=== PATIENT | female | born 1955 | race Two or more races ===

== ENCOUNTER 2017-02-08 07:33 | Emergency (ER) | payer MEDICAID, OTHER ==
[~2017-02-08] VITALS: Ht 149.9 cm; Wt 63.5 kg
[~2017-02-08 07:33] MED LIST: ACETAMINOPHEN-1 EAC1 ORAL; ALBUTEROL SULF8.5 GM INH; AZITHROMYCIN250 MG ORAL; BENTYL10 MG ORAL; IBUPROFEN600 MG ORAL; MEDROL DOSEPAK4 MG ORAL; NORCO 5-325 TA1 EAC1 ORAL; PROMETHAZINE-C118 M1 ORAL; RANITIDINE HCL150 MG ORAL; TYLENOL EXTRA500 MG ORAL; ZANTAC150 MG ORAL; ZOFRAN ODT4 MG ORAL; ZOFRAN4 MG ORAL
--- NOTE | 2017-02-08 07:46 | Emergency Room Report ---
History of Present Illness General Chief Complaint: Abdominal Pain Source: Patient Present Illness HPI 62 YO F with generalized abd pain, nausea and vomiting with diarrhea for 24 hours. Pain acutely worse for last 4 hours, is epigastric/midline, non- radiating. Patient unsure if different from her typical gastritis type pain; but hasnt taken meds for Gastritis in "long time." Denies urinary complaints, previous abd/pelvic surgery. Allergies: Coded Allergies: PENICILLIN (Verified Allergy, Unknown, 12/01/15) SHELLFISH (Verified Allergy, Unknown, 12/01/15) Patient History Past Medical History: other - Gastritis Past Surgical History: none Pertinent Family History: none Social History: Denies: alcohol use, drug use, smoking Last Menstrual Period: na Now: No Immunizations: UTD Reviewed Nursing Documentation: PMH: Agreed, PSxH: Agreed Nursing Documentation-PMH Hx Gastrointestinal Problems: Yes - gastric ulcer Review of Systems All Other Systems: negative except mentioned in HPI Physical Exam Vital Signs Date Time Temp Pulse Resp B/P Pulse Ox O2 Delivery O2 Flow Rate FiO2 02/08/17 07:41 97.2 63 22 125/61 99 Room Air Sp02 EP Interpretation: reviewed, normal General Appearance: normal inspection, well appearing, alert, GCS 15, non-toxic , mild distress, other - crying, writhing on stretcher Head: normocephalic, atraumatic Eyes: bilateral eye EOMI, bilateral eye PERRL ENT: normal ENT inspection, hearing grossly normal, normal voice, moist mucus membranes Neck: normal inspection, full range of motion, supple, no bony tend Respiratory: normal inspection, lungs clear, normal breath sounds, no respiratory distress, no retraction, no wheezing Cardiovascular #1: regular rate, rhythm, no edema Gastrointestinal: normal inspection, normal bowel sounds, soft, no mass, non- distended, no guarding, no hernia, no pulsatile mass, no rebound, other - ++ epigastric/midline ttp. No posterior ecchymoses Genitourinary: no CVA tenderness Musculoskeletal: normal inspection, back normal, normal range of motion, Raffaele' s Sign negative Neurologic: normal inspection, alert, oriented x3, responsive, balance bridge assembler III-XII nml as tested, motor strength/tone normal, speech normal Psychiatric: normal inspection, judgement/insight normal, mood/affect normal Skin: normal inspection, normal color Lymphatic: normal inspection Medical Decision Making Diagnostic Impression: Primary Impression: Abdominal pain Qualified Codes: R10.13 - Epigastric pain Additional Impressions: Nausea vomiting and diarrhea Colitis Enteritis ER Course 62 YO F with progressive worsening of epigastric/midline pain with nausea/ vomiting/diarrhea. VSS. Afebrile Focal midline ttp DDx gastritis, ulcers, colitis, AMI, appy, denzel PLAN Labs, UA, analgesia, anti-emetic, CTAP EKG Diagnostic Results Rate: normal Rhythm: NSR ST Segments: no acute changes Rhythm Strip Diag. Results EP Interpretation: yes Rate: 78 Rhythm: NSR, no PVC's, no ectopy Chest X-Ray Diagnostic Results EP Interpretation: Yes Findings: no consolidation, no effusion, no pneumothorax, no acute cardiopulmonary disease, other - no perforation Number of Views: 1 Reevaluation Time: 10:21 Last Vital Signs Date Time Temp Pulse Resp B/P Pulse Ox O2 Delivery O2 Flow Rate FiO2 02/08/17 07:41 97.2 63 22 125/61 99 Room Air Status: improved Reevaluation Impression Labs: Leuks 18k. Normal H&H. Lipase, LFTs normal CTAP c/w colitis, enteritis. GB wall thickening but no stones or CBD dilatation Empiric Levo/flagyl given IVF hydration given Endorsed to Dr Gaston at [facility] for med/surg admission/ transfer at 1039am patient stable for transfer Disposition: ADMITTED INPATIENT Condition: Serious NAHED VIRK M.D. Feb 08, 2017 07:46
[2017-02-08] MEDS ORDERED: Morphine Sulfate 4mg/ml Inj IVP ONE (08:00)
[2017-02-08] MEDS ORDERED: Famotidine 20 MG/ 2ML VIAL IVP ONE (08:00)
[2017-02-08 08:31] LABS: MEAN CORPUSCULAR HGB CONC 31.7 G/DL (32.0-36.0); MEAN CORPUSCULAR VOLUME 85 FL (80-99); MEAN PLATELET VOLUME 7.9 FL (6.5-10.1); PLATELET COUNT 149 K/UL (150-450); RED BLOOD COUNT 4.97 M/UL (4.20-5.40); RED CELL DISTRIBUTION WIDTH 14.1 % (11.6-14.8); WHITE BLOOD COUNT 18.1 K/UL (4.8-10.8)
[2017-02-08 08:34] VITALS: BP 125/56
[2017-02-08] MEDS ORDERED: metroNIDAZOLE 500mg 100 ML IV STA (08:40)
[2017-02-08] MEDS ORDERED: LR 1000ml 1,000 ML IV STA (08:43)
[2017-02-08] MEDS ORDERED: LR 1000ml 1,000 ML IV SCH (08:45)
[2017-02-08 08:47] LABS: ALANINE AMINOTRANSFERASE 30 U/L (3-33); ALBUMIN/GLOBULIN RATIO 1.3 (1.0-2.7); ANION GAP 14 (5-15); ASPARTATE AMINO TRANSFERASE 27 U/L (5-40); CARBON DIOXIDE 28 mEQ/L (20-30); CHLORIDE 99 mEQ/L (98-107); CREATININE 0.7 mg/dL (0.5-0.9); GLOMERULAR FILTRATION RATE > 60 mL/min (>60); HEMOLYSIS 12; LIPASE 25 U/L (< 60); POTASSIUM 3.7 mEQ/L (3.4-4.9); SODIUM 141 mEQ/L (135-145); TOTAL PROTEIN 7.5 g/dL (6.6-8.7); TROPONIN I < 0.30 ng/mL (<=0.30)
[2017-02-08 08:53] LABS: REFLEX LACTIC ACID YES OR NO YES
[2017-02-08] MEDS ORDERED: Pantoprazole Inj IVP ONE (09:00)
--- NOTE | 2017-02-08 09:44 | Diagnostic Imaging Report ---
Indication: Chest pain Technique: One view of the chest Comparison: none Findings: Lungs and pleural spaces are clear. Heart size is normal Impression: No acute process
[2017-02-08 09:48] LABS: BAND NEUTROPHILS % (MANUAL) 0 % (0-8); BASOPHILS % (MANUAL) 0 % (0-2); EOSINOPHILS % (MANUAL) 0 % (0-3); LYMPHOCYTES % (MANUAL) 10 % (20-45); NEUTROPHILS % (MANUAL) 84 % (45-75); PLATELET ESTIMATE ADEQUATE; PLATELET MORPHOLOGY NORMAL; TOTAL CELLS COUNTED 100
[2017-02-08 09:51] LABS: HYPOCHROMASIA 1+
--- NOTE | 2017-02-08 10:19 | Diagnostic Imaging Report ---
Clinical Indication: Generalized abdominal pain, nausea, vomiting and diarrhea x24 hours, worse over last 4 hours, epigastric midline nonradiating Technique: No oral contrast utilized, per emergency room physician request IV administration nonionic contrast. Venous phase spiral acquisition obtained through the abdomen and pelvis. Multiplanar reconstructions were generated. Total dose length product 761 mGycm. CTDIvol(s) 15 mGy Comparison: 12/21/2015 Findings: The appendix is normal. There is marked wall thickening of the cecum and ascending colon, to a lesser extent of the proximal to mid transverse colon. There is no evidence of diverticulosis or diverticulitis. The superior mesenteric artery and proximal branches appear to be patent. Some prominent lymph nodes are seen in the right lower quadrant mesentery. Small bowel loops are fluid-filled distally, somewhat prominent but not frankly dilated. No free or loculated intraperitoneal air or fluid. The distal esophagus joint and stomach are unremarkable. There is equivocally mild wall thickening of the duodenum. The gallbladder demonstrates mild edema of the wall. No definite gallstones. No biliary ductal dilatation. The liver is slightly hypoattenuating, more so than on the prior exam. The pancreas, spleen, left adrenal are unremarkable. Within the right adrenal, there is a tiny 5 mm fat attenuation nodule which is not clearly demonstrated previously. The kidneys are unremarkable. The uterus and adnexal structures are unremarkable. No pelvic mass or adenopathy. No retroperitoneal or mesenteric mass or adenopathy. The included lung bases are clear. The bones demonstrate degenerative spondylosis changes. Impression: Marked wall thickening of the cecum and ascending colon and proximal to mid transverse colon, consistent with colitis, nonspecific as regards etiology. Noted. Patency of the proximal mesenteric vessels. Fluid-filled slightly prominent distal small bowel loops, may indicate a component of enteritis Prominent right lower quadrant lymph nodes, probably reactive. Clinical mild duodenal wall thickening, possibly an artifact of under distention but duodenitis possibility Mild hepatic hypoattenuation, consistent with mild fatty change 5 mm right adrenal nodule, demonstrates fat attenuation, consistent with a small myelolipoma Degenerative spondylosis changes The CT scanner at [facility] [place] [facility] is accredited by the [employer] and the scans are performed using protocols designed to limit radiation exposure to as low as reasonably achievable to attain images of sufficient resolution adequate for diagnostic evaluation.
[2017-02-08 10:44] LABS: APPEARANCE,URINE CLEAR; KETONES,URINE 2+ (NEGATIVE); LEUKOCYTE ESTERASE ,URINE NEGATIVE (NEGATIVE); NITRITE,URINE NEGATIVE (NEGATIVE); PH,URINE 8 (4.5-8.0); PROTEIN,URINE 2+ (NEGATIVE); UROBILINOGEN,URINE NORMAL MG/DL (0.0-1.0)
[2017-02-08 10:58] LABS: BACTERIA,URINE OCCASIONAL /HPF; SQUAMOUS EPITHELIAL CELL,UR OCCASIONAL /LPF (NONE/OCC); WBC,URINE 0-2 /HPF (0 - 2)
[2017-02-08 11:12] VITALS: BP 126/60
[2017-02-08] MEDS ORDERED: Metoclopramide 10mg/2ml Inj ONE (11:28)
[2017-02-08] MEDS ORDERED: Metoclopramide 10mg/2ml Inj IVP ONE (11:45)
[2017-02-08] MEDS ORDERED: Solu-MEDROL 125mg Inj IVP ONE (11:45)
[2017-02-08] MEDS ORDERED: DiphenhydrAMINE 50mg/ml Inj IVP ONE (11:45)
[2017-02-08 12:05] VITALS: BP 144/80
--- NOTE | 2017-02-13 18:28 | Cardiology Report ---
APPROVED REPORT EKG Measurement Heart [id number] PA 144P23 [id number] Normal sinus rhythm Normal ECG
== END 2017-02-08 12:10 | disposition short-term general hospital (02) ==
LOC: EMR 07:54
DX: K52.9 Noninfective gastroenteritis and colitis, unspecified (principal); Z87.11 Personal history of peptic ulcer disease; Z88.0 Allergy status to penicillin; Z91.013 Allergy to seafood; R11.2 Nausea with vomiting, unspecified
CPT/HCPCS: 36415; 71010; 74177; 80053; 80300; 81003; 83605; 83690; 84484; 85007; 85025; 87040; 93005; 99285; C9113; J1200; J1956; J2270; J2405; J2765; J2930; J7120; Q9967; S0028

== ENCOUNTER 2017-04-14 17:14 | Emergency (ER) | payer OTHER ==
[~2017-04-14] VITALS: Ht 149.9 cm; Wt 60.3 kg
[2017-04-14] MEDS ORDERED: CARAFATE1 G1 ORAL (17:22)
[2017-04-14] MEDS ORDERED: OMEPRAZOLE40 M1 ORAL (17:22)
[2017-04-14] MEDS ORDERED: Morphine Sulfate 2mg/ml Inj IVP ONE (17:30)
[2017-04-14] MEDS ORDERED: Famotidine 20 MG/ 2ML VIAL IVP ONE (17:30)
[2017-04-14] MEDS ORDERED: LORazepam Inj 2mg/ml 1ml IV ONE (17:30)
--- NOTE | 2017-04-14 17:38 | Emergency Room Report ---
History of Present Illness General Chief Complaint: Abdominal Pain Source: Patient, Family Member Present Illness HPI The patient presents with abdominal pain. Epigastric. She has a history of gastritis and gastric ulcer. She's been vomiting all day. She is trouble keeping fluids at this time. In addition she is complaining of tingling around her mouth and also in her hands. This has happened before. There is also pain in her jaw. There is no pain in her chest. Her pain in her epigastric area is 10/10 and burning and constant. No vomiting blood, coffee grounds or melena. She denies any fevers or chills. Concerned about what could be causing the numbness in her mouth and hands. No unilateral weakness and she has no difficulty with speaking. In past treated with omeprazole and sucrafate (also zantac). Not able to take analgesics today. Initially she denied having pain in her jaw today but then later on she was saying with she does have jaw pain that started about 4 PM tonight. She also is complaining of headache. The headache is less than the epigastric and jaw pain. She has been admitted for gastritis/colitis and a CT was done 02/04. She had some reaction to either flagyl or levaquin at that time. No rashes, extremity pain or swelling. No diabetes, smoking, hypertension. Allergies: Coded Allergies: PENICILLIN (Verified Allergy, Unknown, 12/01/15) SHELLFISH (Verified Allergy, Unknown, 12/01/15) Patient History Past Medical History: see triage record Social History: Denies: smoking Social History Narrative with sister Reviewed Nursing Documentation: PMH: Agreed, PSxH: Agreed Nursing Documentation-PMH Hx Gastrointestinal Problems: Yes - gastric ulcer Review of Systems All Other Systems: negative except mentioned in HPI Physical Exam Vital Signs Date Time Temp Pulse Resp B/P Pulse Ox O2 Delivery O2 Flow Rate FiO2 04/14/17 17:19 97.7 78 20 129/73 100 Room Air Sp02 EP Interpretation: reviewed, normal General Appearance: well appearing, GCS 15, mild distress Head: normocephalic Eyes: bilateral eye PERRL, bilateral eye normal inspection ENT: moist mucus membranes Neck: supple Respiratory: lungs clear, normal breath sounds Cardiovascular #1: regular rate, rhythm Cardiovascular #2: 2+ radial (R) Gastrointestinal: normal inspection, normal bowel sounds, no mass, non- distended, no rebound, guarding - epigastric Musculoskeletal: back normal, gait/station normal, normal range of motion Neurologic: alert, oriented x3, motor strength/tone normal, DTRs symmetric, sensory intact, cerebellar normal, normal gait, speech normal Psychiatric: anxious Skin: normal inspection, warm/dry Medical Decision Making Diagnostic Impression: Primary Impression: Jaw pain rule out acute coronary syndrome Additional Impressions: Gastritis Qualified Codes: K29.00 - Acute gastritis without bleeding Headache Qualified Codes: R51 - Headache ER Course The patient presents with vomiting and epigastric pain along with numbness around her mouth. She's been seen in the past for gastritis and gastric ulcer. Differential includes acute myocardial infarction, acute coronary syndrome, gastritis, referred pain from gastritis, dental problems amongst others. She requires urgent evaluation for acute coronary syndrome. In addition to that she 'll be treated with medications for pain and also Pepcid. EKG is abnormal - suggestive of inferior ischemia. This is not a STEMI. This is be repeated when the patient feels better. The patient is better but still has headache and jaw pain. Repeat EKG was done which has some normalization of the prior ischemic changes. Troponin is negative. Chest x-ray is unremarkable. EKG from 02/04 with similar changes but not as pronounced. Based on the fact that the EKG changes with her symptomatology the patient will be transferred. The patient was discussed with Dr. Blood who accepts the patient. Patient vomiting here again. Reglan and benadryl given. Improved prior to transfer. Laboratory Tests Test 04/14/17 18:00 04/14/17 18:10 Urine Color Pale yellow Urine Appearance Clear Urine pH 7 (4.5-8.0) Urine Specific [place] 1.010 (1.005-1.035) Urine Protein Negative (NEGATIVE) Urine Glucose (UA) Negative (NEGATIVE) Urine Ketones 1+ (NEGATIVE) H Urine Occult Blood Negative (NEGATIVE) Urine Nitrite Negative (NEGATIVE) Urine Bilirubin Negative (NEGATIVE) Urine Urobilinogen Normal MG/DL (0.0-1.0) Urine Leukocyte Esterase Negative (NEGATIVE) White Blood Count 9.3 K/UL (4.8-10.8) Red Blood Count 4.60 M/UL (4.20-5.40) Hemoglobin 13.0 G/DL (12.0-16.0) Hematocrit 38.3 % (37.0-47.0) Mean Corpuscular Volume 83 FL (80-99) Mean Corpuscular Hemoglobin 28.3 PG (27.0-31.0) Mean Corpuscular Hemoglobin Concent 34.0 G/DL (32.0-36.0) Red Cell Distribution Width 14.5 % (11.6-14.8) Platelet Count 209 K/UL (150-450) Mean Platelet Volume 6.8 FL (6.5-10.1) Neutrophils (%) (Auto) 69.1 % (45.0-75.0) Lymphocytes (%) (Auto) 22.5 % (20.0-45.0) Monocytes (%) (Auto) 5.9 % (1.0-10.0) Eosinophils (%) (Auto) 1.7 % (0.0-3.0) Basophils (%) (Auto) 0.8 % (0.0-2.0) Sodium Level 139 mEQ/L (135-145) Potassium Level 4.5 mEQ/L (3.4-4.9) Chloride Level 101 mEQ/L (98-107) Carbon Dioxide Level 27 mEQ/L (20-30) Anion Gap 11 (5-15) Blood Urea Nitrogen 11 mg/dL (7-23) Creatinine 0.6 mg/dL (0.5-0.9) Estimate Glomerular Filtration Rate > 60 mL/min (>60) Glucose Level 109 mg/dL (74-106) H Calcium Level 10.2 mg/dL (8.6-10.2) Total Bilirubin 0.3 mg/dL (0.0-1.2) Aspartate Amino Transferase (AST) 14 U/L (5-40) Alanine Aminotransferase (ALT) 16 U/L (3-33) Alkaline Phosphatase 94 U/L (35-104) Troponin I < 0.30 ng/mL (<=0.30) Total Protein 7.4 g/dL (6.6-8.7) Albumin 3.8 g/dL (3.5-5.2) Globulin 3.6 g/dL Albumin/Globulin Ratio 1.0 (1.0-2.7) Lipase 29 U/L (< 60) EKG Diagnostic Results Rate: normal Rhythm: NSR ST Segments: other - ST changes inferiorly - suggests ischemia, strain or hyperventilation ASA given to the pt in ED: Yes Rhythm Strip Diag. Results EP Interpretation: yes Chest X-Ray Diagnostic Results EP Interpretation: Yes Findings: no consolidation, no effusion, no pneumothorax, no acute cardiopulmonary disease Number of Views: 1 Last Vital Signs Date Time Temp Pulse Resp B/P Pulse Ox O2 Delivery O2 Flow Rate FiO2 04/14/17 23:31 97.7 79 21 101/39 99 Room Air Status: improved Disposition: [facility] Condition: Serious - but stable for transfer Hema Lima M.D. April 14, 2017 17:38
[2017-04-14 19:00] VITALS: BP 121/64
[2017-04-14 19:03] LABS: BASOPHILS % (AUTO) 0.8 % (0.0-2.0); EOSINOPHILS % (AUTO) 1.7 % (0.0-3.0); LYMPHOCYTES % (AUTO) 22.5 % (20.0-45.0); MEAN CORPUSCULAR HEMOGLOBIN 28.3 PG (27.0-31.0); MEAN CORPUSCULAR VOLUME 83 FL (80-99); MEAN PLATELET VOLUME 6.8 FL (6.5-10.1); MONOCYTES % (AUTO) 5.9 % (1.0-10.0); NEUTROPHILS % (AUTO) 69.1 % (45.0-75.0); PLATELET COUNT 209 K/UL (150-450); RED CELL DISTRIBUTION WIDTH 14.5 % (11.6-14.8); WHITE BLOOD COUNT 9.3 K/UL (4.8-10.8)
[2017-04-14 19:06] LABS: APPEARANCE,URINE CLEAR; KETONES,URINE 1+ (NEGATIVE); LEUKOCYTE ESTERASE ,URINE NEGATIVE (NEGATIVE); NITRITE,URINE NEGATIVE (NEGATIVE); PH,URINE 7 (4.5-8.0); PROTEIN,URINE NEGATIVE (NEGATIVE); UROBILINOGEN,URINE NORMAL MG/DL (0.0-1.0)
[2017-04-14 19:19] LABS: ALANINE AMINOTRANSFERASE 16 U/L (3-33); ANION GAP 11 (5-15); ASPARTATE AMINO TRANSFERASE 14 U/L (5-40); CALCIUM 10.2 mg/dL (8.6-10.2); CARBON DIOXIDE 27 mEQ/L (20-30); CHLORIDE 101 mEQ/L (98-107); CREATININE 0.6 mg/dL (0.5-0.9); GLOMERULAR FILTRATION RATE > 60 mL/min (>60); HEMOLYSIS 2; LIPASE 29 U/L (< 60); POTASSIUM 4.5 mEQ/L (3.4-4.9); SODIUM 139 mEQ/L (135-145); TOTAL PROTEIN 7.4 g/dL (6.6-8.7)
[2017-04-14] MEDS ORDERED: Morphine Sulfate 4mg/ml Inj IVP ONE (19:45)
[2017-04-14] MEDS ORDERED: Nitroglycerin 2% oint pkt TOPIC ONE (20:00)
[2017-04-14 20:50] LABS: TROPONIN I < 0.30 ng/mL (<=0.30)
[2017-04-14] MEDS ORDERED: Metoclopramide 10mg/2ml Inj IVP ONE (21:15)
[2017-04-14] MEDS ORDERED: DiphenhydrAMINE 50mg/ml Inj IVP ONE (21:15)
[2017-04-14 21:32] VITALS: BP_SYST 103; BP_DIAS 46; BP_DIAS 96
[2017-04-14 23:31] VITALS: BP 101/39
--- NOTE | 2017-04-15 12:45 | Diagnostic Imaging Report ---
Indication: Chest pain Technique: One view of the chest Comparison: 02/08/2017 Findings: Lungs and pleural spaces are clear. Heart size is upper limits normal . No significant change Impression: No acute process
--- NOTE | 2017-04-15 18:57 | Cardiology Report ---
APPROVED REPORT EKG Measurement Heart [id number] CT 188P52 [id number] Normal sinus rhythm Abnormal ECG
--- NOTE | 2017-04-15 18:59 | Cardiology Report ---
APPROVED REPORT EKG Measurement Heart [id number] [place] 176P53 [id number] Normal sinus rhythm Normal ECG
== END 2017-04-14 23:15 | disposition short-term general hospital (02) ==
LOC: ENRESERVTM → ENRESERVDT → EMR 17:45 → EDBEDREQ 19:55 → EMR 23:15
DX: R68.84 Jaw pain (principal); K29.70 Gastritis, unspecified, without bleeding; R51 Headache; F41.9 Anxiety disorder, unspecified; Z88.0 Allergy status to penicillin; Z91.013 Allergy to seafood; Z87.19 Personal history of other diseases of the digestive system
CPT/HCPCS: 36415; 71010; 80053; 81003; 83690; 84484; 85025; 93005; 96360; 96374; 96375; 99285; J1200; J2270; J2405; J2765; S0028

== ENCOUNTER 2017-06-08 12:08 | Inpatient (IN) | payer OTHER ==
[~2017-06-08] VITALS: Ht 160 cm; Wt 54.1 kg
[~2017-06-08 12:08] MED LIST changes: +CARAFATE1 G1 ORAL; +OMEPRAZOLE40 M1 ORAL
[2017-06-08] MEDS ORDERED: VITAMIN C500 M1 ORAL (12:12)
[2017-06-08] MEDS ORDERED: FEROSUL325 M1 PO (12:13)
[2017-06-08] MEDS ORDERED: METOCLOPRA10 MG/10 M ORAL (12:13)
[2017-06-08] MEDS ORDERED: Morphine Sulfate 2mg/ml Inj IVP ONE (13:00)
[2017-06-08] MEDS ORDERED: Pantoprazole Inj IVP ONE (13:00)
[2017-06-08] MEDS ORDERED: Famotidine 20 MG/ 2ML VIAL IVP ONE (13:00)
[2017-06-08 13:56] LABS: MEAN CORPUSCULAR HEMOGLOBIN 27.3 PG (27.0-31.0); MEAN CORPUSCULAR HGB CONC 32.4 G/DL (32.0-36.0); MEAN CORPUSCULAR VOLUME 85 FL (80-99); MEAN PLATELET VOLUME 6.2 FL (6.5-10.1); PLATELET COUNT 244 K/UL (150-450); RED BLOOD COUNT 5.05 M/UL (4.20-5.40); RED CELL DISTRIBUTION WIDTH 15.4 % (11.6-14.8)
[2017-06-08 13:57] LABS: WHITE BLOOD COUNT 23.5 K/UL (4.8-10.8)
[2017-06-08 14:08] LABS: APPEARANCE,URINE CLEAR; KETONES,URINE 2+ (NEGATIVE); LEUKOCYTE ESTERASE ,URINE NEGATIVE (NEGATIVE); NITRITE,URINE NEGATIVE (NEGATIVE); PH,URINE 5 (4.5-8.0); PROTEIN,URINE 1+ (NEGATIVE); UROBILINOGEN,URINE NORMAL MG/DL (0.0-1.0)
[2017-06-08 14:12] LABS: BAND NEUTROPHILS % (MANUAL) 0 % (0-8); BASOPHILS % (MANUAL) 0 % (0-2); EOSINOPHILS % (MANUAL) 0 % (0-3); LYMPHOCYTES % (MANUAL) 4 % (20-45); NEUTROPHILS % (MANUAL) 89 % (45-75); PLATELET ESTIMATE ADEQUATE; PLATELET MORPHOLOGY NORMAL; TOTAL CELLS COUNTED 100
[2017-06-08 14:13] LABS: ANISOCYTOSIS 1+
[2017-06-08 14:16] LABS: BACTERIA,URINE FEW /HPF; SQUAMOUS EPITHELIAL CELL,UR FEW /LPF (NONE/OCC); WBC,URINE 0-2 /HPF (0 - 2)
--- NOTE | 2017-06-08 14:16 | Emergency Room Report ---
History of Present Illness General Chief Complaint: Abdominal Pain Source: Patient, Family Member, EMS Present Illness HPI 62YOF here with severe abd pain, states "my ulcer is acting up." Had endoscopy 2 months ago that showed "large gastric ulcer." Pain worse at night On medication but doesnt know the name Denies nausea/vomiting, fever/chills, diarrhea Denies previous abd surgery Allergies: Coded Allergies: PENICILLIN (Verified Allergy, Unknown, 12/01/15) PENICILLINS (Unverified Allergy, Unknown, 06/08/17) SHELLFISH (Verified Allergy, Unknown, 12/01/15) Patient History Past Medical History: other - Gastric ulcer? Past Surgical History: none Pertinent Family History: none Social History: Denies: alcohol use, drug use, smoking Now: No Immunizations: UTD Reviewed Nursing Documentation: PMH: Agreed, PSxH: Agreed Nursing Documentation-PMH Past Medical History: No History, Except For Hx Gastrointestinal Problems: Yes - GERD Review of Systems All Other Systems: negative except mentioned in HPI Physical Exam Vital Signs Date Time Temp Pulse Resp B/P Pulse Ox O2 Delivery O2 Flow Rate FiO2 06/08/17 12:01 97.3 84 20 124/78 99 Room Air Sp02 EP Interpretation: reviewed, normal General Appearance: normal inspection, well appearing, alert, GCS 15, non-toxic , mild distress Head: normocephalic, atraumatic Eyes: bilateral eye EOMI, bilateral eye PERRL ENT: normal ENT inspection, hearing grossly normal, normal voice Neck: normal inspection, full range of motion, supple, no bony tend Respiratory: normal inspection, lungs clear, normal breath sounds, no respiratory distress, no retraction, no wheezing Cardiovascular #1: regular rate, rhythm, no edema Gastrointestinal: normal inspection, normal bowel sounds, soft, no guarding, no hernia, other - generalized abd ttp. No rebound or guarding Genitourinary: no CVA tenderness Musculoskeletal: normal inspection, back normal, normal range of motion, Raffaele' s Sign negative Neurologic: normal inspection, alert, oriented x3, responsive, director data analytics III-XII nml as tested, motor strength/tone normal, speech normal Psychiatric: normal inspection, judgement/insight normal, mood/affect normal Skin: normal inspection, normal color, no rash Medical Decision Making Diagnostic Impression: Primary Impression: Abdominal pain Qualified Codes: R10.13 - Epigastric pain Additional Impressions: Sepsis Qualified Codes: A41.9 - Sepsis, unspecified organism Colitis, acute ER Course Abd pain - VSS. Afebrilel - Leuks very elevated - CXR: no free air - CTAP: ascending colitis. Abx given Endorsed to Dr Montalvo for transfer to [facility] at 307pm Rhythm Strip Diag. Results EP Interpretation: yes Rate: 75 Rhythm: NSR, no PVC's, no ectopy Chest X-Ray Diagnostic Results Chest X-Ray Diagnostic Results : Chest X-Ray Ordered: Yes # of Views/Limited/Complete: 1 View Indication: Other - Abd pain EP Interpretation: Yes Interpretation: no consolidation, no effusion, no pneumothorax, no acute cardiopulmonary disease, other - no free aur Impression: No acute disease Interpreting ER Provider: Electronically signed by DR Virk Last Vital Signs Date Time Temp Pulse Resp B/P Pulse Ox O2 Delivery O2 Flow Rate FiO2 06/08/17 12:01 97.3 84 20 124/78 99 Room Air Status: improved Disposition: ADMITTED INPATIENT Condition: Critical Referrals: [facility],REFERRING (PCP) NAHED VIRK M.D. Jun 08, 2017 14:16
[2017-06-08 14:24] LABS: ALANINE AMINOTRANSFERASE 15 U/L (3-33); ALBUMIN/GLOBULIN RATIO 1.1 (1.0-2.7); ANION GAP 14 (5-15); ASPARTATE AMINO TRANSFERASE 15 U/L (5-40); CALCIUM 9.9 mg/dL (8.6-10.2); CARBON DIOXIDE 23 mEQ/L (20-30); CHLORIDE 101 mEQ/L (98-107); CREATININE 0.8 mg/dL (0.5-0.9); GLOMERULAR FILTRATION RATE > 60 mL/min (>60); HEMOLYSIS 9; LIPASE 17 U/L (< 60); POTASSIUM 3.4 mEQ/L (3.4-4.9); SODIUM 138 mEQ/L (135-145); TOTAL PROTEIN 7.7 g/dL (6.6-8.7)
[2017-06-08] MEDS ORDERED: HYDROmorphone 1mg/ml Carpuject IVP ONE (14:30)
[2017-06-08] MEDS ORDERED: Clindamycin 900mg 50 ML IVPB ONE (14:30)
[2017-06-08 15:03] VITALS: BP_SYST 124; BP_SYST 141; BP_DIAS 37; BP_DIAS 78
[2017-06-08] MEDS ORDERED: metroNIDAZOLE 500mg tab ORAL ONE (15:15)
--- NOTE | 2017-06-08 15:40 | Diagnostic Imaging Report ---
Clinical Indication: Abdominal pain Technique: No oral contrast utilized, per emergency room physician request IV administration nonionic contrast. Venous phase spiral acquisition obtained through the abdomen and pelvis. Multiplanar reconstructions were generated. Total dose length product 704 mGycm. CTDIvol(s) 15 mGy. Dose reduction achieved using automated exposure control Comparison: 02/08/2017 Findings: Lack of enteric contrast limits assessment of the GI tract. There is diffuse wall thickening of the ascending colon. This appears similar to the previous study. Distal to this, the remainder the colon appears more normal in thickness. There is a moderate amount of retained stool in the distal colon. Mid jejunal loops are dilated, containing small bowel feces. There is a transition to more normal caliber distal small bowel in in the left midabdomen. This is best appreciated on axial images 43 through 47, coronal 17 through 20. Distal to this, the jejunum remains mildly thickwalled for a short length. These findings are new. The ileum is collapsed. A small amount of fluid is seen posterior to the pancreas and splenic vein, anterior to the left adrenal an upper pole of the left kidney. The appendix is normal. Again demonstrated are subtle scattered colonic diverticula. No evidence of diverticulitis. No free or loculated intraperitoneal air is evident. Again demonstrated is diffuse hepatic low attenuation. No focal abnormality. Previously demonstrated possible gallbladder wall edema is not evident previously. The common bile duct is mildly ectatic, measuring 8 mm diameter. No downstream obstructing lesion demonstrated. The pancreatic duct is likewise mildly ectatic, similar to previous. No focal pancreatic abnormality. Interim development of an area of low attenuation in the anterior superior spleen, which measures 3.4 x 2.4 cm. The right adrenal demonstrates a 5 mm fat attenuation nodule, also evident previously the left adrenal is unremarkable. The left kidney demonstrates tiny subcentimeter low-attenuation lesions, too small to characterize. The right kidney is unremarkable. No mesenteric or retroperitoneal mass or adenopathy. No pelvic mass or adenopathy. The included lung bases are clear. The bones demonstrate degenerative spondylosis changes. Impression: Dilated mid jejunal bowel loops, contains small bowel feces is some stasis of contents. Transition to normal caliber distal jejunum is noted, tapered rather than abrupt. Mild wall thickening distal to this. Findings may represent enteritis changes. However, degree of dilatation and evidence of stasis raises concern for small bowel obstruction. Fluid tracking posterior to the splenic vein anterior the left adrenal. Suspect related to the above Findings consistent with ascending colitis. This was also evident on the previous exam in January and appears similar. Diffuse underlying neoplasm should also be considered, although this is less likely Splenic low-attenuation lesion, new since 2017 exam. Suspect that this represents a focal splenic infarct. Hepatic steatosis, again demonstrated Left renal subcentimeter low-attenuation lesions, too small to characterize, most likely benign simple cyst. No further followup necessary, probable tiny right adrenal myelolipoma The CT scanner at [facility] is accredited by the [employer] and the scans are performed using protocols designed to limit radiation exposure to as low as reasonably achievable to attain images of sufficient resolution adequate for diagnostic evaluation.
[2017-06-08 16:33] LABS: PROTHROMBIN TIME 10.7 SEC (9.30-11.50)
[2017-06-08] MEDS ORDERED: Mylanta II UD 30ml ORAL PRN (16:45)
[2017-06-08] MEDS ORDERED: Amikacin Rx to dose MISC PRN (16:45)
[2017-06-08] MEDS ORDERED: Miralax 17gm pkt ORAL PRN (16:45)
[2017-06-08] MEDS ORDERED: Nitroglycerin Subl 0.4mg tab (Bottle Of 25) SL PRN (16:45)
--- NOTE | 2017-06-08 16:49 | Diagnostic Imaging Report ---
Indication: Chest pain Technique: One view of the chest Comparison: 04/14/2017 Findings: Lungs and pleural spaces are clear. Heart size is normal. No significant interim change Impression: No acute process
--- NOTE | 2017-06-08 16:54 | General Progress Note ---
Progress Note Progress Note Consult dictated [id number] . Pt has an enteritis along with ascending colitis. She allegedly has a gastric ulcer. Ther is no need for surgical intervention at this time. She needs to be seen by the photographic technician. Abraham Donohue MD Jun 08, 2017 16:54
[2017-06-08 17:00] VITALS: BP 131/59
[2017-06-08] MEDS: D5 1/2NS 1,000 ML IV SCH (17:24)
--- NOTE | 2017-06-08 18:37 | History and Physical ---
History of Present Illness General Date patient seen: Jun 08, 2017 Reason for Hospitalization: Abdominal Pain Present Illness HPI 62 year old female with hx of gastric ulcer presented to ER with CC of severe abd pain, states "my ulcer is acting up." Had endoscopy 2 months ago that showed "large gastric ulcer." Pain worse at night. She had a CT scan in ER showing colitis and enteritis. Since she was tachycardic she is admitted to telemetry. Allergies: Coded Allergies: PENICILLIN (Verified Allergy, Unknown, 12/01/15) PENICILLINS (Unverified Allergy, Unknown, 06/08/17) SHELLFISH (Verified Allergy, Unknown, 12/01/15) Uncoded Allergies: Mints (Allergy, Unknown, 06/09/17) Medication History Scheduled Albuterol Sulfate* (Albuterol Sulfate Mdi*), 2 PUFF INH Q6H Ascorbic Acid* (Vitamin C*), 500 MG ORAL DAILY, (Reported) Azithromycin* (Zithromax*), 250 MG ORAL DAILY Dicyclomine Hcl* (Bentyl*), 10 MG ORAL TID Ibuprofen* (Motrin*), 600 MG ORAL THREE TIMES A DAY Methylprednisolone (Methylprednisolone*), 4 MG ORAL .as directed Metoclopramide Hcl* (Metoclopramide Hcl*), 10 MG ORAL EVERY 6 HOURS, (Reported) Omeprazole (Omeprazole), 20 MG ORAL DAILY, (Reported) Ranitidine Hcl* (Zantac*), 150 MG ORAL TWICE A DAY Ranitidine Hcl* (Zantac*), 150 MG ORAL DAILY Sucralfate* (Carafate*), 1 GM ORAL FOUR TIMES A DAY, (Reported) Scheduled PRN Acetaminophen With Codeine (T#3) (Tylenol #3 Tab*), 1 TAB ORAL Q8H PRN for For Pain Acetaminophen* (Tylenol Extra Strength*), 500 MG ORAL Q6H PRN for Mild Pain/ Temp > 100.5 Codeine/Promethazine Hcl* (Promethazine-Codeine Syrup*), 5 ML ORAL Q6H PRN for For Cough Hydrocodone Bit/Acetaminophen 5-325* (Hardy 5-325 Tablet*), 1 TAB ORAL Q8HR PRN for For Pain Ibuprofen* (Motrin*), 600 MG ORAL Q8H PRN for For Pain Ondansetron (Zofran), 4 MG ORAL Q4HR PRN for Nausea & Vomiting Ondansetron Odt* (Zofran Odt*), 4 MG ORAL Q6H PRN for Nausea & Vomiting Ondansetron Odt* (Zofran Odt*), 4 MG ORAL Q6H PRN for Nausea & Vomiting Miscellaneous Medications Ferrous Sulfate (Ferosul), 325 MG PO, (Reported) Patient History Healthcare decision maker Resuscitation status Advanced Directive on File Past Medical/Surgical History Past Medical/Surgical History: (1) Gastroenteritis Review of Systems Gastrointestinal: Reports: abdominal pain All Other Systems: negative except mentioned in HPI Physical Exam General Appearance: WD/WN, no apparent distress Lines, tubes and drains: peripheral HEENT: normocephalic, atraumatic Neck: non-tender, normal alignment Respiratory/Chest: chest wall non-tender, lungs clear Breasts: no masses Cardiovascular/Chest: normal peripheral pulses Abdomen: normal bowel sounds, non tender Extremities: normal range of motion, non-tender Skin Exam: normal pigmentation Last 24 Hour Vital Signs Date Time Temp Pulse Resp B/P Pulse Ox O2 Delivery O2 Flow Rate FiO2 06/08/17 18:35 98.0 108 21 126/71 100 Room Air 06/08/17 17:00 98.0 107 19 131/59 100 Room Air 06/08/17 15:03 97.1 108 32 141/37 100 Room Air 06/08/17 12:01 97.3 84 20 124/78 99 Room Air Laboratory Tests Test 06/08/17 13:30 06/08/17 15:45 White Blood Count 23.5 K/UL (4.8-10.8) *H Red Blood Count 5.05 M/UL (4.20-5.40) Hemoglobin 13.8 G/DL (12.0-16.0) Hematocrit 42.7 % (37.0-47.0) Mean Corpuscular Volume 85 FL (80-99) Mean Corpuscular Hemoglobin 27.3 PG (27.0-31.0) Mean Corpuscular Hemoglobin Concent 32.4 G/DL (32.0-36.0) Red Cell Distribution Width 15.4 % (11.6-14.8) H Platelet Count 244 K/UL (150-450) Mean Platelet Volume 6.2 FL (6.5-10.1) L Neutrophils (%) (Auto) % (45.0-75.0) Lymphocytes (%) (Auto) % (20.0-45.0) Monocytes (%) (Auto) % (1.0-10.0) Eosinophils (%) (Auto) % (0.0-3.0) Basophils (%) (Auto) % (0.0-2.0) Differential Total Cells Counted 100 Neutrophils % (Manual) 89 % (45-75) H Lymphocytes % (Manual) 4 % (20-45) L Monocytes % (Manual) 7 % (1-10) Eosinophils % (Manual) 0 % (0-3) Basophils % (Manual) 0 % (0-2) Band Neutrophils 0 % (0-8) Platelet Estimate Adequate Platelet Morphology Normal Anisocytosis 1+ Urine Color Pale yellow Urine Appearance Clear Urine pH 5 (4.5-8.0) Urine Specific [place] 1.015 (1.005-1.035) Urine Protein 1+ (NEGATIVE) H Urine Glucose (UA) 4+ (NEGATIVE) H Urine Ketones 2+ (NEGATIVE) H Urine Occult Blood 2+ (NEGATIVE) H Urine Nitrite Negative (NEGATIVE) Urine Bilirubin Negative (NEGATIVE) Urine Urobilinogen Normal MG/DL (0.0-1.0) Urine Leukocyte Esterase Negative (NEGATIVE) Urine RBC 2-4 /HPF (0 - 2) H Urine WBC 0-2 /HPF (0 - 2) Urine Squamous Epithelial Cells Few /LPF (NONE/OCC) Urine Bacteria Few /HPF (NONE) Sodium Level 138 mEQ/L (135-145) Potassium Level 3.4 mEQ/L (3.4-4.9) Chloride Level 101 mEQ/L (98-107) Carbon Dioxide Level 23 mEQ/L (20-30) Anion Gap 14 (5-15) Blood Urea Nitrogen 14 mg/dL (7-23) Creatinine 0.8 mg/dL (0.5-0.9) Estimat Glomerular Filtration Rate > 60 mL/min (>60) Glucose Level 300 mg/dL (74-106) H Calcium Level 9.9 mg/dL (8.6-10.2) Total Bilirubin 0.5 mg/dL (0.0-1.2) Aspartate Amino Transf (AST/SGOT) 15 U/L (5-40) Alanine Aminotransferase (ALT/SGPT) 15 U/L (3-33) Alkaline Phosphatase 118 U/L (35-104) H Total Protein 7.7 g/dL (6.6-8.7) Albumin 4.1 g/dL (3.5-5.2) Globulin 3.6 g/dL Albumin/Globulin Ratio 1.1 (1.0-2.7) Lipase 17 U/L (< 60) Prothrombin Time 10.7 SEC (9.30-11.50) Prothromb Time International Ratio 1.0 (0.9-1.1) Activated Partial Thromboplast Time 27 SEC (23-33) Height (Feet): 5 Height (Inches): 3.00 Weight (Pounds): 130 Medications Current Medications Medications (Trade) Dose Ordered Sig/Michael Route PRN Reason Start Time Stop Time Status Last Admin Dose Admin Acetaminophen (Tylenol) 650 mg Q4H PRN ORAL fever 06/08/17 16:45 07/08/17 16:44 Al Hydroxide/Mg Hydroxide (Mylanta II) 30 ml Q6H PRN ORAL dyspepsia 06/08/17 16:45 07/08/17 16:44 Amikacin Protocol (Amikacin pharmacy to dose) 1 ea DAILY PRN MISC Per rx protocol 06/08/17 16:45 07/08/17 16:44 Amikacin Sulfate/ Sodium Chloride (Amikin/Sodium Chloride) 113 ml @ 226 mls/hr Q36H IV 06/08/17 22:00 06/15/17 21:59 Aztreonam 1 gm/ Sodium Chloride 55 ml @ 110 mls/hr EVERY 8 HOURS IVPB 06/08/17 22:00 06/15/17 21:59 Dextrose (Dextrose 50%) STAT PRN IV Hypoglycemia 06/08/17 16:45 07/08/17 16:44 Dextrose/Sodium Chloride (D5 0.45% NS) 1,000 ml @ 75 mls/hr [id number] IV 06/08/17 17:00 07/08/17 16:59 06/08/17 17:24 Diphenhydramine HCl (Benadryl) 25 mg Q6H PRN ORAL Itching/Pruritis 06/08/17 16:45 07/08/17 16:44 Heparin Sodium (Porcine) (Heparin 5000 units/ml) 5,000 units EVERY 12 HOURS SUBQ 06/08/17 21:00 07/08/17 20:59 Levofloxacin (Levaquin) 100 ml @ 100 mls/hr Q24H IVPB 06/09/17 15:00 06/16/17 14:59 Morphine Sulfate (Morphine Sulfate) 2 mg Q4H PRN IVP severe Pain (Pain Scale 7-10) 06/08/17 16:45 06/15/17 16:44 Nitroglycerin (Ntg) 0.4 mg Q5M X 3 DOSES PRN SL Prn Chest Pain 06/08/17 16:45 07/08/17 16:44 Ondansetron HCl (Zofran) 4 mg Q6H PRN IVP Nausea & Vomiting 06/08/17 16:45 07/08/17 16:44 Pantoprazole 40 mg 40 mg DAILY IVP 06/09/17 09:00 07/09/17 08:59 Polyethylene Glycol (Miralax) 17 gm HSPRN PRN ORAL Constipation 06/08/17 16:45 07/08/17 16:44 Temazepam (Restoril) 15 mg HSPRN PRN ORAL Insomnia 06/08/17 16:45 06/15/17 16:44 Vancomycin HCl 1 ea 1 ea DAILY PRN MISC PER RX PROTOCOL 06/08/17 17:45 07/08/17 17:44 Vancomycin HCl 1 gm/Dextrose 275 ml @ 183.3 mls/ hr Q24H IVPB 06/08/17 20:00 06/13/17 19:59 Assessment/Plan Problem List: (1) Abdominal pain ICD Codes: R10.9 - Unspecified abdominal pain SNOMED: 03609804 Qualifiers: Qualified Codes: R10.13 - Epigastric pain (2) Sepsis ICD Codes: A41.9 - Sepsis, unspecified organism SNOMED: 31856101 Qualifiers: Qualified Codes: A41.9 - Sepsis, unspecified organism (3) Gastroenteritis ICD Codes: K52.9 - Noninfective gastroenteritis and colitis, unspecified SNOMED: 26062074 Assessment/Plan npo IV antibiotics KUB GI and surgery evaluation IV fluids check stool cultures [place] MCRAE Jun 08, 2017 18:37
--- NOTE | 2017-06-08 19:52 | Consultation ---
Consult Note Consult Note ID Dic # [id number] JOSE ALFREDO FORMAN M.D. Jun 08, 2017 19:52
[2017-06-08] MEDS ORDERED: Vancomycin 1 GM in D5W 275 ML IVPB SCH (20:00)
[2017-06-08] MEDS: Morphine Sulfate 2mg/ml Inj IVP PRN (20:16)
[2017-06-08 20:30] VITALS: BP 118/64
[2017-06-08] MEDS: metroNIDAZOLE 500mg 100 ML IVPB SCH (21:23)
[2017-06-08] MEDS: Heparin 5000 units/ml inj SUBQ SCH (21:23)
--- NOTE | 2017-06-08 21:45 | Consultation ---
DATE OF CONSULTATION: 06/08/2017 SURGICAL CONSULTATION REASON FOR CONSULTATION: Abdominal pain and history of gastric ulcer. HISTORY OF PRESENT ILLNESS: This is a 62-year-old, female, who presents with a four-month history of recurring generalized abdominal pain. The pain became worse early this morning. She was accompanied by nausea and vomiting. She denied any symptoms of fever or chills. She denies any history of diarrhea. She has had some recent weight loss. PAST MEDICAL HISTORY: None. PREVIOUS SURGERIES: None. ALLERGIES: To penicillin and shell fish. MEDICATIONS: Include vitamin C 500 mg daily, Bentyl 10 mg t.i.d, ferrous sulfate 225 mg daily, ibuprofen 600 mg t.i.d., metoclopramide 10 mg, omeprazole 40 mg daily, Zofran 4 mg orally q.6 hours p.r.n., Zantac 150 mg daily and Sucralfate 1 g q.i.d. SOCIAL HISTORY: Tobacco, none. Alcohol, none. FAMILY HISTORY: Positive for diabetes. REVIEW OF SYSTEMS: Includes occasional headaches. There is no history of angina. She is a 0, para 0 female. Last menstrual period was at age 50. PHYSICAL EXAMINATION: GENERAL: Reveals a slender female, complaining of abdominal pain. VITAL SIGNS: Temperature 97.3 degrees, blood pressure 124/78, pulse 84, and respirations 20. HEENT: Normocephalic. Pupils are equal and reactive to light. There was no scleral icterus. NECK: Supple without adenopathy. LUNGS: Clear. HEART: Showed a regular rhythm without murmurs or gallops. ABDOMEN: Abdomen was flat. Bowel sounds are absent. There is tenderness throughout the abdomen more towards the left lower quadrant. There was no true guarding or rebound. EXTREMITIES: Showed no clubbing, cyanosis, or edema. Peripheral pulses were intact. LABORATORY AND DIAGNOSTIC DATA: CBC showed a white blood count of 23,500, hemoglobin 13.8 grams percent, hematocrit 42.7%, and platelet count 244,000. Clinical chemistry showed a sodium of 138, potassium 3.4, chloride 101, bicarbonate 23, BUN 14, creatinine 0.8, and glucose 300. Calcium 9.9. Total bilirubin 0.5. SGOT 16 and SGPT 50. Alkaline phosphatase is slightly elevated to 118. Albumin 4.1. Lipase is normal at 17. A CT scan of the abdomen and pelvis was done. There was diffuse wall thickening of the ascending colon, which was similar to a study 4 months ago. The mid jejunal loops were dilated containing small bowel feces. There was a transition to a more normal caliber distal small bowel in the left mid abdomen. The appendix was normal. There was an area of low attenuation in the anterior superior spleen suggestive of an infarct. There was no hydronephrosis. There was some fluid tracking posterior to the splenic vein and anterior to the left adrenal. IMPRESSION: Abdominal pain. The findings are more suggestive of an enteritis. No inflammatory bowel disease though lack of involvement of the terminal ileum. Seems to rule out Crohn disease. Other possibilities would be celiac sprue. PLAN: The patient needs to be seen by the fitness club manager. There is no need for surgical intervention at this time. Abraham Donohue M.D. DR: EDY JOB#: [id number] CC:
[2017-06-08] MEDS ORDERED: Aztreonam Inj 1 GM in NS 55 ML IVPB SCH (22:00)
[2017-06-08] MEDS ORDERED: Amikacin 750 MG in NS 110 ML IV SCH (22:00)
[2017-06-09] VITALS (17 sets, daily range): BP systolic 95–161; BP diastolic 44–78
[2017-06-09] MEDS: Morphine Sulfate 2mg/ml Inj IVP PRN ×3 (00:08→08:30)
--- NOTE | 2017-06-09 01:00 | Consultation ---
DATE OF CONSULTATION: INFECTIOUS DISEASE CONSULTATION CONSULTING PHYSICIAN: Whit Mclean M.D. REASON FOR CONSULTATION: Evaluation of the patient for enteritis, colitis, and antibiotic management. HISTORY OF PRESENT ILLNESS: The patient is a 62-year-old female with multiple medical problems as listed below, who was admitted to this medical center with slight anterior abdominal pain since today, associated with nausea and vomiting. One time, the patient's vomitus contained blood. The patient was admitted to this medical center for further care. CT scan of the abdomen shows dilated mid jejunum wall, mild wall thickening suggestive of enteritis, and ascending colitis. Chest x-ray was . Infectious Diseases consultation has been requested for further evaluation of the patient's antibiotic management. PAST MEDICAL HISTORY: Significant for: 1. GERD. 2. Gastric ulcer. MEDICATIONS: 1. Levaquin. 2. Aztreonam. 3. Amikacin. 4. Vancomycin. ALLERGIES: Penicillin and shellfish. FAMILY HISTORY: Noncontributing. REVIEW OF SYSTEMS: HEENT: No recent change in vision or hearing. Pulmonary: No cough or shortness of breath. Cardiovascular: No chest pain or palpitation. Gastrointestinal/Abdomen: The patient has nausea and vomiting as mentioned above. She has abdominal pain. No diarrhea at the time of exam. : No dysuria. Extremities: No cyanosis. Neurologic: Awake and alert. PHYSICAL EXAMINATION: VITAL SIGNS: Temperature 98 degrees, blood pressure 126/75, pulse 86, and respiratory rate 18. HEENT: No pale conjunctivae. No icterus. NECK: No lymphadenopathy. CHEST: Coarse breathing sounds. HEART: S1 and S2. ABDOMEN: The patient has all four quadrant tenderness with mild rebound. EXTREMITIES: No cyanosis at this time. NEUROLOGIC: Awake and alert. LABORATORY AND DIAGNOSTIC DATA: White blood cells 23, hemoglobin 13, and platelets 244,000. UA unremarkable. BUN 14 and creatinine 0.8. Lactic acid is pending. Blood culture is pending. ASSESSMENT: The patient is a 62-year-old female with: 1. Enteritis. 2. Colitis. 3. Rule out Clostridium difficile, Salmonella, and Shigella. 4. Rule out bacteremia. 5. Leukocytosis. 6. Probable sepsis. PLAN: 1. We will continue the patient on Levaquin and Flagyl. 2. Monitor CBC. 3. Monitor BMP. 4. Stool for culture and C. difficile. 5. Monitor lactic acid. 6. Blood culture. 7. We will follow surgical recommendations. 8. may benefit from GI and colonoscopy evaluation. Thank you, Dr. Mclean, for allowing me to participate in the care of this patient. I will follow the patient with you during this hospitalization. Juan Carlos Borja M.D. DR: Marychuy JOB#: [id number] CC:
[2017-06-09] MEDS: metroNIDAZOLE 500mg 100 ML IVPB SCH ×3 (05:38→21:49)
[2017-06-09] MEDS: D5 1/2NS 1,000 ML IV SCH (06:20)
[2017-06-09 07:29] LABS: REFLEX LACTIC ACID YES OR NO YES
[2017-06-09 07:33] LABS: MEAN CORPUSCULAR HEMOGLOBIN 26.5 PG (27.0-31.0); MEAN CORPUSCULAR HGB CONC 31.4 G/DL (32.0-36.0); MEAN CORPUSCULAR VOLUME 84 FL (80-99); MEAN PLATELET VOLUME 6.3 FL (6.5-10.1); PLATELET COUNT 136 K/UL (150-450); RED BLOOD COUNT 5.62 M/UL (4.20-5.40)
[2017-06-09 07:42] LABS: ALBUMIN/GLOBULIN RATIO 0.8 (1.0-2.7); CALCIUM 9.2 mg/dL (8.6-10.2); CREATININE 1.1 mg/dL (0.5-0.9); GLOMERULAR FILTRATION RATE 50.3 mL/min (>60); POTASSIUM 4.2 mEQ/L (3.4-4.9); TOTAL PROTEIN 6.9 g/dL (6.6-8.7)
[2017-06-09 07:46] LABS: WHITE BLOOD COUNT 32.2 K/UL (4.8-10.8)
[2017-06-09] MEDS: Heparin 5000 units/ml inj SUBQ SCH (08:41)
[2017-06-09] MEDS ORDERED: Pantoprazole Inj IVP SCH (09:00)
--- NOTE | 2017-06-09 09:24 | Infectious Diseases Prog Note ---
Assessment/Plan Assessment/Plan ASSESSMENT: The patient is a 62-year-old female with: Enteritis / Colitis CT scan : dilated mid jejunum wall, mild wall thickening suggestive of enteritis, and ascending colitis. Rule out Clostridium difficile, Salmonella, and Shigella. Rule out bacteremia. Leukocytosis, worsen Probable sepsis LACosis GERD Gastric ulcer PLAN: cont pt on Flagyl and add Azactam d# 1 DC Levaquin d# 1 Monitor CBC Monitor BMP. Stool for culture and C. difficile. Monitor lactic acid Blood culture surgical following Rec GI cons Subjective Allergies: Coded Allergies: PENICILLIN (Verified Allergy, Unknown, 12/01/15) PENICILLINS (Unverified Allergy, Unknown, 06/08/17) SHELLFISH (Verified Allergy, Unknown, 12/01/15) Uncoded Allergies: Mints (Allergy, Unknown, 06/09/17) Subjective abd pain Objective Vital Signs Last 24 Hour Vital Signs Date Time Temp Pulse Resp B/P Pulse Ox O2 Delivery O2 Flow Rate FiO2 06/09/17 07:53 97.5 133 20 109/76 98 Room Air 06/09/17 05:00 97.6 96 20 111/67 96 Room Air 06/09/17 00:38 98.1 112 16 114/74 98 Room Air 06/08/17 20:30 97.9 92 20 118/64 97 Room Air 06/08/17 18:35 98.0 108 21 126/71 100 Room Air 06/08/17 17:00 98.0 107 19 131/59 100 Room Air 06/08/17 15:03 97.1 108 32 141/37 100 Room Air 06/08/17 12:01 97.3 84 20 124/78 99 Room Air Height (Feet): 5 Height (Inches): 3.00 Weight (Pounds): 131 Respiratory/Chest: lungs clear Cardiovascular: regular rhythm Abdomen: tender Laboratory Tests Test 06/08/17 13:30 06/08/17 15:45 06/09/17 06:00 White Blood Count 23.5 K/UL (4.8-10.8) *H 32.2 K/UL (4.8-10.8) *H Red Blood Count 5.05 M/UL (4.20-5.40) 5.62 M/UL (4.20-5.40) H Hemoglobin 13.8 G/DL (12.0-16.0) 14.9 G/DL (12.0-16.0) Hematocrit 42.7 % (37.0-47.0) 47.4 % (37.0-47.0) H Mean Corpuscular Volume 85 FL (80-99) 84 FL (80-99) Mean Corpuscular Hemoglobin 27.3 PG (27.0-31.0) 26.5 PG (27.0-31.0) L Mean Corpuscular Hemoglobin Concent 32.4 G/DL (32.0-36.0) 31.4 G/DL (32.0-36.0) L Red Cell Distribution Width 15.4 % (11.6-14.8) H 16.0 % (11.6-14.8) H Platelet Count 244 K/UL (150-450) 136 K/UL (150-450) L Mean Platelet Volume 6.2 FL (6.5-10.1) L 6.3 FL (6.5-10.1) L Neutrophils (%) (Auto) % (45.0-75.0) % (45.0-75.0) Lymphocytes (%) (Auto) % (20.0-45.0) % (20.0-45.0) Monocytes (%) (Auto) % (1.0-10.0) % (1.0-10.0) Eosinophils (%) (Auto) % (0.0-3.0) % (0.0-3.0) Basophils (%) (Auto) % (0.0-2.0) % (0.0-2.0) Differential Total Cells Counted 100 Neutrophils % (Manual) 89 % (45-75) H Pending Lymphocytes % (Manual) 4 % (20-45) L Pending Monocytes % (Manual) 7 % (1-10) Eosinophils % (Manual) 0 % (0-3) Basophils % (Manual) 0 % (0-2) Band Neutrophils 0 % (0-8) Platelet Estimate Adequate Pending Platelet Morphology Normal Pending Anisocytosis 1+ Urine Color Pale yellow Urine Appearance Clear Urine pH 5 (4.5-8.0) Urine Specific [place] 1.015 (1.005-1.035) Urine Protein 1+ (NEGATIVE) H Urine Glucose (UA) 4+ (NEGATIVE) H Urine Ketones 2+ (NEGATIVE) H Urine Occult Blood 2+ (NEGATIVE) H Urine Nitrite Negative (NEGATIVE) Urine Bilirubin Negative (NEGATIVE) Urine Urobilinogen Normal MG/DL (0.0-1.0) Urine Leukocyte Esterase Negative (NEGATIVE) Urine RBC 2-4 /HPF (0 - 2) H Urine WBC 0-2 /HPF (0 - 2) Urine Squamous Epithelial Cells Few /LPF (NONE/OCC) Urine Bacteria Few /HPF (NONE) Sodium Level 138 mEQ/L (135-145) 141 mEQ/L (135-145) Potassium Level 3.4 mEQ/L (3.4-4.9) 4.2 mEQ/L (3.4-4.9) Chloride Level 101 mEQ/L (98-107) 105 mEQ/L (98-107) Carbon Dioxide Level 23 mEQ/L (20-30) 20 mEQ/L (20-30) Anion Gap 14 (5-15) 16 (5-15) H Blood Urea Nitrogen 14 mg/dL (7-23) 29 mg/dL (7-23) H Creatinine 0.8 mg/dL (0.5-0.9) 1.1 mg/dL (0.5-0.9) H Estimat Glomerular Filtration Rate > 60 mL/min (>60) 50.3 mL/min (>60) Glucose Level 300 mg/dL (74-106) H 171 mg/dL (74-106) #H Calcium Level 9.9 mg/dL (8.6-10.2) 9.2 mg/dL (8.6-10.2) Total Bilirubin 0.5 mg/dL (0.0-1.2) 0.6 mg/dL (0.0-1.2) Aspartate Amino Transf (AST/SGOT) 15 U/L (5-40) 15 U/L (5-40) Alanine Aminotransferase (ALT/SGPT) 15 U/L (3-33) 10 U/L (3-33) Alkaline Phosphatase 118 U/L (35-104) H 128 U/L (35-104) H Total Protein 7.7 g/dL (6.6-8.7) 6.9 g/dL (6.6-8.7) Albumin 4.1 g/dL (3.5-5.2) 3.1 g/dL (3.5-5.2) L Globulin 3.6 g/dL 3.8 g/dL Albumin/Globulin Ratio 1.1 (1.0-2.7) 0.8 (1.0-2.7) L Lipase 17 U/L (< 60) 13 U/L (< 60) Prothrombin Time 10.7 SEC (9.30-11.50) Prothromb Time International Ratio 1.0 (0.9-1.1) Activated Partial Thromboplast Time 27 SEC (23-33) 33 SEC (23-33) Lactic Acid Level 3.20 mmol/L (0.66-2.22) H Amylase Level 84 U/L (10-110) Current Medications Medications (Trade) Dose Ordered Sig/Michael Route PRN Reason Start Time Stop Time Status Last Admin Dose Admin Acetaminophen (Tylenol) 650 mg Q4H PRN ORAL fever 06/08/17 16:45 07/08/17 16:44 Al Hydroxide/Mg Hydroxide (Mylanta II) 30 ml Q6H PRN ORAL dyspepsia 06/08/17 16:45 07/08/17 16:44 Dextrose (Dextrose 50%) STAT PRN IV Hypoglycemia 06/08/17 16:45 07/08/17 16:44 Dextrose/Sodium Chloride (D5 0.45% NS) 1,000 ml @ 75 mls/hr [id number] IV 06/08/17 17:00 07/08/17 16:59 06/08/17 17:24 Diphenhydramine HCl (Benadryl) 25 mg Q6H PRN ORAL Itching/Pruritis 06/08/17 16:45 07/08/17 16:44 Heparin Sodium (Porcine) (Heparin 5000 units/ml) 5,000 units EVERY 12 HOURS SUBQ 06/08/17 21:00 07/08/17 20:59 06/08/17 21:23 Levofloxacin 100 ml @ 100 mls/hr Q24H IVPB 06/09/17 15:00 06/16/17 14:59 Metronidazole (Flagyl) 100 ml @ 100 mls/hr Q8HR IVPB 06/08/17 22:00 06/15/17 21:59 06/09/17 05:38 Morphine Sulfate (Morphine Sulfate) 2 mg Q4H PRN IVP severe Pain (Pain Scale 7-10) 06/08/17 16:45 06/15/17 16:44 06/09/17 08:30 Nitroglycerin (Ntg) 0.4 mg Q5M X 3 DOSES PRN SL Prn Chest Pain 06/08/17 16:45 07/08/17 16:44 Ondansetron HCl (Zofran) 4 mg Q6H PRN IVP Nausea & Vomiting 06/08/17 16:45 07/08/17 16:44 06/08/17 22:30 Pantoprazole 40 mg 40 mg DAILY IVP 06/09/17 09:00 07/09/17 08:59 06/09/17 08:38 Polyethylene Glycol (Miralax) 17 gm HSPRN PRN ORAL Constipation 06/08/17 16:45 07/08/17 16:44 Temazepam (Restoril) 15 mg HSPRN PRN ORAL Insomnia 06/08/17 16:45 06/15/17 16:44 JOSE ALFREDO FORMAN M.D. Jun 09, 2017 09:24
[2017-06-09] MEDS ORDERED: Aztreonam Inj 2 GM in D5W 110 ML IVPB SCH (09:30)
--- NOTE | 2017-06-09 10:22 | Diagnostic Imaging Report ---
Indication: Status post nasogastric tube reinsertion Technique: Supine view of the abdomen Comparison: Half hour earlier Findings: Nasogastric tube is again demonstrated, farther in than previously, tip well into the gastric body. The included lungs are clear. Impression: Improved and satisfactory position of nasogastric tube This agrees with the preliminary interpretation provided overnight by Dr. Correia
--- NOTE | 2017-06-09 10:24 | Diagnostic Imaging Report ---
Indication: Post nasogastric tube repositioning Technique: Supine view of the abdomen Comparison: one hour earlier Findings: Interim advancement of nasogastric tube, tip now projecting at the level of the gastric body, proximal port just beyond the gastroesophageal junction. Contrast from recent CT scan is seen within the bladder and renal collecting systems. Bowel gas pattern is unremarkable Impression: Improved, now satisfactory, position of nasogastric tube
[2017-06-09 10:28] LABS: BAND NEUTROPHILS % (MANUAL) 12 % (0-8); EOSINOPHILS % (MANUAL) 1 % (0-3); LYMPHOCYTES % (MANUAL) 6 % (20-45); NEUTROPHILS % (MANUAL) 74 % (45-75); TOTAL CELLS COUNTED 100
[2017-06-09 10:29] LABS: ANISOCYTOSIS 1+; BASOPHILS % (MANUAL) 0 % (0-2); PLATELET ESTIMATE DECREASED; PLATELET MORPHOLOGY NORMAL
[2017-06-09] MEDS ORDERED: Tubing IV Secondary IV ONE (10:49)
[2017-06-09] MEDS ORDERED: Mylanta II UD 30ml ORAL PRN (11:00)
[2017-06-09] MEDS ORDERED: Morphine Sulfate 2mg/ml Inj IVP PRN (11:00)
[2017-06-09] MEDS ORDERED: D5 1/2NS 1,000 ML IV SCH ×2 (11:00→17:00)
[2017-06-09] MEDS ORDERED: Heparin 5000 units/ml inj SUBQ SCH (11:00)
[2017-06-09] MEDS ORDERED: Nitroglycerin Subl 0.4mg tab (Bottle Of 25) SL PRN (11:00)
--- NOTE | 2017-06-09 11:31 | General Progress Note ---
Progress Note Progress Note Surgery: patient seen and examined at bedside. complaining of abdominal pain. states has had this pain for over 4 months now but today is worse. complaining of nausea and emesis prior to admission. has ng tube in place with minimal brown output. despite pain complaints wants to be up and walking instead of in bed. asking for stronger pain medication. states had large normal bowel movement this AM. Afebrile, HD stable, leukocytosis worse today, lactate 3 this morning. Abdominal exam with tenderness but exam somewhat inconsistent. Reviewed CT findings. Given white count and lactate there are concerns for possible SBO History and exam are not consistent with acute onset. also normal large BM this morning not consistent. Will repeat lactic acid and obtain KUB. If worsening will likely have to discuss surgical exploration. Wei Monroy Jun 09, 2017 11:31
[2017-06-09] MEDS ORDERED: Morphine Sulfate 4mg/ml Inj IVP PRN (11:45)
[2017-06-09] MEDS ORDERED: Pantoprazole Inj ONE (11:54)
[2017-06-09 12:06] LABS: MEAN CORPUSCULAR HEMOGLOBIN 25.6 PG (27.0-31.0); MEAN CORPUSCULAR HGB CONC 30.7 G/DL (32.0-36.0); MEAN CORPUSCULAR VOLUME 83 FL (80-99); MEAN PLATELET VOLUME 6.3 FL (6.5-10.1); PLATELET COUNT 102 K/UL (150-450); RED BLOOD COUNT 5.76 M/UL (4.20-5.40); RED CELL DISTRIBUTION WIDTH 15.9 % (11.6-14.8)
[2017-06-09 12:16] LABS: WHITE BLOOD COUNT 30.8 K/UL (4.8-10.8)
--- NOTE | 2017-06-09 13:20 | Diagnostic Imaging Report ---
Indication: ABD PAIN Technique: Supine view of the abdomen Comparison: 06/08/2017 Findings: Nasogastric tube has withdrawn somewhat, but the tip in the proximal port remain intragastric. Single prominent left upper quadrant small bowel loop is noted. Gas pattern is otherwise unremarkable. Impression: Single nonspecific prominent left upper quadrant small bowel loop. Other findings as noted
[2017-06-09 13:21] LABS: BAND NEUTROPHILS % (MANUAL) 9 % (0-8); LYMPHOCYTES % (MANUAL) 10 % (20-45); NEUTROPHILS % (MANUAL) 72 % (45-75); TOTAL CELLS COUNTED 100
[2017-06-09 13:22] LABS: ANISOCYTOSIS 1+; BASOPHILS % (MANUAL) 0 % (0-2); EOSINOPHILS % (MANUAL) 0 % (0-3); PLATELET ESTIMATE DECREASED; PLATELET MORPHOLOGY NORMAL
[2017-06-09] MEDS: Pantoprazole 80 MG in NS 250 ML IV SCH ×2 (13:37→23:09)
[2017-06-09] MEDS: Aztreonam Inj 2 GM in D5W 110 ML IVPB SCH ×2 (14:53→21:31)
[2017-06-09 15:12] LABS: MEAN CORPUSCULAR HGB CONC 31.2 G/DL (32.0-36.0); MEAN CORPUSCULAR VOLUME 83 FL (80-99); MEAN PLATELET VOLUME 7.3 FL (6.5-10.1); PLATELET COUNT 84 K/UL (150-450); RED BLOOD COUNT 5.53 M/UL (4.20-5.40); RED CELL DISTRIBUTION WIDTH 15.9 % (11.6-14.8)
--- NOTE | 2017-06-09 15:14 | Pulmonology Progress Note ---
Assessment/Plan Problems: (1) Abdominal pain (2) Sepsis (3) Gastroenteritis Assessment/Plan continue NG suction continue IV fluid repeat KUB f/u surgical and GI recommendation keep in teli b/o tachycardia Subjective ROS Limited/Unobtainable: No Interval Events: on NG suction, still in pain Allergies: Coded Allergies: PENICILLIN (Verified Allergy, Unknown, 12/01/15) PENICILLINS (Unverified Allergy, Unknown, 06/08/17) SHELLFISH (Verified Allergy, Unknown, 12/01/15) Uncoded Allergies: Mints (Allergy, Unknown, 06/09/17) Objective Last 24 Hour Vital Signs Date Time Temp Pulse Resp B/P Pulse Ox O2 Delivery O2 Flow Rate FiO2 06/09/17 12:00 96.6 135 20 129/73 97 Room Air 06/09/17 09:00 97.2 131 24 95/44 100 Room Air 06/09/17 07:53 97.5 133 20 109/76 98 Room Air 06/09/17 05:00 97.6 96 20 111/67 96 Room Air 06/09/17 00:38 98.1 112 16 114/74 98 Room Air 06/08/17 20:30 97.9 92 20 118/64 97 Room Air 06/08/17 18:35 98.0 108 21 126/71 100 Room Air 06/08/17 17:00 98.0 107 19 131/59 100 Room Air Intake and Output 06/08/17 06/09/17 19:00 07:00 Intake Total 200 ml 725 ml Output Total 30 ml Balance 200 ml 695 ml Intake IV Total 200 ml 725 ml Output Other 30 ml # Voids 1 2 # Bowel Movements 1 General Appearance: cachetic HEENT: normocephalic, atraumatic Respiratory/Chest: chest wall non-tender, lungs clear Breasts: no masses Cardiovascular: normal peripheral pulses, normal rate Abdomen: normal bowel sounds, soft, non tender Genitourinary: normal external genitalia Extremities: no cyanosis Skin: no rash Neurologic/Psychiatric: produce weigher II-XII grossly normal Lymphatic: no neck adenopathy Laboratory Tests 06/08/17 15:45: Prothrombin Time 10.7, Prothromb Time International Ratio 1.0, Activated Partial Thromboplast Time 27 06/09/17 06:00: Activated Partial Thromboplast Time 33, White Blood Count 32.2*H, Red Blood Count 5.62H, Hemoglobin 14.9, Hematocrit 47.4H, Mean Corpuscular Volume 84, Mean Corpuscular Hemoglobin 26.5L, Mean Corpuscular Hemoglobin Concent 31.4L, Red Cell Distribution Width 16.0H, Platelet Count 136L, Mean Platelet Volume 6.3L, Neutrophils (%) (Auto) , Lymphocytes (%) (Auto) , Monocytes (%) (Auto) , Eosinophils (%) (Auto) , Basophils (%) (Auto) , Differential Total Cells Counted 100, Neutrophils % (Manual) 74, Lymphocytes % (Manual) 6L, Monocytes % ( Manual) 7, Eosinophils % (Manual) 1, Basophils % (Manual) 0, Band Neutrophils 12H, Platelet Estimate DecreasedL, Platelet Morphology Normal, Hypochromasia , Anisocytosis 1+, Sodium Level 141, Potassium Level 4.2, Chloride Level 105, Carbon Dioxide Level 20, Anion Gap 16H, Blood Urea Nitrogen 29H, Creatinine 1.1H , Estimat Glomerular Filtration Rate 50.3, Glucose Level 171#H, Lactic Acid Level 3.20H, Calcium Level 9.2, Total Bilirubin 0.6, Aspartate Amino Transf (AST /SGOT) 15, Alanine Aminotransferase (ALT/SGPT) 10, Alkaline Phosphatase 128H, Total Protein 6.9, Albumin 3.1L, Globulin 3.8, Albumin/Globulin Ratio 0.8L, Amylase Level 84, Lipase 13 06/09/17 11:40: White Blood Count 30.8*H, Red Blood Count 5.76H, Hemoglobin 14.7, Hematocrit 48.0H, Mean Corpuscular Volume 83, Mean Corpuscular Hemoglobin 25.6L, Mean Corpuscular Hemoglobin Concent 30.7L, Red Cell Distribution Width 15.9H, Platelet Count 102L, Mean Platelet Volume 6.3L, Neutrophils (%) (Auto) , Lymphocytes (%) (Auto) , Monocytes (%) (Auto) , Eosinophils (%) (Auto) , Basophils (%) (Auto) , Differential Total Cells Counted 100, Neutrophils % ( Manual) 72, Lymphocytes % (Manual) 10L, Monocytes % (Manual) 9, Eosinophils % ( Manual) 0, Basophils % (Manual) 0, Band Neutrophils 9H, Platelet Estimate DecreasedL, Platelet Morphology Normal, Anisocytosis 1+, Lactic Acid Level 4.20H , Red Blood Cell Morphology Normal 06/09/17 15:03: White Blood Count [Pending], Red Blood Count [Pending], Hemoglobin [Pending], Hematocrit [Pending], Mean Corpuscular Volume [Pending], Mean Corpuscular Hemoglobin [Pending], Mean Corpuscular Hemoglobin Concent [Pending], Red Cell Distribution Width [Pending], Platelet Count [Pending], Mean Platelet Volume [ Pending], Neutrophils (%) (Auto) [Pending], Lymphocytes (%) (Auto) [Pending], Monocytes (%) (Auto) [Pending], Eosinophils (%) (Auto) [Pending], Basophils (%) (Auto) [Pending] Current Medications Medications (Trade) Dose Ordered Sig/Michael Route PRN Reason Start Time Stop Time Status Last Admin Dose Admin Acetaminophen (Tylenol) 650 mg Q4H PRN ORAL fever>100.5 06/09/17 11:00 07/09/17 10:59 Al Hydroxide/Mg Hydroxide (Mylanta II) 30 ml Q6H PRN ORAL dyspepsia 06/09/17 11:00 07/09/17 10:59 Aztreonam 2 gm/ Dextrose 110 ml @ 220 mls/hr Q8HR IVPB 06/09/17 14:00 06/16/17 09:29 06/09/17 14:53 Dextrose (Dextrose 50%) STAT PRN IV Hypoglycemia 06/09/17 11:00 07/09/17 10:59 Dextrose/Sodium Chloride 1,000 ml @ 150 mls/hr Q6H40M IV 06/09/17 11:00 07/09/17 10:59 06/09/17 12:04 Diphenhydramine HCl (Benadryl) 25 mg Q6H PRN ORAL Itching/Pruritis 06/09/17 11:00 07/09/17 10:59 Metronidazole (Flagyl) 100 ml @ 100 mls/hr Q8HR IVPB 06/09/17 14:00 06/15/17 21:59 Morphine Sulfate (Morphine Sulfate) 4 mg Q4H PRN IVP For Pain 4-10 06/09/17 11:45 06/16/17 11:44 06/09/17 12:03 Nitroglycerin (Ntg) 0.4 mg Q5M X 3 DOSES PRN SL Prn Chest Pain 06/09/17 11:00 07/09/17 10:59 Ondansetron HCl (Zofran) 4 mg Q6H PRN IVP Nausea & Vomiting 06/09/17 11:00 07/09/17 10:59 Pantoprazole/ Sodium Chloride (Protonix/Sodium Chloride) 250 ml @ 25 mls/hr Q10H IV 06/09/17 12:30 07/09/17 12:29 06/09/17 13:37 Polyethylene Glycol (Miralax) 17 gm HSPRN PRN ORAL Constipation 06/09/17 21:00 07/09/17 20:59 Temazepam 15 mg 15 mg HSPRN PRN ORAL Insomnia 06/09/17 21:00 06/16/17 20:59 CLEVELAND MCRAE Jun 09, 2017 15:14
[2017-06-09 15:18] LABS: WHITE BLOOD COUNT 24.5 K/UL (4.8-10.8)
--- NOTE | 2017-06-09 16:00 | GI Initial Consult Note ---
History of Present Illness General Date patient seen: Jun 09, 2017 Time patient seen: 11:00 Reason for Hospitalization: Abdominal Pain Referring physician: CLEVELAND DELA CRUZ Reason for Consultation: ABDOMINAL PAIN Present Illness HPI [id number] here with severe abd pain, states "my ulcer is acting up." Had endoscopy 2 months ago that showed "large gastric ulcer." Pain worse at night On medication but doesn't know the name Denies nausea/vomiting, fever/chills, diarrhea Denies previous abd surgery GI Consult. HPI as noted above. GI consulted for abdominal pain. Pt seen on floor, awake A&Ox4 08/30 abdominal pain with NGT noted with bloody output. Pt has history of gastric ulcer. White count 32. Lactic acid 3.2 and rising. Patient seen together with surgery. Home Meds Active Scripts Ranitidine Hcl* (ZANTAC*) 150 Mg Tablet, 150 MG ORAL DAILY, #30 TAB 0 Refills Prov:PetersonCorinne P.A. 10/01/16 Ondansetron Odt* (ZOFRAN ODT*) 4 Mg Tab.rapdis, 4 MG ORAL Q6H Y for Nausea & Vomiting, #30 TAB Prov:PetersonCorinne P.A. 10/01/16 Acetaminophen* (TYLENOL EXTRA STRENGTH*) 500 Mg Tablet, 500 MG ORAL Q6H Y for Mild Pain/Temp > 100.5, #30 TAB 0 Refills Prov:PetersonCorinne P.A. 10/01/16 Ibuprofen* (MOTRIN*) 600 Mg Tablet, 600 MG ORAL Q8H Y for For Pain, #30 TAB 0 Refills Prov:TERZIAN,CORETTA P.A. 06/30/16 Hydrocodone Bit/Acetaminophen 5-325* (NORCO 5-325 TABLET*) 1 Each Tablet, 1 TAB ORAL Q8HR Y for For Pain, #10 TAB Prov:TERZIAN,CORETTA P.A. 06/30/16 Ranitidine Hcl* (ZANTAC*) 150 Mg Tablet, 150 MG ORAL TWICE A DAY, #30 TAB Prov:CHAROENCHARINDA P.A. 01/07/16 Acetaminophen With Codeine (T#3) (TYLENOL #3 TAB*) 1 Each Tablet, 1 TAB ORAL Q8H Y for For Pain, #10 TAB Prov:CHAROENCHARINDA P.A. 01/07/16 Ondansetron Odt* (ZOFRAN ODT*) 4 Mg Tab.rapdis, 4 MG ORAL Q6H Y for Nausea & Vomiting, #12 TAB Prov:JAYDEN ROE P.A. 01/07/16 Dicyclomine Hcl* (BENTYL*) 10 Mg Capsule, 10 MG ORAL TID, #20 CAP Prov:ROBERT ALFONSO M.D. 12/21/15 Ondansetron (Zofran) 4 Mg Tab, 4 MG ORAL Q4HR Y for Nausea & Vomiting, #20 TAB Prov:ROBERT ALFONSO M.D. 12/21/15 Ibuprofen* (MOTRIN*) 600 Mg Tablet, 600 MG ORAL THREE TIMES A DAY, #30 TAB Prov:JAYDEN ROE P.A. 12/01/15 Codeine/Promethazine Hcl* (PROMETHAZINE-CODEINE SYRUP*) 118 Ml Syrup, 5 ML ORAL Q6H Y for For Cough, #60 ML 0 Refills Prov:JAYDEN ROE P.A. 12/01/15 Methylprednisolone (Methylprednisolone*) 4 Mg Tab, 4 MG ORAL .as directed, #1 EA Prov:JAYDEN ROE P.A. 12/01/15 Albuterol Sulfate* (ALBUTEROL SULFATE MDI*) 8.5 Gm Hfa.aer.ad, 2 PUFF INH Q6H, # 1 EA Prov:JAYDEN ROE P.A. 12/01/15 Azithromycin* (ZITHROMAX*) 250 Mg Tablet, 250 MG ORAL DAILY, #6 TAB Take two tablets by mouth today, then take one tablet by mouth daily for four days Prov:JAYDEN ROE P.A. 12/01/15 Reported Medications Metoclopramide Hcl* (METOCLOPRAMIDE HCL*) 10 Mg/10 Ml Solution, 10 MG ORAL EVERY 6 HOURS, ML 06/08/17 Ferrous Sulfate (FEROSUL) 325 Mg Tablet, 325 MG PO, TAB 06/08/17 Ascorbic Acid* (VITAMIN C*) 500 Mg Tablet, 500 MG ORAL DAILY, #30 TAB 0 Refills 06/08/17 Sucralfate* (CARAFATE*) 1 Gm Tablet, 1 GM ORAL FOUR TIMES A DAY, TAB 04/14/17 Omeprazole (OMEPRAZOLE) 40 Mg Capsule.dr, 20 MG ORAL DAILY, CAP 04/14/17 Med list reviewed/reconciled: Yes Allergies: Coded Allergies: PENICILLIN (Verified Allergy, Unknown, 12/01/15) PENICILLINS (Unverified Allergy, Unknown, 06/08/17) SHELLFISH (Verified Allergy, Unknown, 12/01/15) Uncoded Allergies: Mints (Allergy, Unknown, 06/09/17) Patient History History Provided By: Patient, Medical Record PMH Narrative Past Medical History: other - Gastric ulcer? Past Surgical History: none Pertinent Family History: none Social History: Denies: alcohol use, drug use, smoking Now: No Immunizations: UTD Reviewed Nursing Documentation: PMH: Agreed, PSxH: Agreed Nursing Documentation-PMH Past Medical History: No History, Except For Hx Gastrointestinal Problems: Yes - GERD Review of Systems All Other Systems: negative except mentioned in HPI Physical Exam Vital Signs Date Time Temp Pulse Resp B/P Pulse Ox O2 Delivery O2 Flow Rate FiO2 06/08/17 12:01 97.3 84 20 124/78 99 Room Air Sp02 EP Interpretation: reviewed Labs Laboratory Tests Test 06/09/17 06:00 06/09/17 11:40 06/09/17 15:03 White Blood Count 32.2 K/UL (4.8-10.8) *H 30.8 K/UL (4.8-10.8) *H 24.5 K/UL (4.8-10.8) *H Red Blood Count 5.62 M/UL (4.20-5.40) H 5.76 M/UL (4.20-5.40) H 5.53 M/UL (4.20-5.40) H Hemoglobin 14.9 G/DL (12.0-16.0) 14.7 G/DL (12.0-16.0) 14.4 G/DL (12.0-16.0) Hematocrit 47.4 % (37.0-47.0) H 48.0 % (37.0-47.0) H 46.1 % (37.0-47.0) Mean Corpuscular Volume 84 FL (80-99) 83 FL (80-99) 83 FL (80-99) Mean Corpuscular Hemoglobin 26.5 PG (27.0-31.0) L 25.6 PG (27.0-31.0) L 26.0 PG (27.0-31.0) L Mean Corpuscular Hemoglobin Concent 31.4 G/DL (32.0-36.0) L 30.7 G/DL (32.0-36.0) L 31.2 G/DL (32.0-36.0) L Red Cell Distribution Width 16.0 % (11.6-14.8) H 15.9 % (11.6-14.8) H 15.9 % (11.6-14.8) H Platelet Count 136 K/UL (150-450) L 102 K/UL (150-450) L 84 K/UL (150-450) L Mean Platelet Volume 6.3 FL (6.5-10.1) L 6.3 FL (6.5-10.1) L 7.3 FL (6.5-10.1) Neutrophils (%) (Auto) % (45.0-75.0) % (45.0-75.0) % (45.0-75.0) Lymphocytes (%) (Auto) % (20.0-45.0) % (20.0-45.0) % (20.0-45.0) Monocytes (%) (Auto) % (1.0-10.0) % (1.0-10.0) % (1.0-10.0) Eosinophils (%) (Auto) % (0.0-3.0) % (0.0-3.0) % (0.0-3.0) Basophils (%) (Auto) % (0.0-2.0) % (0.0-2.0) % (0.0-2.0) Differential Total Cells Counted 100 100 Neutrophils % (Manual) 74 % (45-75) 72 % (45-75) Pending Lymphocytes % (Manual) 6 % (20-45) L 10 % (20-45) L Pending Monocytes % (Manual) 7 % (1-10) 9 % (1-10) Eosinophils % (Manual) 1 % (0-3) 0 % (0-3) Basophils % (Manual) 0 % (0-2) 0 % (0-2) Band Neutrophils 12 % (0-8) H 9 % (0-8) H Platelet Estimate Decreased L Decreased L Pending Platelet Morphology Normal Normal Pending Hypochromasia Anisocytosis 1+ 1+ Activated Partial Thromboplast Time 33 SEC (23-33) Sodium Level 141 mEQ/L (135-145) Potassium Level 4.2 mEQ/L (3.4-4.9) Chloride Level 105 mEQ/L (98-107) Carbon Dioxide Level 20 mEQ/L (20-30) Anion Gap 16 (5-15) H Blood Urea Nitrogen 29 mg/dL (7-23) H Creatinine 1.1 mg/dL (0.5-0.9) H Estimat Glomerular Filtration Rate 50.3 mL/min (>60) Glucose Level 171 mg/dL (74-106) #H Lactic Acid Level 3.20 mmol/L (0.66-2.22) H 4.20 mmol/L (0.66-2.22) H Calcium Level 9.2 mg/dL (8.6-10.2) Total Bilirubin 0.6 mg/dL (0.0-1.2) Aspartate Amino Transf (AST/SGOT) 15 U/L (5-40) Alanine Aminotransferase (ALT/SGPT) 10 U/L (3-33) Alkaline Phosphatase 128 U/L (35-104) H Total Protein 6.9 g/dL (6.6-8.7) Albumin 3.1 g/dL (3.5-5.2) L Globulin 3.8 g/dL Albumin/Globulin Ratio 0.8 (1.0-2.7) L Amylase Level 84 U/L (10-110) Lipase 13 U/L (< 60) Red Blood Cell Morphology Normal General Appearance: mild distress Head: normocephalic EENT: normal ENT inspection Neck: supple Respiratory: normal breath sounds Cardiovascular: normal rate Gastrointestinal: tenderness, ngt Rectal: deferred Neurologic: normal inspection, alert, oriented x3, responsive Psychiatric: normal inspection, judgement/insight normal, memory normal Skin: normal inspection, normal color, no rash, warm/dry Lymphatic: normal inspection, no adenopathy Current Medications Current Medications Medications (Trade) Dose Ordered Sig/Michael Route PRN Reason Start Time Stop Time Status Last Admin Dose Admin Acetaminophen (Tylenol) 650 mg Q4H PRN ORAL fever>100.5 06/09/17 11:00 07/09/17 10:59 Al Hydroxide/Mg Hydroxide (Mylanta II) 30 ml Q6H PRN ORAL dyspepsia 06/09/17 11:00 07/09/17 10:59 Aztreonam 2 gm/ Dextrose 110 ml @ 220 mls/hr Q8HR IVPB 06/09/17 14:00 06/16/17 09:29 06/09/17 14:53 Dextrose (Dextrose 50%) STAT PRN IV Hypoglycemia 06/09/17 11:00 07/09/17 10:59 Dextrose/Sodium Chloride 1,000 ml @ 150 mls/hr Q6H40M IV 06/09/17 11:00 07/09/17 10:59 06/09/17 12:04 Diphenhydramine HCl (Benadryl) 25 mg Q6H PRN ORAL Itching/Pruritis 06/09/17 11:00 07/09/17 10:59 Metronidazole (Flagyl) 100 ml @ 100 mls/hr Q8HR IVPB 06/09/17 14:00 06/15/17 21:59 06/09/17 15:35 Morphine Sulfate (Morphine Sulfate) 4 mg Q4H PRN IVP For Pain 4-10 06/09/17 11:45 06/16/17 11:44 06/09/17 12:03 Nitroglycerin (Ntg) 0.4 mg Q5M X 3 DOSES PRN SL Prn Chest Pain 06/09/17 11:00 07/09/17 10:59 Ondansetron HCl (Zofran) 4 mg Q6H PRN IVP Nausea & Vomiting 06/09/17 11:00 07/09/17 10:59 Pantoprazole/ Sodium Chloride (Protonix/Sodium Chloride) 250 ml @ 25 mls/hr Q10H IV 06/09/17 12:30 07/09/17 12:29 06/09/17 13:37 Polyethylene Glycol (Miralax) 17 gm HSPRN PRN ORAL Constipation 06/09/17 21:00 07/09/17 20:59 Temazepam 15 mg 15 mg HSPRN PRN ORAL Insomnia 06/09/17 21:00 7/27/17 20:59 GI: Plan Problems: (1) Gastric ulcer with hemorrhage (2) Sepsis (3) Gastroenteritis (4) Abdominal pain (5) Colitis, acute Plan emergent surgery scheduled today fu surgical recs EGD tomorrow cancelled. we will follow Discussed with Dr. Gonzalez. Thank you for referring this patient, we will follow. Sabrina Evangelista N.P. Jun 09, 2017 16:00
--- NOTE | 2017-06-09 16:25 | Pre-Procedure Note/Attestation ---
Pre-Procedure Note/Attestation Complete Prior to Procedure Planned Procedure: not applicable Procedure Narrative: diagnostic laparoscopy, possible exploratory laparotomy, possible bowel resection Indications for Procedure Pre-Operative Diagnosis: Abdominal pain Attestation I attest that I discussed the nature of the procedure; its benefits; risks and complications; and alternatives (and the risks and benefits of such alternatives ), prior to the procedure, with the patient (or the patient's legal digital sales representative). I attest that, if there was a reasonable possibility of needing a blood transfusion, the patient (or the patient's legal digital sales representative) was given the [facility] standardized written summary, pursuant to the Nickolas Lupe Blood Safety Act ([place] Health and Safety Code # 1645, as amended). I attest that I re-evaluated the patient just prior to the surgery and that there has been no change in the patient's H&P, except as documented below: Wei Monroy Jun 09, 2017 16:25
--- NOTE | 2017-06-09 16:29 | General Progress Note ---
Progress Note Progress Note Surgery: Patient re-evaluated this afternoon. Currently states pain worsening and more generalized. Labs reviewed, wbc down but lactic acid elevated to >4 now. Abdominal exam with generalized peritonitis. NG tube output now bilious. CT scan reviewed with radiologist and no distinct pathology could be identified to explain exam. Ddx could be ischemic bowel, possible necrosis, possible sbo, possible enteritis? Discussed findings with patient and concerns about exam and labs. Patient states that she is in 10/10 pain and cannot continue like this. I offered diagnostic laparoscopy with possibility of exploration if pathology identified. I explained the risks, benefits, and alternatives to surgery including not operating. I explained the possibility of negative exploration if no pathology identified. Patient expressed understanding and consented to surgery. and sister present at this time. Wei Monroy Jun 09, 2017 16:29
[2017-06-09] MEDS ORDERED: Zemuron 50mg/5ml Inj IV ONE (16:30)
[2017-06-09] MEDS ORDERED: Succinylcholine 20mg/ml 10ml vial ONE (16:30)
[2017-06-09] MEDS ORDERED: Propofol 10mg/ml 20ml IV ONE (16:30)
[2017-06-09] MEDS ORDERED: Lidocaine 1% MPF 10mg/ml 5ml ONE (16:30)
[2017-06-09] MEDS ORDERED: fentaNYL 100 mcg/2 mL IV ONE (16:30)
[2017-06-09] MEDS ORDERED: Midazolam 2mg/2ml Inj ONE (16:30)
[2017-06-09] MEDS ORDERED: Phenylephrine 10mg/ml Vial ONE (16:30)
[2017-06-09] MEDS ORDERED: LR 1000ml ONE (16:30)
[2017-06-09] MEDS ORDERED: Bupivacaine w/Epi 0.5% 30ml Vial INJ ONE (16:45)
[2017-06-09 16:46] LABS: BAND NEUTROPHILS % (MANUAL) 12 % (0-8); LYMPHOCYTES % (MANUAL) 15 % (20-45); NEUTROPHILS % (MANUAL) 71 % (45-75); TOTAL CELLS COUNTED 100
[2017-06-09 16:47] LABS: ANISOCYTOSIS 1+; BASOPHILS % (MANUAL) 0 % (0-2); EOSINOPHILS % (MANUAL) 0 % (0-3); PLATELET ESTIMATE DECREASED
[2017-06-09 16:48] LABS: POLYCHROMASIA 1+
[2017-06-09 16:49] LABS: PLATELET MORPHOLOGY NORMAL
[2017-06-09] MEDS ORDERED: NS Irrig 1000ml IRRIG ONE (17:00)
--- NOTE | 2017-06-09 17:51 | Anethesia Preoperative Eval ---
Anesthesia Pre-op PMH/ROS General Date of Evaluation: Jun 09, 2017 Anesthesiologist: El ASA Score: ASA 4 - E Mallampati Score Class I : Soft palate, uvula, fauces, pillars visible Class II: Soft palate, uvula, fauces visible Class III: Soft palate, base of uvula visible Class IV: Only hard plate visible Mallampati Classification: Class II Surgeon: Eliana Diagnosis: ?SBO Surgical Procedure: Ex-lap Anesthesia History: none Family History: no anesthesia problems Allergies: Coded Allergies: PENICILLIN (Verified Allergy, Unknown, 12/01/15) PENICILLINS (Unverified Allergy, Unknown, 06/08/17) SHELLFISH (Verified Allergy, Unknown, 12/01/15) Uncoded Allergies: Mints (Allergy, Unknown, 06/09/17) Medications: see eMAR Past Medical History Cardiovascular: Denies: CAD, HTN, [place], arrhythmia, other, valve dz Pulmonary: Denies: COPD, KYLER, asthma, other Gastrointestinal/Genitourinary: Reports: other - possible SBO, Denies: CRI, ESRD, GERD Neurologic/Psychiatric: Denies: CVA, TIA, dementia, depression/anxiety, other Endocrine: Denies: DM, hypothyroidism, other, steroids HEENT: Denies: [place] (L), [place] (R), cataract (L), cataract (R), glaucoma, other Hematology/Immune: Denies: DVT, anemia, bleeding disorder, other Musculoskeletal/Integumentary: Denies: DDD, DJD, OA, RA, edema, other PSxH Narrative: Denies Anesthesia Pre-op Phys. Exam Physician Exam Last Vital Signs Date Time Temp Pulse Resp B/P Pulse Ox O2 Delivery O2 Flow Rate FiO2 06/09/17 12:00 96.6 135 20 129/73 97 Room Air Constitutional: NAD Cardiovascular: RRR Respiratory: CTA Gastrointestinal: other - severe abdominal pain, +guarding, +tenderness, + distention Airway Exam Mallampati Score: Class II MO: limited ROM: full Teeth: intact Anesthesia Pre-op A/P Labs Hematology Test 06/09/17 06:00 06/09/17 11:40 06/09/17 15:03 White Blood Count 32.2 K/UL (4.8-10.8) *H 30.8 K/UL (4.8-10.8) *H 24.5 K/UL (4.8-10.8) *H Red Blood Count 5.62 M/UL (4.20-5.40) H 5.76 M/UL (4.20-5.40) H 5.53 M/UL (4.20-5.40) H Hemoglobin 14.9 G/DL (12.0-16.0) 14.7 G/DL (12.0-16.0) 14.4 G/DL (12.0-16.0) Hematocrit 47.4 % (37.0-47.0) H 48.0 % (37.0-47.0) H 46.1 % (37.0-47.0) Mean Corpuscular Volume 84 FL (80-99) 83 FL (80-99) 83 FL (80-99) Mean Corpuscular Hemoglobin 26.5 PG (27.0-31.0) L 25.6 PG (27.0-31.0) L 26.0 PG (27.0-31.0) L Mean Corpuscular Hemoglobin Concent 31.4 G/DL (32.0-36.0) L 30.7 G/DL (32.0-36.0) L 31.2 G/DL (32.0-36.0) L Red Cell Distribution Width 16.0 % (11.6-14.8) H 15.9 % (11.6-14.8) H 15.9 % (11.6-14.8) H Platelet Count 136 K/UL (150-450) L 102 K/UL (150-450) L 84 K/UL (150-450) L Mean Platelet Volume 6.3 FL (6.5-10.1) L 6.3 FL (6.5-10.1) L 7.3 FL (6.5-10.1) Neutrophils (%) (Auto) % (45.0-75.0) % (45.0-75.0) % (45.0-75.0) Lymphocytes (%) (Auto) % (20.0-45.0) % (20.0-45.0) % (20.0-45.0) Monocytes (%) (Auto) % (1.0-10.0) % (1.0-10.0) % (1.0-10.0) Eosinophils (%) (Auto) % (0.0-3.0) % (0.0-3.0) % (0.0-3.0) Basophils (%) (Auto) % (0.0-2.0) % (0.0-2.0) % (0.0-2.0) Differential Total Cells Counted 100 100 100 Neutrophils % (Manual) 74 % (45-75) 72 % (45-75) 71 % (45-75) Lymphocytes % (Manual) 6 % (20-45) L 10 % (20-45) L 15 % (20-45) L Monocytes % (Manual) 7 % (1-10) 9 % (1-10) 2 % (1-10) Eosinophils % (Manual) 1 % (0-3) 0 % (0-3) 0 % (0-3) Basophils % (Manual) 0 % (0-2) 0 % (0-2) 0 % (0-2) Band Neutrophils 12 % (0-8) H 9 % (0-8) H 12 % (0-8) H Platelet Estimate Decreased L Decreased L Decreased L Platelet Morphology Normal Normal Normal Hypochromasia Anisocytosis 1+ 1+ 1+ Red Blood Cell Morphology Normal Normal Polychromasia 1+ Coagulation Test 06/09/17 06:00 Activated Partial Thromboplast Time 33 SEC (23-33) Chemistry Test 06/09/17 06:00 06/09/17 11:40 Sodium Level 141 mEQ/L (135-145) Potassium Level 4.2 mEQ/L (3.4-4.9) Chloride Level 105 mEQ/L (98-107) Carbon Dioxide Level 20 mEQ/L (20-30) Anion Gap 16 (5-15) H Blood Urea Nitrogen 29 mg/dL (7-23) H Creatinine 1.1 mg/dL (0.5-0.9) H Estimat Glomerular Filtration Rate 50.3 mL/min (>60) Glucose Level 171 mg/dL (74-106) #H Lactic Acid Level 3.20 mmol/L (0.66-2.22) H 4.20 mmol/L (0.66-2.22) H Calcium Level 9.2 mg/dL (8.6-10.2) Total Bilirubin 0.6 mg/dL (0.0-1.2) Aspartate Amino Transf (AST/SGOT) 15 U/L (5-40) Alanine Aminotransferase (ALT/SGPT) 10 U/L (3-33) Alkaline Phosphatase 128 U/L (35-104) H Total Protein 6.9 g/dL (6.6-8.7) Albumin 3.1 g/dL (3.5-5.2) L Globulin 3.8 g/dL Albumin/Globulin Ratio 0.8 (1.0-2.7) L Amylase Level 84 U/L (10-110) Lipase 13 U/L (< 60) Studies Pre-op Studies: EKG Risk Assessment & Plan Assessment: ASA JOHANN Plan: GA Status Change Before Surgery: No Pre-Antibiotics Drug: TBD CHAD PADILLA M.D. Jun 09, 2017 17:51
--- NOTE | 2017-06-09 19:00 | Brief Operative Note ---
Immediate Post Operative Note Operative Note Pre-op Diagnosis: Abdominal pain Procedure: Diagnostic laparoscopy, exploratory laparotomy, bowel resection Post-op Diagnosis: necrotic gangrenous large and small bowel Surgeon: paulina Additional Surgeons: david Anesthesiologist: arnoldo Anesthesia: general Specimen: yes - subtotal colectomy, cultures Complications: none Condition: stable Fluids: 4L crystolloid, 500cc colloid, 1 prbc Estimated Blood Loss: volume Drains: none Implant(s) used?: No - 50cc Wei Monroy Jun 09, 2017 19:00
[2017-06-09] MEDS ORDERED: LR 1000ml 1,000 ML IVLG SCH (19:24)
[2017-06-09] MEDS ORDERED: DiphenhydrAMINE 50mg/ml Inj IVP PRN (19:30)
[2017-06-09] MEDS ORDERED: Hydromorphone 0.5mg/0.5ml inj IVP PRN (19:30)
[2017-06-09] MEDS ORDERED: fentaNYL 100 mcg/2 mL IV PRN (19:30)
[2017-06-09] MEDS ORDERED: Midazolam 2mg/2ml Inj IVP PRN (19:30)
[2017-06-09] MEDS ORDERED: Metoclopramide 10mg/2ml Inj IVP PRN (19:30)
[2017-06-09] MEDS ORDERED: LORazepam Inj 2mg/ml 1ml IV PRN (19:30)
[2017-06-09] MEDS ORDERED: Midazolam for drip 50 MG in NS 90 ML IV SCH (20:00)
[2017-06-09] MEDS ORDERED: fentaNYL Citrate 2,500 MCG in NS 200 ML IV SCH (20:00)
[2017-06-09] MEDS: NovoLOG Insulin Flexpen SUBQ SCH (20:00)
[2017-06-09] MEDS: LR 1000ml 1,000 ML IV SCH (20:24)
[2017-06-09 20:29] LABS: MEAN CORPUSCULAR HEMOGLOBIN 27.4 PG (27.0-31.0); MEAN CORPUSCULAR HGB CONC 32.2 G/DL (32.0-36.0); MEAN CORPUSCULAR VOLUME 85 FL (80-99); MEAN PLATELET VOLUME 8.6 FL (6.5-10.1); PLATELET COUNT 55 K/UL (150-450); RED BLOOD COUNT 5.09 M/UL (4.20-5.40); RED CELL DISTRIBUTION WIDTH 15.7 % (11.6-14.8); WHITE BLOOD COUNT 15.2 K/UL (4.8-10.8)
[2017-06-09 20:30] LABS: LYMPHOCYTES % (AUTO) 9.2 % (20.0-45.0); MONOCYTES % (AUTO) 8.6 % (1.0-10.0); NEUTROPHILS % (AUTO) 81.3 % (45.0-75.0)
[2017-06-09 20:48] LABS: INR 1.3 (0.9-1.1); PROTHROMBIN TIME 13.7 SEC (9.30-11.50)
[2017-06-09 20:52] LABS: ALBUMIN/GLOBULIN RATIO 1.2 (1.0-2.7); CALCIUM 7.8 mg/dL (8.6-10.2); CREATININE 1.1 mg/dL (0.5-0.9); GLOMERULAR FILTRATION RATE 50.3 mL/min (>60); MAGNESIUM 1.6 mg/dL (1.7-2.5); PHOSPHORUS 3.1 mg/dL (2.5-4.8); POTASSIUM 3.8 mEQ/L (3.4-4.9); TOTAL PROTEIN 5.2 g/dL (6.6-8.7)
[2017-06-09] MEDS ORDERED: Miralax 17gm pkt ORAL PRN (21:00)
[2017-06-09 21:33] LABS: ABG ALLEN TEST POSITIVE; ABG BASE EXCESS -5.7; ABG PCO2 42.3 mmHg (35.0-45.0)
[2017-06-10] VITALS (41 sets, daily range): BP systolic 94–166; BP diastolic 61–82
[2017-06-10] MEDS: LR 1000ml 1,000 ML IV SCH ×5 (02:45→23:07)
[2017-06-10] MEDS ORDERED: Nitroglycerin Subl 0.4mg tab (Bottle Of 25) SL PRN (03:00)
[2017-06-10] MEDS: Pantoprazole 80 MG in NS 250 ML IV SCH ×4 (03:00→20:00)
[2017-06-10] MEDS: Midazolam for drip 50 MG in NS 90 ML IV SCH ×2 (03:19→14:49)
[2017-06-10 05:08] LABS: MEAN CORPUSCULAR HEMOGLOBIN 26.8 PG (27.0-31.0); MEAN CORPUSCULAR HGB CONC 31.9 G/DL (32.0-36.0); MEAN CORPUSCULAR VOLUME 84 FL (80-99); MEAN PLATELET VOLUME 9.6 FL (6.5-10.1); PLATELET COUNT 58 K/UL (150-450); RED BLOOD COUNT 4.93 M/UL (4.20-5.40); RED CELL DISTRIBUTION WIDTH 15.5 % (11.6-14.8); WHITE BLOOD COUNT 14.1 K/UL (4.8-10.8)
[2017-06-10] MEDS: Aztreonam Inj 2 GM in D5W 110 ML IVPB SCH ×3 (05:31→22:03)
[2017-06-10] MEDS: metroNIDAZOLE 500mg 100 ML IVPB SCH ×3 (05:32→22:01)
[2017-06-10] MEDS: NovoLOG Insulin Flexpen SUBQ SCH ×4 (05:40→18:00)
[2017-06-10 06:04] LABS: MAGNESIUM 1.6 mg/dL (1.7-2.5)
[2017-06-10 06:07] LABS: REFLEX LACTIC ACID YES OR NO YES
[2017-06-10 06:08] LABS: ALANINE AMINOTRANSFERASE 17 U/L (3-33); ALBUMIN/GLOBULIN RATIO 1.5 (1.0-2.7); ANION GAP 11 (5-15); ASPARTATE AMINO TRANSFERASE 27 U/L (5-40); CALCIUM 7.6 mg/dL (8.6-10.2); CARBON DIOXIDE 20 mEQ/L (20-30); CHLORIDE 112 mEQ/L (98-107); CREATININE 0.9 mg/dL (0.5-0.9); GLOMERULAR FILTRATION RATE > 60 mL/min (>60); HEMOLYSIS 75; POTASSIUM 4.4 mEQ/L (3.4-4.9); SODIUM 143 mEQ/L (135-145); TOTAL PROTEIN 4.6 g/dL (6.6-8.7)
--- NOTE | 2017-06-10 06:45 | Operative Note - Dictated ---
DATE OF OPERATION: 06/09/2017 PREOPERATIVE DIAGNOSIS: Abdominal pain. POSTOPERATIVE DIAGNOSES: 1. Colonic ischemia with necrosis and gangrene. 2. Small bowel ischemia. OPERATION PERFORMED: 1. Diagnostic laparoscopy. 2. Exploratory laparotomy. 3. Subtotal colectomy. ATTENDING SURGEON: Wei Monroy M.D. ADDITIONAL SURGEON: Aftab Terrazas M.D. ANESTHESIOLOGIST: Dr. Gallegos. ANESTHESIA: General NON FERROUS MATERIAL HANDLER. ESTIMATED BLOOD LOSS: 150 mL. IV FLUIDS: 4 liters. CRYSTALLOID: 500 mL. COLLOID: One PRBC. WOUND CLASSIFICATION: Class IV ANTIBIOTICS: The patient was on scheduled intravenous antibiotics for active infection prior to entering operating room. DRAINS: None. COMPLICATIONS: None. SPECIMENS: Subtotal colectomy, sent to pathology for review. PERTINENT OPERATIVE FINDINGS: 1. Significant ischemia of the small intestine and large colon within a patchy distribution. 2. Necrotic gangrenous colon beginning at the distal ascending down to the rectum in a patchy fashion. 3. Significant improvement in the viability of the small intestine in small patches during the duration of the procedure. 4. Bowel left in discontinuity with plans to return to the operating room within 24 to 48 hours for second look. INDICATIONS FOR PROCEDURE: This is a 62-year-old female, who presented to the emergency department yesterday evening with complaints of abdominal pain, nausea, and emesis. The patient was admitted for further workup and evaluation. The patient was initially afebrile and hemodynamically stable, complaining of abdominal pain without peritonitis on exam, but did have a leukocytosis. The patient's abdominal pain improved after a large bowel movement the morning after admission. Following that, the patient proceeded to have worsening abdominal pain again with worsening leukocytosis and a lactic acid of 3.2. Repeat laboratories in the afternoon demonstrated an improvement in the leukocytosis, but a worsening lactate. The patient's abdominal exam was inconsistent, but did worsen later in the evening. A CT scan done on admission was evaluated and indicated potential enteritis, but no acute findings seen. Given the worsening lactic acid and worsening abdominal pain and changing exam, decision was made to take the patient to the operating room for diagnostic laparoscopy and possible exploration. In discussing the rationale for surgery with the patient, we discussed all the potential differentials including enteritis, colitis, mesenteric ischemia, bowel infarction, bowel obstruction. The risks, benefits, and alternatives to surgical intervention including no operation and negative laparoscopy or laparotomy were discussed with the patient and the patient's family at the bedside in detail. After doing so, the patient consented to surgical procedure. OPERATIVE NOTE: The patient was taken to the operating room, placed on the operating table in supine position with bilateral arms up. All bony problems were well padded with gel pads. Preoperative time-out was taken identifying the patient, procedure, operative site, and surgical staff. SCDs were placed. The patient was already on scheduled intravenous antibiotics for therapeutic. General anesthesia was induced and the patient was intubated. A Simpson catheter was inserted. The abdomen was then prepped and draped in the standard surgical fashion. An infraumbilical incision was made using a fresh #11 scalpel and carried down to the fascia with electrocautery and blunt dissection. The fascia was elevated and incised and entry into the abdomen was confirmed visually. A blunt tipped Tana trocar was inserted via the open Tana technique into the abdomen. The abdomen was insufflated 12 to 15 mmHg. The patient tolerated insufflation well. The laparoscope was inserted and the abdomen inspected. There was murky fluid in all four quadrants and the pelvis. The liver looked otherwise normal. The omentum was draped over the small intestines. At this time, decision was made to place a secondary trocar in the left mid quadrant to help with mobilization of the omentum for further evaluation of the intestines. A 5 mm trocar was placed under direct visualization in the left lower quadrant without complication. Laparoscopic graspers were used and the omentum was mobilized off the small bowel. In doing so in the left upper quadrant, there was ischemic gangrenous splenic flexure identified and therefore decision was made to abort diagnostic laparoscopy and proceed with exploratory laparotomy. This had been discussed with the patient prior to surgery. The laparoscope was removed as well as a trocar and the abdomen allowed to collapse. Using a fresh 10 blade, a midline incision was made and carried down to the fascia with electrocautery. The fascia was incised and entry into the abdomen was made without complication. The retractors were placed and the abdomen was inspected. At this time, once the omentum was elevated and small bowel inspected, the entirety of the small bowel and colon were noted to be fairly ischemic. The small bowel was brought out and the colon was inspected and there were areas of necrosis and gangrene in the colon in a patchy distribution with significant portion in the transverse, hepatic, and descending colon. At this time, the entirety of the abdomen was inspected beginning with the right upper quadrant where the liver looked fairly normal as did the gallbladder. The liver was beefy colored with fairly sharp edges. The gallbladder was without any palpable stones. The right lower quadrant was evaluated and the appendix was identified as well as ascending colon and the terminal ileum, which all appeared fairly normal without any ischemia. In the pelvis on initial evaluation, the ovaries looked mildly ischemic and the uterus was otherwise normal. There was some ischemia and the sigmoid colon was seen at this time in the left lower quadrant with patchy areas of ischemia and necrosis as well was the descending colon and transverse. The left upper quadrant was evaluated and the spleen was noted to have some ischemia in its superior pole, but otherwise normal at the inferior pole. The small bowel was run from ligament of Treitz to the terminal ileum and initially mainly very dusky with ischemia, but without any areas of kp necrosis or gangrene. At this time, the stomach was evaluated and noted to be viable without any ischemia. The omentum was evaluated and noted to have some stasis and some of the venous vessels of the omentum. At this time, decision was made to inspect the lesser sac. The omentum was elevated and the gastrocolic ligament was divided allowing mobilization of the stomach cephalad and evaluation in the posterior aspect of the stomach, which was unremarkable. The pancreas was evaluated and noted to be unremarkable as well. The SMA was palpated at this time and noted to have good flow without any occlusion at the level of the pancreas. The transverse colon was elevated and the middle colic artery was palpated and at this time noted to have flow proximally, but no flow distally to the area that had ischemia and gangrene. At this time, decision was made to leave the small bowel and allowed to clear itself, but in the meantime, resect the necrotic gangrenous portions of the colon. The appendix and ascending colon were viable without any ischemia. The hepatic flexure was ischemic towards the transverse colon, which noted significant areas of necrosis and gangrene as well as the splenic flexure, descending colon, and sigmoid colon. The splenic flexure was released and the splenic flexure mobilized. The white line of Toldt was incised and taken down and the sigmoid colon and descending colon were mobilized as well. Once this was complete, the area of proximal transection was identified where healthy viable colon remained. A small defect was made in the mesentery at this level and the colon divided using a linear 100 mm stapler. Once this was complete, the mesentery of the remaining ischemic necrotic colon was scored and the mesentery divided and ligated using #0 silk ties beginning proximally heading from the hepatic flexure towards the splenic flexure down towards the sigmoid colon to the sigmoid rectum junction. At this time, the rectum looked viable and decision was made to do the remaining of the transection at the proximal rectum using a linear 100 mm stapler. The remaining specimen was then sent off to pathology for review. The mesentery was evaluated and noted to be hemostatic. The rectum was evaluated and noted to be mildly ischemic, but unlikely viable. The proximal transection was identified, was reevaluated and noted to be viable. During the time it took to perform the subtotal colectomy of the hepatic flexure down to the rectum, a significant portion of the small bowel had become less ischemic and more pink and viable. Evaluating the small bowel, the beginning of ligament of Treitz approximately 1 foot distal from the ligament of Treitz to one foot distal was viable. Small bowel without significant ischemia. From one foot distal of the ligament of Treitz, the remaining four feet, there was areas of ischemia, but no kp necrosis or gangrene. Doppler was used and approximately some blood flow could be identified with potential for faint flow distally. After this segment, there was a one foot segment that was viable followed by a one foot segment that was ischemic followed by a one and half segment that was viable towards the terminal ilium, which was viable as well as the ascending colon as stated prior. At this time, given the significant improvement in the small bowel with improvement in small bowel, areas of transection could not be easily identified and given the severity of the small bowel was compromised, decision was made to allow the small bowel declare itself further and return for a second-look operation and resection of small bowel at a later date. The patient at this time left in discontinuity. After removal of the necrotic portion of the colon and improving the viability of the small bowel, there was also improvement of correlation in the ovaries and the spleen. At this time, the abdomen was irrigated with warm normal saline. The ischemic portions of the omentum were resected. The pelvic contents were then returned to their anatomical positions and decision was made to do a closure with intent for second-look laparotomy within 24 to 48 hours, at which time the small bowel viability can be reassessed and areas that need to be excised would be. The fascia was reapproximated using #0 Prolene suture and the skin was loosely approximated using two or three skin janes. The abdomen was then cleansed and dressings were applied. At this time, the case was concluded and the patient was left intubated and sedated and taken to the intensive care unit in stable condition. Family was informed of the operative findings and future plans. Wei Monroy M.D. DR: MODESTO JOB#: [id number] CC: DARIEN
[2017-06-10 08:01] LABS: ANISOCYTOSIS 1+; BAND NEUTROPHILS % (MANUAL) 4 % (0-8); BASOPHILS % (MANUAL) 0 % (0-2); EOSINOPHILS % (MANUAL) 3 % (0-3); LYMPHOCYTES % (MANUAL) 11 % (20-45); NEUTROPHILS % (MANUAL) 73 % (45-75); PLATELET ESTIMATE DECREASED; PLATELET MORPHOLOGY NORMAL; POLYCHROMASIA OCCASIONAL; TOTAL CELLS COUNTED 100
[2017-06-10 08:43] LABS: ABG ALLEN TEST POSITIVE; ABG PCO2 30.1 mmHg (35.0-45.0)
[2017-06-10] MEDS ORDERED: Pantoprazole Inj IVP SCH (09:00)
--- NOTE | 2017-06-10 09:13 | Immediate Post-Op Evaluation ---
Immediate Post-Op Evalulation Immediate Post-Op Evalulation Procedure: ex-lap Date of Evaluation: Jun 09, 2017 Time of Evaluation: 19:06 IV Fluids: 4L crystalloids, 500ml colloids Blood Products: 1 unit PRBC Estimated Blood Loss: 150 Urinary Output: 150 Blood Pressure Systolic: 151 Blood Pressure Diastolic: 64 Pulse Rate: 107 Respiratory Rate: 12 O2 Sat by Pulse Oximetry: 100 Temperature (Fahrenheit): 97.1 Pain Score (1-10): 0 Nausea: No Vomiting: No Complications 0 Patient Status: no response - sedated, ventilated, none Hydration Status: adequate Drug: Flagyl and Amikacin Given Within 1 Hr of Incision: Yes CHAD PADILLA M.D. Jun 10, 2017 09:13
--- NOTE | 2017-06-10 10:04 | Pre-Procedure Note/Attestation ---
Pre-Procedure Note/Attestation Complete Prior to Procedure Planned Procedure: not applicable Procedure Narrative: exploratory laparotomy, bowel resection, possible ostomy Indications for Procedure Pre-Operative Diagnosis: mesenteric ischemia with bowel necrosis Attestation I attest that I discussed the nature of the procedure; its benefits; risks and complications; and alternatives (and the risks and benefits of such alternatives ), prior to the procedure, with the patient (or the patient's legal kiosk sales representative). I attest that, if there was a reasonable possibility of needing a blood transfusion, the patient (or the patient's legal kiosk sales representative) was given the [facility] standardized written summary, pursuant to the Nickolas Lupe Blood Safety Act ([place] Health and Safety Code # 1645, as amended). I attest that I re-evaluated the patient just prior to the surgery and that there has been no change in the patient's H&P, except as documented below: Wei Monroy Jun 10, 2017 10:04
--- NOTE | 2017-06-10 10:07 | General Progress Note ---
Progress Note Progress Note Surgery: Patient seen and examined at bedside. doing well since surgery. stable in ICU. afebrile, HD stable, good UOP, labs improved. Lactic acid 2 now, leukocytosis resolving, plt tending up, H/H stable. Discussed with family findings from initial surgery and need for second look. Discussed possible bowel resection, possible ostomy, possible repeat operation. Plan for OR today for second look laparotomy. Wei Monroy Jun 10, 2017 10:07
[2017-06-10] MEDS ORDERED: NS Irrig 2000ml IRRIG ONE (10:30)
[2017-06-10] MEDS ORDERED: LR 1000ml ONE ×2 (10:30→22:52)
[2017-06-10] MEDS ORDERED: Sterile Water Irrig 1000ml IRRIG ONE (10:30)
[2017-06-10] MEDS ORDERED: Zemuron 50mg/5ml Inj IV ONE (10:30)
[2017-06-10] MEDS ORDERED: NS Irrig 1000ml ONE (10:30)
--- NOTE | 2017-06-10 11:16 | Pulmonolgy Critical Care Note ---
Critical Care - Asmt/Plan Problems: (1) Ischemic colon (2) S/P laparotomy (3) Colitis, acute Respiratory: monitor respiratory rate, adjust FIO2 Cardiac: continue to monitor HR/BP Renal: F/U I&O, keep IV fluid, check electrolytes Infectious Disease: check cultures Gastrointestinal: continue feedings/current rate, hold feedings Endocrine: monitor blood sugar, continue sliding scale insulin Hematologic: monitor H/H, transfuse if hgb<8.5 Neurologic: PRN Ativan, keep patient comfortable Affect: PRN ativan Prophylaxis: Protonix Notes Reviewed: potato peeler, cardio, renal Discussed with: nurses, consultants, rn case managerregional marketing manager - Objective Last 24 Hour Vital Signs Date Time Temp Pulse Resp B/P Pulse Ox O2 Delivery O2 Flow Rate FiO2 06/10/17 10:00 15 06/10/17 10:00 15 06/10/17 10:00 128 15 122/72 100 Mechanical Ventilator 06/10/17 09:30 130 14 124/72 100 Mechanical Ventilator 30 06/10/17 09:13 107 12 100 06/10/17 09:00 130 20 122/72 100 Mechanical Ventilator 30 06/10/17 09:00 20 06/10/17 09:00 20 06/10/17 08:47 113 20 30 06/10/17 08:30 128 14 124/74 100 Mechanical Ventilator 06/10/17 08:00 129 06/10/17 08:00 99.5 129 14 122/74 100 Mechanical Ventilator 30 06/10/17 08:00 18 06/10/17 08:00 20 06/10/17 08:00 30 06/10/17 07:30 129 14 123/74 100 Mechanical Ventilator 06/10/17 07:00 130 14 126/67 100 Mechanical Ventilator 30 06/10/17 07:00 24 06/10/17 07:00 22 06/10/17 06:46 107 24 30 06/10/17 06:30 132 14 142/67 100 Mechanical Ventilator 06/10/17 06:00 131 14 123/69 100 Mechanical Ventilator 30 06/10/17 06:00 24 06/10/17 06:00 24 06/10/17 05:30 127 14 147/69 100 Mechanical Ventilator 30 06/10/17 05:20 125 24 30 06/10/17 05:00 129 14 125/66 100 Mechanical Ventilator 30 06/10/17 05:00 24 06/10/17 05:00 24 06/10/17 04:30 143 14 166/82 100 Mechanical Ventilator 30 06/10/17 04:00 98.7 133 14 134/80 100 Mechanical Ventilator 30 06/10/17 04:00 130 06/10/17 04:00 30 06/10/17 04:00 24 06/10/17 04:00 24 06/10/17 03:49 98.5 06/10/17 03:30 131 14 129/79 100 Mechanical Ventilator 30 06/10/17 03:20 131 24 30 06/10/17 03:19 24 06/10/17 03:19 24 06/10/17 03:00 23 06/10/17 03:00 23 06/10/17 03:00 132 14 130/74 100 Mechanical Ventilator 30 06/10/17 02:30 128 14 138/72 100 Mechanical Ventilator 30 06/10/17 02:00 131 14 136/77 100 Mechanical Ventilator 30 06/10/17 02:00 22 06/10/17 02:00 22 06/10/17 01:30 129 14 146/75 100 Mechanical Ventilator 30 06/10/17 01:00 128 14 139/71 100 Mechanical Ventilator 30 06/10/17 01:00 24 06/10/17 01:00 24 06/10/17 00:40 126 23 30 06/10/17 00:30 126 14 143/76 100 Mechanical Ventilator 30 06/10/17 00:00 30 06/10/17 00:00 22 06/10/17 00:00 22 06/10/17 00:00 98.5 124 14 138/75 100 Mechanical Ventilator 30 06/10/17 00:00 124 06/09/17 23:30 124 14 136/75 100 Mechanical Ventilator 30 06/09/17 23:00 123 14 140/73 100 Mechanical Ventilator 30 06/09/17 23:00 14 06/09/17 23:00 14 06/09/17 22:43 122 17 30 06/09/17 22:30 123 14 139/76 100 Mechanical Ventilator 40 06/09/17 22:00 40 06/09/17 22:00 122 14 136/68 100 Mechanical Ventilator 40 06/09/17 22:00 14 06/09/17 22:00 14 06/09/17 21:30 123 14 140/66 100 Mechanical Ventilator 40 06/09/17 21:29 122 18 40 06/09/17 21:00 124 14 137/66 100 Mechanical Ventilator 40 06/09/17 21:00 14 06/09/17 21:00 14 06/09/17 20:30 127 14 147/72 100 Mechanical Ventilator 50 06/09/17 20:26 14 06/09/17 20:13 97.8 06/09/17 20:13 97.8 06/09/17 20:09 14 06/09/17 20:00 130 06/09/17 20:00 50 06/09/17 20:00 97.7 129 14 155/78 100 Mechanical Ventilator 50 06/09/17 19:42 109 15 Mechanical Ventilator 50 06/09/17 19:21 50 06/09/17 19:20 109 15 161/69 100 Mechanical Ventilator 50 06/09/17 19:08 109 15 145/64 100 Mechanical Ventilator 50 06/09/17 19:03 108 15 145/64 100 Mechanical Ventilator 50 06/09/17 19:00 110 06/09/17 19:00 119 15 50 06/09/17 18:57 97.0 106 15 131/57 100 Mechanical Ventilator 50 06/09/17 12:00 96.6 135 20 129/73 97 Room Air Status: awake Condition: critical HEENT: atraumatic Neck: full ROM Lungs: clear, chest wall tender Heart: HR/BP stable Abdomen: soft Extremities: no C/C/E Decubiti: location Micro: Microbiology Date/Time Source Procedure Growth Status 06/08/17 15:50 Blood Blood Culture - Preliminary NO GROWTH AFTER 24 HOURS Resulted 06/08/17 15:30 Blood Blood Culture - Preliminary NO GROWTH AFTER 24 HOURS Resulted Accucheck: 106 Critical Care - Subjective ROS Limited/Unobtainable: Yes ICU Day: 2 Interval Events: had laparotomy yesterday,showing necrotic colon, underwent resection and transferred to ICU for further care. Condition: critical EKG Rhythm: Sinus Rhythm FI02: 30 Vent Support Breath Rate: 12 Vent Support Mode: AC Vent Tidal Volume: 500 Sputum Amount: None PEEP: 2.0 PIP: 21 I&O: Intake and Output 06/09/17 06/10/17 19:00 07:00 Intake Total 872.5 ml 7004.5 ml Output Total 1570 ml Balance 872.5 ml 5434.5 ml Intake IV Total 872.5 ml 6254.5 ml Blood Product 250 ml Other 500 ml Output Urine Total 920 ml Gastric Drainage Total 500 ml Estimated Blood Loss 150 ml ET-Tube: 7.0 ET Position: 21 Labs: Laboratory Tests Test 06/09/17 11:40 06/09/17 15:03 06/09/17 19:50 06/09/17 20:30 White Blood Count 30.8 K/UL (4.8-10.8) *H 24.5 K/UL (4.8-10.8) *H 15.2 K/UL (4.8-10.8) H Red Blood Count 5.76 M/UL (4.20-5.40) H 5.53 M/UL (4.20-5.40) H 5.09 M/UL (4.20-5.40) Hemoglobin 14.7 G/DL (12.0-16.0) 14.4 G/DL (12.0-16.0) 13.9 G/DL (12.0-16.0) Hematocrit 48.0 % (37.0-47.0) H 46.1 % (37.0-47.0) 43.3 % (37.0-47.0) Mean Corpuscular Volume 83 FL (80-99) 83 FL (80-99) 85 FL (80-99) Mean Corpuscular Hemoglobin 25.6 PG (27.0-31.0) L 26.0 PG (27.0-31.0) L 27.4 PG (27.0-31.0) Mean Corpuscular Hemoglobin Concent 30.7 G/DL (32.0-36.0) L 31.2 G/DL (32.0-36.0) L 32.2 G/DL (32.0-36.0) Red Cell Distribution Width 15.9 % (11.6-14.8) H 15.9 % (11.6-14.8) H 15.7 % (11.6-14.8) H Platelet Count 102 K/UL (150-450) L 84 K/UL (150-450) L 55 K/UL (150-450) L Mean Platelet Volume 6.3 FL (6.5-10.1) L 7.3 FL (6.5-10.1) 8.6 FL (6.5-10.1) Neutrophils (%) (Auto) % (45.0-75.0) % (45.0-75.0) 81.3 % (45.0-75.0) H Lymphocytes (%) (Auto) % (20.0-45.0) % (20.0-45.0) 9.2 % (20.0-45.0) L Monocytes (%) (Auto) % (1.0-10.0) % (1.0-10.0) 8.6 % (1.0-10.0) Eosinophils (%) (Auto) % (0.0-3.0) % (0.0-3.0) 0.0 % (0.0-3.0) Basophils (%) (Auto) % (0.0-2.0) % (0.0-2.0) 1.0 % (0.0-2.0) Differential Total Cells Counted 100 100 Neutrophils % (Manual) 72 % (45-75) 71 % (45-75) Lymphocytes % (Manual) 10 % (20-45) L 15 % (20-45) L Monocytes % (Manual) 9 % (1-10) 2 % (1-10) Eosinophils % (Manual) 0 % (0-3) 0 % (0-3) Basophils % (Manual) 0 % (0-2) 0 % (0-2) Band Neutrophils 9 % (0-8) H 12 % (0-8) H Platelet Estimate Decreased L Decreased L Platelet Morphology Normal Normal Red Blood Cell Morphology Normal Normal Anisocytosis 1+ 1+ Lactic Acid Level 4.20 mmol/L (0.66-2.22) H Polychromasia 1+ Prothrombin Time 13.7 SEC (9.30-11.50) H Prothromb Time International Ratio 1.3 (0.9-1.1) H Activated Partial Thromboplast Time 45 SEC (23-33) H Sodium Level 146 mEQ/L (135-145) H Potassium Level 3.8 mEQ/L (3.4-4.9) Chloride Level 113 mEQ/L (98-107) H Carbon Dioxide Level 22 mEQ/L (20-30) Anion Gap 11 (5-15) Blood Urea Nitrogen 34 mg/dL (7-23) H Creatinine 1.1 mg/dL (0.5-0.9) H Estimat Glomerular Filtration Rate 50.3 mL/min (>60) Glucose Level 112 mg/dL (74-106) H Hemoglobin A1c 5.2 % (< 6.0) Calcium Level 7.8 mg/dL (8.6-10.2) L Phosphorus Level 3.1 mg/dL (2.5-4.8) Magnesium Level 1.6 mg/dL (1.7-2.5) L Total Bilirubin 0.6 mg/dL (0.0-1.2) Aspartate Amino Transf (AST/SGOT) 29 U/L (5-40) Alanine Aminotransferase (ALT/SGPT) 18 U/L (3-33) Alkaline Phosphatase 59 U/L (35-104) Total Protein 5.2 g/dL (6.6-8.7) L Albumin 2.9 g/dL (3.5-5.2) L Globulin 2.3 g/dL Albumin/Globulin Ratio 1.2 (1.0-2.7) Arterial Blood pH 7.301 (7.350-7.450) Arterial Blood Partial Pressure CO2 42.3 mmHg (35.0-45.0) Arterial Blood Partial Pressure O2 226.7 mmHg (75.0-100.0) H Arterial Blood HCO3 20.4 mmol/L (22.0-26.0) L Arterial Blood Oxygen Saturation 99.0 % (92.0-98.0) H Arterial Blood Base Excess -5.7 Obie Test Positive Test 06/10/17 04:00 06/10/17 04:40 06/10/17 09:30 Arterial Blood pH 7.475 (7.350-7.450) Arterial Blood Partial Pressure CO2 30.1 mmHg (35.0-45.0) L Arterial Blood Partial Pressure O2 127.1 mmHg (75.0-100.0) H Arterial Blood HCO3 21.7 mmol/L (22.0-26.0) L Arterial Blood Oxygen Saturation 98.5 % (92.0-98.0) H Arterial Blood Base Excess -1.0 Obie Test Positive White Blood Count 14.1 K/UL (4.8-10.8) H Red Blood Count 4.93 M/UL (4.20-5.40) Hemoglobin 13.2 G/DL (12.0-16.0) Hematocrit 41.4 % (37.0-47.0) Mean Corpuscular Volume 84 FL (80-99) Mean Corpuscular Hemoglobin 26.8 PG (27.0-31.0) L Mean Corpuscular Hemoglobin Concent 31.9 G/DL (32.0-36.0) L Red Cell Distribution Width 15.5 % (11.6-14.8) H Platelet Count 58 K/UL (150-450) L Mean Platelet Volume 9.6 FL (6.5-10.1) Neutrophils (%) (Auto) % (45.0-75.0) Lymphocytes (%) (Auto) % (20.0-45.0) Monocytes (%) (Auto) % (1.0-10.0) Eosinophils (%) (Auto) % (0.0-3.0) Basophils (%) (Auto) % (0.0-2.0) Differential Total Cells Counted 100 Neutrophils % (Manual) 73 % (45-75) Lymphocytes % (Manual) 11 % (20-45) L Monocytes % (Manual) 9 % (1-10) Eosinophils % (Manual) 3 % (0-3) Basophils % (Manual) 0 % (0-2) Band Neutrophils 4 % (0-8) Platelet Estimate Decreased L Platelet Morphology Normal Polychromasia Occasional Anisocytosis 1+ Sodium Level 143 mEQ/L (135-145) Potassium Level 4.4 mEQ/L (3.4-4.9) Chloride Level 112 mEQ/L (98-107) H Carbon Dioxide Level 20 mEQ/L (20-30) Anion Gap 11 (5-15) Blood Urea Nitrogen 30 mg/dL (7-23) H Creatinine 0.9 mg/dL (0.5-0.9) Estimat Glomerular Filtration Rate > 60 mL/min (>60) Glucose Level 127 mg/dL (74-106) H Lactic Acid Level 2.10 mmol/L (0.66-2.22) 2.00 mmol/L (0.66-2.22) Calcium Level 7.6 mg/dL (8.6-10.2) L Phosphorus Level 2.0 mg/dL (2.5-4.8) L Magnesium Level 1.6 mg/dL (1.7-2.5) L Total Bilirubin 0.6 mg/dL (0.0-1.2) Aspartate Amino Transf (AST/SGOT) 27 U/L (5-40) Alanine Aminotransferase (ALT/SGPT) 17 U/L (3-33) Alkaline Phosphatase 48 U/L (35-104) Pro-B-Type Natriuretic Peptide 777 pg/mL (0-125) H Total Protein 4.6 g/dL (6.6-8.7) L Albumin 2.8 g/dL (3.5-5.2) L Globulin 1.8 g/dL Albumin/Globulin Ratio 1.5 (1.0-2.7) Ionized Calcium (Measured) 1.07 mmol/L (1.10-1.35) L [place] MCRAE Jun 10, 2017 11:16
--- NOTE | 2017-06-10 11:21 | Diagnostic Imaging Report ---
Indication: Repositioning of the endotracheal tube Comparison: 06/09/17 at an earlier time A single view chest radiograph was obtained. Findings: Endotracheal tube was repositioned and is now satisfactory about 3 cm above the marco a. No change otherwise. Impression: Endotracheal tube in good position
--- NOTE | 2017-06-10 11:57 | GI Progress Note ---
Assessment/Plan Problems: (1) Abdominal pain ICD Codes: R10.9 - Unspecified abdominal pain SNOMED: 60672516 Qualifiers: Qualified Codes: R10.13 - Epigastric pain (2) Gastroenteritis ICD Codes: K52.9 - Noninfective gastroenteritis and colitis, unspecified SNOMED: 96204137 (3) Gastric ulcer with hemorrhage ICD Codes: K25.4 - Chronic or unspecified gastric ulcer with hemorrhage SNOMED: 31425505 (4) Ischemic colon ICD Codes: K55.9 - Vascular disorder of intestine, unspecified SNOMED: 58135196 (5) Sepsis ICD Codes: A41.9 - Sepsis, unspecified organism SNOMED: 25156255 Qualifiers: Qualified Codes: A41.9 - Sepsis, unspecified organism Status: unchanged Status Narrative Discussed with Dr. Gonzalez. Assessment/Plan pt scheduled for surgery today >>possible bowel resection, possible ostomy, possible repeat operation. fu surgical recs prn transfusions fu labs Subjective Subjective limited Objective Last 24 Hour Vital Signs Date Time Temp Pulse Resp B/P Pulse Ox O2 Delivery O2 Flow Rate FiO2 06/10/17 10:00 15 06/10/17 10:00 15 06/10/17 10:00 128 15 122/72 100 Mechanical Ventilator 30 06/10/17 09:30 130 14 124/72 100 Mechanical Ventilator 30 06/10/17 09:13 107 12 100 06/10/17 09:00 130 20 122/72 100 Mechanical Ventilator 30 06/10/17 09:00 20 06/10/17 09:00 20 06/10/17 08:47 113 20 30 06/10/17 08:30 128 14 124/74 100 Mechanical Ventilator 30 06/10/17 08:00 129 06/10/17 08:00 99.5 129 14 122/74 100 Mechanical Ventilator 30 06/10/17 08:00 18 06/10/17 08:00 20 06/10/17 08:00 30 06/10/17 07:30 129 14 123/74 100 Mechanical Ventilator 30 06/10/17 07:00 130 14 126/67 100 Mechanical Ventilator 30 06/10/17 07:00 24 06/10/17 07:00 22 06/10/17 06:46 107 24 30 06/10/17 06:30 132 14 142/67 100 Mechanical Ventilator 30 06/10/17 06:00 131 14 123/69 100 Mechanical Ventilator 30 06/10/17 06:00 24 06/10/17 06:00 24 06/10/17 05:30 127 14 147/69 100 Mechanical Ventilator 30 06/10/17 05:20 125 24 30 06/10/17 05:00 129 14 125/66 100 Mechanical Ventilator 30 06/10/17 05:00 24 06/10/17 05:00 24 06/10/17 04:30 143 14 166/82 100 Mechanical Ventilator 30 06/10/17 04:00 98.7 133 14 134/80 100 Mechanical Ventilator 30 06/10/17 04:00 130 06/10/17 04:00 30 06/10/17 04:00 24 06/10/17 04:00 24 06/10/17 03:49 98.5 06/10/17 03:30 131 14 129/79 100 Mechanical Ventilator 30 06/10/17 03:20 131 24 30 06/10/17 03:19 24 06/10/17 03:19 24 06/10/17 03:00 23 06/10/17 03:00 23 06/10/17 03:00 132 14 130/74 100 Mechanical Ventilator 30 06/10/17 02:30 128 14 138/72 100 Mechanical Ventilator 30 06/10/17 02:00 131 14 136/77 100 Mechanical Ventilator 30 06/10/17 02:00 22 06/10/17 02:00 06/10/17 01:30 129 14 146/75 100 Mechanical Ventilator 30 06/10/17 01:00 128 14 139/71 100 Mechanical Ventilator 30 06/10/17 01:00 24 06/10/17 01:00 24 06/10/17 00:40 126 23 30 06/10/17 00:30 126 14 143/76 100 Mechanical Ventilator 30 06/10/17 00:00 30 06/10/17 00:00 22 06/10/17 00:00 22 06/10/17 00:00 98.5 124 14 138/75 100 Mechanical Ventilator 30 06/10/17 00:00 124 06/09/17 23:30 124 14 136/75 100 Mechanical Ventilator 30 06/09/17 23:00 123 14 140/73 100 Mechanical Ventilator 30 06/09/17 23:00 14 06/09/17 23:00 14 06/09/17 22:43 122 17 30 06/09/17 22:30 123 14 139/76 100 Mechanical Ventilator 40 06/09/17 22:00 40 06/09/17 22:00 122 14 136/68 100 Mechanical Ventilator 40 06/09/17 22:00 14 06/09/17 22:00 14 06/09/17 21:30 123 14 140/66 100 Mechanical Ventilator 40 06/09/17 21:29 122 18 40 06/09/17 21:00 124 14 137/66 100 Mechanical Ventilator 40 06/09/17 21:00 14 06/09/17 21:00 14 06/09/17 20:30 127 14 147/72 100 Mechanical Ventilator 50 06/09/17 20:26 14 06/09/17 20:13 97.8 06/09/17 20:13 97.8 06/09/17 20:09 14 06/09/17 20:00 130 06/09/17 20:00 50 06/09/17 20:00 97.7 129 14 155/78 100 Mechanical Ventilator 50 06/09/17 19:42 109 15 Mechanical Ventilator 50 06/09/17 19:21 50 06/09/17 19:20 109 15 161/69 100 Mechanical Ventilator 50 06/09/17 19:08 109 15 145/64 100 Mechanical Ventilator 50 06/09/17 19:03 108 15 145/64 100 Mechanical Ventilator 50 06/09/17 19:00 110 06/09/17 19:00 119 15 50 06/09/17 18:57 97.0 106 15 131/57 100 Mechanical Ventilator 50 06/09/17 12:00 96.6 135 20 129/73 97 Room Air Intake and Output 06/09/17 06/10/17 19:00 07:00 Intake Total 872.5 ml 7004.5 ml Output Total 1570 ml Balance 872.5 ml 5434.5 ml Intake IV Total 872.5 ml 6254.5 ml Blood Product 250 ml Other 500 ml Output Urine Total 920 ml Gastric Drainage Total 500 ml Estimated Blood Loss 150 ml Laboratory Tests Test 06/09/17 15:03 06/09/17 19:50 06/09/17 20:30 06/10/17 04:00 White Blood Count 24.5 K/UL (4.8-10.8) *H 15.2 K/UL (4.8-10.8) H Red Blood Count 5.53 M/UL (4.20-5.40) H 5.09 M/UL (4.20-5.40) Hemoglobin 14.4 G/DL (12.0-16.0) 13.9 G/DL (12.0-16.0) Hematocrit 46.1 % (37.0-47.0) 43.3 % (37.0-47.0) Mean Corpuscular Volume 83 FL (80-99) 85 FL (80-99) Mean Corpuscular Hemoglobin 26.0 PG (27.0-31.0) L 27.4 PG (27.0-31.0) Mean Corpuscular Hemoglobin Concent 31.2 G/DL (32.0-36.0) L 32.2 G/DL (32.0-36.0) Red Cell Distribution Width 15.9 % (11.6-14.8) H 15.7 % (11.6-14.8) H Platelet Count 84 K/UL (150-450) L 55 K/UL (150-450) L Mean Platelet Volume 7.3 FL (6.5-10.1) 8.6 FL (6.5-10.1) Neutrophils (%) (Auto) % (45.0-75.0) 81.3 % (45.0-75.0) H Lymphocytes (%) (Auto) % (20.0-45.0) 9.2 % (20.0-45.0) L Monocytes (%) (Auto) % (1.0-10.0) 8.6 % (1.0-10.0) Eosinophils (%) (Auto) % (0.0-3.0) 0.0 % (0.0-3.0) Basophils (%) (Auto) % (0.0-2.0) 1.0 % (0.0-2.0) Differential Total Cells Counted 100 Neutrophils % (Manual) 71 % (45-75) Lymphocytes % (Manual) 15 % (20-45) L Monocytes % (Manual) 2 % (1-10) Eosinophils % (Manual) 0 % (0-3) Basophils % (Manual) 0 % (0-2) Band Neutrophils 12 % (0-8) H Platelet Estimate Decreased L Platelet Morphology Normal Red Blood Cell Morphology Normal Polychromasia 1+ Anisocytosis 1+ Prothrombin Time 13.7 SEC (9.30-11.50) H Prothromb Time International Ratio 1.3 (0.9-1.1) H Activated Partial Thromboplast Time 45 SEC (23-33) H Sodium Level 146 mEQ/L (135-145) H Potassium Level 3.8 mEQ/L (3.4-4.9) Chloride Level 113 mEQ/L (98-107) H Carbon Dioxide Level 22 mEQ/L (20-30) Anion Gap 11 (5-15) Blood Urea Nitrogen 34 mg/dL (7-23) H Creatinine 1.1 mg/dL (0.5-0.9) H Estimat Glomerular Filtration Rate 50.3 mL/min (>60) Glucose Level 112 mg/dL (74-106) H Hemoglobin A1c 5.2 % (< 6.0) Calcium Level 7.8 mg/dL (8.6-10.2) L Phosphorus Level 3.1 mg/dL (2.5-4.8) Magnesium Level 1.6 mg/dL (1.7-2.5) L Total Bilirubin 0.6 mg/dL (0.0-1.2) Aspartate Amino Transf (AST/SGOT) 29 U/L (5-40) Alanine Aminotransferase (ALT/SGPT) 18 U/L (3-33) Alkaline Phosphatase 59 U/L (35-104) Total Protein 5.2 g/dL (6.6-8.7) L Albumin 2.9 g/dL (3.5-5.2) L Globulin 2.3 g/dL Albumin/Globulin Ratio 1.2 (1.0-2.7) Arterial Blood pH 7.301 (7.350-7.450) 7.475 (7.350-7.450) Arterial Blood Partial Pressure CO2 42.3 mmHg (35.0-45.0) 30.1 mmHg (35.0-45.0) L Arterial Blood Partial Pressure O2 226.7 mmHg (75.0-100.0) H 127.1 mmHg (75.0-100.0) H Arterial Blood HCO3 20.4 mmol/L (22.0-26.0) L 21.7 mmol/L (22.0-26.0) L Arterial Blood Oxygen Saturation 99.0 % (92.0-98.0) H 98.5 % (92.0-98.0) H Arterial Blood Base Excess -5.7 -1.0 Obie Test Positive Positive Test 06/10/17 04:40 06/10/17 09:30 White Blood Count 14.1 K/UL (4.8-10.8) H Red Blood Count 4.93 M/UL (4.20-5.40) Hemoglobin 13.2 G/DL (12.0-16.0) Hematocrit 41.4 % (37.0-47.0) Mean Corpuscular Volume 84 FL (80-99) Mean Corpuscular Hemoglobin 26.8 PG (27.0-31.0) L Mean Corpuscular Hemoglobin Concent 31.9 G/DL (32.0-36.0) L Red Cell Distribution Width 15.5 % (11.6-14.8) H Platelet Count 58 K/UL (150-450) L Mean Platelet Volume 9.6 FL (6.5-10.1) Neutrophils (%) (Auto) % (45.0-75.0) Lymphocytes (%) (Auto) % (20.0-45.0) Monocytes (%) (Auto) % (1.0-10.0) Eosinophils (%) (Auto) % (0.0-3.0) Basophils (%) (Auto) % (0.0-2.0) Differential Total Cells Counted 100 Neutrophils % (Manual) 73 % (45-75) Lymphocytes % (Manual) 11 % (20-45) L Monocytes % (Manual) 9 % (1-10) Eosinophils % (Manual) 3 % (0-3) Basophils % (Manual) 0 % (0-2) Band Neutrophils 4 % (0-8) Platelet Estimate Decreased L Platelet Morphology Normal Polychromasia Occasional Anisocytosis 1+ Sodium Level 143 mEQ/L (135-145) Potassium Level 4.4 mEQ/L (3.4-4.9) Chloride Level 112 mEQ/L (98-107) H Carbon Dioxide Level 20 mEQ/L (20-30) Anion Gap 11 (5-15) Blood Urea Nitrogen 30 mg/dL (7-23) H Creatinine 0.9 mg/dL (0.5-0.9) Estimat Glomerular Filtration Rate > 60 mL/min (>60) Glucose Level 127 mg/dL (74-106) H Lactic Acid Level 2.10 mmol/L (0.66-2.22) 2.00 mmol/L (0.66-2.22) Calcium Level 7.6 mg/dL (8.6-10.2) L Phosphorus Level 2.0 mg/dL (2.5-4.8) L Magnesium Level 1.6 mg/dL (1.7-2.5) L Total Bilirubin 0.6 mg/dL (0.0-1.2) Aspartate Amino Transf (AST/SGOT) 27 U/L (5-40) Alanine Aminotransferase (ALT/SGPT) 17 U/L (3-33) Alkaline Phosphatase 48 U/L (35-104) Pro-B-Type Natriuretic Peptide 777 pg/mL (0-125) H Total Protein 4.6 g/dL (6.6-8.7) L Albumin 2.8 g/dL (3.5-5.2) L Globulin 1.8 g/dL Albumin/Globulin Ratio 1.5 (1.0-2.7) Ionized Calcium (Measured) 1.07 mmol/L (1.10-1.35) L Height (Feet): 5 Height (Inches): 3.00 Weight (Pounds): 147 General Appearance: no apparent distress Cardiovascular: normal rate Respiratory/Chest: no respiratory distress Abdominal Exam: incision site Sabrina Evangelista N.P. Jun 10, 2017 11:57
[2017-06-10] MEDS ORDERED: Sodium Phosphate 20 MM in NS 275 ML IVPB ONE (12:00)
--- NOTE | 2017-06-10 12:12 | Anethesia Preoperative Eval ---
Anesthesia Pre-op PMH/ROS General Date of Evaluation: Jun 10, 2017 Time of Evaluation: 10:00 Anesthesiologist: nba ASA Score: ASA 4 Mallampati Score Class I : Soft palate, uvula, fauces, pillars visible Class II: Soft palate, uvula, fauces visible Class III: Soft palate, base of uvula visible Class IV: Only hard plate visible Mallampati Classification: Class II Anesthesia History: none Allergies: Coded Allergies: PENICILLIN (Verified Allergy, Unknown, 12/01/15) PENICILLINS (Unverified Allergy, Unknown, 06/08/17) SHELLFISH (Verified Allergy, Unknown, 12/01/15) Uncoded Allergies: Mints (Allergy, Unknown, 06/09/17) Past Medical History Cardiovascular: Reports: HTN Anesthesia Pre-op Phys. Exam Physician Exam Last Vital Signs Date Time Temp Pulse Resp B/P Pulse Ox O2 Delivery O2 Flow Rate FiO2 06/10/17 10:00 15 06/10/17 10:00 128 122/72 100 Mechanical Ventilator 30 06/10/17 08:00 99.5 Airway Exam Mallampati Score: Class II Anesthesia Pre-op A/P Labs Hematology Test 06/09/17 15:03 06/09/17 19:50 06/10/17 04:40 White Blood Count 24.5 K/UL (4.8-10.8) *H 15.2 K/UL (4.8-10.8) H 14.1 K/UL (4.8-10.8) H Red Blood Count 5.53 M/UL (4.20-5.40) H 5.09 M/UL (4.20-5.40) 4.93 M/UL (4.20-5.40) Hemoglobin 14.4 G/DL (12.0-16.0) 13.9 G/DL (12.0-16.0) 13.2 G/DL (12.0-16.0) Hematocrit 46.1 % (37.0-47.0) 43.3 % (37.0-47.0) 41.4 % (37.0-47.0) Mean Corpuscular Volume 83 FL (80-99) 85 FL (80-99) 84 FL (80-99) Mean Corpuscular Hemoglobin 26.0 PG (27.0-31.0) L 27.4 PG (27.0-31.0) 26.8 PG (27.0-31.0) L Mean Corpuscular Hemoglobin Concent 31.2 G/DL (32.0-36.0) L 32.2 G/DL (32.0-36.0) 31.9 G/DL (32.0-36.0) L Red Cell Distribution Width 15.9 % (11.6-14.8) H 15.7 % (11.6-14.8) H 15.5 % (11.6-14.8) H Platelet Count 84 K/UL (150-450) L 55 K/UL (150-450) L 58 K/UL (150-450) L Mean Platelet Volume 7.3 FL (6.5-10.1) 8.6 FL (6.5-10.1) 9.6 FL (6.5-10.1) Neutrophils (%) (Auto) % (45.0-75.0) 81.3 % (45.0-75.0) H % (45.0-75.0) Lymphocytes (%) (Auto) % (20.0-45.0) 9.2 % (20.0-45.0) L % (20.0-45.0) Monocytes (%) (Auto) % (1.0-10.0) 8.6 % (1.0-10.0) % (1.0-10.0) Eosinophils (%) (Auto) % (0.0-3.0) 0.0 % (0.0-3.0) % (0.0-3.0) Basophils (%) (Auto) % (0.0-2.0) 1.0 % (0.0-2.0) % (0.0-2.0) Differential Total Cells Counted 100 100 Neutrophils % (Manual) 71 % (45-75) 73 % (45-75) Lymphocytes % (Manual) 15 % (20-45) L 11 % (20-45) L Monocytes % (Manual) 2 % (1-10) 9 % (1-10) Eosinophils % (Manual) 0 % (0-3) 3 % (0-3) Basophils % (Manual) 0 % (0-2) 0 % (0-2) Band Neutrophils 12 % (0-8) H 4 % (0-8) Platelet Estimate Decreased L Decreased L Platelet Morphology Normal Normal Red Blood Cell Morphology Normal Polychromasia 1+ Occasional Anisocytosis 1+ 1+ Coagulation Test 06/09/17 19:50 Prothrombin Time 13.7 SEC (9.30-11.50) H Prothromb Time International Ratio 1.3 (0.9-1.1) H Activated Partial Thromboplast Time 45 SEC (23-33) H Chemistry Test 06/09/17 19:50 06/10/17 04:40 06/10/17 09:30 Sodium Level 146 mEQ/L (135-145) H 143 mEQ/L (135-145) Potassium Level 3.8 mEQ/L (3.4-4.9) 4.4 mEQ/L (3.4-4.9) Chloride Level 113 mEQ/L (98-107) H 112 mEQ/L (98-107) H Carbon Dioxide Level 22 mEQ/L (20-30) 20 mEQ/L (20-30) Anion Gap 11 (5-15) 11 (5-15) Blood Urea Nitrogen 34 mg/dL (7-23) H 30 mg/dL (7-23) H Creatinine 1.1 mg/dL (0.5-0.9) H 0.9 mg/dL (0.5-0.9) Estimat Glomerular Filtration Rate 50.3 mL/min (>60) > 60 mL/min (>60) Glucose Level 112 mg/dL (74-106) H 127 mg/dL (74-106) H Hemoglobin A1c 5.2 % (< 6.0) Calcium Level 7.8 mg/dL (8.6-10.2) L 7.6 mg/dL (8.6-10.2) L Phosphorus Level 3.1 mg/dL (2.5-4.8) 2.0 mg/dL (2.5-4.8) L Magnesium Level 1.6 mg/dL (1.7-2.5) L 1.6 mg/dL (1.7-2.5) L Total Bilirubin 0.6 mg/dL (0.0-1.2) 0.6 mg/dL (0.0-1.2) Aspartate Amino Transf (AST/SGOT) 29 U/L (5-40) 27 U/L (5-40) Alanine Aminotransferase (ALT/SGPT) 18 U/L (3-33) 17 U/L (3-33) Alkaline Phosphatase 59 U/L (35-104) 48 U/L (35-104) Total Protein 5.2 g/dL (6.6-8.7) L 4.6 g/dL (6.6-8.7) L Albumin 2.9 g/dL (3.5-5.2) L 2.8 g/dL (3.5-5.2) L Globulin 2.3 g/dL 1.8 g/dL Albumin/Globulin Ratio 1.2 (1.0-2.7) 1.5 (1.0-2.7) Lactic Acid Level 2.10 mmol/L (0.66-2.22) 2.00 mmol/L (0.66-2.22) Pro-B-Type Natriuretic Peptide 777 pg/mL (0-125) H Ionized Calcium (Measured) 1.07 mmol/L (1.10-1.35) L Ruben Hubbard MD Jun 10, 2017 12:12
--- NOTE | 2017-06-10 12:28 | Diagnostic Imaging Report ---
Indication: Dyspnea Comparison: 06/09/17 A single view chest radiograph was obtained. Findings: Endotracheal tube and nasogastric tubes are satisfactory in position. Lungs are clear with normal vascularity and heart size. Impression: No acute findings. Tubes unchanged in position
[2017-06-10] MEDS ORDERED: Calcium Chloride 10% 10ml carpuject IVP ONE (12:30)
--- NOTE | 2017-06-10 12:36 | Diagnostic Imaging Report ---
Indication: Intubation. Dyspnea Comparison: 06/09/2017 A single view chest radiograph was obtained. Findings: Endotracheal tube is in the right mainstem bronchus. This was subsequently repositioned in a satisfactory position. Heart size is stable. NG tube is in good position. Impression: Right mainstem intubation
--- NOTE | 2017-06-10 13:26 | Brief Operative Note ---
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
--- NOTE | 2017-06-10 13:28 | Immediate Post-Op Evaluation ---
Immediate Post-Op Evalulation Immediate Post-Op Evalulation Procedure: ex-lap Date of Evaluation: Jun 10, 2017 Time of Evaluation: 13:28 Nausea: No Vomiting: No Patient Status: ventilated Hydration Status: adequate Given Within 1 Hr of Incision: Yes Ruben Hubbard MD Jun 10, 2017 13:28
--- NOTE | 2017-06-10 14:07 | 48 Hour Post Anesthesia Eval ---
Post Anesthesia Evaluation Procedure: ex-lap Date of Evaluation: Jun 10, 2017 Time of Evaluation: 15:36 Blood Pressure Systolic: 124 0: 72 Pulse Rate: 109 Respiratory Rate: 20 - Mech Vent Temperature (Fahrenheit): 99.5 O2 Sat by Pulse Oximetry: 100 Airway: patent Nausea: No Vomiting: No Pain Intensity: 3 Hydration Status: adequate Cardiopulmonary Status: Stable Mental Status/LOC: other - ICU Follow-up Care/Observations: 0 Post-Anesthesia Complications: 0 Follow-up care needed: N/A Raulito Daniels MD Jun 10, 2017 14:07
[2017-06-10] MEDS ORDERED: Heparin 2000 units/Ns 1000ml IV PRN (14:15)
[2017-06-10] MEDS ORDERED: Lidocaine 1% Plain 30 ml INJ PRN (14:15)
[2017-06-10 16:35] LABS: MEAN CORPUSCULAR HEMOGLOBIN 28.8 PG (27.0-31.0); MEAN CORPUSCULAR HGB CONC 34.7 G/DL (32.0-36.0); MEAN CORPUSCULAR VOLUME 83 FL (80-99); MEAN PLATELET VOLUME 10.5 FL (6.5-10.1); PLATELET COUNT 45 K/UL (150-450); RED CELL DISTRIBUTION WIDTH 15.8 % (11.6-14.8); WHITE BLOOD COUNT 9.4 K/UL (4.8-10.8)
[2017-06-10 16:38] LABS: BASOPHILS % (AUTO) 0.7 % (0.0-2.0); EOSINOPHILS % (AUTO) 0.1 % (0.0-3.0); LYMPHOCYTES % (AUTO) 13.2 % (20.0-45.0); MONOCYTES % (AUTO) 7.8 % (1.0-10.0); NEUTROPHILS % (AUTO) 78.2 % (45.0-75.0)
--- NOTE | 2017-06-10 16:57 | Diagnostic Imaging Report ---
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 The right upper extremity was prepped with alcohol. All elements of maximal sterile barrier technique were followed including usage of a cap, mask, sterile gown, sterile gloves, hand hygiene and a large sterile sheet. Sonographic evaluation of the upper extremity was performed demonstrating a patent and compressible basilic vein. Access was obtained under real-time ultrasound guidance and digital image was saved and archived. An .018 wire was introduced. Needle exchanged for a 5 [place]hi peel-away sheath. Measurements were obtained. A 5 [place] dual-lumen Power PICC line catheter was cut to 35 cm and introduced over the wire. Peel-away sheath and wire were removed.Catheter was secured to the skin using 2-0 Prolene suture. Both ports aspirate and flush easily. Post procedure chest x-ray demonstrates good position of the PICC line catheter within the SVC. Impression: Successful placement of an upper extremity PICC line catheter
[2017-06-10 17:04] LABS: ANION GAP 7 (5-15); CALCIUM 8.5 mg/dL (8.6-10.2); CARBON DIOXIDE 24 mEQ/L (20-30); CHLORIDE 113 mEQ/L (98-107); CREATININE 0.7 mg/dL (0.5-0.9); GLOMERULAR FILTRATION RATE > 60 mL/min (>60); HEMOLYSIS 3; POTASSIUM 3.4 mEQ/L (3.4-4.9); SODIUM 144 mEQ/L (135-145)
[2017-06-10] MEDS ORDERED: fentaNYL Citrate 2,500 MCG in NS 200 ML IV SCH (20:00)
--- NOTE | 2017-06-10 20:30 | Operative Note - Dictated ---
DATE OF OPERATION: 06/10/2017 PREOPERATIVE DIAGNOSIS: Mesenteric ischemia with bowel necrosis. POSTOPERATIVE DIAGNOSIS: Mesenteric ischemia with bowel necrosis. OPERATION PERFORMED: 1. Planned reexploration exploratory laparotomy. 2. Small bowel resection. 3. Distal sigmoid resection. 4. Colostomy creation. 5. Abdominal wash out. 6. Abdominal closure. ATTENDING SURGEON: Wei Monroy M.D. ASSISTING SURGEON: Abraham Donohue M.D. ANESTHESIOLOGIST: Dr. Hubbard. ANESTHESIA: General TELEPHONE OPERATOR CHIEF. WOUND CLASSIFICATION: Class III. SPECIMENS: 1. Proximal jejunum. 2. Distal sigmoid colon. ESTIMATED BLOOD LOSS: 100 mL. IV FLUIDS: 800 mL crystalloid. COMPLICATIONS: None. DRAINS: A 19-[place] Unruly drain left in the pelvis. ANTIBIOTICS: The patient was on scheduled intravenous antibiotics for active infection prior to entering the operating room. COUNTS: Sponge and needle count correct x2. SUMMARY OF PERTINENT FINDINGS: 1. Proximal jejunum with a portion that was necrotic required excision with primary small bowel [id number] anastomosis. 2. Remainder of small bowel looked viable. 3. Cecum and ascending colon that was left was viable. 4. Ostomy creation in the right mid quadrant. 5. Excision of distal sigmoid colon. 6. Abdominal wash out. INDICATIONS FOR PROCEDURE: This is a 62-year-old female, who is taken to the operating room last night for worsening abdominal pain and found to have mesenteric ischemia with a very unusual patchy distribution of necrotic intestines requiring a subtotal colectomy for necrotic gangrenous hepatic flexure transverse colon, splenic flexure, descending colon and sigmoid colon. The remaining intestines were dusky with areas of possible necrosis, but unsure and therefore planned reoperation was scheduled for a second look within 24 hours. The findings on first operation were discussed with the patient's family in detail. In doing so, rationale and necessity for reoperation was explained including the patient was left in discontinuity and potential for salvage of portions of the small bowel. The patient's family expressed understanding. Consented to surgery. The patient was hydrated and stabilized preoperatively prior to first surgery and as well overnight in the intensive care unit prior to the second surgery. OPERATIVE NOTE: The patient was taken to the operating room directly from the intensive care unit for planned second look and re-exploration. The patient was placed on the operating room table in supine position with bilateral arms out. All bony prominences well padded. Prior to entering operating room, the patient was already intubated and already had a Simpson catheter in place. Preoperative time-out was taken identifying the patient, procedure, operative site, and surgical staff. General anesthesia was induced. The abdomen was prepped and draped in standard surgical fashion. We began by removing the prior placed skin janes and Prolene fascial sutures. The abdomen was opened and inspected. A fair amount of serosanguineous fluid was evacuated. We began evaluation of the abdomen beginning in the right upper quadrant with the liver and gallbladder still identified and looked to be viable and otherwise normal. In the right lower quadrant, a cecum, appendix, terminal ileum and ascending colon were evaluated and all noted to be viable. In the left upper quadrant, the stomach was noted to be viable as well as the pancreas without any abnormality. The spleen was re-evaluated and noted to be viable, but did have an area of infarct in the inferior pole. The left lower quadrant was evaluated. No abnormalities were noted. The pelvis was evaluated and the uterus and ovaries looked otherwise viable and normal, but the distal stump of the colon remaining from prior days excision was mildly ischemic. The small bowel was then run from the ligament Treitz down to the terminal ilium. The first distal to the ligament Treitz was viable, but then there was a segment of approximately 2-3 feet that was ischemic and was necrotic. The remainder of the small bowel down to the terminal ileum was otherwise viable. Some areas of mild ischemia were noted, but no necrosis and peristalsis was still seen. Doppler was used to evaluate the mesentery of these areas and they did have blood flow. At this time, decision was made to excise the necrotic skin portion of small bowel, which was the proximal jejunum down to terminal ileum. A small hole was made in mesentery after area proximal distal transection was located. A linear 55 millimeter JESSICA stapler was used to divide the proximal and distal points of transection. The mesentery was then evaluated and scored. The mesentery was ligated and divided using 0 silk ties. Following this, the two portions of small bowel were brought together and a [id number]-ka-[id number] staple anastomosis was performed. 3-0 silk stay sutures were placed proximally and distally and a small enterotomy was made on both ends of the bowel when they were placed [id number]. The endoscopic linear 55 millimeter stapler was entered and fired. The remaining defect from the enterotomy was closed in a two-layer fashion beginning with a running 3-0 Vicryl suture followed by 3-0 silk Lembert sutures. The anastomosis was evaluated and noted to be hemostatic, viable, and patent. Following this, we turned our attention to the colon stump that was remaining in the pelvis. It seemed that there was a portion of sigmoid and we did not completely dissect it down to the rectosigmoid junction. At this time, using electrocautery the remaining pedicle of the mesentery was divided and the distal sigmoid stump was divided using a contour curved bowel stapler. Once this was complete, the remaining rectal stump was evaluated and noted to be viable. The abdomen was then washed out with multiple liters of warm normal saline. At this time, a fresh scalpel incision was made on the right mid abdomen at the skin level. The core of the subcutaneous fat was excised. A cruciate incision was made in the fascia and the fascia was divided and opened. Two finger breadths fascia opening was identified for the colostomy creation. The distal portion of the ascending colon was brought through this incision for a colostomy creation after closure of the abdomen. Decision made to also place a 19-[place] Unruly Jose Ramon-Sher drain, which was entered through yesterday's 5 millimeter left mid quadrant port site. A 19-[place]an drain was sutured to the skin using a 2-0 nylon suture and drain was left in the pelvis. At this time, no other abnormalities were noted. We began our closure of the abdomen. The fascia was reapproximated using 0 looped PDS suture. Following this, the wound was irrigated and closed with surgical skin janes. The wound was then covered and we turned our attention to our colostomy. The ascending colon portion for the colostomy was tacked to the fascia using 3-0 Vicryl sutures in four points. Following this, the prior staple line was excised and the colostomy matured using 3-0 Vicryl sutures from the submucosa to the dermis. A satisfactory colostomy creation was noted without any ischemia and good viable bowel distally. The ostomy was palpated and noted to be patent. A colostomy bag was then placed and the skin incision and drain were dressed. The patient tolerated the procedure well and was taken to the intensive care unit in stable condition. Wei Monroy M.D. DR: ROBERT JOB#: [id number] CC: DARIEN
[2017-06-10] MEDS ORDERED: NS 275ml ONE (22:52)
[2017-06-10] MEDS ORDERED: Tubing IV Secondary IV ONE (22:52)
[2017-06-11] VITALS (48 sets, daily range): BP systolic 119–146; BP diastolic 49–92
[2017-06-11] MEDS: Pantoprazole 80 MG in NS 250 ML IV SCH (00:23)
[2017-06-11] MEDS: Midazolam for drip 50 MG in NS 90 ML IV SCH ×2 (02:58→20:29)
[2017-06-11] MEDS: Aztreonam Inj 2 GM in D5W 110 ML IVPB SCH ×3 (05:41→21:41)
[2017-06-11] MEDS: LR 1000ml 1,000 ML IV SCH ×2 (05:41→12:27)
[2017-06-11] MEDS: metroNIDAZOLE 500mg 100 ML IVPB SCH ×3 (05:41→21:42)
[2017-06-11] MEDS: NovoLOG Insulin Flexpen SUBQ SCH ×4 (06:00→18:22)
[2017-06-11 06:47] LABS: MEAN CORPUSCULAR HEMOGLOBIN 27.8 PG (27.0-31.0); MEAN CORPUSCULAR VOLUME 84 FL (80-99); MEAN PLATELET VOLUME 7.8 FL (6.5-10.1); PLATELET COUNT 94 K/UL (150-450); RED BLOOD COUNT 3.28 M/UL (4.20-5.40); RED CELL DISTRIBUTION WIDTH 15.6 % (11.6-14.8); WHITE BLOOD COUNT 10.6 K/UL (4.8-10.8)
[2017-06-11 08:03] LABS: ALANINE AMINOTRANSFERASE 17 U/L (3-33); ANION GAP 11 (5-15); ASPARTATE AMINO TRANSFERASE 23 U/L (5-40); CALCIUM 8.4 mg/dL (8.6-10.2); CARBON DIOXIDE 23 mEQ/L (20-30); CHLORIDE 112 mEQ/L (98-107); CREATININE 0.5 mg/dL (0.5-0.9); GLOMERULAR FILTRATION RATE > 60 mL/min (>60); HEMOLYSIS 4; PHOSPHORUS 1.1 mg/dL (2.5-4.8); POTASSIUM 3.2 mEQ/L (3.4-4.9); SODIUM 146 mEQ/L (135-145); TOTAL PROTEIN 4.8 g/dL (6.6-8.7)
[2017-06-11 08:23] LABS: BILIRUBIN,DIRECT 0.5 mg/dL (0.1-0.3)
[2017-06-11 08:56] LABS: BAND NEUTROPHILS % (MANUAL) 11 % (0-8); LYMPHOCYTES % (MANUAL) 22 % (20-45); NEUTROPHILS % (MANUAL) 65 % (45-75); TOTAL CELLS COUNTED 100
[2017-06-11 08:58] LABS: BASOPHILS % (MANUAL) 0 % (0-2); EOSINOPHILS % (MANUAL) 0 % (0-3); PLATELET ESTIMATE DECREASED; PLATELET MORPHOLOGY NORMAL
[2017-06-11 09:00] LABS: ANISOCYTOSIS 1+; HYPOCHROMASIA 1+
--- NOTE | 2017-06-11 09:10 | General Progress Note ---
Assessment/Plan Problem List: (1) Ischemic bowel disease ICD Codes: K55.9 - Vascular disorder of intestine, unspecified SNOMED: [id number] Assessment/Plan post op npo IVF abx dc protonix drip may need TPN fu surgical recs Subjective ROS Limited/Unobtainable: No Allergies: Coded Allergies: PENICILLIN (Verified Allergy, Unknown, 12/01/15) PENICILLINS (Unverified Allergy, Unknown, 06/08/17) SHELLFISH (Verified Allergy, Unknown, 12/01/15) Uncoded Allergies: Mints (Allergy, Unknown, 06/09/17) Objective Last 24 Hour Vital Signs Date Time Temp Pulse Resp B/P Pulse Ox O2 Delivery O2 Flow Rate FiO2 06/11/17 08:00 98 20 132/69 100 Mechanical Ventilator 06/11/17 07:30 100 22 140/77 100 Mechanical Ventilator 30 06/11/17 07:27 97 20 30 06/11/17 07:00 94 20 137/68 100 Mechanical Ventilator 30 06/11/17 07:00 21 06/11/17 07:00 06/11/17 06:30 99 21 131/66 99 Mechanical Ventilator 30 06/11/17 06:00 99.5 98 16 135/68 98 Mechanical Ventilator 06/11/17 06:00 20 06/11/17 06:00 20 06/11/17 05:30 100 21 142/68 99 Mechanical Ventilator 30 06/11/17 05:00 101 16 142/69 99 Mechanical Ventilator 30 06/11/17 05:00 20 06/11/17 05:00 20 06/11/17 04:53 104 21 30 06/11/17 04:30 107 16 140/69 99 Mechanical Ventilator 30 06/11/17 04:00 99.5 109 16 141/71 98 Mechanical Ventilator 30 06/11/17 04:00 107 06/11/17 04:00 06/11/17 04:00 06/11/17 04:00 06/11/17 03:30 109 16 141/71 99 Mechanical Ventilator 30 06/11/17 03:07 105 20 30 06/11/17 03:00 108 16 138/68 99 Mechanical Ventilator 30 06/11/17 03:00 06/11/17 03:00 06/11/17 02:58 06/11/17 02:30 103 16 140/68 99 Mechanical Ventilator 30 06/11/17 02:00 106 16 140/67 99 Mechanical Ventilator 30 06/11/17 02:00 21 06/11/17 02:00 21 06/11/17 01:30 101 16 143/69 99 Mechanical Ventilator 30 06/11/17 01:05 104 20 30 06/11/17 01:00 21 06/11/17 01:00 21 06/11/17 01:00 105 16 140/70 99 Mechanical Ventilator 30 06/11/17 00:30 104 16 137/66 99 Mechanical Ventilator 30 06/11/17 00:00 104 16 136/67 99 Mechanical Ventilator 30 06/11/17 00:00 30 06/11/17 00:00 103 06/11/17 00:00 21 06/11/17 00:00 21 06/10/17 23:30 105 16 137/67 99 Mechanical Ventilator 30 06/10/17 23:02 110 24 30 06/10/17 23:00 98.7 103 16 131/67 98 Mechanical Ventilator 30 06/10/17 23:00 23 06/10/17 23:00 23 06/10/17 22:30 109 16 131/67 99 Mechanical Ventilator 30 06/10/17 22:00 103 16 134/65 99 Mechanical Ventilator 30 06/10/17 22:00 24 06/10/17 22:00 24 06/10/17 21:47 99.3 06/10/17 21:30 109 16 131/67 99 Mechanical Ventilator 30 06/10/17 21:17 23 06/10/17 21:00 108 16 135/66 99 Mechanical Ventilator 30 06/10/17 21:00 23 06/10/17 21:00 24 06/10/17 20:48 110 23 30 06/10/17 20:30 109 16 140/67 99 Mechanical Ventilator 30 06/10/17 20:00 98.7 106 16 136/66 98 Mechanical Ventilator 30 06/10/17 20:00 111 06/10/17 20:00 30 06/10/17 20:00 24 06/10/17 20:00 24 06/10/17 19:30 110 16 133/63 99 Mechanical Ventilator 30 06/10/17 19:00 108 16 128/64 99 Mechanical Ventilator 30 06/10/17 19:00 20 06/10/17 19:00 16 06/10/17 18:55 115 22 30 06/10/17 18:30 112 16 127/81 99 Mechanical Ventilator 30 06/10/17 18:00 99.3 113 16 124/75 99 Mechanical Ventilator 30 06/10/17 18:00 16 06/10/17 18:00 16 06/10/17 17:30 113 16 94/72 99 Mechanical Ventilator 30 06/10/17 17:00 18 06/10/17 17:00 15 06/10/17 17:00 119 16 135/67 99 Mechanical Ventilator 30 06/10/17 16:45 119 23 30 06/10/17 16:30 121 16 130/61 99 Mechanical Ventilator 30 06/10/17 16:00 125 06/10/17 16:00 98.6 124 16 132/62 98 Mechanical Ventilator 30 06/10/17 16:00 16 06/10/17 16:00 20 06/10/17 16:00 30 06/10/17 15:30 126 16 141/65 100 Mechanical Ventilator 30 06/10/17 15:00 124 16 137/67 100 Mechanical Ventilator 30 06/10/17 15:00 16 06/10/17 14:54 122 25 30 06/10/17 14:49 18 06/10/17 14:30 124 15 152/71 100 Mechanical Ventilator 30 06/10/17 14:07 109 20 100 06/10/17 14:00 16 06/10/17 14:00 128 15 154/67 100 Mechanical Ventilator 30 06/10/17 13:26 109 24 30 06/10/17 10:00 15 06/10/17 10:00 15 06/10/17 10:00 128 15 122/72 100 Mechanical Ventilator 30 06/10/17 09:30 130 14 124/72 100 Mechanical Ventilator 30 06/10/17 09:13 107 12 100 Intake and Output 06/10/17 06/11/17 19:00 07:00 Intake Total 1926 ml 2898 ml Output Total 1120 ml 950 ml Balance 806 ml 1948 ml Intake IV Total 1926 ml 2608 ml Blood Product 290 ml Output Urine Total 830 ml 910 ml Gastric Drainage Total 250 ml 10 ml Drainage Total 40 ml 30 ml # Bowel Movements 4 Laboratory Tests 06/10/17 09:30: Lactic Acid Level 2.00, Ionized Calcium (Measured) 1.07L 06/10/17 16:15: White Blood Count 9.4, Red Blood Count 3.50L, Hemoglobin 10.1L, Hematocrit 29.1L , Mean Corpuscular Volume 83, Mean Corpuscular Hemoglobin 28.8, Mean Corpuscular Hemoglobin Concent 34.7, Red Cell Distribution Width 15.8H, Platelet Count 45L, Mean Platelet Volume 10.5H, Neutrophils (%) (Auto) 78.2H, Lymphocytes (%) (Auto) 13.2L, Monocytes (%) (Auto) 7.8, Eosinophils (%) (Auto) 0.1, Basophils (%) (Auto) 0.7, Sodium Level 144, Potassium Level 3.4, Chloride Level 113H, Carbon Dioxide Level 24, Anion Gap 7, Blood Urea Nitrogen 24H, Creatinine 0.7, Estimat Glomerular Filtration Rate > 60, Glucose Level 125H, Calcium Level 8.5L 06/11/17 04:00: Sodium Level 146H, Potassium Level 3.2L, Chloride Level 112H, Carbon Dioxide Level 23, Anion Gap 11, Blood Urea Nitrogen 16, Creatinine 0.5, Estimat Glomerular Filtration Rate > 60, Glucose Level 82, Calcium Level 8.4L, Phosphorus Level 1.1L, Magnesium Level 2.0, Total Bilirubin 1.1, Direct Bilirubin 0.5H, Aspartate Amino Transf (AST/SGOT) 23, Alanine Aminotransferase ( ALT/SGPT) 17, Alkaline Phosphatase 52, Total Protein 4.8L, Albumin 2.4L, Globulin 2.4, Albumin/Globulin Ratio 1.0 06/11/17 04:35: White Blood Count 10.6, Red Blood Count 3.28L, Hemoglobin 9.1L, Hematocrit 27.6L , Mean Corpuscular Volume 84, Mean Corpuscular Hemoglobin 27.8, Mean Corpuscular Hemoglobin Concent 33.0, Red Cell Distribution Width 15.6H, Platelet Count 94#L, Mean Platelet Volume 7.8, Neutrophils (%) (Auto) , Lymphocytes (%) (Auto) , Monocytes (%) (Auto) , Eosinophils (%) (Auto) , Basophils (%) (Auto) , Differential Total Cells Counted 100, Neutrophils % ( Manual) 65, Lymphocytes % (Manual) 22, Monocytes % (Manual) 2, Eosinophils % ( Manual) 0, Basophils % (Manual) 0, Band Neutrophils 11H, Platelet Estimate DecreasedL, Platelet Morphology Normal, Hypochromasia 1+, Anisocytosis 1+ Height (Feet): 5 Height (Inches): 3.00 Weight (Pounds): 143 General Appearance: lethargic EENT: normal ENT inspection Neck: supple Cardiovascular: tachycardia Respiratory/Chest: decreased breath sounds Abdomen: hyperactive bowel sounds - bag, other - post surgical Extremities: non-tender CLAYTON LI Jun 11, 2017 09:10
[2017-06-11 09:33] LABS: ABG ALLEN TEST POSITIVE; ABG BASE EXCESS 0.1; ABG PCO2 31.4 mmHg (35.0-45.0)
[2017-06-11] MEDS ORDERED: Potassium Phosphate 30 MM in Sodium Chloride 550 ML IV ONE (13:00)
--- NOTE | 2017-06-11 13:05 | General Progress Note ---
Progress Note Progress Note Surgery: No acute events since second surgery. Doing well. T max 99.5. HD stable. comfortable. CHELITA drain with serous output. NG tube with bilious output. Good urine output. Labs reviewed. H/H likely dilutional, plt improved after transfusion, leukocytosis resolved, electrolytes being replaced. Intubated and sedated Vent with good volumes and ABG okay RRR with sinus tachy at times Abdomen soft, mild distention, tender, ostomy viable, wound c/d/i. Ext wnl 62F mesenteric ischemia with necrotic colon and small bowel s/p exploratory laparotomy, bowel resection (small bowel and colon), colostomy creation. Recovering NPO with IV fluids (change to D5LR) Keep UOP > 50cc/hr NG tube to low wall suction (please ensure functional though out the day) Drain care and management Wean off sedation as tolerated. She has low threshold for pain so may be difficult Simpson in for accurate urine output monitoring in critically ill patient Repeat labs now Start lovenox tonight if repeat labs stable. Wei Monroy Jun 11, 2017 13:05
[2017-06-11 13:42] LABS: MEAN CORPUSCULAR HEMOGLOBIN 26.8 PG (27.0-31.0); MEAN CORPUSCULAR VOLUME 84 FL (80-99); MEAN PLATELET VOLUME 8.9 FL (6.5-10.1); PLATELET COUNT 95 K/UL (150-450); RED BLOOD COUNT 3.34 M/UL (4.20-5.40); RED CELL DISTRIBUTION WIDTH 15.7 % (11.6-14.8); WHITE BLOOD COUNT 14.9 K/UL (4.8-10.8)
[2017-06-11 13:47] LABS: PROTHROMBIN TIME 10.7 SEC (9.30-11.50)
[2017-06-11 13:51] LABS: ANION GAP 8 (5-15); CALCIUM 8.1 mg/dL (8.6-10.2); CARBON DIOXIDE 26 mEQ/L (20-30); CHLORIDE 109 mEQ/L (98-107); CREATININE 0.4 mg/dL (0.5-0.9); GLOMERULAR FILTRATION RATE > 60 mL/min (>60); HEMOLYSIS 3; MAGNESIUM 1.9 mg/dL (1.7-2.5); POTASSIUM 3.1 mEQ/L (3.4-4.9); SODIUM 143 mEQ/L (135-145)
[2017-06-11 14:00] LABS: ANISOCYTOSIS 1+; BAND NEUTROPHILS % (MANUAL) 10 % (0-8); BASOPHILS % (MANUAL) 0 % (0-2); EOSINOPHILS % (MANUAL) 0 % (0-3); HYPOCHROMASIA 1+; LYMPHOCYTES % (MANUAL) 16 % (20-45); NEUTROPHILS % (MANUAL) 71 % (45-75); PLATELET ESTIMATE DECREASED; PLATELET MORPHOLOGY NORMAL; TOTAL CELLS COUNTED 100
[2017-06-11] MEDS: Dextrose 5%/Lactated Ringer's 1,000 ML IV SCH ×2 (14:47→20:58)
[2017-06-11] MEDS: Enoxaparin 30mg Inj SUBQ SCH ×2 (15:49→20:56)
--- NOTE | 2017-06-11 16:06 | Pulmonolgy Critical Care Note ---
Critical Care - Asmt/Plan Problems: (1) Ischemic colon (2) S/P laparotomy (3) Colitis, acute Respiratory: monitor respiratory rate, adjust FIO2, CXR Cardiac: continue to monitor HR/BP Renal: F/U I&O, keep IV fluid Infectious Disease: check cultures Gastrointestinal: continue feedings/current rate Endocrine: monitor blood sugar Hematologic: monitor H/H Neurologic: PRN Ativan, PRN Morphine Affect: PRN ativan Prophylaxis: Protonix Disposition: keep in ICU Notes Reviewed: cardio Critical Care - Objective Last 24 Hour Vital Signs Date Time Temp Pulse Resp B/P Pulse Ox O2 Delivery O2 Flow Rate FiO2 06/11/17 15:30 99 20 145/65 100 Mechanical Ventilator 06/11/17 15:00 98 20 140/70 100 Mechanical Ventilator 30 06/11/17 14:59 93 16 30 06/11/17 14:30 96 20 146/65 100 Mechanical Ventilator 30 06/11/17 14:00 90 20 146/72 100 Mechanical Ventilator 30 06/11/17 13:30 80 20 133/85 100 Mechanical Ventilator 30 06/11/17 13:01 90 19 30 06/11/17 13:00 90 22 138/80 100 Mechanical Ventilator 30 06/11/17 13:00 18 06/11/17 13:00 20 06/11/17 12:30 98.0 90 20 140/80 100 Mechanical Ventilator 30 06/11/17 12:30 98.0 88 20 140/88 100 Mechanical Ventilator 30 06/11/17 12:00 90 06/11/17 12:00 87 20 138/86 100 Mechanical Ventilator 06/11/17 12:00 20 06/11/17 12:00 20 06/11/17 12:00 30 06/11/17 11:30 90 20 140/68 100 Mechanical Ventilator 30 06/11/17 11:00 91 22 142/67 100 Mechanical Ventilator 30 06/11/17 11:00 19 06/11/17 11:00 18 06/11/17 10:44 100 22 30 06/11/17 10:30 96 20 130/80 100 Mechanical Ventilator 30 06/11/17 10:00 20 06/11/17 10:00 20 06/11/17 10:00 97 20 137/82 100 Mechanical Ventilator 06/11/17 09:30 99 19 139/70 100 Mechanical Ventilator 30 06/11/17 09:30 98 20 139/92 100 Mechanical Ventilator 30 06/11/17 09:19 94 21 30 06/11/17 09:00 96 20 135/77 100 Mechanical Ventilator 30 06/11/17 09:00 20 06/11/17 09:00 20 06/11/17 08:30 96 20 135/77 100 Mechanical Ventilator 30 06/11/17 08:00 99.1 98 20 132/69 100 Mechanical Ventilator 30 06/11/17 08:00 30 06/11/17 08:00 98 06/11/17 08:00 20 06/11/17 08:00 20 06/11/17 07:30 100 22 140/77 100 Mechanical Ventilator 30 06/11/17 07:27 97 20 30 06/11/17 07:00 94 20 137/68 100 Mechanical Ventilator 30 06/11/17 07:00 21 06/11/17 07:00 21 06/11/17 06:30 99 21 131/66 99 Mechanical Ventilator 30 06/11/17 06:00 99.5 98 16 135/68 98 Mechanical Ventilator 30 06/11/17 06:00 06/11/17 06:00 20 06/11/17 05:30 100 21 142/68 99 Mechanical Ventilator 30 06/11/17 05:00 101 16 142/69 99 Mechanical Ventilator 30 06/11/17 05:00 06/11/17 05:00 20 06/11/17 04:53 104 21 30 06/11/17 04:30 107 16 140/69 99 Mechanical Ventilator 30 06/11/17 04:00 99.5 109 16 141/71 98 Mechanical Ventilator 30 06/11/17 04:00 107 06/11/17 04:00 30 06/11/17 04:00 06/11/17 04:00 06/11/17 03:30 109 16 141/71 99 Mechanical Ventilator 30 06/11/17 03:07 105 20 30 06/11/17 03:00 108 16 138/68 99 Mechanical Ventilator 30 06/11/17 03:00 06/11/17 03:00 06/11/17 02:58 06/11/17 02:30 103 16 140/68 99 Mechanical Ventilator 30 06/11/17 02:00 106 16 140/67 99 Mechanical Ventilator 30 06/11/17 02:00 21 06/11/17 02:00 21 06/11/17 01:30 101 16 143/69 99 Mechanical Ventilator 30 06/11/17 01:05 104 20 30 06/11/17 01:00 21 06/11/17 01:00 21 06/11/17 01:00 105 16 140/70 99 Mechanical Ventilator 30 06/11/17 00:30 104 16 137/66 99 Mechanical Ventilator 30 06/11/17 00:00 104 16 136/67 99 Mechanical Ventilator 30 06/11/17 00:00 30 06/11/17 00:00 103 06/11/17 00:00 21 06/11/17 00:00 21 06/10/17 23:30 105 16 137/67 99 Mechanical Ventilator 30 06/10/17 23:02 110 24 30 06/10/17 23:00 98.7 103 16 131/67 98 Mechanical Ventilator 30 06/10/17 23:00 23 06/10/17 23:00 23 06/10/17 22:30 109 16 131/67 99 Mechanical Ventilator 30 06/10/17 22:00 103 16 134/65 99 Mechanical Ventilator 30 06/10/17 22:00 24 06/10/17 22:00 24 06/10/17 21:47 99.3 06/10/17 21:30 109 16 131/67 99 Mechanical Ventilator 30 06/10/17 21:17 23 06/10/17 21:00 108 16 135/66 99 Mechanical Ventilator 30 06/10/17 21:00 23 06/10/17 21:00 24 06/10/17 20:48 110 23 30 06/10/17 20:30 109 16 140/67 99 Mechanical Ventilator 30 06/10/17 20:00 98.7 106 16 136/66 98 Mechanical Ventilator 30 06/10/17 20:00 111 06/10/17 20:00 30 06/10/17 20:00 24 06/10/17 20:00 24 06/10/17 19:30 110 16 133/63 99 Mechanical Ventilator 30 06/10/17 19:00 108 16 128/64 99 Mechanical Ventilator 30 06/10/17 19:00 20 06/10/17 19:00 16 06/10/17 18:55 115 22 30 06/10/17 18:30 112 16 127/81 99 Mechanical Ventilator 30 06/10/17 18:00 99.3 113 16 124/75 99 Mechanical Ventilator 30 06/10/17 18:00 16 06/10/17 18:00 16 06/10/17 17:30 113 16 94/72 99 Mechanical Ventilator 30 06/10/17 17:00 18 06/10/17 17:00 15 06/10/17 17:00 119 16 135/67 99 Mechanical Ventilator 30 06/10/17 16:45 119 23 30 06/10/17 16:30 121 16 130/61 99 Mechanical Ventilator 30 Status: awake Condition: critical HEENT: atraumatic Neck: full ROM Lungs: clear Heart: HR/BP stable Abdomen: soft, non-tender Extremities: no C/C/E Decubiti: location Micro: Microbiology Date/Time Source Procedure Growth Status 06/09/17 17:05 Abdominal Cavity Gram Stain - Final Resulted 06/09/17 17:05 Abdominal Cavity Aerobic Culture - Preliminary NO GROWTH Resulted 06/09/17 17:05 Abdominal Cavity Anaerobic Culture - Preliminary NO GROWTH Resulted Accucheck: 79 Critical Care - Subjective ROS Limited/Unobtainable: No Condition: critical EKG Rhythm: Sinus Rhythm FI02: 30 Vent Support Breath Rate: 12 Vent Support Mode: AC Vent Tidal Volume: 500 Sputum Amount: None PEEP: 2.0 PIP: 22 I&O: Intake and Output 06/10/17 06/11/17 19:00 07:00 Intake Total 1926 ml 2898 ml Output Total 1120 ml 950 ml Balance 806 ml 1948 ml Intake IV Total 1926 ml 2608 ml Blood Product 290 ml Output Urine Total 830 ml 910 ml Gastric Drainage Total 250 ml 10 ml Drainage Total 40 ml 30 ml # Bowel Movements 4 CXR: no change ET-Tube: 7.0 ET Position: 21 Labs: Laboratory Tests Test 06/10/17 16:15 06/11/17 04:00 06/11/17 04:35 06/11/17 09:19 White Blood Count 9.4 K/UL (4.8-10.8) 10.6 K/UL (4.8-10.8) Red Blood Count 3.50 M/UL (4.20-5.40) L 3.28 M/UL (4.20-5.40) L Hemoglobin 10.1 G/DL (12.0-16.0) L 9.1 G/DL (12.0-16.0) L Hematocrit 29.1 % (37.0-47.0) L 27.6 % (37.0-47.0) L Mean Corpuscular Volume 83 FL (80-99) 84 FL (80-99) Mean Corpuscular Hemoglobin 28.8 PG (27.0-31.0) 27.8 PG (27.0-31.0) Mean Corpuscular Hemoglobin Concent 34.7 G/DL (32.0-36.0) 33.0 G/DL (32.0-36.0) Red Cell Distribution Width 15.8 % (11.6-14.8) H 15.6 % (11.6-14.8) H Platelet Count 45 K/UL (150-450) L 94 K/UL (150-450) #L Mean Platelet Volume 10.5 FL (6.5-10.1) H 7.8 FL (6.5-10.1) Neutrophils (%) (Auto) 78.2 % (45.0-75.0) H % (45.0-75.0) Lymphocytes (%) (Auto) 13.2 % (20.0-45.0) L % (20.0-45.0) Monocytes (%) (Auto) 7.8 % (1.0-10.0) % (1.0-10.0) Eosinophils (%) (Auto) 0.1 % (0.0-3.0) % (0.0-3.0) Basophils (%) (Auto) 0.7 % (0.0-2.0) % (0.0-2.0) Sodium Level 144 mEQ/L (135-145) 146 mEQ/L (135-145) H Potassium Level 3.4 mEQ/L (3.4-4.9) 3.2 mEQ/L (3.4-4.9) L Chloride Level 113 mEQ/L (98-107) H 112 mEQ/L (98-107) H Carbon Dioxide Level 24 mEQ/L (20-30) 23 mEQ/L (20-30) Anion Gap 7 (5-15) 11 (5-15) Blood Urea Nitrogen 24 mg/dL (7-23) H 16 mg/dL (7-23) Creatinine 0.7 mg/dL (0.5-0.9) 0.5 mg/dL (0.5-0.9) Estimat Glomerular Filtration Rate > 60 mL/min (>60) > 60 mL/min (>60) Glucose Level 125 mg/dL (74-106) H 82 mg/dL (74-106) Calcium Level 8.5 mg/dL (8.6-10.2) L 8.4 mg/dL (8.6-10.2) L Phosphorus Level 1.1 mg/dL (2.5-4.8) L Magnesium Level 2.0 mg/dL (1.7-2.5) Total Bilirubin 1.1 mg/dL (0.0-1.2) Direct Bilirubin 0.5 mg/dL (0.1-0.3) H Aspartate Amino Transf (AST/SGOT) 23 U/L (5-40) Alanine Aminotransferase (ALT/SGPT) 17 U/L (3-33) Alkaline Phosphatase 52 U/L (35-104) Total Protein 4.8 g/dL (6.6-8.7) L Albumin 2.4 g/dL (3.5-5.2) L Globulin 2.4 g/dL Albumin/Globulin Ratio 1.0 (1.0-2.7) Differential Total Cells Counted 100 Neutrophils % (Manual) 65 % (45-75) Lymphocytes % (Manual) 22 % (20-45) Monocytes % (Manual) 2 % (1-10) Eosinophils % (Manual) 0 % (0-3) Basophils % (Manual) 0 % (0-2) Band Neutrophils 11 % (0-8) H Platelet Estimate Decreased L Platelet Morphology Normal Hypochromasia 1+ Anisocytosis 1+ Arterial Blood pH 7.490 (7.350-7.450) Arterial Blood Partial Pressure CO2 31.4 mmHg (35.0-45.0) L Arterial Blood Partial Pressure O2 117.0 mmHg (75.0-100.0) H Arterial Blood HCO3 23.1 mmol/L (22.0-26.0) Arterial Blood Oxygen Saturation 98.0 % (92.0-98.0) Arterial Blood Base Excess 0.1 Obie Test Positive Test 06/11/17 13:00 White Blood Count 14.9 K/UL (4.8-10.8) H Red Blood Count 3.34 M/UL (4.20-5.40) L Hemoglobin 9.0 G/DL (12.0-16.0) L Hematocrit 27.9 % (37.0-47.0) L Mean Corpuscular Volume 84 FL (80-99) Mean Corpuscular Hemoglobin 26.8 PG (27.0-31.0) L Mean Corpuscular Hemoglobin Concent 32.0 G/DL (32.0-36.0) Red Cell Distribution Width 15.7 % (11.6-14.8) H Platelet Count 95 K/UL (150-450) L Mean Platelet Volume 8.9 FL (6.5-10.1) Neutrophils (%) (Auto) % (45.0-75.0) Lymphocytes (%) (Auto) % (20.0-45.0) Monocytes (%) (Auto) % (1.0-10.0) Eosinophils (%) (Auto) % (0.0-3.0) Basophils (%) (Auto) % (0.0-2.0) Differential Total Cells Counted 100 Neutrophils % (Manual) 71 % (45-75) Lymphocytes % (Manual) 16 % (20-45) L Monocytes % (Manual) 3 % (1-10) Eosinophils % (Manual) 0 % (0-3) Basophils % (Manual) 0 % (0-2) Band Neutrophils 10 % (0-8) H Platelet Estimate Decreased L Platelet Morphology Normal Hypochromasia 1+ Anisocytosis 1+ Prothrombin Time 10.7 SEC (9.30-11.50) Prothromb Time International Ratio 1.0 (0.9-1.1) Activated Partial Thromboplast Time 37 SEC (23-33) H Sodium Level 143 mEQ/L (135-145) Potassium Level 3.1 mEQ/L (3.4-4.9) L Chloride Level 109 mEQ/L (98-107) H Carbon Dioxide Level 26 mEQ/L (20-30) Anion Gap 8 (5-15) Blood Urea Nitrogen 14 mg/dL (7-23) Creatinine 0.4 mg/dL (0.5-0.9) L Estimat Glomerular Filtration Rate > 60 mL/min (>60) Glucose Level 77 mg/dL (74-106) Lactic Acid Level 0.80 mmol/L (0.66-2.22) Calcium Level 8.1 mg/dL (8.6-10.2) L Phosphorus Level 1.0 mg/dL (2.5-4.8) L Magnesium Level 1.9 mg/dL (1.7-2.5) [place] MCRAE Jun 11, 2017 16:06
[2017-06-11] MEDS ORDERED: NS 275ml ONE (16:18)
[2017-06-11] MEDS ORDERED: Tubing Blood Filter IV ONE (16:18)
[2017-06-11] MEDS ORDERED: LR 1000ml ONE (16:18)
[2017-06-11] MEDS ORDERED: Tubing IV Secondary IV ONE (16:18)
--- NOTE | 2017-06-11 17:14 | Infectious Diseases Prog Note ---
Assessment/Plan Assessment/Plan ASSESSMENT: The patient is a 62-year-old female with: Enteritis / Colitis / mesenteric ischemia with necrotic colon and small bowel SP Expl lap x 2 , bowel resection (small bowel and colon), colostomy creation. CT scan : dilated mid jejunum wall, mild wall thickening suggestive of enteritis, and ascending colitis. Leukocytosis, improving sepsis improving LACosis , SP GERD Gastric ulcer PLAN: cont pt on Flagyl and Azactam d# 3 06/09 SP Levaquin d# 1 Monitor CBC Monitor BMP Blood and Abd Cavity culture surgical following Vent support Subjective Allergies: Coded Allergies: PENICILLIN (Verified Allergy, Unknown, 12/01/15) PENICILLINS (Unverified Allergy, Unknown, 06/08/17) SHELLFISH (Verified Allergy, Unknown, 12/01/15) Uncoded Allergies: Mints (Allergy, Unknown, 06/09/17) Subjective on vent Objective Vital Signs Last 24 Hour Vital Signs Date Time Temp Pulse Resp B/P Pulse Ox O2 Delivery O2 Flow Rate FiO2 06/11/17 17:00 96 22 138/70 100 Mechanical Ventilator 06/11/17 16:30 98 22 142/68 100 Mechanical Ventilator 30 06/11/17 16:00 99.1 96 20 139/67 100 Mechanical Ventilator 30 06/11/17 16:00 30 06/11/17 16:00 20 06/11/17 16:00 98 06/11/17 15:30 99 20 145/65 100 Mechanical Ventilator 06/11/17 15:00 98 20 140/70 100 Mechanical Ventilator 06/11/17 15:00 20 06/11/17 15:00 0 06/11/17 14:59 93 16 30 06/11/17 14:30 96 20 146/65 100 Mechanical Ventilator 30 06/11/17 14:00 90 20 146/72 100 Mechanical Ventilator 30 06/11/17 13:30 80 20 133/85 100 Mechanical Ventilator 30 06/11/17 13:01 90 19 30 06/11/17 13:00 90 22 138/80 100 Mechanical Ventilator 30 06/11/17 13:00 18 06/11/17 13:00 20 06/11/17 12:30 98.0 90 20 140/80 100 Mechanical Ventilator 30 06/11/17 12:30 98.0 88 20 140/88 100 Mechanical Ventilator 30 06/11/17 12:00 90 06/11/17 12:00 87 20 138/86 100 Mechanical Ventilator 30 06/11/17 12:00 20 06/11/17 12:00 20 06/11/17 12:00 30 06/11/17 11:30 90 20 140/68 100 Mechanical Ventilator 30 06/11/17 11:00 91 22 142/67 100 Mechanical Ventilator 30 06/11/17 11:00 19 06/11/17 11:00 18 06/11/17 10:44 100 22 30 06/11/17 10:30 96 20 130/80 100 Mechanical Ventilator 30 06/11/17 10:00 20 06/11/17 10:00 20 06/11/17 10:00 97 20 137/82 100 Mechanical Ventilator 30 06/11/17 09:30 99 19 139/70 100 Mechanical Ventilator 30 06/11/17 09:30 98 20 139/92 100 Mechanical Ventilator 30 06/11/17 09:19 94 21 30 06/11/17 09:00 96 20 135/77 100 Mechanical Ventilator 30 06/11/17 09:00 20 06/11/17 09:00 20 06/11/17 08:30 96 20 135/77 100 Mechanical Ventilator 30 06/11/17 08:00 99.1 98 20 132/69 100 Mechanical Ventilator 30 06/11/17 08:00 30 06/11/17 08:00 98 06/11/17 08:00 06/11/17 08:00 20 06/11/17 07:30 100 22 140/77 100 Mechanical Ventilator 30 06/11/17 07:27 97 20 30 06/11/17 07:00 94 20 137/68 100 Mechanical Ventilator 30 06/11/17 07:00 06/11/17 07:00 06/11/17 06:30 99 21 131/66 99 Mechanical Ventilator 30 06/11/17 06:00 99.5 98 16 135/68 98 Mechanical Ventilator 30 06/11/17 06:00 06/11/17 06:00 20 06/11/17 05:30 100 21 142/68 99 Mechanical Ventilator 30 06/11/17 05:00 101 16 142/69 99 Mechanical Ventilator 30 06/11/17 05:00 20 06/11/17 05:00 20 06/11/17 04:53 104 21 30 06/11/17 04:30 107 16 140/69 99 Mechanical Ventilator 30 06/11/17 04:00 99.5 109 16 141/71 98 Mechanical Ventilator 30 06/11/17 04:00 107 06/11/17 04:00 30 06/11/17 04:00 21 06/11/17 04:00 21 06/11/17 03:30 109 16 141/71 99 Mechanical Ventilator 30 06/11/17 03:07 105 20 30 06/11/17 03:00 108 16 138/68 99 Mechanical Ventilator 30 06/11/17 03:00 21 06/11/17 03:00 06/11/17 02:58 21 06/11/17 02:30 103 16 140/68 99 Mechanical Ventilator 30 06/11/17 02:00 106 16 140/67 99 Mechanical Ventilator 30 06/11/17 02:00 21 06/11/17 02:00 21 06/11/17 01:30 101 16 143/69 99 Mechanical Ventilator 30 06/11/17 01:05 104 20 30 06/11/17 01:00 21 06/11/17 01:00 21 06/11/17 01:00 105 16 140/70 99 Mechanical Ventilator 30 06/11/17 00:30 104 16 137/66 99 Mechanical Ventilator 30 06/11/17 00:00 104 16 136/67 99 Mechanical Ventilator 30 06/11/17 00:00 30 06/11/17 00:00 103 06/11/17 00:00 21 06/11/17 00:00 21 06/10/17 23:30 105 16 137/67 99 Mechanical Ventilator 30 06/10/17 23:02 110 24 30 06/10/17 23:00 98.7 103 16 131/67 98 Mechanical Ventilator 30 06/10/17 23:00 23 06/10/17 23:00 23 06/10/17 22:30 109 16 131/67 99 Mechanical Ventilator 30 06/10/17 22:00 103 16 134/65 99 Mechanical Ventilator 30 06/10/17 22:00 24 06/10/17 22:00 24 06/10/17 21:47 99.3 06/10/17 21:30 109 16 131/67 99 Mechanical Ventilator 30 06/10/17 21:17 23 06/10/17 21:00 108 16 135/66 99 Mechanical Ventilator 30 06/10/17 21:00 23 06/10/17 21:00 24 06/10/17 20:48 110 23 30 06/10/17 20:30 109 16 140/67 99 Mechanical Ventilator 30 06/10/17 20:00 98.7 106 16 136/66 98 Mechanical Ventilator 30 06/10/17 20:00 111 06/10/17 20:00 30 06/10/17 20:00 24 06/10/17 20:00 24 06/10/17 19:30 110 16 133/63 99 Mechanical Ventilator 30 06/10/17 19:00 108 16 128/64 99 Mechanical Ventilator 30 06/10/17 19:00 20 06/10/17 19:00 16 06/10/17 18:55 115 22 30 06/10/17 18:30 112 16 127/81 99 Mechanical Ventilator 30 06/10/17 18:00 99.3 113 16 124/75 99 Mechanical Ventilator 30 06/10/17 18:00 16 06/10/17 18:00 16 06/10/17 17:30 113 16 94/72 99 Mechanical Ventilator 30 Height (Feet): 5 Height (Inches): 3.00 Weight (Pounds): 143 HEENT: anicteric Respiratory/Chest: no respiratory distress Cardiovascular: regular rhythm Neurologic/Psychiatric: other - sedated Microbiology Date/Time Source Procedure Growth Status 06/09/17 17:05 Abdominal Cavity Gram Stain - Final Resulted 06/09/17 17:05 Abdominal Cavity Aerobic Culture - Preliminary NO GROWTH Resulted 06/09/17 17:05 Abdominal Cavity Anaerobic Culture - Preliminary NO GROWTH Resulted Laboratory Tests Test 06/11/17 04:00 06/11/17 04:35 06/11/17 09:19 06/11/17 13:00 Sodium Level 146 mEQ/L (135-145) H 143 mEQ/L (135-145) Potassium Level 3.2 mEQ/L (3.4-4.9) L 3.1 mEQ/L (3.4-4.9) L Chloride Level 112 mEQ/L (98-107) H 109 mEQ/L (98-107) H Carbon Dioxide Level 23 mEQ/L (20-30) 26 mEQ/L (20-30) Anion Gap 11 (5-15) 8 (5-15) Blood Urea Nitrogen 16 mg/dL (7-23) 14 mg/dL (7-23) Creatinine 0.5 mg/dL (0.5-0.9) 0.4 mg/dL (0.5-0.9) L Estimat Glomerular Filtration Rate > 60 mL/min (>60) > 60 mL/min (>60) Glucose Level 82 mg/dL (74-106) 77 mg/dL (74-106) Calcium Level 8.4 mg/dL (8.6-10.2) L 8.1 mg/dL (8.6-10.2) L Phosphorus Level 1.1 mg/dL (2.5-4.8) L 1.0 mg/dL (2.5-4.8) L Magnesium Level 2.0 mg/dL (1.7-2.5) 1.9 mg/dL (1.7-2.5) Total Bilirubin 1.1 mg/dL (0.0-1.2) Direct Bilirubin 0.5 mg/dL (0.1-0.3) H Aspartate Amino Transf (AST/SGOT) 23 U/L (5-40) Alanine Aminotransferase (ALT/SGPT) 17 U/L (3-33) Alkaline Phosphatase 52 U/L (35-104) Total Protein 4.8 g/dL (6.6-8.7) L Albumin 2.4 g/dL (3.5-5.2) L Globulin 2.4 g/dL Albumin/Globulin Ratio 1.0 (1.0-2.7) White Blood Count 10.6 K/UL (4.8-10.8) 14.9 K/UL (4.8-10.8) H Red Blood Count 3.28 M/UL (4.20-5.40) L 3.34 M/UL (4.20-5.40) L Hemoglobin 9.1 G/DL (12.0-16.0) L 9.0 G/DL (12.0-16.0) L Hematocrit 27.6 % (37.0-47.0) L 27.9 % (37.0-47.0) L Mean Corpuscular Volume 84 FL (80-99) 84 FL (80-99) Mean Corpuscular Hemoglobin 27.8 PG (27.0-31.0) 26.8 PG (27.0-31.0) L Mean Corpuscular Hemoglobin Concent 33.0 G/DL (32.0-36.0) 32.0 G/DL (32.0-36.0) Red Cell Distribution Width 15.6 % (11.6-14.8) H 15.7 % (11.6-14.8) H Platelet Count 94 K/UL (150-450) #L 95 K/UL (150-450) L Mean Platelet Volume 7.8 FL (6.5-10.1) 8.9 FL (6.5-10.1) Neutrophils (%) (Auto) % (45.0-75.0) % (45.0-75.0) Lymphocytes (%) (Auto) % (20.0-45.0) % (20.0-45.0) Monocytes (%) (Auto) % (1.0-10.0) % (1.0-10.0) Eosinophils (%) (Auto) % (0.0-3.0) % (0.0-3.0) Basophils (%) (Auto) % (0.0-2.0) % (0.0-2.0) Differential Total Cells Counted 100 100 Neutrophils % (Manual) 65 % (45-75) 71 % (45-75) Lymphocytes % (Manual) 22 % (20-45) 16 % (20-45) L Monocytes % (Manual) 2 % (1-10) 3 % (1-10) Eosinophils % (Manual) 0 % (0-3) 0 % (0-3) Basophils % (Manual) 0 % (0-2) 0 % (0-2) Band Neutrophils 11 % (0-8) H 10 % (0-8) H Platelet Estimate Decreased L Decreased L Platelet Morphology Normal Normal Hypochromasia 1+ 1+ Anisocytosis 1+ 1+ Arterial Blood pH 7.490 (7.350-7.450) Arterial Blood Partial Pressure CO2 31.4 mmHg (35.0-45.0) L Arterial Blood Partial Pressure O2 117.0 mmHg (75.0-100.0) H Arterial Blood HCO3 23.1 mmol/L (22.0-26.0) Arterial Blood Oxygen Saturation 98.0 % (92.0-98.0) Arterial Blood Base Excess 0.1 Obie Test Positive Prothrombin Time 10.7 SEC (9.30-11.50) Prothromb Time International Ratio 1.0 (0.9-1.1) Activated Partial Thromboplast Time 37 SEC (23-33) H Lactic Acid Level 0.80 mmol/L (0.66-2.22) Current Medications Medications (Trade) Dose Ordered Sig/Michael Route PRN Reason Start Time Stop Time Status Last Admin Dose Admin Aztreonam 2 gm/ Dextrose 110 ml @ 220 mls/hr Q8HR IVPB 06/10/17 06:00 06/17/17 05:59 06/11/17 14:00 Chlorhexidine Gluconate 1 applic 1 applic BEDTIME TOPIC 06/11/17 21:00 07/11/17 20:59 Dextrose (Dextrose 50%) STAT PRN IV Hypoglycemia 06/10/17 19:15 07/10/17 19:14 Dextrose/Lactated Ringer's 1,000 ml @ 150 mls/hr Q6H40M IV 06/11/17 14:30 07/11/17 14:29 06/11/17 14:47 Enoxaparin Sodium 30 mg 30 mg EVERY 12 HOURS SUBQ 06/11/17 14:00 07/11/17 13:59 06/11/17 15:49 Fentanyl Citrate 1000 mcg/Sodium Chloride 100 ml @ 0 mls/hr Q24H IV 06/11/17 20:00 06/17/17 19:59 Fentanyl Citrate/ Sodium Chloride (Sublimaze 250mcg/5ml/Sodium Chloride) 100 ml @ 0 mls/hr Q24H IV 06/10/17 20:00 06/11/17 19:59 06/10/17 21:17 Heparin Sodium/ Sodium Chloride (Heparin 2000 units/Ns 1000ml premix) 2,000 unit ONCE PRN IV PICC PLACEMENT 06/10/17 14:15 06/11/17 23:59 Insulin Aspart (NovoLOG) Q6HR SUBQ 06/10/17 06:00 07/10/17 05:59 Lidocaine HCl (Xylocaine 1% 30ml) 30 ml ONCE PRN INJ PICC PLACEMENT 06/10/17 14:15 06/11/17 23:59 Magnesium Sulfate 100 ml @ 100 mls/hr ONCE ONCE IVPB 06/11/17 17:00 06/11/17 17:59 Metronidazole 100 ml @ 100 mls/hr Q8HR IVPB 06/10/17 06:00 06/17/17 05:59 06/11/17 14:00 Midazolam HCl/ Sodium Chloride (Versed/Sodium Chloride) 100 ml @ 0 mls/hr Q24H IV 06/10/17 20:00 07/10/17 19:59 06/11/17 02:58 Nitroglycerin (Ntg) 0.4 mg Q5M X 3 DOSES PRN SL Prn Chest Pain 06/10/17 03:00 07/10/17 02:59 Ondansetron HCl 4 mg 4 mg Q6H PRN IVP Nausea & Vomiting 06/10/17 05:00 07/10/17 04:59 Pantoprazole (Protonix) 40 mg DAILY IVP 06/12/17 09:00 07/12/17 08:59 Potassium Phosphate/Sodium Chloride (Potassium Phosphate/NS) 560 ml @ 93.3 mls/hr ONCE ONCE IV 06/11/17 13:00 06/11/17 19:00 06/11/17 13:37 Potassium Chloride (KCl 20mEq/100ml Premix) 100 ml @ 50 mls/hr Q2H IVPB 06/11/17 20:00 06/11/17 23:59 JOSE ALFREDO FORMAN M.D. Jun 11, 2017 17:14
[2017-06-11] MEDS ORDERED: Dyna-Hex 2% Top Sol 8oz TOPIC SCH (21:00)
[2017-06-12] VITALS (48 sets, daily range): BP systolic 117–140; BP diastolic 53–74
[2017-06-12] MEDS: Dextrose 5%/Lactated Ringer's 1,000 ML IV SCH ×4 (03:26→23:35)
[2017-06-12 05:05] LABS: BASOPHILS % (AUTO) 0.5 % (0.0-2.0); EOSINOPHILS % (AUTO) 0.4 % (0.0-3.0); LYMPHOCYTES % (AUTO) 12.6 % (20.0-45.0); MEAN CORPUSCULAR HEMOGLOBIN 27.7 PG (27.0-31.0); MEAN CORPUSCULAR HGB CONC 32.9 G/DL (32.0-36.0); MEAN CORPUSCULAR VOLUME 84 FL (80-99); MEAN PLATELET VOLUME 8.8 FL (6.5-10.1); MONOCYTES % (AUTO) 5.7 % (1.0-10.0); NEUTROPHILS % (AUTO) 80.7 % (45.0-75.0); PLATELET COUNT 104 K/UL (150-450); RED BLOOD COUNT 3.16 M/UL (4.20-5.40); WHITE BLOOD COUNT 16.9 K/UL (4.8-10.8)
[2017-06-12 05:24] LABS: ALANINE AMINOTRANSFERASE 15 U/L (3-33); ALBUMIN/GLOBULIN RATIO 0.7 (1.0-2.7); ANION GAP 5 (5-15); ASPARTATE AMINO TRANSFERASE 19 U/L (5-40); CALCIUM 8.3 mg/dL (8.6-10.2); CARBON DIOXIDE 26 mEQ/L (20-30); CHLORIDE 110 mEQ/L (98-107); CREATININE 0.4 mg/dL (0.5-0.9); GLOMERULAR FILTRATION RATE > 60 mL/min (>60); HEMOLYSIS 2; POTASSIUM 3.6 mEQ/L (3.4-4.9); SODIUM 141 mEQ/L (135-145); TOTAL PROTEIN 4.9 g/dL (6.6-8.7)
[2017-06-12] MEDS: Aztreonam Inj 2 GM in D5W 110 ML IVPB SCH (05:31)
[2017-06-12] MEDS: metroNIDAZOLE 500mg 100 ML IVPB SCH ×3 (05:32→22:09)
[2017-06-12] MEDS: NovoLOG Insulin Flexpen SUBQ SCH ×5 (05:32→23:41)
[2017-06-12 05:57] LABS: BILIRUBIN,DIRECT 0.7 mg/dL (0.1-0.3)
[2017-06-12] MEDS: Enoxaparin 30mg Inj SUBQ SCH (08:26)
[2017-06-12] MEDS ORDERED: Pantoprazole Inj IVP SCH (09:00)
--- NOTE | 2017-06-12 09:06 | Infectious Diseases Prog Note ---
Assessment/Plan Assessment/Plan A; Ischemic colitis Leukocytosis s/p exploratory laparotomy s/p colostomy respiratory failure Anemia PCN allergy P; cont pt on Flagyl and Azactam d# 4 will f/u cultures Subjective ROS Limited/Unobtainable: Yes Allergies: Coded Allergies: PENICILLIN (Verified Allergy, Unknown, 12/01/15) PENICILLINS (Unverified Allergy, Unknown, 06/08/17) SHELLFISH (Verified Allergy, Unknown, 12/01/15) Uncoded Allergies: Mints (Allergy, Unknown, 06/09/17) Objective Vital Signs Last 24 Hour Vital Signs Date Time Temp Pulse Resp B/P Pulse Ox O2 Delivery O2 Flow Rate FiO2 06/12/17 08:30 86 20 132/62 100 Mechanical Ventilator 30 06/12/17 08:00 86 06/12/17 08:00 86 20 121/53 100 Mechanical Ventilator 30 06/12/17 08:00 30 06/12/17 07:30 98 20 123/53 100 Mechanical Ventilator 30 06/12/17 07:10 96 25 30 06/12/17 07:00 93 20 123/59 100 Mechanical Ventilator 30 06/12/17 06:30 87 20 127/57 100 Mechanical Ventilator 30 06/12/17 06:00 94 22 126/60 100 Mechanical Ventilator 30 06/12/17 06:00 21 06/12/17 06:00 21 06/12/17 05:30 93 22 118/64 100 Mechanical Ventilator 30 06/12/17 05:21 88 21 30 06/12/17 05:00 86 21 117/60 100 Mechanical Ventilator 30 06/12/17 05:00 06/12/17 05:00 21 06/12/17 04:30 88 21 123/62 100 Mechanical Ventilator 30 06/12/17 04:00 30 06/12/17 04:00 98.3 100 20 130/63 100 Mechanical Ventilator 30 06/12/17 04:00 21 06/12/17 04:00 21 06/12/17 04:00 96 06/12/17 03:30 95 21 125/57 100 Mechanical Ventilator 30 06/12/17 03:09 95 24 30 06/12/17 03:00 25 06/12/17 03:00 25 06/12/17 03:00 97 21 125/61 100 Mechanical Ventilator 30 06/12/17 02:30 100 20 128/60 100 Mechanical Ventilator 30 06/12/17 02:00 95 20 128/67 100 Mechanical Ventilator 30 06/12/17 02:00 20 06/12/17 02:00 20 06/12/17 01:30 99 20 130/56 100 Mechanical Ventilator 30 06/12/17 01:15 99 25 30 06/12/17 01:00 98 21 119/61 100 Mechanical Ventilator 30 06/12/17 01:00 20 06/12/17 01:00 20 06/12/17 00:30 89 21 118/62 100 Mechanical Ventilator 30 06/12/17 00:00 91 06/12/17 00:00 98.6 97 20 127/58 100 Mechanical Ventilator 30 06/12/17 00:00 20 06/12/17 00:00 20 06/12/17 00:00 30 06/11/17 23:30 89 21 122/62 100 Mechanical Ventilator 30 06/11/17 23:29 99 21 30 06/11/17 23:00 21 06/11/17 23:00 21 06/11/17 23:00 94 20 123/58 100 Mechanical Ventilator 30 06/11/17 22:30 98 20 123/68 100 Mechanical Ventilator 30 06/11/17 22:00 91 20 119/61 100 Mechanical Ventilator 30 06/11/17 22:00 21 06/11/17 22:00 21 06/11/17 21:30 91 20 124/49 100 Mechanical Ventilator 30 06/11/17 21:24 89 23 30 06/11/17 21:00 23 06/11/17 21:00 23 06/11/17 21:00 95 20 127/64 100 Mechanical Ventilator 30 06/11/17 20:58 99.3 06/11/17 20:30 104 26 134/64 100 Mechanical Ventilator 30 06/11/17 20:29 23 06/11/17 20:28 23 06/11/17 20:00 99.3 91 20 125/59 100 Mechanical Ventilator 30 06/11/17 20:00 23 06/11/17 20:00 23 06/11/17 20:00 91 06/11/17 20:00 30 06/11/17 19:30 92 22 128/59 100 Mechanical Ventilator 30 06/11/17 19:20 90 22 30 06/11/17 19:00 19 06/11/17 19:00 19 06/11/17 19:00 99 19 127/61 100 Mechanical Ventilator 30 06/11/17 18:30 98 22 125/62 100 Mechanical Ventilator 30 06/11/17 18:00 93 22 131/62 100 Mechanical Ventilator 30 06/11/17 18:00 20 06/11/17 18:00 20 06/11/17 17:30 95 22 121/61 100 Mechanical Ventilator 30 06/11/17 17:00 96 22 138/70 100 Mechanical Ventilator 30 06/11/17 17:00 20 06/11/17 17:00 20 06/11/17 16:56 101 22 30 06/11/17 16:30 98 22 142/68 100 Mechanical Ventilator 30 06/11/17 16:00 99.1 96 20 139/67 100 Mechanical Ventilator 30 06/11/17 16:00 30 06/11/17 16:00 20 06/11/17 16:00 98 06/11/17 15:30 99 20 145/65 100 Mechanical Ventilator 30 06/11/17 15:00 98 20 140/70 100 Mechanical Ventilator 30 06/11/17 15:00 20 06/11/17 15:00 0 06/11/17 14:59 93 16 30 06/11/17 14:30 96 20 146/65 100 Mechanical Ventilator 30 06/11/17 14:00 90 20 146/72 100 Mechanical Ventilator 30 06/11/17 13:30 80 20 133/85 100 Mechanical Ventilator 30 06/11/17 13:01 90 19 30 06/11/17 13:00 90 22 138/80 100 Mechanical Ventilator 30 06/11/17 13:00 18 06/11/17 13:00 20 06/11/17 12:30 98.0 90 20 140/80 100 Mechanical Ventilator 30 06/11/17 12:30 98.0 88 20 140/88 100 Mechanical Ventilator 30 06/11/17 12:00 90 06/11/17 12:00 87 20 138/86 100 Mechanical Ventilator 30 06/11/17 12:00 20 06/11/17 12:00 20 06/11/17 12:00 30 06/11/17 11:30 90 20 140/68 100 Mechanical Ventilator 30 06/11/17 11:00 91 22 142/67 100 Mechanical Ventilator 30 06/11/17 11:00 19 06/11/17 11:00 18 06/11/17 10:44 100 22 30 06/11/17 10:30 96 20 130/80 100 Mechanical Ventilator 30 06/11/17 10:00 20 06/11/17 10:00 20 06/11/17 10:00 97 20 137/82 100 Mechanical Ventilator 30 06/11/17 09:30 99 19 139/70 100 Mechanical Ventilator 30 06/11/17 09:30 98 20 139/92 100 Mechanical Ventilator 30 06/11/17 09:19 94 21 30 Height (Feet): 5 Height (Inches): 3.00 Weight (Pounds): 147 HEENT: other - orally intubated Respiratory/Chest: rhonchi - bilaterally, other - on ventilator Cardiovascular: normal rate Abdomen: other - NG to suction, s/p colostomy Extremities: other - mild edema of hands, R arm PICC line Neurologic/Psychiatric: other - awake Microbiology Date/Time Source Procedure Growth Status 06/09/17 17:05 Abdominal Cavity Gram Stain - Final Resulted 06/09/17 17:05 Aerobic Culture - Preliminary Gram Negative William Resulted 06/09/17 17:05 Abdominal Cavity Anaerobic Culture - Preliminary NO GROWTH Resulted Laboratory Tests Test 06/11/17 09:19 06/11/17 13:00 06/12/17 04:30 Arterial Blood pH 7.490 (7.350-7.450) Arterial Blood Partial Pressure CO2 31.4 mmHg (35.0-45.0) L Arterial Blood Partial Pressure O2 117.0 mmHg (75.0-100.0) H Arterial Blood HCO3 23.1 mmol/L (22.0-26.0) Arterial Blood Oxygen Saturation 98.0 % (92.0-98.0) Arterial Blood Base Excess 0.1 Obie Test Positive White Blood Count 14.9 K/UL (4.8-10.8) H 16.9 K/UL (4.8-10.8) H Red Blood Count 3.34 M/UL (4.20-5.40) L 3.16 M/UL (4.20-5.40) L Hemoglobin 9.0 G/DL (12.0-16.0) L 8.7 G/DL (12.0-16.0) L Hematocrit 27.9 % (37.0-47.0) L 26.6 % (37.0-47.0) L Mean Corpuscular Volume 84 FL (80-99) 84 FL (80-99) Mean Corpuscular Hemoglobin 26.8 PG (27.0-31.0) L 27.7 PG (27.0-31.0) Mean Corpuscular Hemoglobin Concent 32.0 G/DL (32.0-36.0) 32.9 G/DL (32.0-36.0) Red Cell Distribution Width 15.7 % (11.6-14.8) H 16.0 % (11.6-14.8) H Platelet Count 95 K/UL (150-450) L 104 K/UL (150-450) L Mean Platelet Volume 8.9 FL (6.5-10.1) 8.8 FL (6.5-10.1) Neutrophils (%) (Auto) % (45.0-75.0) 80.7 % (45.0-75.0) H Lymphocytes (%) (Auto) % (20.0-45.0) 12.6 % (20.0-45.0) L Monocytes (%) (Auto) % (1.0-10.0) 5.7 % (1.0-10.0) Eosinophils (%) (Auto) % (0.0-3.0) 0.4 % (0.0-3.0) Basophils (%) (Auto) % (0.0-2.0) 0.5 % (0.0-2.0) Differential Total Cells Counted 100 Neutrophils % (Manual) 71 % (45-75) Lymphocytes % (Manual) 16 % (20-45) L Monocytes % (Manual) 3 % (1-10) Eosinophils % (Manual) 0 % (0-3) Basophils % (Manual) 0 % (0-2) Band Neutrophils 10 % (0-8) H Platelet Estimate Decreased L Platelet Morphology Normal Hypochromasia 1+ Anisocytosis 1+ Prothrombin Time 10.7 SEC (9.30-11.50) Prothromb Time International Ratio 1.0 (0.9-1.1) Activated Partial Thromboplast Time 37 SEC (23-33) H Sodium Level 143 mEQ/L (135-145) 141 mEQ/L (135-145) Potassium Level 3.1 mEQ/L (3.4-4.9) L 3.6 mEQ/L (3.4-4.9) Chloride Level 109 mEQ/L (98-107) H 110 mEQ/L (98-107) H Carbon Dioxide Level 26 mEQ/L (20-30) 26 mEQ/L (20-30) Anion Gap 8 (5-15) 5 (5-15) Blood Urea Nitrogen 14 mg/dL (7-23) 10 mg/dL (7-23) Creatinine 0.4 mg/dL (0.5-0.9) L 0.4 mg/dL (0.5-0.9) L Estimat Glomerular Filtration Rate > 60 mL/min (>60) > 60 mL/min (>60) Glucose Level 77 mg/dL (74-106) 122 mg/dL (74-106) H Lactic Acid Level 0.80 mmol/L (0.66-2.22) Calcium Level 8.1 mg/dL (8.6-10.2) L 8.3 mg/dL (8.6-10.2) L Phosphorus Level 1.0 mg/dL (2.5-4.8) L Magnesium Level 1.9 mg/dL (1.7-2.5) Total Bilirubin 1.3 mg/dL (0.0-1.2) H Direct Bilirubin 0.7 mg/dL (0.1-0.3) H Aspartate Amino Transf (AST/SGOT) 19 U/L (5-40) Alanine Aminotransferase (ALT/SGPT) 15 U/L (3-33) Alkaline Phosphatase 59 U/L (35-104) Total Protein 4.9 g/dL (6.6-8.7) L Albumin 2.1 g/dL (3.5-5.2) L Globulin 2.8 g/dL Albumin/Globulin Ratio 0.7 (1.0-2.7) L Current Medications Medications (Trade) Dose Ordered Sig/Michael Route PRN Reason Start Time Stop Time Status Last Admin Dose Admin Aztreonam 2 gm/ Dextrose 110 ml @ 220 mls/hr Q8HR IVPB 06/10/17 06:00 06/17/17 05:59 06/12/17 05:31 Chlorhexidine Gluconate 1 applic 1 applic BEDTIME TOPIC 06/11/17 21:00 07/11/17 20:59 06/11/17 20:57 Dextrose (Dextrose 50%) STAT PRN IV Hypoglycemia 06/10/17 19:15 07/10/17 19:14 Dextrose/Lactated Ringer's (D5lr) 1,000 ml @ 150 mls/hr Q6H40M IV 06/11/17 14:30 07/11/17 14:29 06/12/17 03:26 Enoxaparin Sodium 30 mg 30 mg EVERY 12 HOURS SUBQ 06/11/17 14:00 07/11/17 13:59 06/12/17 08:26 Fentanyl Citrate/ Sodium Chloride (Sublimaze 250mcg/5ml/Sodium Chloride) 100 ml @ 0 mls/hr Q24H IV 06/11/17 20:00 06/17/17 19:59 06/11/17 20:28 Insulin Aspart (NovoLOG) Q6HR SUBQ 06/10/17 06:00 07/10/17 05:59 06/11/17 18:22 Metronidazole 100 ml @ 100 mls/hr Q8HR IVPB 06/10/17 06:00 06/17/17 05:59 06/12/17 05:32 Midazolam HCl/ Sodium Chloride (Versed/Sodium Chloride) 100 ml @ 0 mls/hr Q24H IV 06/10/17 20:00 07/10/17 19:59 06/11/17 20:29 Nitroglycerin (Ntg) 0.4 mg Q5M X 3 DOSES PRN SL Prn Chest Pain 06/10/17 03:00 07/10/17 02:59 Ondansetron HCl (Zofran) 4 mg Q6H PRN IVP Nausea & Vomiting 06/10/17 05:00 07/10/17 04:59 Pantoprazole (Protonix) 40 mg DAILY IVP 06/12/17 09:00 07/12/17 08:59 06/12/17 08:24 RUBY PIMENTEL Jun 12, 2017 09:06
--- NOTE | 2017-06-12 10:36 | General Progress Note ---
Assessment/Plan Problem List: (1) Ischemic bowel disease ICD Codes: K55.9 - Vascular disorder of intestine, unspecified SNOMED: [id number] Assessment/Plan post op npo IVF abx may need TPN fu surgical recs Subjective ROS Limited/Unobtainable: No Allergies: Coded Allergies: PENICILLIN (Verified Allergy, Unknown, 12/01/15) PENICILLINS (Unverified Allergy, Unknown, 06/08/17) SHELLFISH (Verified Allergy, Unknown, 12/01/15) Uncoded Allergies: Mints (Allergy, Unknown, 06/09/17) Objective Last 24 Hour Vital Signs Date Time Temp Pulse Resp B/P Pulse Ox O2 Delivery O2 Flow Rate FiO2 06/12/17 10:30 95 22 129/66 100 Mechanical Ventilator 30 06/12/17 10:00 92 20 130/67 100 Mechanical Ventilator 06/12/17 09:30 92 20 136/66 100 Mechanical Ventilator 30 06/12/17 09:19 90 21 30 06/12/17 09:00 98 20 134/65 100 Mechanical Ventilator 06/12/17 09:00 20 06/12/17 08:30 86 20 132/62 100 Mechanical Ventilator 06/12/17 08:00 86 06/12/17 08:00 86 20 121/53 100 Mechanical Ventilator 06/12/17 08:00 30 06/12/17 08:00 20 06/12/17 07:30 99.0 98 20 123/53 100 Mechanical Ventilator 30 06/12/17 07:10 96 25 30 06/12/17 07:00 93 20 123/59 100 Mechanical Ventilator 06/12/17 07:00 20 06/12/17 07:00 20 06/12/17 06:30 87 20 127/57 100 Mechanical Ventilator 06/12/17 06:00 94 22 126/60 100 Mechanical Ventilator 30 06/12/17 06:00 21 06/12/17 06:00 21 06/12/17 05:30 93 22 118/64 100 Mechanical Ventilator 06/12/17 05:21 88 21 30 06/12/17 05:00 86 21 117/60 100 Mechanical Ventilator 06/12/17 05:00 21 06/12/17 05:00 21 06/12/17 04:30 88 21 123/62 100 Mechanical Ventilator 06/12/17 04:00 30 06/12/17 04:00 98.3 100 20 130/63 100 Mechanical Ventilator 30 06/12/17 04:00 21 06/12/17 04:00 21 06/12/17 04:00 96 06/12/17 03:30 95 21 125/57 100 Mechanical Ventilator 30 06/12/17 03:09 95 24 30 06/12/17 03:00 25 06/12/17 03:00 25 06/12/17 03:00 97 21 125/61 100 Mechanical Ventilator 30 06/12/17 02:30 100 20 128/60 100 Mechanical Ventilator 30 06/12/17 02:00 95 20 128/67 100 Mechanical Ventilator 30 06/12/17 02:00 20 06/12/17 02:00 20 06/12/17 01:30 99 20 130/56 100 Mechanical Ventilator 30 06/12/17 01:15 99 25 30 06/12/17 01:00 98 21 119/61 100 Mechanical Ventilator 30 06/12/17 01:00 20 06/12/17 01:00 20 06/12/17 00:30 89 21 118/62 100 Mechanical Ventilator 30 06/12/17 00:00 91 06/12/17 00:00 98.6 97 20 127/58 100 Mechanical Ventilator 30 06/12/17 00:00 20 06/12/17 00:00 20 06/12/17 00:00 30 06/11/17 23:30 89 21 122/62 100 Mechanical Ventilator 30 06/11/17 23:29 99 21 30 06/11/17 23:00 21 06/11/17 23:00 21 06/11/17 23:00 94 20 123/58 100 Mechanical Ventilator 30 06/11/17 22:30 98 20 123/68 100 Mechanical Ventilator 30 06/11/17 22:00 91 20 119/61 100 Mechanical Ventilator 30 06/11/17 22:00 21 06/11/17 22:00 21 06/11/17 21:30 91 20 124/49 100 Mechanical Ventilator 30 06/11/17 21:24 89 23 30 06/11/17 21:00 23 06/11/17 21:00 23 06/11/17 21:00 95 20 127/64 100 Mechanical Ventilator 30 06/11/17 20:58 99.3 06/11/17 20:30 104 26 134/64 100 Mechanical Ventilator 30 06/11/17 20:29 23 06/11/17 20:28 23 06/11/17 20:00 99.3 91 20 125/59 100 Mechanical Ventilator 30 06/11/17 20:00 23 06/11/17 20:00 23 06/11/17 20:00 91 06/11/17 20:00 30 06/11/17 19:30 92 22 128/59 100 Mechanical Ventilator 30 06/11/17 19:20 90 22 30 06/11/17 19:00 19 06/11/17 19:00 19 06/11/17 19:00 99 19 127/61 100 Mechanical Ventilator 30 06/11/17 18:30 98 22 125/62 100 Mechanical Ventilator 30 06/11/17 18:00 93 22 131/62 100 Mechanical Ventilator 30 06/11/17 18:00 20 06/11/17 18:00 20 06/11/17 17:30 95 22 121/61 100 Mechanical Ventilator 30 06/11/17 17:00 96 22 138/70 100 Mechanical Ventilator 30 06/11/17 17:00 20 06/11/17 17:00 20 06/11/17 16:56 101 22 30 06/11/17 16:30 98 22 142/68 100 Mechanical Ventilator 30 06/11/17 16:00 99.1 96 20 139/67 100 Mechanical Ventilator 30 06/11/17 16:00 30 06/11/17 16:00 20 06/11/17 16:00 98 06/11/17 15:30 99 20 145/65 100 Mechanical Ventilator 30 06/11/17 15:00 98 20 140/70 100 Mechanical Ventilator 30 06/11/17 15:00 20 06/11/17 15:00 0 06/11/17 14:59 93 16 30 06/11/17 14:30 96 20 146/65 100 Mechanical Ventilator 30 06/11/17 14:00 90 20 146/72 100 Mechanical Ventilator 30 06/11/17 13:30 80 20 133/85 100 Mechanical Ventilator 30 06/11/17 13:01 90 19 30 06/11/17 13:00 90 22 138/80 100 Mechanical Ventilator 30 06/11/17 13:00 18 06/11/17 13:00 20 06/11/17 12:30 98.0 90 20 140/80 100 Mechanical Ventilator 30 06/11/17 12:30 98.0 88 20 140/88 100 Mechanical Ventilator 30 06/11/17 12:00 90 06/11/17 12:00 87 20 138/86 100 Mechanical Ventilator 30 06/11/17 12:00 20 06/11/17 12:00 20 06/11/17 12:00 30 06/11/17 11:30 90 20 140/68 100 Mechanical Ventilator 30 06/11/17 11:00 91 22 142/67 100 Mechanical Ventilator 30 06/11/17 11:00 19 06/11/17 11:00 18 06/11/17 10:44 100 22 30 Intake and Output 06/11/17 06/12/17 19:00 07:00 Intake Total 1861.5 ml 2356 ml Output Total 2475 ml 2385 ml Balance -613.5 ml -29 ml Intake IV Total 1861.5 ml 2356 ml Output Urine Total 1675 ml 1955 ml Gastric Drainage Total 700 ml 400 ml Drainage Total 100 ml 30 ml Laboratory Tests 06/11/17 13:00: White Blood Count 14.9H, Red Blood Count 3.34L, Hemoglobin 9.0L, Hematocrit 27.9L, Mean Corpuscular Volume 84, Mean Corpuscular Hemoglobin 26.8L, Mean Corpuscular Hemoglobin Concent 32.0, Red Cell Distribution Width 15.7H, Platelet Count 95L, Mean Platelet Volume 8.9, Neutrophils (%) (Auto) , Lymphocytes (%) (Auto) , Monocytes (%) (Auto) , Eosinophils (%) (Auto) , Basophils (%) (Auto) , Differential Total Cells Counted 100, Neutrophils % ( Manual) 71, Lymphocytes % (Manual) 16L, Monocytes % (Manual) 3, Eosinophils % ( Manual) 0, Basophils % (Manual) 0, Band Neutrophils 10H, Platelet Estimate DecreasedL, Platelet Morphology Normal, Hypochromasia 1+, Anisocytosis 1+, Prothrombin Time 10.7, Prothromb Time International Ratio 1.0, Activated Partial Thromboplast Time 37H, Sodium Level 143, Potassium Level 3.1L, Chloride Level 109H, Carbon Dioxide Level 26, Anion Gap 8, Blood Urea Nitrogen 14, Creatinine 0.4L, Estimat Glomerular Filtration Rate > 60, Glucose Level 77, Lactic Acid Level 0.80, Calcium Level 8.1L, Phosphorus Level 1.0L, Magnesium Level 1.9 06/12/17 04:30: White Blood Count 16.9H, Red Blood Count 3.16L, Hemoglobin 8.7L, Hematocrit 26.6L, Mean Corpuscular Volume 84, Mean Corpuscular Hemoglobin 27.7, Mean Corpuscular Hemoglobin Concent 32.9, Red Cell Distribution Width 16.0H, Platelet Count 104L, Mean Platelet Volume 8.8, Neutrophils (%) (Auto) 80.7H, Lymphocytes (%) (Auto) 12.6L, Monocytes (%) (Auto) 5.7, Eosinophils (%) (Auto) 0.4, Basophils (%) (Auto) 0.5, Sodium Level 141, Potassium Level 3.6, Chloride Level 110H, Carbon Dioxide Level 26, Anion Gap 5, Blood Urea Nitrogen 10, Creatinine 0.4L, Estimat Glomerular Filtration Rate > 60, Glucose Level 122H, Calcium Level 8.3L, Total Bilirubin 1.3H, Direct Bilirubin 0.7H, Aspartate Amino Transf (AST/SGOT) 19, Alanine Aminotransferase (ALT/SGPT) 15, Alkaline Phosphatase 59, Total Protein 4.9L, Albumin 2.1L, Globulin 2.8, Albumin/ Globulin Ratio 0.7L Height (Feet): 5 Height (Inches): 3.00 Weight (Pounds): 147 General Appearance: lethargic EENT: normal ENT inspection Neck: supple Cardiovascular: normal rate Respiratory/Chest: decreased breath sounds Abdomen: other - post op Extremities: non-tender CLAYTON LI Jun 12, 2017 10:36
[2017-06-12] MEDS ORDERED: NS 275ml ONE (11:10)
[2017-06-12] MEDS ORDERED: Tubing IV Secondary IV ONE (11:10)
--- NOTE | 2017-06-12 11:18 | General Progress Note ---
Progress Note Progress Note Surgery: patient seen and examined at bedside. no acute events. doing well. afebrile, HD stable, comfortable. RASS -3 this AM. Abdominal exam benign. ostomy viable. CHELITA drain with serosang output. NG tube with bilious output. villagomez with good urine output and clearing up. leukocytosis 16k today. NPO with IV fluids Considering TPN soon NG tube to suction villagomez for accurate urine output monitoring monitor CHELITA drain Stop Lovenox for now (CHELITA drain too sang) Wean sedation Wean Vent. could potentially be extubated in the next 24hrs. Wei Monroy Jun 12, 2017 11:18
--- NOTE | 2017-06-12 12:11 | Pulmonolgy Critical Care Note ---
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, 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 Discussed with: nurses, consultants, therapeutic case managermanager site - Objective Last 24 Hour Vital Signs Date Time Temp Pulse Resp B/P Pulse Ox O2 Delivery O2 Flow Rate FiO2 06/12/17 11:30 92 22 126/70 100 Mechanical Ventilator 30 06/12/17 11:07 99 25 30 06/12/17 11:00 20 06/12/17 11:00 93 22 132/68 100 Mechanical Ventilator 30 06/12/17 10:30 95 22 129/66 100 Mechanical Ventilator 30 06/12/17 10:00 92 20 130/67 100 Mechanical Ventilator 30 06/12/17 09:30 92 20 136/66 100 Mechanical Ventilator 30 06/12/17 09:19 90 21 30 06/12/17 09:00 98 20 134/65 100 Mechanical Ventilator 30 06/12/17 09:00 20 06/12/17 08:30 86 20 132/62 100 Mechanical Ventilator 30 06/12/17 08:00 86 06/12/17 08:00 86 20 121/53 100 Mechanical Ventilator 30 06/12/17 08:00 30 06/12/17 08:00 20 06/12/17 07:30 99.0 98 20 123/53 100 Mechanical Ventilator 30 06/12/17 07:10 96 25 30 06/12/17 07:00 93 20 123/59 100 Mechanical Ventilator 30 06/12/17 07:00 20 06/12/17 07:00 20 06/12/17 06:30 87 20 127/57 100 Mechanical Ventilator 30 06/12/17 06:00 94 22 126/60 100 Mechanical Ventilator 30 06/12/17 06:00 21 06/12/17 06:00 21 06/12/17 05:30 93 22 118/64 100 Mechanical Ventilator 30 06/12/17 05:21 88 21 30 06/12/17 05:00 86 21 117/60 100 Mechanical Ventilator 30 06/12/17 05:00 21 06/12/17 05:00 21 06/12/17 04:30 88 21 123/62 100 Mechanical Ventilator 30 06/12/17 04:00 30 06/12/17 04:00 98.3 100 20 130/63 100 Mechanical Ventilator 30 06/12/17 04:00 21 06/12/17 04:00 21 06/12/17 04:00 96 06/12/17 03:30 95 21 125/57 100 Mechanical Ventilator 30 06/12/17 03:09 95 24 30 06/12/17 03:00 25 06/12/17 03:00 25 06/12/17 03:00 97 21 125/61 100 Mechanical Ventilator 30 06/12/17 02:30 100 20 128/60 100 Mechanical Ventilator 30 06/12/17 02:00 95 20 128/67 100 Mechanical Ventilator 30 06/12/17 02:00 20 06/12/17 02:00 20 06/12/17 01:30 99 20 130/56 100 Mechanical Ventilator 30 06/12/17 01:15 99 25 30 06/12/17 01:00 98 21 119/61 100 Mechanical Ventilator 30 06/12/17 01:00 20 06/12/17 01:00 20 06/12/17 00:30 89 21 118/62 100 Mechanical Ventilator 30 06/12/17 00:00 91 06/12/17 00:00 98.6 97 20 127/58 100 Mechanical Ventilator 30 06/12/17 00:00 20 06/12/17 00:00 20 06/12/17 00:00 30 06/11/17 23:30 89 21 122/62 100 Mechanical Ventilator 30 06/11/17 23:29 99 21 30 06/11/17 23:00 21 06/11/17 23:00 21 06/11/17 23:00 94 20 123/58 100 Mechanical Ventilator 30 06/11/17 22:30 98 20 123/68 100 Mechanical Ventilator 30 06/11/17 22:00 91 20 119/61 100 Mechanical Ventilator 30 06/11/17 22:00 21 06/11/17 22:00 21 06/11/17 21:30 91 20 124/49 100 Mechanical Ventilator 30 06/11/17 21:24 89 23 30 06/11/17 21:00 23 06/11/17 21:00 23 06/11/17 21:00 95 20 127/64 100 Mechanical Ventilator 30 06/11/17 20:58 99.3 06/11/17 20:30 104 26 134/64 100 Mechanical Ventilator 30 06/11/17 20:29 23 06/11/17 20:28 23 06/11/17 20:00 99.3 91 20 125/59 100 Mechanical Ventilator 30 06/11/17 20:00 23 06/11/17 20:00 23 06/11/17 20:00 91 06/11/17 20:00 30 06/11/17 19:30 92 22 128/59 100 Mechanical Ventilator 30 06/11/17 19:20 90 22 30 06/11/17 19:00 19 06/11/17 19:00 19 06/11/17 19:00 99 19 127/61 100 Mechanical Ventilator 30 06/11/17 18:30 98 22 125/62 100 Mechanical Ventilator 30 06/11/17 18:00 93 22 131/62 100 Mechanical Ventilator 30 06/11/17 18:00 20 06/11/17 18:00 20 06/11/17 17:30 95 22 121/61 100 Mechanical Ventilator 30 06/11/17 17:00 96 22 138/70 100 Mechanical Ventilator 30 06/11/17 17:00 20 06/11/17 17:00 20 06/11/17 16:56 101 22 30 06/11/17 16:30 98 22 142/68 100 Mechanical Ventilator 30 06/11/17 16:00 99.1 96 20 139/67 100 Mechanical Ventilator 30 06/11/17 16:00 30 06/11/17 16:00 20 06/11/17 16:00 98 06/11/17 15:30 99 20 145/65 100 Mechanical Ventilator 30 06/11/17 15:00 98 20 140/70 100 Mechanical Ventilator 30 06/11/17 15:00 20 06/11/17 15:00 0 06/11/17 14:59 93 16 30 06/11/17 14:30 96 20 146/65 100 Mechanical Ventilator 30 06/11/17 14:00 90 20 146/72 100 Mechanical Ventilator 30 06/11/17 13:30 80 20 133/85 100 Mechanical Ventilator 30 06/11/17 13:01 90 19 30 06/11/17 13:00 90 22 138/80 100 Mechanical Ventilator 30 06/11/17 13:00 18 06/11/17 13:00 20 06/11/17 12:30 98.0 90 20 140/80 100 Mechanical Ventilator 30 06/11/17 12:30 98.0 88 20 140/88 100 Mechanical Ventilator 30 Status: awake Condition: critical HEENT: atraumatic Neck: full ROM Lungs: clear Heart: HR/BP stable, HR/BP unstable Abdomen: soft, non-tender, feeding tube Extremities: edema Decubiti: location Micro: Microbiology Date/Time Source Procedure Growth Status 06/09/17 17:05 Abdominal Cavity Gram Stain - Final Resulted 06/09/17 17:05 Aerobic Culture - Preliminary Gram Negative William Resulted 06/09/17 17:05 Abdominal Cavity Anaerobic Culture - Preliminary NO GROWTH AFTER 48 HOURS Resulted Accucheck: 135 Critical Care - Subjective ROS Limited/Unobtainable: No ICU Day: 3 Intubation Day: 3 Condition: critical FI02: 30 Vent Support Breath Rate: 12 Vent Support Mode: AC Vent Tidal Volume: 500 Sputum Amount: None PEEP: 2.0 PIP: 21 Fluids: LR 150 cc/hour Drips: fentanyl drip 10 ug I&O: Intake and Output 06/11/17 06/12/17 19:00 07:00 Intake Total 1861.5 ml 2356 ml Output Total 2475 ml 2385 ml Balance -613.5 ml -29 ml Intake IV Total 1861.5 ml 2356 ml Output Urine Total 1675 ml 1955 ml Gastric Drainage Total 700 ml 400 ml Drainage Total 100 ml 30 ml CXR: ET tube in good position ET-Tube: 7.0 ET Position: 21 Labs: Laboratory Tests Test 06/11/17 13:00 06/12/17 04:30 White Blood Count 14.9 K/UL (4.8-10.8) H 16.9 K/UL (4.8-10.8) H Red Blood Count 3.34 M/UL (4.20-5.40) L 3.16 M/UL (4.20-5.40) L Hemoglobin 9.0 G/DL (12.0-16.0) L 8.7 G/DL (12.0-16.0) L Hematocrit 27.9 % (37.0-47.0) L 26.6 % (37.0-47.0) L Mean Corpuscular Volume 84 FL (80-99) 84 FL (80-99) Mean Corpuscular Hemoglobin 26.8 PG (27.0-31.0) L 27.7 PG (27.0-31.0) Mean Corpuscular Hemoglobin Concent 32.0 G/DL (32.0-36.0) 32.9 G/DL (32.0-36.0) Red Cell Distribution Width 15.7 % (11.6-14.8) H 16.0 % (11.6-14.8) H Platelet Count 95 K/UL (150-450) L 104 K/UL (150-450) L Mean Platelet Volume 8.9 FL (6.5-10.1) 8.8 FL (6.5-10.1) Neutrophils (%) (Auto) % (45.0-75.0) 80.7 % (45.0-75.0) H Lymphocytes (%) (Auto) % (20.0-45.0) 12.6 % (20.0-45.0) L Monocytes (%) (Auto) % (1.0-10.0) 5.7 % (1.0-10.0) Eosinophils (%) (Auto) % (0.0-3.0) 0.4 % (0.0-3.0) Basophils (%) (Auto) % (0.0-2.0) 0.5 % (0.0-2.0) Differential Total Cells Counted 100 Neutrophils % (Manual) 71 % (45-75) Lymphocytes % (Manual) 16 % (20-45) L Monocytes % (Manual) 3 % (1-10) Eosinophils % (Manual) 0 % (0-3) Basophils % (Manual) 0 % (0-2) Band Neutrophils 10 % (0-8) H Platelet Estimate Decreased L Platelet Morphology Normal Hypochromasia 1+ Anisocytosis 1+ Prothrombin Time 10.7 SEC (9.30-11.50) Prothromb Time International Ratio 1.0 (0.9-1.1) Activated Partial Thromboplast Time 37 SEC (23-33) H Sodium Level 143 mEQ/L (135-145) 141 mEQ/L (135-145) Potassium Level 3.1 mEQ/L (3.4-4.9) L 3.6 mEQ/L (3.4-4.9) Chloride Level 109 mEQ/L (98-107) H 110 mEQ/L (98-107) H Carbon Dioxide Level 26 mEQ/L (20-30) 26 mEQ/L (20-30) Anion Gap 8 (5-15) 5 (5-15) Blood Urea Nitrogen 14 mg/dL (7-23) 10 mg/dL (7-23) Creatinine 0.4 mg/dL (0.5-0.9) L 0.4 mg/dL (0.5-0.9) L Estimat Glomerular Filtration Rate > 60 mL/min (>60) > 60 mL/min (>60) Glucose Level 77 mg/dL (74-106) 122 mg/dL (74-106) H Lactic Acid Level 0.80 mmol/L (0.66-2.22) Calcium Level 8.1 mg/dL (8.6-10.2) L 8.3 mg/dL (8.6-10.2) L Phosphorus Level 1.0 mg/dL (2.5-4.8) L Magnesium Level 1.9 mg/dL (1.7-2.5) Total Bilirubin 1.3 mg/dL (0.0-1.2) H Direct Bilirubin 0.7 mg/dL (0.1-0.3) H Aspartate Amino Transf (AST/SGOT) 19 U/L (5-40) Alanine Aminotransferase (ALT/SGPT) 15 U/L (3-33) Alkaline Phosphatase 59 U/L (35-104) Total Protein 4.9 g/dL (6.6-8.7) L Albumin 2.1 g/dL (3.5-5.2) L Globulin 2.8 g/dL Albumin/Globulin Ratio 0.7 (1.0-2.7) L [place] MCRAE Jun 12, 2017 12:11
[2017-06-12] MEDS ORDERED: Haloperidol 5mg/ml Inj IVPB PRN (12:15)
[2017-06-12] MEDS ORDERED: Haloperidol Lactate 5 MG in D5W 55 ML IVPB PRN (12:30)
[2017-06-12] MEDS: Morphine Sulfate 2mg/ml Inj IV PRN ×2 (16:48→21:05)
[2017-06-12] MEDS: Pantoprazole Inj IVP SCH (17:38)
[2017-06-12] MEDS: Dyna-Hex 2% Top Sol 8oz TOPIC SCH (21:04)
[2017-06-13] VITALS (47 sets, daily range): BP systolic 107–155; BP diastolic 50–88
[2017-06-13] MEDS: Haloperidol Lactate 5 MG in D5W 55 ML IVPB PRN ×2 (01:02→05:06)
[2017-06-13] MEDS: Morphine Sulfate 2mg/ml Inj IV PRN ×5 (03:02→20:25)
[2017-06-13 05:19] LABS: BASOPHILS % (AUTO) 0.8 % (0.0-2.0); EOSINOPHILS % (AUTO) 1.1 % (0.0-3.0); LYMPHOCYTES % (AUTO) 15.4 % (20.0-45.0); MEAN CORPUSCULAR HEMOGLOBIN 28.3 PG (27.0-31.0); MEAN CORPUSCULAR HGB CONC 33.7 G/DL (32.0-36.0); MEAN CORPUSCULAR VOLUME 84 FL (80-99); MEAN PLATELET VOLUME 8.2 FL (6.5-10.1); MONOCYTES % (AUTO) 6.7 % (1.0-10.0); NEUTROPHILS % (AUTO) 76.1 % (45.0-75.0); PLATELET COUNT 124 K/UL (150-450); WHITE BLOOD COUNT 14.2 K/UL (4.8-10.8)
[2017-06-13] MEDS: NovoLOG Insulin Flexpen SUBQ SCH ×3 (06:00→18:26)
[2017-06-13 06:27] LABS: CARBON DIOXIDE 28 mEQ/L (20-30)
[2017-06-13 06:34] LABS: ALANINE AMINOTRANSFERASE 15 U/L (3-33); ANION GAP 7 (5-15); ASPARTATE AMINO TRANSFERASE 13 U/L (5-40); CHLORIDE 110 mEQ/L (98-107); CREATININE 0.4 mg/dL (0.5-0.9); GLOMERULAR FILTRATION RATE > 60 mL/min (>60); HEMOLYSIS 4; MAGNESIUM 1.7 mg/dL (1.7-2.5); PHOSPHORUS 2.4 mg/dL (2.5-4.8); POTASSIUM 3.4 mEQ/L (3.4-4.9); SODIUM 145 mEQ/L (135-145); TOTAL PROTEIN 4.5 g/dL (6.6-8.7)
[2017-06-13] MEDS: metroNIDAZOLE 500mg 100 ML IVPB SCH ×3 (06:40→22:26)
[2017-06-13] MEDS: Dextrose 5%/Lactated Ringer's 1,000 ML IV SCH ×4 (06:40→21:25)
[2017-06-13 07:10] LABS: ALBUMIN/GLOBULIN RATIO 0.9 (1.0-2.7)
[2017-06-13] MEDS: Pantoprazole Inj IVP SCH ×2 (08:13→18:23)
--- NOTE | 2017-06-13 09:14 | Diagnostic Imaging Report ---
Indication: DYSPNEA Technique: XRAY CHEST 1 V Comparison:06/10/2017 Findings: Compared previous study endotracheal tube and nasogastric tubes remain. Cardio mediastinal silhouette is unchanged. There is some patchy infiltrate or atelectasis in the left lower lobe. The remainder the lungs are unchanged. No pleural fluid. Impression: Patchy infiltrate or atelectasis developing in the left lower lobe. No other change from previous study.
[2017-06-13] MEDS ORDERED: Dextrose 10% 1,000 ML IV PRN (09:15)
--- NOTE | 2017-06-13 09:29 | General Progress Note ---
Progress Note Progress Note Surgery: No acute events. Awake, alert, following commands this morning. Pain as anticipated. Mild nausea. Afebrile, HD stable, labs reviewed. leukocytosis trending down. H/H low. Plt improving Abdomen soft, non distended, tender as anticipated given surgery, ostomy viable , wound clean/dry/intact, drain w/ more serous output today. Plan: Wean sedation Wean vent -> CPAP today with plans to extubate. Start TPN today. If H/H continue to tend down will need PRBC. Wei Monroy Jun 13, 2017 09:29
[2017-06-13 09:47] LABS: ABG ALLEN TEST POSITIVE; ABG BASE EXCESS 3.4; ABG PCO2 37.8 mmHg (35.0-45.0)
--- NOTE | 2017-06-13 10:43 | Pulmonolgy Critical Care Note ---
Critical Care - Asmt/Plan Problems: (1) Septic shock (2) Ischemic colon (3) S/P laparotomy (4) Colitis, acute Respiratory: monitor respiratory rate, adjust FIO2, CXR, weaning trial Cardiac: continue to monitor HR/BP Renal: F/U I&O, check electrolytes Infectious Disease: check cultures, continue antibiotics Gastrointestinal: continue feedings/current rate Endocrine: monitor blood sugar, check TSH, check HgA1C, continue sliding scale insulin Hematologic: monitor H/H, transfuse if hgb<8.5 Neurologic: PRN Ativan, keep patient comfortable Prophylaxis: Protonix, Heparin Notes Reviewed: cardio, renal Discussed with: nurses, consultants, family preservation caseworkermarketing communication manager - Objective Last 24 Hour Vital Signs Date Time Temp Pulse Resp B/P Pulse Ox O2 Delivery O2 Flow Rate FiO2 06/13/17 10:34 142 32 30 06/13/17 10:30 137 22 155/67 100 Mechanical Ventilator 06/13/17 10:00 98 20 130/88 100 Mechanical Ventilator 06/13/17 09:30 92 20 120/50 100 Mechanical Ventilator 30 06/13/17 09:30 30 06/13/17 09:07 86 19 30 06/13/17 09:00 90 20 114/50 100 Mechanical Ventilator 30 06/13/17 08:45 98.0 06/13/17 08:30 97.8 85 20 110/52 100 Mechanical Ventilator 30 06/13/17 08:00 30 06/13/17 08:00 98.0 71 20 116/58 100 Mechanical Ventilator 06/13/17 08:00 86 06/13/17 07:30 86 20 122/55 100 Mechanical Ventilator 06/13/17 07:14 90 20 30 06/13/17 07:00 21 06/13/17 07:00 98 20 127/74 100 Mechanical Ventilator 30 06/13/17 06:30 90 20 116/58 100 Mechanical Ventilator 30 06/13/17 06:00 90 20 113/53 100 Mechanical Ventilator 30 06/13/17 06:00 20 06/13/17 05:30 92 20 119/52 100 Mechanical Ventilator 30 06/13/17 05:00 21 06/13/17 05:00 98.3 96 20 123/58 100 Mechanical Ventilator 30 06/13/17 04:48 96 20 30 06/13/17 04:30 98 20 116/54 100 Mechanical Ventilator 30 06/13/17 04:00 30 06/13/17 04:00 20 06/13/17 04:00 89 06/13/17 04:00 89 20 119/57 100 Mechanical Ventilator 30 06/13/17 03:30 88 20 114/52 100 Mechanical Ventilator 30 06/13/17 03:07 93 18 30 06/13/17 03:00 19 06/13/17 03:00 93 20 122/51 100 Mechanical Ventilator 30 06/13/17 02:30 91 20 112/51 100 Mechanical Ventilator 30 06/13/17 02:00 20 06/13/17 02:00 92 20 111/50 100 Mechanical Ventilator 30 06/13/17 01:30 93 20 116/59 100 Mechanical Ventilator 30 06/13/17 01:00 100 20 130/64 100 Mechanical Ventilator 30 06/13/17 00:58 106 22 30 06/13/17 00:30 101 20 125/61 100 Mechanical Ventilator 30 06/13/17 00:00 105 06/13/17 00:00 98.8 100 20 133/59 100 Mechanical Ventilator 30 06/13/17 00:00 20 06/13/17 00:00 30 06/12/17 23:30 97 20 129/59 100 Mechanical Ventilator 30 06/12/17 23:00 20 06/12/17 23:00 97 20 125/56 100 Mechanical Ventilator 30 06/12/17 22:57 100 20 30 06/12/17 22:30 97 20 121/58 100 Mechanical Ventilator 30 06/12/17 22:00 20 06/12/17 22:00 101 20 131/58 100 Mechanical Ventilator 30 06/12/17 21:35 98.8 06/12/17 21:30 97 20 137/64 100 Mechanical Ventilator 30 06/12/17 21:10 30 06/12/17 21:05 19 06/12/17 21:00 20 06/12/17 21:00 96 20 132/59 100 Mechanical Ventilator 30 06/12/17 20:53 102 20 30 06/12/17 20:30 97 20 132/59 100 Mechanical Ventilator 30 06/12/17 20:00 103 06/12/17 20:00 20 06/12/17 20:00 98.5 97 20 135/63 100 Mechanical Ventilator 30 7/23/17 19:31 105 20 30 06/12/17 19:30 102 20 139/68 100 Mechanical Ventilator 30 06/12/17 19:00 95 20 130/66 100 Mechanical Ventilator 30 06/12/17 19:00 19 06/12/17 18:30 98.8 96 20 128/60 100 Mechanical Ventilator 30 06/12/17 18:00 97.8 98 20 129/59 100 Mechanical Ventilator 30 06/12/17 17:30 96 20 130/62 100 Mechanical Ventilator 30 06/12/17 17:04 100 21 30 06/12/17 17:00 97.9 96 20 132/68 100 Mechanical Ventilator 30 06/12/17 16:30 99.8 108 22 140/70 100 Mechanical Ventilator 30 06/12/17 16:00 99.5 96 20 122/74 100 Mechanical Ventilator 30 06/12/17 16:00 30 06/12/17 16:00 92 06/12/17 15:30 99.2 98 22 126/72 100 Mechanical Ventilator 30 06/12/17 15:03 104 22 30 06/12/17 15:00 20 06/12/17 15:00 98.8 98 22 132/70 100 Mechanical Ventilator 30 06/12/17 14:30 98 22 133/69 100 Mechanical Ventilator 30 06/12/17 14:00 96 20 132/64 100 Mechanical Ventilator 30 06/12/17 14:00 20 06/12/17 13:42 111 32 30 06/12/17 13:30 98 22 128/62 100 Mechanical Ventilator 30 06/12/17 13:00 99 20 133/54 100 Mechanical Ventilator 30 06/12/17 13:00 22 06/12/17 12:30 98 20 133/58 100 Mechanical Ventilator 30 06/12/17 12:00 90 06/12/17 12:00 22 06/12/17 12:00 30 06/12/17 12:00 99.3 92 20 130/68 100 Mechanical Ventilator 30 06/12/17 11:30 92 22 126/70 100 Mechanical Ventilator 30 06/12/17 11:07 99 25 30 06/12/17 11:00 20 06/12/17 11:00 93 22 132/68 100 Mechanical Ventilator 30 Status: awake Condition: critical HEENT: atraumatic, normocephalic Neck: full ROM Lungs: clear Heart: HR/BP stable Abdomen: soft, non-tender, feeding tube Extremities: no C/C/E, edema Accucheck: 116 Critical Care - Subjective ROS Limited/Unobtainable: Yes ICU Day: 4 Intubation Day: 4 Condition: critical EKG Rhythm: Sinus Rhythm FI02: 30 Vent Support Breath Rate: 12 Vent Support Mode: AC Vent Tidal Volume: 500 Sputum Amount: Small PEEP: 2.0 PIP: 19 I&O: Intake and Output 06/12/17 06/13/17 19:00 07:00 Intake Total 1356.4 ml 1870.8 ml Output Total 4020 ml 2060 ml Balance -2663.6 ml -189.2 ml Intake IV Total 1356.4 ml 1870.8 ml Output Urine Total 3250 ml 1560 ml Gastric Drainage Total 600 ml 400 ml Drainage Total 170 ml 100 ml CXR: ET in good position ET-Tube: 7.0 ET Position: 21 Labs: Laboratory Tests Test 06/13/17 05:00 06/13/17 09:15 White Blood Count 14.2 K/UL (4.8-10.8) H Red Blood Count 2.90 M/UL (4.20-5.40) L Hemoglobin 8.2 G/DL (12.0-16.0) L Hematocrit 24.4 % (37.0-47.0) L Mean Corpuscular Volume 84 FL (80-99) Mean Corpuscular Hemoglobin 28.3 PG (27.0-31.0) Mean Corpuscular Hemoglobin Concent 33.7 G/DL (32.0-36.0) Red Cell Distribution Width 16.0 % (11.6-14.8) H Platelet Count 124 K/UL (150-450) L Mean Platelet Volume 8.2 FL (6.5-10.1) Neutrophils (%) (Auto) 76.1 % (45.0-75.0) H Lymphocytes (%) (Auto) 15.4 % (20.0-45.0) L Monocytes (%) (Auto) 6.7 % (1.0-10.0) Eosinophils (%) (Auto) 1.1 % (0.0-3.0) Basophils (%) (Auto) 0.8 % (0.0-2.0) Sodium Level 145 mEQ/L (135-145) Potassium Level 3.4 mEQ/L (3.4-4.9) Chloride Level 110 mEQ/L (98-107) H Carbon Dioxide Level 28 mEQ/L (20-30) Anion Gap 7 (5-15) Blood Urea Nitrogen 8 mg/dL (7-23) Creatinine 0.4 mg/dL (0.5-0.9) L Estimat Glomerular Filtration Rate > 60 mL/min (>60) Glucose Level 112 mg/dL (74-106) H Calcium Level 8.0 mg/dL (8.6-10.2) L Phosphorus Level 2.4 mg/dL (2.5-4.8) L Magnesium Level 1.7 mg/dL (1.7-2.5) Total Bilirubin 0.7 mg/dL (0.0-1.2) Aspartate Amino Transf (AST/SGOT) 13 U/L (5-40) Alanine Aminotransferase (ALT/SGPT) 15 U/L (3-33) Alkaline Phosphatase 77 U/L (35-104) Total Protein 4.5 g/dL (6.6-8.7) L Albumin 2.2 g/dL (3.5-5.2) L Globulin 2.3 g/dL Albumin/Globulin Ratio 0.9 (1.0-2.7) L Arterial Blood pH 7.474 (7.350-7.450) Arterial Blood Partial Pressure CO2 37.8 mmHg (35.0-45.0) Arterial Blood Partial Pressure O2 108.4 mmHg (75.0-100.0) H Arterial Blood HCO3 27.1 mmol/L (22.0-26.0) H Arterial Blood Oxygen Saturation 97.2 % (92.0-98.0) Arterial Blood Base Excess 3.4 Obie Test Positive [place] [facility] Jun 13, 2017 10:43
--- NOTE | 2017-06-13 12:00 | Infectious Diseases Prog Note ---
Assessment/Plan Assessment/Plan ASSESSMENT: The patient is a 62-year-old female with: Enteritis / Colitis / mesenteric ischemia with necrotic colon and small bowel Abd Cavity culture : Kleb SP Expl lap x 2 , bowel resection (small bowel and colon), colostomy creation. CT scan : dilated mid jejunum wall, mild wall thickening suggestive of enteritis, and ascending colitis. Leukocytosis, improving sepsis improving LACosis , SP GERD Gastric ulcer PLAN: cont pt on Flagyl and Azactam d# 5 / 10 06/09 SP Levaquin d# 1 Monitor CBC Monitor BMP Blood Cx surgical following Vent support Subjective Constitutional: Denies: anorexia, chills, drenching sweats, fatigue, fever, no symptoms, other Allergies: Coded Allergies: PENICILLIN (Verified Allergy, Unknown, 12/01/15) PENICILLINS (Unverified Allergy, Unknown, 06/08/17) SHELLFISH (Verified Allergy, Unknown, 12/01/15) Uncoded Allergies: Mints (Allergy, Unknown, 06/09/17) Subjective on vent Objective Vital Signs Last 24 Hour Vital Signs Date Time Temp Pulse Resp B/P Pulse Ox O2 Delivery O2 Flow Rate FiO2 06/13/17 11:30 118 22 127/60 100 Mechanical Ventilator 06/13/17 11:00 120 22 129/69 100 Mechanical Ventilator 06/13/17 10:34 142 32 30 06/13/17 10:30 137 22 155/67 100 Mechanical Ventilator 06/13/17 10:00 98 20 130/88 100 Mechanical Ventilator 06/13/17 09:30 92 20 120/50 100 Mechanical Ventilator 06/13/17 09:30 30 06/13/17 09:07 86 19 30 06/13/17 09:00 90 20 114/50 100 Mechanical Ventilator 06/13/17 08:45 98.0 06/13/17 08:30 97.8 85 20 110/52 100 Mechanical Ventilator 06/13/17 08:00 30 06/13/17 08:00 98.0 71 20 116/58 100 Mechanical Ventilator 06/13/17 08:00 86 06/13/17 07:30 86 20 122/55 100 Mechanical Ventilator 06/13/17 07:14 90 20 30 06/13/17 07:00 21 06/13/17 07:00 98 20 127/74 100 Mechanical Ventilator 30 06/13/17 06:30 90 20 116/58 100 Mechanical Ventilator 30 06/13/17 06:00 90 20 113/53 100 Mechanical Ventilator 30 06/13/17 06:00 20 06/13/17 05:30 92 20 119/52 100 Mechanical Ventilator 30 06/13/17 05:00 21 06/13/17 05:00 98.3 96 20 123/58 100 Mechanical Ventilator 30 06/13/17 04:48 96 20 30 06/13/17 04:30 98 20 116/54 100 Mechanical Ventilator 30 06/13/17 04:00 30 06/13/17 04:00 20 06/13/17 04:00 89 06/13/17 04:00 89 20 119/57 100 Mechanical Ventilator 30 06/13/17 03:30 88 20 114/52 100 Mechanical Ventilator 30 06/13/17 03:07 93 18 30 06/13/17 03:00 19 06/13/17 03:00 93 20 122/51 100 Mechanical Ventilator 30 06/13/17 02:30 91 20 112/51 100 Mechanical Ventilator 30 06/13/17 02:00 20 06/13/17 02:00 92 20 111/50 100 Mechanical Ventilator 30 06/13/17 01:30 93 20 116/59 100 Mechanical Ventilator 30 06/13/17 01:00 100 20 130/64 100 Mechanical Ventilator 30 06/13/17 00:58 106 22 30 06/13/17 00:30 101 20 125/61 100 Mechanical Ventilator 30 06/13/17 00:00 105 06/13/17 00:00 98.8 100 20 133/59 100 Mechanical Ventilator 30 06/13/17 00:00 20 06/13/17 00:00 30 06/12/17 23:30 97 20 129/59 100 Mechanical Ventilator 30 06/12/17 23:00 20 06/12/17 23:00 97 20 125/56 100 Mechanical Ventilator 30 06/12/17 22:57 100 20 30 06/12/17 22:30 97 20 121/58 100 Mechanical Ventilator 30 06/12/17 22:00 20 06/12/17 22:00 101 20 131/58 100 Mechanical Ventilator 30 06/12/17 21:35 98.8 06/12/17 21:30 97 20 137/64 100 Mechanical Ventilator 30 7/23/17 21:10 30 06/12/17 21:05 19 7 21:00 20 06/12/17 21:00 96 20 132/59 100 Mechanical Ventilator 30 06/12/17 20:53 102 20 30 06/12/17 20:30 97 20 132/59 100 Mechanical Ventilator 30 06/12/17 20:00 103 06/12/17 20:00 20 06/12/17 20:00 98.5 97 20 135/63 100 Mechanical Ventilator 30 06/12/17 19:31 105 20 30 06/12/17 19:30 102 20 139/68 100 Mechanical Ventilator 30 06/12/17 19:00 95 20 130/66 100 Mechanical Ventilator 30 06/12/17 19:00 19 06/12/17 18:30 98.8 96 20 128/60 100 Mechanical Ventilator 30 06/12/17 18:00 97.8 98 20 129/59 100 Mechanical Ventilator 30 06/12/17 17:30 96 20 130/62 100 Mechanical Ventilator 30 06/12/17 17:04 100 21 30 06/12/17 17:00 97.9 96 20 132/68 100 Mechanical Ventilator 30 06/12/17 16:30 99.8 108 22 140/70 100 Mechanical Ventilator 30 06/12/17 16:00 99.5 96 20 122/74 100 Mechanical Ventilator 30 06/12/17 16:00 30 06/12/17 16:00 92 06/12/17 15:30 99.2 98 22 126/72 100 Mechanical Ventilator 30 06/12/17 15:03 104 22 30 06/12/17 15:00 20 06/12/17 15:00 98.8 98 22 132/70 100 Mechanical Ventilator 30 06/12/17 14:30 98 22 133/69 100 Mechanical Ventilator 30 06/12/17 14:00 96 20 132/64 100 Mechanical Ventilator 30 06/12/ 14:00 20 06/12/17 13:42 111 32 30 06/12/17 13:30 98 22 128/62 100 Mechanical Ventilator 30 06/12/17 13:00 99 20 133/54 100 Mechanical Ventilator 30 06/12/17 13:00 22 06/12/17 12:30 98 20 133/58 100 Mechanical Ventilator 30 06/12/17 12:00 90 06/12/17 12:00 22 06/12/17 12:00 30 06/12/17 12:00 99.3 92 20 130/68 100 Mechanical Ventilator 30 Height (Feet): 5 Height (Inches): 3.00 Weight (Pounds): 145 HEENT: anicteric Respiratory/Chest: no respiratory distress Cardiovascular: regularly irregular Abdomen: non distended Laboratory Tests Test 06/13/17 05:00 06/13/17 09:15 White Blood Count 14.2 K/UL (4.8-10.8) H Red Blood Count 2.90 M/UL (4.20-5.40) L Hemoglobin 8.2 G/DL (12.0-16.0) L Hematocrit 24.4 % (37.0-47.0) L Mean Corpuscular Volume 84 FL (80-99) Mean Corpuscular Hemoglobin 28.3 PG (27.0-31.0) Mean Corpuscular Hemoglobin Concent 33.7 G/DL (32.0-36.0) Red Cell Distribution Width 16.0 % (11.6-14.8) H Platelet Count 124 K/UL (150-450) L Mean Platelet Volume 8.2 FL (6.5-10.1) Neutrophils (%) (Auto) 76.1 % (45.0-75.0) H Lymphocytes (%) (Auto) 15.4 % (20.0-45.0) L Monocytes (%) (Auto) 6.7 % (1.0-10.0) Eosinophils (%) (Auto) 1.1 % (0.0-3.0) Basophils (%) (Auto) 0.8 % (0.0-2.0) Sodium Level 145 mEQ/L (135-145) Potassium Level 3.4 mEQ/L (3.4-4.9) Chloride Level 110 mEQ/L (98-107) H Carbon Dioxide Level 28 mEQ/L (20-30) Anion Gap 7 (5-15) Blood Urea Nitrogen 8 mg/dL (7-23) Creatinine 0.4 mg/dL (0.5-0.9) L Estimat Glomerular Filtration Rate > 60 mL/min (>60) Glucose Level 112 mg/dL (74-106) H Calcium Level 8.0 mg/dL (8.6-10.2) L Phosphorus Level 2.4 mg/dL (2.5-4.8) L Magnesium Level 1.7 mg/dL (1.7-2.5) Total Bilirubin 0.7 mg/dL (0.0-1.2) Aspartate Amino Transf (AST/SGOT) 13 U/L (5-40) Alanine Aminotransferase (ALT/SGPT) 15 U/L (3-33) Alkaline Phosphatase 77 U/L (35-104) Total Protein 4.5 g/dL (6.6-8.7) L Albumin 2.2 g/dL (3.5-5.2) L Globulin 2.3 g/dL Albumin/Globulin Ratio 0.9 (1.0-2.7) L Arterial Blood pH 7.474 (7.350-7.450) Arterial Blood Partial Pressure CO2 37.8 mmHg (35.0-45.0) Arterial Blood Partial Pressure O2 108.4 mmHg (75.0-100.0) H Arterial Blood HCO3 27.1 mmol/L (22.0-26.0) H Arterial Blood Oxygen Saturation 97.2 % (92.0-98.0) Arterial Blood Base Excess 3.4 Obie Test Positive Current Medications Medications (Trade) Dose Ordered Sig/Michael Route PRN Reason Start Time Stop Time Status Last Admin Dose Admin Chlorhexidine Gluconate (Briana-Hex 2%) 1 applic DAILY TOPIC 06/12/17 21:00 07/12/17 20:59 06/12/17 21:04 Dextrose STAT PRN IV Hypoglycemia 06/13/17 09:15 07/13/17 09:14 Dextrose/Lactated Ringer's (D5lr) 1,000 ml @ 150 mls/hr Q6H40M IV 06/11/17 14:30 06/13/17 20:59 06/13/17 06:40 Fat Emulsion Intravenous/Amino Acids/ Electrolytes/ Dextrose (Intralipids/Tpn) 1,800 ml @ 75 mls/hr Q24H IV 06/13/17 21:00 07/13/17 20:59 Fentanyl Citrate 1000 mcg/Sodium Chloride 100 ml @ 0 mls/hr Q24H IV 06/11/17 20:00 06/17/17 19:59 06/12/17 21:05 Haloperidol Lactate/Dextrose (Haldol/D5W) 56 ml @ 112 mls/hr Q2H PRN IVPB AGITATION 06/12/17 12:30 07/12/17 12:29 06/13/17 05:06 Insulin Aspart (NovoLOG) Q6HR SUBQ 06/10/17 06:00 07/10/17 05:59 06/12/17 17:40 Metronidazole 100 ml @ 100 mls/hr Q8HR IVPB 06/10/17 06:00 06/17/17 05:59 06/13/17 06:40 Midazolam HCl/ Sodium Chloride (Versed/Sodium Chloride) 100 ml @ 0 mls/hr Q24H IV 06/10/17 20:00 07/10/17 19:59 06/11/17 20:29 Morphine Sulfate 2 mg 2 mg Q4H PRN IV BREAKTHROUGH PAIN 06/12/17 12:15 06/19/17 12:14 06/13/17 08:15 Nitroglycerin (Ntg) 0.4 mg Q5M X 3 DOSES PRN SL Prn Chest Pain 06/10/17 03:00 07/10/17 02:59 Ondansetron HCl 4 mg 4 mg Q6H PRN IVP Nausea & Vomiting 06/10/17 05:00 07/10/17 04:59 06/13/17 05:00 Pantoprazole (Protonix) 40 mg BID IVP 06/12/17 18:00 07/12/17 17:59 06/13/17 08:13 Phytonadione (Vitamin K) 10 mg QWEEK SUBQ 06/20/17 21:00 07/20/17 20:59 JOSE ALFREDO FORMAN M.D. Jun 13, 2017 12:00
--- NOTE | 2017-06-13 12:15 | Diagnostic Imaging Report ---
Indication: Shortness of breath Technique: One view of the chest Comparison: 06/11/2017 Findings: Stable satisfactory position of nasogastric tube. Midline skin janes are again demonstrated. Hazy and interstitial opacities are seen in the left lung, right lung base. Right arm PICC remains. Findings are overall unchanged Impression: Unchanged, over 2 days, findings as above.
[2017-06-13 12:38] LABS: ABG PCO2 39.8 mmHg (35.0-45.0)
[2017-06-13 12:39] LABS: ABG ALLEN TEST POSITIVE; ABG BASE EXCESS 3.5
--- NOTE | 2017-06-13 13:32 | GI Progress Note ---
Assessment/Plan Problems: (1) Abdominal pain ICD Codes: R10.9 - Unspecified abdominal pain SNOMED: 96027246 Qualifiers: Qualified Codes: R10.13 - Epigastric pain (2) Gastroenteritis ICD Codes: K52.9 - Noninfective gastroenteritis and colitis, unspecified SNOMED: 21945017 (3) Gastric ulcer with hemorrhage ICD Codes: K25.4 - Chronic or unspecified gastric ulcer with hemorrhage SNOMED: 71354358 (4) Ischemic colon ICD Codes: K55.9 - Vascular disorder of intestine, unspecified SNOMED: 37925006 (5) Sepsis ICD Codes: A41.9 - Sepsis, unspecified organism SNOMED: 99739110 Qualifiers: Qualified Codes: A41.9 - Sepsis, unspecified organism Status: unchanged Status Narrative Discussed with Dr. Gonzalez. Assessment/Plan post op care npo + IVFs abx TPN fu surgical recs Subjective Subjective limited Objective Last 24 Hour Vital Signs Date Time Temp Pulse Resp B/P Pulse Ox O2 Delivery O2 Flow Rate FiO2 06/13/17 13:00 110 22 130/68 96 Mechanical Ventilator 30 06/13/17 13:00 20 06/13/17 12:47 98.0 06/13/17 12:32 113 24 30 06/13/17 12:30 81 22 127/66 96 Mechanical Ventilator 30 06/13/17 12:00 114 06/13/17 12:00 22 06/13/17 12:00 30 06/13/17 12:00 99.7 81 20 129/69 96 Mechanical Ventilator 30 06/13/17 11:30 30 06/13/17 11:30 118 22 127/60 100 Mechanical Ventilator 30 06/13/17 11:00 20 06/13/17 11:00 120 22 129/69 100 Mechanical Ventilator 30 06/13/17 10:34 142 32 30 06/13/17 10:30 137 22 155/67 100 Mechanical Ventilator 30 06/13/17 10:00 98 20 130/88 100 Mechanical Ventilator 30 06/13/17 10:00 20 06/13/17 09:30 92 20 120/50 100 Mechanical Ventilator 30 06/13/17 09:30 30 06/13/17 09:07 86 19 30 06/13/17 09:00 90 20 114/50 100 Mechanical Ventilator 30 06/13/17 09:00 22 06/13/17 08:30 97.8 85 20 110/52 100 Mechanical Ventilator 30 06/13/17 08:00 30 06/13/17 08:00 98.0 71 20 116/58 100 Mechanical Ventilator 30 06/13/17 08:00 86 06/13/17 07:30 86 20 122/55 100 Mechanical Ventilator 30 06/13/17 07:14 90 20 30 06/13/17 07:00 21 06/13/17 07:00 98 20 127/74 100 Mechanical Ventilator 30 06/13/17 06:30 90 20 116/58 100 Mechanical Ventilator 30 06/13/17 06:00 90 20 113/53 100 Mechanical Ventilator 30 06/13/17 06:00 20 06/13/17 05:30 92 20 119/52 100 Mechanical Ventilator 30 06/13/17 05:00 21 06/13/17 05:00 98.3 96 20 123/58 100 Mechanical Ventilator 30 06/13/17 04:48 96 20 30 06/13/17 04:30 98 20 116/54 100 Mechanical Ventilator 30 06/13/17 04:00 30 06/13/17 04:00 20 06/13/17 04:00 89 06/13/17 04:00 89 20 119/57 100 Mechanical Ventilator 30 06/13/17 03:30 88 20 114/52 100 Mechanical Ventilator 30 06/13/17 03:07 93 18 30 06/13/17 03:00 19 06/13/17 03:00 93 20 122/51 100 Mechanical Ventilator 30 06/13/17 02:30 91 20 112/51 100 Mechanical Ventilator 30 06/13/17 02:00 20 06/13/17 02:00 92 20 111/50 100 Mechanical Ventilator 30 06/13/17 01:30 93 20 116/59 100 Mechanical Ventilator 30 06/13/17 01:00 100 20 130/64 100 Mechanical Ventilator 30 06/13/17 00:58 106 22 30 06/13/17 00:30 101 20 125/61 100 Mechanical Ventilator 30 06/13/17 00:00 105 06/13/17 00:00 98.8 100 20 133/59 100 Mechanical Ventilator 30 06/13/17 00:00 20 06/13/17 00:00 30 06/12/17 23:30 97 20 129/59 100 Mechanical Ventilator 30 06/12/17 23:00 20 7/23/17 23:00 97 20 125/56 100 Mechanical Ventilator 30 06/12/ 22:57 100 20 30 06/12/ 22:30 97 20 121/58 100 Mechanical Ventilator 30 06/12/17 22:00 20 06/12/17 22:00 101 20 131/58 100 Mechanical Ventilator 30 06/12/ 21:35 98.8 06/12/17 21:30 97 20 137/64 100 Mechanical Ventilator 30 06/12/17 21:10 30 06/12/17 21:05 19 06/12/17 21:00 20 06/12/17 21:00 96 20 132/59 100 Mechanical Ventilator 30 06/12/17 20:53 102 20 30 06/12/17 20:30 97 20 132/59 100 Mechanical Ventilator 30 06/12/17 20:00 103 06/12/17 20:00 20 06/12/17 20:00 98.5 97 20 135/63 100 Mechanical Ventilator 30 06/12/17 19:31 105 20 30 06/12/17 19:30 102 20 139/68 100 Mechanical Ventilator 30 06/12/17 19:00 95 20 130/66 100 Mechanical Ventilator 30 06/12/17 19:00 19 06/12/17 18:30 98.8 96 20 128/60 100 Mechanical Ventilator 30 06/12/ 18:00 97.8 98 20 129/59 100 Mechanical Ventilator 30 06/12/ 17:30 96 20 130/62 100 Mechanical Ventilator 30 06/12/17 17:04 100 21 30 06/12/ 17:00 97.9 96 20 132/68 100 Mechanical Ventilator 30 06/12/ 16:30 99.8 108 22 140/70 100 Mechanical Ventilator 30 06/12/17 16:00 99.5 96 20 122/74 100 Mechanical Ventilator 30 06/12/17 16:00 30 06/12/17 16:00 92 06/12/17 15:30 99.2 98 22 126/72 100 Mechanical Ventilator 30 06/12/17 15:03 104 22 30 06/12/17 15:00 20 06/12/17 15:00 98.8 98 22 132/70 100 Mechanical Ventilator 30 06/12/17 14:30 98 22 133/69 100 Mechanical Ventilator 30 06/12/17 14:00 96 20 132/64 100 Mechanical Ventilator 30 06/12/17 14:00 20 06/12/17 13:42 111 32 30 Intake and Output 06/12/17 06/13/17 19:00 07:00 Intake Total 1356.4 ml 1870.8 ml Output Total 4020 ml 2060 ml Balance -2663.6 ml -189.2 ml Intake IV Total 1356.4 ml 1870.8 ml Output Urine Total 3250 ml 1560 ml Gastric Drainage Total 600 ml 400 ml Drainage Total 170 ml 100 ml Laboratory Tests Test 06/13/17 05:00 06/13/17 09:15 06/13/17 12:25 White Blood Count 14.2 K/UL (4.8-10.8) H Red Blood Count 2.90 M/UL (4.20-5.40) L Hemoglobin 8.2 G/DL (12.0-16.0) L Hematocrit 24.4 % (37.0-47.0) L Mean Corpuscular Volume 84 FL (80-99) Mean Corpuscular Hemoglobin 28.3 PG (27.0-31.0) Mean Corpuscular Hemoglobin Concent 33.7 G/DL (32.0-36.0) Red Cell Distribution Width 16.0 % (11.6-14.8) H Platelet Count 124 K/UL (150-450) L Mean Platelet Volume 8.2 FL (6.5-10.1) Neutrophils (%) (Auto) 76.1 % (45.0-75.0) H Lymphocytes (%) (Auto) 15.4 % (20.0-45.0) L Monocytes (%) (Auto) 6.7 % (1.0-10.0) Eosinophils (%) (Auto) 1.1 % (0.0-3.0) Basophils (%) (Auto) 0.8 % (0.0-2.0) Sodium Level 145 mEQ/L (135-145) Potassium Level 3.4 mEQ/L (3.4-4.9) Chloride Level 110 mEQ/L (98-107) H Carbon Dioxide Level 28 mEQ/L (20-30) Anion Gap 7 (5-15) Blood Urea Nitrogen 8 mg/dL (7-23) Creatinine 0.4 mg/dL (0.5-0.9) L Estimat Glomerular Filtration Rate > 60 mL/min (>60) Glucose Level 112 mg/dL (74-106) H Calcium Level 8.0 mg/dL (8.6-10.2) L Phosphorus Level 2.4 mg/dL (2.5-4.8) L Magnesium Level 1.7 mg/dL (1.7-2.5) Total Bilirubin 0.7 mg/dL (0.0-1.2) Aspartate Amino Transf (AST/SGOT) 13 U/L (5-40) Alanine Aminotransferase (ALT/SGPT) 15 U/L (3-33) Alkaline Phosphatase 77 U/L (35-104) Total Protein 4.5 g/dL (6.6-8.7) L Albumin 2.2 g/dL (3.5-5.2) L Globulin 2.3 g/dL Albumin/Globulin Ratio 0.9 (1.0-2.7) L Arterial Blood pH 7.474 (7.350-7.450) 7.459 (7.350-7.450) Arterial Blood Partial Pressure CO2 37.8 mmHg (35.0-45.0) 39.8 mmHg (35.0-45.0) Arterial Blood Partial Pressure O2 108.4 mmHg (75.0-100.0) H 78.6 mmHg (75.0-100.0) Arterial Blood HCO3 27.1 mmol/L (22.0-26.0) H 27.6 mmol/L (22.0-26.0) H Arterial Blood Oxygen Saturation 97.2 % (92.0-98.0) 95.7 % (92.0-98.0) Arterial Blood Base Excess 3.4 3.5 Obie Test Positive Positive Height (Feet): 5 Height (Inches): 3.00 Weight (Pounds): 145 General Appearance: no apparent distress Cardiovascular: normal rate Respiratory/Chest: other - mech vent Abdominal Exam: incision site Sabrina Evangelista N.P. Jun 13, 2017 13:32
[2017-06-13] MEDS: Aztreonam Inj 2 GM in D5W 110 ML IVPB SCH ×2 (13:55→22:21)
[2017-06-13] MEDS ORDERED: D5W IV ONE (14:00)
[2017-06-13] MEDS ORDERED: POTASSIUM PHOSPHATE IV ONE (14:00)
[2017-06-13] MEDS ORDERED: NS 275ml ONE (16:19)
[2017-06-13] MEDS ORDERED: Tubing IV Secondary IV ONE (16:19)
[2017-06-13] MEDS: Midazolam for drip 50 MG in NS 90 ML IV SCH (19:28)
[2017-06-13] MEDS ORDERED: Tpn 2,000 ML IV SCH (21:00)
[2017-06-13] MEDS ORDERED: Fat Emulsion Iv 20% 250 ML IV SCH (21:00)
[2017-06-13] MEDS ORDERED: [UNRECOGNIZED DRUG - OTHER] IV SCH (21:00)
[2017-06-13] MEDS ORDERED: TPN IV SCH (21:00)
[2017-06-14] VITALS (39 sets, daily range): BP systolic 90–139; BP diastolic 46–87
[2017-06-14] MEDS: NovoLOG Insulin Flexpen SUBQ SCH ×4 (00:23→17:54)
[2017-06-14] MEDS: Morphine Sulfate 2mg/ml Inj IV PRN ×3 (00:27→08:29)
[2017-06-14 05:26] LABS: BASOPHILS % (AUTO) 0.7 % (0.0-2.0); EOSINOPHILS % (AUTO) 1.9 % (0.0-3.0); LYMPHOCYTES % (AUTO) 16.6 % (20.0-45.0); MEAN CORPUSCULAR HEMOGLOBIN 27.6 PG (27.0-31.0); MEAN CORPUSCULAR HGB CONC 32.6 G/DL (32.0-36.0); MEAN CORPUSCULAR VOLUME 85 FL (80-99); MEAN PLATELET VOLUME 7.2 FL (6.5-10.1); MONOCYTES % (AUTO) 6.2 % (1.0-10.0); NEUTROPHILS % (AUTO) 74.5 % (45.0-75.0); PLATELET COUNT 216 K/UL (150-450); WHITE BLOOD COUNT 12.5 K/UL (4.8-10.8)
[2017-06-14 05:39] LABS: ALANINE AMINOTRANSFERASE 16 U/L (3-33); ALBUMIN/GLOBULIN RATIO 0.9 (1.0-2.7); ANION GAP 6 (5-15); ASPARTATE AMINO TRANSFERASE 15 U/L (5-40); CALCIUM 8.5 mg/dL (8.6-10.2); CARBON DIOXIDE 29 mEQ/L (20-30); CHLORIDE 107 mEQ/L (98-107); CREATININE 0.4 mg/dL (0.5-0.9); GLOMERULAR FILTRATION RATE > 60 mL/min (>60); HEMOLYSIS 2; MAGNESIUM 1.8 mg/dL (1.7-2.5); POTASSIUM 3.7 mEQ/L (3.4-4.9); SODIUM 142 mEQ/L (135-145); TOTAL PROTEIN 4.9 g/dL (6.6-8.7)
[2017-06-14] MEDS: metroNIDAZOLE 500mg 100 ML IVPB SCH ×3 (06:31→23:00)
[2017-06-14] MEDS: Aztreonam Inj 2 GM in D5W 110 ML IVPB SCH ×3 (06:31→23:01)
--- NOTE | 2017-06-14 06:59 | General Surgery Progress Note ---
General Surgery-Progress Note Subjective Procedure Performed exploratory laparotomy x 2 with partial small and large bowel extensive resections for ischemic bowel, colostomy Chief Complaint: looks and feels OK, pain decreased, smiling. Additional Comments some colostomy bloody brown output, NG 300 cc Objective Last 24 Hour Vital Signs Date Time Temp Pulse Resp B/P Pulse Ox O2 Delivery O2 Flow Rate FiO2 06/14/17 03:30 84 16 117/56 100 Nasal Cannula 2.0 06/14/17 03:00 86 16 110/46 100 Nasal Cannula 2.0 06/14/17 02:30 82 16 111/46 100 Nasal Cannula 2.0 06/14/17 02:00 82 16 110/60 100 Nasal Cannula 2.0 06/14/17 01:30 83 16 112/60 100 Nasal Cannula 2.0 06/14/17 01:00 83 16 117/53 100 Nasal Cannula 2.0 06/14/17 00:30 83 20 108/50 100 Nasal Cannula 2.0 06/14/17 00:00 98.8 84 20 110/54 100 Nasal Cannula 2.0 06/14/17 00:00 89 06/13/17 23:30 86 19 107/51 100 Nasal Cannula 3.0 06/13/17 23:00 86 17 113/51 100 Nasal Cannula 3.0 06/13/17 22:30 86 18 125/57 100 Nasal Cannula 3.0 06/13/17 22:00 86 19 122/56 100 Nasal Cannula 3.0 06/13/17 21:53 18 06/13/17 21:30 89 18 111/61 100 Nasal Cannula 3.0 06/13/17 21:00 87 19 120/63 100 Nasal Cannula 3.0 06/13/17 20:30 84 18 118/66 100 Nasal Cannula 3.0 06/13/17 20:00 88 06/13/17 20:00 99.0 84 18 120/51 100 Nasal Cannula 3.0 06/13/17 19:45 Nasal Cannula 3.0 32 06/13/17 19:44 100 Nasal Cannula 3.0 32 06/13/17 19:00 98.7 73 18 125/58 100 Nasal Cannula 3.0 06/13/17 19:00 20 06/13/17 18:30 83 20 115/60 100 Nasal Cannula 3.0 06/13/17 18:00 20 06/13/17 18:00 87 21 117/58 98 Nasal Cannula 3.0 06/13/17 17:30 86 21 126/56 98 Nasal Cannula 3.0 06/13/17 17:00 96 21 133/58 98 Nasal Cannula 3.0 06/13/17 17:00 20 06/13/17 16:48 98.5 06/13/17 16:30 88 20 116/56 100 Nasal Cannula 3.0 06/13/17 16:00 90 06/13/17 16:00 20 06/13/17 16:00 89 20 116/56 100 Mechanical Ventilator 30 06/13/17 15:30 90 20 120/60 100 Mechanical Ventilator 30 06/13/17 15:00 92 20 112/56 100 Mechanical Ventilator 30 06/13/17 15:00 20 06/13/17 14:30 96 20 125/68 100 Mechanical Ventilator 30 06/13/17 14:17 100 Nasal Cannula 3.0 32 06/13/17 14:17 Nasal Cannula 3.0 32 06/13/17 14:10 Nasal Cannula 3.0 32 06/13/17 14:00 97.5 82 20 137/65 100 Mechanical Ventilator 30 06/13/17 14:00 20 06/13/17 13:30 109 22 135/65 96 Mechanical Ventilator 30 06/13/17 13:00 110 22 130/68 96 Mechanical Ventilator 30 06/13/17 13:00 20 06/13/17 12:32 113 24 30 06/13/17 12:30 81 22 127/66 96 Mechanical Ventilator 30 06/13/17 12:00 114 06/13/17 12:00 22 06/13/17 12:00 30 06/13/17 12:00 99.7 81 20 129/69 96 Mechanical Ventilator 30 06/13/17 11:30 30 06/13/17 11:30 118 22 127/60 100 Mechanical Ventilator 30 06/13/17 11:00 20 06/13/17 11:00 120 22 129/69 100 Mechanical Ventilator 30 06/13/17 10:34 142 32 30 06/13/17 10:30 137 22 155/67 100 Mechanical Ventilator 30 06/13/17 10:00 98 20 130/88 100 Mechanical Ventilator 30 06/13/17 10:00 20 06/13/17 09:30 92 20 120/50 100 Mechanical Ventilator 30 06/13/17 09:30 30 06/13/17 09:07 86 19 30 06/13/17 09:00 90 20 114/50 100 Mechanical Ventilator 30 06/13/17 09:00 22 06/13/17 08:30 97.8 85 20 110/52 100 Mechanical Ventilator 30 06/13/17 08:00 30 06/13/17 08:00 98.0 71 20 116/58 100 Mechanical Ventilator 30 06/13/17 08:00 86 06/13/17 07:30 86 20 122/55 100 Mechanical Ventilator 30 06/13/17 07:14 90 20 30 06/13/17 07:00 21 06/13/17 07:00 98 20 127/74 100 Mechanical Ventilator 30 I&O Intake and Output 06/13/17 06/14/17 19:00 07:00 Intake Total 2319.998 ml Output Total 3610 ml 2000 ml Balance -1290.002 ml -2000 ml Intake IV Total 2319.998 ml Output Urine Total 2730 ml 1940 ml Gastric Drainage Total 600 ml Drainage Total 280 ml 60 ml # Bowel Movements 1 Wound: clean Drains: kalpesh - 270cc Cardiovascular: RSR Respiratory: clear Abdomen: soft Extremities: edema - 1+ Laboratory Tests Test 06/13/17 09:15 06/13/17 12:25 06/14/17 04:50 Arterial Blood pH 7.474 (7.350-7.450) 7.459 (7.350-7.450) Arterial Blood Partial Pressure CO2 37.8 mmHg (35.0-45.0) 39.8 mmHg (35.0-45.0) Arterial Blood Partial Pressure O2 108.4 mmHg (75.0-100.0) H 78.6 mmHg (75.0-100.0) Arterial Blood HCO3 27.1 mmol/L (22.0-26.0) H 27.6 mmol/L (22.0-26.0) H Arterial Blood Oxygen Saturation 97.2 % (92.0-98.0) 95.7 % (92.0-98.0) Arterial Blood Base Excess 3.4 3.5 Obie Test Positive Positive White Blood Count 12.5 K/UL (4.8-10.8) H Red Blood Count 3.10 M/UL (4.20-5.40) L Hemoglobin 8.5 G/DL (12.0-16.0) L Hematocrit 26.2 % (37.0-47.0) L Mean Corpuscular Volume 85 FL (80-99) Mean Corpuscular Hemoglobin 27.6 PG (27.0-31.0) Mean Corpuscular Hemoglobin Concent 32.6 G/DL (32.0-36.0) Red Cell Distribution Width 16.0 % (11.6-14.8) H Platelet Count 216 K/UL (150-450) # Mean Platelet Volume 7.2 FL (6.5-10.1) Neutrophils (%) (Auto) 74.5 % (45.0-75.0) Lymphocytes (%) (Auto) 16.6 % (20.0-45.0) L Monocytes (%) (Auto) 6.2 % (1.0-10.0) Eosinophils (%) (Auto) 1.9 % (0.0-3.0) Basophils (%) (Auto) 0.7 % (0.0-2.0) Erythrocyte Sedimentation Rate Pending Sodium Level 142 mEQ/L (135-145) Potassium Level 3.7 mEQ/L (3.4-4.9) Chloride Level 107 mEQ/L (98-107) Carbon Dioxide Level 29 mEQ/L (20-30) Anion Gap 6 (5-15) Blood Urea Nitrogen 7 mg/dL (7-23) Creatinine 0.4 mg/dL (0.5-0.9) L Estimat Glomerular Filtration Rate > 60 mL/min (>60) Glucose Level 174 mg/dL (74-106) H Calcium Level 8.5 mg/dL (8.6-10.2) L Phosphorus Level 3.0 mg/dL (2.5-4.8) Magnesium Level 1.8 mg/dL (1.7-2.5) Total Bilirubin 0.4 mg/dL (0.0-1.2) Aspartate Amino Transf (AST/SGOT) 15 U/L (5-40) Alanine Aminotransferase (ALT/SGPT) 16 U/L (3-33) Alkaline Phosphatase 102 U/L (35-104) C-Reactive Protein, Quantitative 6.0 mg/dL (< 0.5) H Total Protein 4.9 g/dL (6.6-8.7) L Albumin 2.4 g/dL (3.5-5.2) L Globulin 2.5 g/dL Albumin/Globulin Ratio 0.9 (1.0-2.7) L Imaging CXR OK Additional Comments Stable, slow ileus resolution asxpected, hemodynamics excellent. S/P wextensive small and large bowel partial resections Assessment Additional Comments Cont TPN, close monitoring. JOSSELIN LANGLEY Jun 14, 2017 06:59
[2017-06-14] MEDS: Dyna-Hex 2% Top Sol 8oz TOPIC SCH (08:27)
[2017-06-14] MEDS: Pantoprazole Inj IVP SCH ×2 (08:27→17:46)
--- NOTE | 2017-06-14 09:14 | Pulmonolgy Critical Care Note ---
Critical Care - Asmt/Plan Problems: (1) Septic shock (2) Ischemic colon (3) S/P laparotomy (4) Colitis, acute Respiratory: monitor respiratory rate Cardiac: continue to monitor HR/BP Renal: F/U I&O, keep IV fluid Infectious Disease: continue antibiotics Gastrointestinal: continue feedings/current rate Endocrine: monitor blood sugar, check TSH, continue sliding scale insulin Hematologic: transfuse if hgb<8.5 Neurologic: PRN Ativan, PRN Morphine, keep patient comfortable Affect: PRN ativan Prophylaxis: Protonix, Heparin Notes Reviewed: mounter, cardio, renal Discussed with: nurses, consultants, block and case makeradvertising assistant manager - Objective Last 24 Hour Vital Signs Date Time Temp Pulse Resp B/P Pulse Ox O2 Delivery O2 Flow Rate FiO2 06/14/17 08:30 90 18 121/68 100 Nasal Cannula 2.0 06/14/17 08:00 98.0 87 18 131/68 100 Nasal Cannula 2.0 06/14/17 08:00 18 06/14/17 08:00 88 06/14/17 07:30 82 18 119/57 100 Nasal Cannula 2.0 06/14/17 07:00 94 18 124/66 100 Nasal Cannula 2.0 06/14/17 07:00 16 06/14/17 06:30 90 18 110/87 100 Nasal Cannula 2.0 06/14/17 06:00 91 18 113/87 100 Nasal Cannula 2.0 06/14/17 06:00 16 06/14/17 05:30 90 19 112/50 100 Nasal Cannula 2.0 06/14/17 05:00 84 17 117/60 100 Nasal Cannula 2.0 06/14/17 05:00 16 06/14/17 04:00 86 06/14/17 04:00 98.4 84 17 115/59 100 Nasal Cannula 2.0 06/14/17 04:00 16 06/14/17 03:30 84 16 117/56 100 Nasal Cannula 2.0 06/14/17 03:00 86 16 110/46 100 Nasal Cannula 2.0 06/14/17 03:00 16 06/14/17 02:30 82 16 111/46 100 Nasal Cannula 2.0 06/14/17 02:00 16 06/14/17 02:00 82 16 110/60 100 Nasal Cannula 2.0 06/14/17 01:30 83 16 112/60 100 Nasal Cannula 2.0 06/14/17 01:00 83 16 117/53 100 Nasal Cannula 2.0 06/14/17 01:00 15 06/14/17 00:30 83 20 108/50 100 Nasal Cannula 2.0 06/14/17 00:00 98.8 84 20 110/54 100 Nasal Cannula 2.0 06/14/17 00:00 16 06/14/17 00:00 89 06/13/17 23:30 86 19 107/51 100 Nasal Cannula 3.0 06/13/17 23:00 18 06/13/17 23:00 86 17 113/51 100 Nasal Cannula 3.0 06/13/17 22:30 86 18 125/57 100 Nasal Cannula 3.0 06/13/17 22:00 86 19 122/56 100 Nasal Cannula 3.0 06/13/17 22:00 16 06/13/17 21:53 18 06/13/17 21:30 89 18 111/61 100 Nasal Cannula 3.0 06/13/17 21:00 18 06/13/17 21:00 87 19 120/63 100 Nasal Cannula 3.0 06/13/17 20:30 84 18 118/66 100 Nasal Cannula 3.0 06/13/17 20:00 88 06/13/17 20:00 99.0 84 18 120/51 100 Nasal Cannula 3.0 06/13/17 20:00 18 06/13/17 19:45 Nasal Cannula 3.0 32 06/13/17 19:44 100 Nasal Cannula 3.0 32 06/13/17 19:00 98.7 73 18 125/58 100 Nasal Cannula 3.0 06/13/17 19:00 20 06/13/17 18:30 83 20 115/60 100 Nasal Cannula 3.0 06/13/17 18:00 20 06/13/17 18:00 87 21 117/58 98 Nasal Cannula 3.0 06/13/17 17:30 86 21 126/56 98 Nasal Cannula 3.0 06/13/17 17:00 96 21 133/58 98 Nasal Cannula 3.0 06/13/17 17:00 20 06/13/17 16:48 98.5 06/13/17 16:30 88 20 116/56 100 Nasal Cannula 3.0 06/13/17 16:00 90 06/13/17 16:00 20 06/13/17 16:00 89 20 116/56 100 Mechanical Ventilator 30 06/13/17 15:30 90 20 120/60 100 Mechanical Ventilator 30 06/13/17 15:00 92 20 112/56 100 Mechanical Ventilator 30 06/13/17 15:00 20 06/13/17 14:30 96 20 125/68 100 Mechanical Ventilator 30 06/13/17 14:17 100 Nasal Cannula 3.0 32 06/13/17 14:17 Nasal Cannula 3.0 32 06/13/17 14:10 Nasal Cannula 3.0 32 06/13/17 14:00 97.5 82 20 137/65 100 Mechanical Ventilator 30 06/13/17 14:00 20 06/13/17 13:30 109 22 135/65 96 Mechanical Ventilator 30 06/13/17 13:00 110 22 130/68 96 Mechanical Ventilator 30 06/13/17 13:00 20 06/13/17 12:32 113 24 30 06/13/17 12:30 81 22 127/66 96 Mechanical Ventilator 30 06/13/17 12:00 114 06/13/17 12:00 22 06/13/17 12:00 30 06/13/17 12:00 99.7 81 20 129/69 96 Mechanical Ventilator 30 06/13/17 11:30 30 06/13/17 11:30 118 22 127/60 100 Mechanical Ventilator 30 06/13/17 11:00 20 06/13/17 11:00 120 22 129/69 100 Mechanical Ventilator 30 06/13/17 10:34 142 32 30 06/13/17 10:30 137 22 155/67 100 Mechanical Ventilator 30 06/13/17 10:00 98 20 130/88 100 Mechanical Ventilator 30 06/13/17 10:00 20 06/13/17 09:30 92 20 120/50 100 Mechanical Ventilator 30 06/13/17 09:30 30 Status: awake Condition: improving HEENT: atraumatic Neck: full ROM Lungs: clear Heart: HR/BP stable Abdomen: soft Extremities: no C/C/E Accucheck: 170 Critical Care - Subjective ROS Limited/Unobtainable: No ICU Day: 3 Intubation Day: extubated yesterday Condition: critical EKG Rhythm: Sinus Rhythm FI02: 32 Vent Support Breath Rate: 12 Vent Support Mode: CPAP Vent Tidal Volume: 500 Sputum Amount: Small PEEP: 5.0 PIP: 19 Fluids: tpn Drips: fentanyl drip I&O: Intake and Output 06/13/17 06/14/17 19:00 07:00 Intake Total 2319.998 ml 1359.8 ml Output Total 3610 ml 3540 ml Balance -1290.002 ml -2180.2 ml Intake IV Total 2319.998 ml 1359.8 ml Output Urine Total 2730 ml 2980 ml Stool Total 50 ml Gastric Drainage Total 600 ml 320 ml Drainage Total 280 ml 190 ml # Bowel Movements 1 CXR: no change, clear ET-Tube: 7.0 ET Position: 21 Labs: Laboratory Tests Test 06/13/17 09:15 06/13/17 12:25 06/14/17 04:50 Arterial Blood pH 7.474 (7.350-7.450) 7.459 (7.350-7.450) Arterial Blood Partial Pressure CO2 37.8 mmHg (35.0-45.0) 39.8 mmHg (35.0-45.0) Arterial Blood Partial Pressure O2 108.4 mmHg (75.0-100.0) H 78.6 mmHg (75.0-100.0) Arterial Blood HCO3 27.1 mmol/L (22.0-26.0) H 27.6 mmol/L (22.0-26.0) H Arterial Blood Oxygen Saturation 97.2 % (92.0-98.0) 95.7 % (92.0-98.0) Arterial Blood Base Excess 3.4 3.5 Obie Test Positive Positive White Blood Count 12.5 K/UL (4.8-10.8) H Red Blood Count 3.10 M/UL (4.20-5.40) L Hemoglobin 8.5 G/DL (12.0-16.0) L Hematocrit 26.2 % (37.0-47.0) L Mean Corpuscular Volume 85 FL (80-99) Mean Corpuscular Hemoglobin 27.6 PG (27.0-31.0) Mean Corpuscular Hemoglobin Concent 32.6 G/DL (32.0-36.0) Red Cell Distribution Width 16.0 % (11.6-14.8) H Platelet Count 216 K/UL (150-450) # Mean Platelet Volume 7.2 FL (6.5-10.1) Neutrophils (%) (Auto) 74.5 % (45.0-75.0) Lymphocytes (%) (Auto) 16.6 % (20.0-45.0) L Monocytes (%) (Auto) 6.2 % (1.0-10.0) Eosinophils (%) (Auto) 1.9 % (0.0-3.0) Basophils (%) (Auto) 0.7 % (0.0-2.0) Erythrocyte Sedimentation Rate Pending Sodium Level 142 mEQ/L (135-145) Potassium Level 3.7 mEQ/L (3.4-4.9) Chloride Level 107 mEQ/L (98-107) Carbon Dioxide Level 29 mEQ/L (20-30) Anion Gap 6 (5-15) Blood Urea Nitrogen 7 mg/dL (7-23) Creatinine 0.4 mg/dL (0.5-0.9) L Estimat Glomerular Filtration Rate > 60 mL/min (>60) Glucose Level 174 mg/dL (74-106) H Calcium Level 8.5 mg/dL (8.6-10.2) L Phosphorus Level 3.0 mg/dL (2.5-4.8) Magnesium Level 1.8 mg/dL (1.7-2.5) Total Bilirubin 0.4 mg/dL (0.0-1.2) Aspartate Amino Transf (AST/SGOT) 15 U/L (5-40) Alanine Aminotransferase (ALT/SGPT) 16 U/L (3-33) Alkaline Phosphatase 102 U/L (35-104) C-Reactive Protein, Quantitative 6.0 mg/dL (< 0.5) H Total Protein 4.9 g/dL (6.6-8.7) L Albumin 2.4 g/dL (3.5-5.2) L Globulin 2.5 g/dL Albumin/Globulin Ratio 0.9 (1.0-2.7) L [place] MCRAE Jun 14, 2017 09:14
[2017-06-14 09:29] LABS: ERYTHROCYTE SEDIMENTATION RATE 75 MM/HR (0-30)
--- NOTE | 2017-06-14 09:43 | Infectious Diseases Prog Note ---
Assessment/Plan Assessment/Plan A; Ischemic colitis Leukocytosis improving s/p exploratory laparotomy s/p colostomy respiratory failure resolved Anemia PCN allergy P; cont pt on Flagyl and Azactam d# 6 Subjective ROS Limited/Unobtainable: Yes Constitutional: Reports: anorexia Gastrointestinal/Abdominal: Reports: other - mild abdominal pain Allergies: Coded Allergies: PENICILLIN (Verified Allergy, Unknown, 12/01/15) PENICILLINS (Unverified Allergy, Unknown, 06/08/17) SHELLFISH (Verified Allergy, Unknown, 12/01/15) Uncoded Allergies: Mints (Allergy, Unknown, 06/09/17) Objective Vital Signs Last 24 Hour Vital Signs Date Time Temp Pulse Resp B/P Pulse Ox O2 Delivery O2 Flow Rate FiO2 06/14/17 08:30 90 18 121/68 100 Nasal Cannula 2.0 06/14/17 08:00 98.0 87 18 131/68 100 Nasal Cannula 2.0 06/14/17 08:00 18 06/14/17 08:00 88 06/14/17 07:30 82 18 119/57 100 Nasal Cannula 2.0 06/14/17 07:00 94 18 124/66 100 Nasal Cannula 2.0 06/14/17 07:00 16 06/14/17 06:30 90 18 110/87 100 Nasal Cannula 2.0 06/14/17 06:00 91 18 113/87 100 Nasal Cannula 2.0 06/14/17 06:00 16 06/14/17 05:30 90 19 112/50 100 Nasal Cannula 2.0 06/14/17 05:00 84 17 117/60 100 Nasal Cannula 2.0 06/14/17 05:00 16 06/14/17 04:00 86 06/14/17 04:00 98.4 84 17 115/59 100 Nasal Cannula 2.0 06/14/17 04:00 16 06/14/17 03:30 84 16 117/56 100 Nasal Cannula 2.0 06/14/17 03:00 86 16 110/46 100 Nasal Cannula 2.0 06/14/17 03:00 16 06/14/17 02:30 82 16 111/46 100 Nasal Cannula 2.0 06/14/17 02:00 16 06/14/17 02:00 82 16 110/60 100 Nasal Cannula 2.0 06/14/17 01:30 83 16 112/60 100 Nasal Cannula 2.0 06/14/17 01:00 83 16 117/53 100 Nasal Cannula 2.0 06/14/17 01:00 15 06/14/17 00:30 83 20 108/50 100 Nasal Cannula 2.0 06/14/17 00:00 98.8 84 20 110/54 100 Nasal Cannula 2.0 06/14/17 00:00 16 06/14/17 00:00 89 06/13/17 23:30 86 19 107/51 100 Nasal Cannula 3.0 06/13/17 23:00 18 06/13/17 23:00 86 17 113/51 100 Nasal Cannula 3.0 06/13/17 22:30 86 18 125/57 100 Nasal Cannula 3.0 06/13/17 22:00 86 19 122/56 100 Nasal Cannula 3.0 06/13/17 22:00 16 06/13/17 21:53 18 06/13/17 21:30 89 18 111/61 100 Nasal Cannula 3.0 06/13/17 21:00 18 06/13/17 21:00 87 19 120/63 100 Nasal Cannula 3.0 06/13/17 20:30 84 18 118/66 100 Nasal Cannula 3.0 06/13/17 20:00 88 06/13/17 20:00 99.0 84 18 120/51 100 Nasal Cannula 3.0 06/13/17 20:00 18 06/13/17 19:45 Nasal Cannula 3.0 32 06/13/17 19:44 100 Nasal Cannula 3.0 32 06/13/17 19:00 98.7 73 18 125/58 100 Nasal Cannula 3.0 06/13/17 19:00 20 06/13/17 18:30 83 20 115/60 100 Nasal Cannula 3.0 06/13/17 18:00 20 06/13/17 18:00 87 21 117/58 98 Nasal Cannula 3.0 06/13/17 17:30 86 21 126/56 98 Nasal Cannula 3.0 06/13/17 17:00 96 21 133/58 98 Nasal Cannula 3.0 06/13/17 17:00 20 06/13/17 16:48 98.5 06/13/17 16:30 88 20 116/56 100 Nasal Cannula 3.0 06/13/17 16:00 90 06/13/17 16:00 20 06/13/17 16:00 89 20 116/56 100 Mechanical Ventilator 30 06/13/17 15:30 90 20 120/60 100 Mechanical Ventilator 30 06/13/17 15:00 92 20 112/56 100 Mechanical Ventilator 30 06/13/17 15:00 20 06/13/17 14:30 96 20 125/68 100 Mechanical Ventilator 30 06/13/17 14:17 100 Nasal Cannula 3.0 32 06/13/17 14:17 Nasal Cannula 3.0 32 06/13/17 14:10 Nasal Cannula 3.0 32 06/13/17 14:00 97.5 82 20 137/65 100 Mechanical Ventilator 30 06/13/17 14:00 20 06/13/17 13:30 109 22 135/65 96 Mechanical Ventilator 30 06/13/17 13:00 110 22 130/68 96 Mechanical Ventilator 30 06/13/17 13:00 20 06/13/17 12:32 113 24 30 06/13/17 12:30 81 22 127/66 96 Mechanical Ventilator 30 06/13/17 12:00 114 06/13/17 12:00 22 06/13/17 12:00 30 06/13/17 12:00 99.7 81 20 129/69 96 Mechanical Ventilator 30 06/13/17 11:30 30 06/13/17 11:30 118 22 127/60 100 Mechanical Ventilator 30 06/13/17 11:00 20 06/13/17 11:00 120 22 129/69 100 Mechanical Ventilator 30 06/13/17 10:34 142 32 30 06/13/17 10:30 137 22 155/67 100 Mechanical Ventilator 30 06/13/17 10:00 98 20 130/88 100 Mechanical Ventilator 30 06/13/17 10:00 20 Height (Feet): 5 Height (Inches): 3.00 Weight (Pounds): 143 General Appearance: no acute distress HEENT: mucous membranes moist Respiratory/Chest: lungs clear Cardiovascular: normal rate Abdomen: soft, non tender, other - sugical janes in midline, s/p colostomy Extremities: no edema, other - right arm PICC line Neurologic/Psychiatric: alert, responsive Laboratory Tests Test 06/13/17 12:25 06/14/17 04:50 Arterial Blood pH 7.459 (7.350-7.450) Arterial Blood Partial Pressure CO2 39.8 mmHg (35.0-45.0) Arterial Blood Partial Pressure O2 78.6 mmHg (75.0-100.0) Arterial Blood HCO3 27.6 mmol/L (22.0-26.0) H Arterial Blood Oxygen Saturation 95.7 % (92.0-98.0) Arterial Blood Base Excess 3.5 Obie Test Positive White Blood Count 12.5 K/UL (4.8-10.8) H Red Blood Count 3.10 M/UL (4.20-5.40) L Hemoglobin 8.5 G/DL (12.0-16.0) L Hematocrit 26.2 % (37.0-47.0) L Mean Corpuscular Volume 85 FL (80-99) Mean Corpuscular Hemoglobin 27.6 PG (27.0-31.0) Mean Corpuscular Hemoglobin Concent 32.6 G/DL (32.0-36.0) Red Cell Distribution Width 16.0 % (11.6-14.8) H Platelet Count 216 K/UL (150-450) # Mean Platelet Volume 7.2 FL (6.5-10.1) Neutrophils (%) (Auto) 74.5 % (45.0-75.0) Lymphocytes (%) (Auto) 16.6 % (20.0-45.0) L Monocytes (%) (Auto) 6.2 % (1.0-10.0) Eosinophils (%) (Auto) 1.9 % (0.0-3.0) Basophils (%) (Auto) 0.7 % (0.0-2.0) Erythrocyte Sedimentation Rate 75 MM/HR (0-30) H Sodium Level 142 mEQ/L (135-145) Potassium Level 3.7 mEQ/L (3.4-4.9) Chloride Level 107 mEQ/L (98-107) Carbon Dioxide Level 29 mEQ/L (20-30) Anion Gap 6 (5-15) Blood Urea Nitrogen 7 mg/dL (7-23) Creatinine 0.4 mg/dL (0.5-0.9) L Estimat Glomerular Filtration Rate > 60 mL/min (>60) Glucose Level 174 mg/dL (74-106) H Calcium Level 8.5 mg/dL (8.6-10.2) L Phosphorus Level 3.0 mg/dL (2.5-4.8) Magnesium Level 1.8 mg/dL (1.7-2.5) Total Bilirubin 0.4 mg/dL (0.0-1.2) Aspartate Amino Transf (AST/SGOT) 15 U/L (5-40) Alanine Aminotransferase (ALT/SGPT) 16 U/L (3-33) Alkaline Phosphatase 102 U/L (35-104) C-Reactive Protein, Quantitative 6.0 mg/dL (< 0.5) H Total Protein 4.9 g/dL (6.6-8.7) L Albumin 2.4 g/dL (3.5-5.2) L Globulin 2.5 g/dL Albumin/Globulin Ratio 0.9 (1.0-2.7) L Current Medications Medications (Trade) Dose Ordered Sig/Michael Route PRN Reason Start Time Stop Time Status Last Admin Dose Admin Aztreonam 2 gm/ Dextrose 110 ml @ 220 mls/hr Q8HR IVPB 06/13/17 14:00 06/20/17 13:59 06/14/17 06:31 Chlorhexidine Gluconate 1 applic 1 applic DAILY TOPIC 06/12/17 21:00 07/12/17 20:59 06/14/17 08:27 Dextrose STAT PRN IV Hypoglycemia 06/13/17 09:15 07/13/17 09:14 Dextrose/Lactated Ringer's (D5lr) 1,000 ml @ 50 mls/hr Q20H IV 06/13/17 21:00 07/13/17 20:59 06/13/17 21:25 Fat Emulsion Intravenous/Amino Acids/ Electrolytes/ Dextrose (Intralipids/Tpn) 1,800 ml @ 75 mls/hr Q24H IV 06/13/17 21:00 07/13/17 20:59 06/13/17 21:25 Haloperidol Lactate/Dextrose (Haldol/D5W) 56 ml @ 112 mls/hr Q2H PRN IVPB AGITATION 06/12/17 12:30 07/12/17 12:29 06/13/17 05:06 Insulin Aspart (NovoLOG) Q6HR SUBQ 06/10/17 06:00 07/10/17 05:59 06/14/17 06:30 Metronidazole 100 ml @ 100 mls/hr Q8HR IVPB 06/10/17 06:00 06/17/17 05:59 06/14/17 06:31 Midazolam HCl/ Sodium Chloride (Versed/Sodium Chloride) 100 ml @ 0 mls/hr Q24H IV 06/10/17 20:00 07/10/17 19:59 06/11/17 20:29 Morphine Sulfate (Morphine Sulfate) 4 mg EVERY 3 HOURS PRN IV BREAKTHROUGH PAIN 06/14/17 12:00 06/21/17 11:59 UNV Nitroglycerin (Ntg) 0.4 mg Q5M X 3 DOSES PRN SL Prn Chest Pain 06/10/17 03:00 07/10/17 02:59 Ondansetron HCl (Zofran) 4 mg Q6H PRN IVP Nausea & Vomiting 06/10/17 05:00 07/10/17 04:59 06/13/17 05:00 Pantoprazole (Protonix) 40 mg BID IVP 06/12/17 18:00 07/12/17 17:59 06/14/17 08:27 Phytonadione 10 mg 10 mg QWEEK SUBQ 06/20/17 21:00 07/20/17 20:59 RUBY PIMENTEL Jun 14, 2017 09:43
[2017-06-14] MEDS ORDERED: Ketorolac 30mg Inj IM PRN (11:05)
[2017-06-14] MEDS ORDERED: Morphine Sulfate 2mg/ml Inj IV PRN (12:00)
[2017-06-14] MEDS: Morphine Sulfate 4mg/ml Inj IV PRN ×3 (12:51→21:14)
--- NOTE | 2017-06-14 15:38 | GI Progress Note ---
Assessment/Plan Problems: (1) Abdominal pain ICD Codes: R10.9 - Unspecified abdominal pain SNOMED: 09319872 Qualifiers: Qualified Codes: R10.13 - Epigastric pain (2) Gastroenteritis ICD Codes: K52.9 - Noninfective gastroenteritis and colitis, unspecified SNOMED: 77848292 (3) Gastric ulcer with hemorrhage ICD Codes: K25.4 - Chronic or unspecified gastric ulcer with hemorrhage SNOMED: 63961613 (4) Ischemic colon ICD Codes: K55.9 - Vascular disorder of intestine, unspecified SNOMED: 39259055 (5) Sepsis ICD Codes: A41.9 - Sepsis, unspecified organism SNOMED: 15882877 Qualifiers: Qualified Codes: A41.9 - Sepsis, unspecified organism Status: progressing Status Narrative Discussed with Dr. Gonzalez. Assessment/Plan post op care npo + IVFs abx TPN fu surgical recs Subjective Subjective limited Objective Last 24 Hour Vital Signs Date Time Temp Pulse Resp B/P Pulse Ox O2 Delivery O2 Flow Rate FiO2 06/14/17 15:30 90 18 90/55 100 Nasal Cannula 2.0 06/14/17 15:00 88 18 124/68 100 Nasal Cannula 2.0 06/14/17 14:30 86 18 126/62 100 Nasal Cannula 2.0 06/14/17 14:00 89 16 120/58 100 Nasal Cannula 2.0 06/14/17 13:30 88 18 127/65 100 Nasal Cannula 2.0 06/14/17 13:21 98.0 06/14/17 13:00 86 20 135/65 100 Nasal Cannula 2.0 06/14/17 12:30 87 20 129/60 100 Nasal Cannula 2.0 06/14/17 12:00 89 06/14/17 12:00 98.0 89 18 130/65 100 Nasal Cannula 2.0 06/14/17 11:30 92 18 139/64 100 Nasal Cannula 2.0 06/14/17 11:00 90 18 136/63 100 Nasal Cannula 2.0 06/14/17 10:30 86 18 125/66 100 Nasal Cannula 2.0 06/14/17 10:00 89 18 129/67 100 Nasal Cannula 2.0 06/14/17 10:00 99 Nasal Cannula 2.0 29 06/14/17 09:30 85 18 121/60 100 Nasal Cannula 2.0 06/14/17 09:00 86 18 120/59 100 Nasal Cannula 2.0 06/14/17 08:30 90 18 121/68 100 Nasal Cannula 2.0 06/14/17 08:00 98.0 87 18 131/68 100 Nasal Cannula 2.0 06/14/17 08:00 18 06/14/17 08:00 88 06/14/17 08:00 Nasal Cannula 2.0 29 06/14/17 07:30 82 18 119/57 100 Nasal Cannula 2.0 06/14/17 07:00 94 18 124/66 100 Nasal Cannula 2.0 06/14/17 07:00 16 06/14/17 06:30 90 18 110/87 100 Nasal Cannula 2.0 06/14/17 06:00 91 18 113/87 100 Nasal Cannula 2.0 06/14/17 06:00 16 06/14/17 05:30 90 19 112/50 100 Nasal Cannula 2.0 06/14/17 05:00 84 17 117/60 100 Nasal Cannula 2.0 06/14/17 05:00 16 06/14/17 04:00 86 06/14/17 04:00 98.4 84 17 115/59 100 Nasal Cannula 2.0 06/14/17 04:00 16 06/14/17 03:30 84 16 117/56 100 Nasal Cannula 2.0 06/14/17 03:00 86 16 110/46 100 Nasal Cannula 2.0 06/14/17 03:00 16 06/14/17 02:30 82 16 111/46 100 Nasal Cannula 2.0 06/14/17 02:00 16 06/14/17 02:00 82 16 110/60 100 Nasal Cannula 2.0 06/14/17 01:30 83 16 112/60 100 Nasal Cannula 2.0 06/14/17 01:00 83 16 117/53 100 Nasal Cannula 2.0 06/14/17 01:00 15 06/14/17 00:30 83 20 108/50 100 Nasal Cannula 2.0 06/14/17 00:00 98.8 84 20 110/54 100 Nasal Cannula 2.0 06/14/17 00:00 16 06/14/17 00:00 89 06/13/17 23:30 86 19 107/51 100 Nasal Cannula 3.0 06/13/17 23:00 18 06/13/17 23:00 86 17 113/51 100 Nasal Cannula 3.0 06/13/17 22:30 86 18 125/57 100 Nasal Cannula 3.0 06/13/17 22:00 86 19 122/56 100 Nasal Cannula 3.0 06/13/17 22:00 16 06/13/17 21:53 18 06/13/17 21:30 89 18 111/61 100 Nasal Cannula 3.0 06/13/17 21:00 18 06/13/17 21:00 87 19 120/63 100 Nasal Cannula 3.0 06/13/17 20:30 84 18 118/66 100 Nasal Cannula 3.0 06/13/17 20:00 88 06/13/17 20:00 99.0 84 18 120/51 100 Nasal Cannula 3.0 06/13/17 20:00 18 06/13/17 19:45 Nasal Cannula 3.0 32 06/13/17 19:44 100 Nasal Cannula 3.0 32 06/13/17 19:00 98.7 73 18 125/58 100 Nasal Cannula 3.0 06/13/17 19:00 20 06/13/17 18:30 83 20 115/60 100 Nasal Cannula 3.0 06/13/17 18:00 20 06/13/17 18:00 87 21 117/58 98 Nasal Cannula 3.0 06/13/17 17:30 86 21 126/56 98 Nasal Cannula 3.0 06/13/17 17:00 96 21 133/58 98 Nasal Cannula 3.0 06/13/17 17:00 20 06/13/17 16:48 98.5 06/13/17 16:30 88 20 116/56 100 Nasal Cannula 3.0 06/13/17 16:00 90 06/13/17 16:00 20 06/13/17 16:00 89 20 116/56 100 Mechanical Ventilator 30 Intake and Output 06/13/17 06/14/17 19:00 07:00 Intake Total 2319.998 ml 1359.8 ml Output Total 3610 ml 3540 ml Balance -1290.002 ml -2180.2 ml Intake IV Total 2319.998 ml 1359.8 ml Output Urine Total 2730 ml 2980 ml Stool Total 50 ml Gastric Drainage Total 600 ml 320 ml Drainage Total 280 ml 190 ml # Bowel Movements 1 Laboratory Tests Test 06/14/17 04:50 White Blood Count 12.5 K/UL (4.8-10.8) H Red Blood Count 3.10 M/UL (4.20-5.40) L Hemoglobin 8.5 G/DL (12.0-16.0) L Hematocrit 26.2 % (37.0-47.0) L Mean Corpuscular Volume 85 FL (80-99) Mean Corpuscular Hemoglobin 27.6 PG (27.0-31.0) Mean Corpuscular Hemoglobin Concent 32.6 G/DL (32.0-36.0) Red Cell Distribution Width 16.0 % (11.6-14.8) H Platelet Count 216 K/UL (150-450) # Mean Platelet Volume 7.2 FL (6.5-10.1) Neutrophils (%) (Auto) 74.5 % (45.0-75.0) Lymphocytes (%) (Auto) 16.6 % (20.0-45.0) L Monocytes (%) (Auto) 6.2 % (1.0-10.0) Eosinophils (%) (Auto) 1.9 % (0.0-3.0) Basophils (%) (Auto) 0.7 % (0.0-2.0) Erythrocyte Sedimentation Rate 75 MM/HR (0-30) H Sodium Level 142 mEQ/L (135-145) Potassium Level 3.7 mEQ/L (3.4-4.9) Chloride Level 107 mEQ/L (98-107) Carbon Dioxide Level 29 mEQ/L (20-30) Anion Gap 6 (5-15) Blood Urea Nitrogen 7 mg/dL (7-23) Creatinine 0.4 mg/dL (0.5-0.9) L Estimat Glomerular Filtration Rate > 60 mL/min (>60) Glucose Level 174 mg/dL (74-106) H Calcium Level 8.5 mg/dL (8.6-10.2) L Phosphorus Level 3.0 mg/dL (2.5-4.8) Magnesium Level 1.8 mg/dL (1.7-2.5) Total Bilirubin 0.4 mg/dL (0.0-1.2) Aspartate Amino Transf (AST/SGOT) 15 U/L (5-40) Alanine Aminotransferase (ALT/SGPT) 16 U/L (3-33) Alkaline Phosphatase 102 U/L (35-104) C-Reactive Protein, Quantitative 6.0 mg/dL (< 0.5) H Total Protein 4.9 g/dL (6.6-8.7) L Albumin 2.4 g/dL (3.5-5.2) L Globulin 2.5 g/dL Albumin/Globulin Ratio 0.9 (1.0-2.7) L Height (Feet): 5 Height (Inches): 3.00 Weight (Pounds): 143 General Appearance: no apparent distress, alert Cardiovascular: normal rate Respiratory/Chest: normal breath sounds, no respiratory distress Abdominal Exam: normal bowel sounds, non tender, soft Sabrina Evangelista N.PLatricia Jun 14, 2017 15:38
[2017-06-14] MEDS: Dextrose 5%/Lactated Ringer's 1,000 ML IV SCH ×2 (17:46→21:30)
[2017-06-14] MEDS ORDERED: Nitroglycerin Subl 0.4mg tab (Bottle Of 25) SL PRN (21:00)
[2017-06-14] MEDS: Fat Emulsion Iv 20% 240 ML in Tpn 1,560 ML IV SCH (23:03)
[2017-06-15] MEDS: Morphine Sulfate 4mg/ml Inj IV PRN ×2 (00:34→22:04)
[2017-06-15] MEDS: NovoLOG Insulin Flexpen SUBQ SCH ×5 (00:46→23:50)
[2017-06-15] MEDS: Ketorolac 30mg Inj IM PRN (03:28)
[2017-06-15 04:33] VITALS: BP 116/70
[2017-06-15 06:20] LABS: BASOPHILS % (AUTO) 0.6 % (0.0-2.0); MEAN CORPUSCULAR HEMOGLOBIN 26.6 PG (27.0-31.0); MEAN CORPUSCULAR HGB CONC 31.4 G/DL (32.0-36.0); MEAN CORPUSCULAR VOLUME 85 FL (80-99); MEAN PLATELET VOLUME 6.7 FL (6.5-10.1); MONOCYTES % (AUTO) 5.8 % (1.0-10.0); NEUTROPHILS % (AUTO) 75.6 % (45.0-75.0); PLATELET COUNT 335 K/UL (150-450); RED BLOOD COUNT 3.52 M/UL (4.20-5.40); WHITE BLOOD COUNT 14.7 K/UL (4.8-10.8)
[2017-06-15 06:25] LABS: PROTHROMBIN TIME 10.1 SEC (9.30-11.50)
[2017-06-15] MEDS: Aztreonam Inj 2 GM in D5W 110 ML IVPB SCH ×3 (06:29→21:49)
[2017-06-15] MEDS: metroNIDAZOLE 500mg 100 ML IVPB SCH ×3 (06:29→21:49)
[2017-06-15 06:34] LABS: ALANINE AMINOTRANSFERASE 15 U/L (3-33); ALBUMIN/GLOBULIN RATIO 0.7 (1.0-2.7); ANION GAP 8 (5-15); ASPARTATE AMINO TRANSFERASE 13 U/L (5-40); CALCIUM 8.7 mg/dL (8.6-10.2); CARBON DIOXIDE 28 mEQ/L (20-30); CHLORIDE 108 mEQ/L (98-107); CREATININE 0.3 mg/dL (0.5-0.9); GLOMERULAR FILTRATION RATE > 60 mL/min (>60); HEMOLYSIS 1; MAGNESIUM 1.8 mg/dL (1.7-2.5); PHOSPHORUS 2.2 mg/dL (2.5-4.8); POTASSIUM 4.1 mEQ/L (3.4-4.9); SODIUM 144 mEQ/L (135-145); TOTAL PROTEIN 5.7 g/dL (6.6-8.7)
[2017-06-15 08:00] VITALS: BP 131/68
[2017-06-15] MEDS: Dyna-Hex 2% Top Sol 8oz TOPIC SCH (08:45)
[2017-06-15] MEDS: Pantoprazole Inj IVP SCH ×2 (08:45→17:13)
--- NOTE | 2017-06-15 10:33 | General Surgery Progress Note ---
General Surgery-Progress Note Subjective Procedure Performed exploratory laparotomy x 2 with partial small and large bowel extensive resections for ischemic bowel, colostomy Symptoms: improved Additional Comments thirsty, pain decreased, NG: nil, moderate amt colostomy output (300-350 cc) Objective Last 24 Hour Vital Signs Date Time Temp Pulse Resp B/P Pulse Ox O2 Delivery O2 Flow Rate FiO2 06/15/17 08:00 97.9 88 20 131/68 100 Room Air 06/15/17 04:33 98.1 92 18 116/70 100 Nasal Cannula 2.0 06/14/17 23:41 97.7 94 19 122/73 96 Nasal Cannula 2.0 06/14/17 21:06 96.8 102 18 139/79 100 Nasal Cannula 06/14/17 20:00 91 06/14/17 20:00 99.4 96 20 125/64 100 Nasal Cannula 2.0 06/14/17 19:05 99 Nasal Cannula 2.0 29 06/14/17 19:05 Nasal Cannula 2.0 06/14/17 19:00 96 21 127/59 100 Nasal Cannula 2.0 06/14/17 18:00 96 18 130/60 100 Nasal Cannula 2.0 06/14/17 17:00 98 18 130/58 100 Nasal Cannula 2.0 06/14/17 16:55 98.0 06/14/17 16:30 90 18 130/62 100 Nasal Cannula 2.0 06/14/17 16:00 90 06/14/17 16:00 98.0 92 18 138/64 100 Nasal Cannula 2.0 06/14/17 15:30 90 18 90/55 100 Nasal Cannula 2.0 06/14/17 15:00 88 18 124/68 100 Nasal Cannula 2.0 06/14/17 14:30 86 18 126/62 100 Nasal Cannula 2.0 06/14/17 14:00 89 16 120/58 100 Nasal Cannula 2.0 06/14/17 13:30 88 18 127/65 100 Nasal Cannula 2.0 06/14/17 13:00 86 20 135/65 100 Nasal Cannula 2.0 06/14/17 12:30 87 20 129/60 100 Nasal Cannula 2.0 06/14/17 12:00 89 06/14/17 12:00 98.0 89 18 130/65 100 Nasal Cannula 2.0 06/14/17 11:30 92 18 139/64 100 Nasal Cannula 2.0 06/14/17 11:00 90 18 136/63 100 Nasal Cannula 2.0 06/14/17 10:30 86 18 125/66 100 Nasal Cannula 2.0 I&O Intake and Output 06/14/17 06/15/17 19:00 07:00 Intake Total 1906.8 ml 1375 ml Output Total 3960 ml 2750 ml Balance -2053.2 ml -1375 ml Intake IV Total 1906.8 ml 1375 ml Output Urine Total 3600 ml 2450 ml Gastric Drainage Total 300 ml 180 ml Drainage Total 60 ml 100 ml Other 20 ml Wound: clean Drains: kalpesh - some serosanguinous flid,scanty Cardiovascular: RSR Respiratory: clear Abdomen: soft, present bowel sounds Laboratory Tests Test 06/15/17 05:41 White Blood Count 14.7 K/UL (4.8-10.8) H Red Blood Count 3.52 M/UL (4.20-5.40) L Hemoglobin 9.4 G/DL (12.0-16.0) L Hematocrit 29.9 % (37.0-47.0) L Mean Corpuscular Volume 85 FL (80-99) Mean Corpuscular Hemoglobin 26.6 PG (27.0-31.0) L Mean Corpuscular Hemoglobin Concent 31.4 G/DL (32.0-36.0) L Red Cell Distribution Width 16.0 % (11.6-14.8) H Platelet Count 335 K/UL (150-450) # Mean Platelet Volume 6.7 FL (6.5-10.1) Neutrophils (%) (Auto) 75.6 % (45.0-75.0) H Lymphocytes (%) (Auto) 16.0 % (20.0-45.0) L Monocytes (%) (Auto) 5.8 % (1.0-10.0) Eosinophils (%) (Auto) 2.0 % (0.0-3.0) Basophils (%) (Auto) 0.6 % (0.0-2.0) Prothrombin Time 10.1 SEC (9.30-11.50) Prothromb Time International Ratio 1.0 (0.9-1.1) Activated Partial Thromboplast Time 28 SEC (23-33) Sodium Level 144 mEQ/L (135-145) Potassium Level 4.1 mEQ/L (3.4-4.9) Chloride Level 108 mEQ/L (98-107) H Carbon Dioxide Level 28 mEQ/L (20-30) Anion Gap 8 (5-15) Blood Urea Nitrogen 10 mg/dL (7-23) Creatinine 0.3 mg/dL (0.5-0.9) L Estimat Glomerular Filtration Rate > 60 mL/min (>60) Glucose Level 133 mg/dL (74-106) H Calcium Level 8.7 mg/dL (8.6-10.2) Phosphorus Level 2.2 mg/dL (2.5-4.8) L Magnesium Level 1.8 mg/dL (1.7-2.5) Total Bilirubin 0.4 mg/dL (0.0-1.2) Aspartate Amino Transf (AST/SGOT) 13 U/L (5-40) Alanine Aminotransferase (ALT/SGPT) 15 U/L (3-33) Alkaline Phosphatase 141 U/L (35-104) H Total Protein 5.7 g/dL (6.6-8.7) L Albumin 2.5 g/dL (3.5-5.2) L Globulin 3.2 g/dL Albumin/Globulin Ratio 0.7 (1.0-2.7) L Additional Comments S/P exploratory lap and second look for mesenteric ischemia, likely venous cause with low flow state. (cause undetermined) GI function returning, no sepsis, hemodynamics OK. Assessment Additional Comments D/C NG, sips of clears, Tylenol po. Will need w/u for likely causes of mesenteric venous stasis (protein C deficiency, protein S deficiency? other causes of hypercoagulable state?) JOSSELIN LANGLEY Jun 15, 2017 10:33
--- NOTE | 2017-06-15 10:57 | Infectious Diseases Prog Note ---
Assessment/Plan Assessment/Plan A; Ischemic colitis Leukocytosis improving s/p exploratory laparotomy s/p colostomy respiratory failure resolved Anemia PCN allergy P; cont pt on Flagyl and Azactam d# 7 Subjective ROS Limited/Unobtainable: No Constitutional: Reports: other - feels better HEENT: Reports: other - frontal headache Respiratory: Reports: dry cough Allergies: Coded Allergies: PENICILLIN (Verified Allergy, Unknown, 12/01/15) PENICILLINS (Unverified Allergy, Unknown, 06/08/17) SHELLFISH (Verified Allergy, Unknown, 12/01/15) Uncoded Allergies: Mints (Allergy, Unknown, 06/09/17) Objective Vital Signs Last 24 Hour Vital Signs Date Time Temp Pulse Resp B/P Pulse Ox O2 Delivery O2 Flow Rate FiO2 06/15/17 08:00 97.9 88 20 131/68 100 Room Air 06/15/17 04:33 98.1 92 18 116/70 100 Nasal Cannula 2.0 06/14/17 23:41 97.7 94 19 122/73 96 Nasal Cannula 2.0 06/14/17 21:06 96.8 102 18 139/79 100 Nasal Cannula 06/14/17 20:00 91 06/14/17 20:00 99.4 96 20 125/64 100 Nasal Cannula 2.0 06/14/17 19:05 99 Nasal Cannula 2.0 29 06/14/17 19:05 Nasal Cannula 2.0 06/14/17 19:00 96 21 127/59 100 Nasal Cannula 2.0 06/14/17 18:00 96 18 130/60 100 Nasal Cannula 2.0 06/14/17 17:00 98 18 130/58 100 Nasal Cannula 2.0 06/14/17 16:55 98.0 06/14/17 16:30 90 18 130/62 100 Nasal Cannula 2.0 06/14/17 16:00 90 06/14/17 16:00 98.0 92 18 138/64 100 Nasal Cannula 2.0 06/14/17 15:30 90 18 90/55 100 Nasal Cannula 2.0 06/14/17 15:00 88 18 124/68 100 Nasal Cannula 2.0 06/14/17 14:30 86 18 126/62 100 Nasal Cannula 2.0 06/14/17 14:00 89 16 120/58 100 Nasal Cannula 2.0 06/14/17 13:30 88 18 127/65 100 Nasal Cannula 2.0 06/14/17 13:00 86 20 135/65 100 Nasal Cannula 2.0 06/14/17 12:30 87 20 129/60 100 Nasal Cannula 2.0 06/14/17 12:00 89 06/14/17 12:00 98.0 89 18 130/65 100 Nasal Cannula 2.0 06/14/17 11:30 92 18 139/64 100 Nasal Cannula 2.0 06/14/17 11:00 90 18 136/63 100 Nasal Cannula 2.0 Height (Feet): 5 Height (Inches): 3.00 Weight (Pounds): 132 General Appearance: no acute distress HEENT: other - NG to suction Respiratory/Chest: lungs clear Cardiovascular: normal rate Abdomen: soft, non tender, other - s/p colostomy, surgical site clean Extremities: no edema, other - PICC line Laboratory Tests Test 06/15/17 05:41 White Blood Count 14.7 K/UL (4.8-10.8) H Red Blood Count 3.52 M/UL (4.20-5.40) L Hemoglobin 9.4 G/DL (12.0-16.0) L Hematocrit 29.9 % (37.0-47.0) L Mean Corpuscular Volume 85 FL (80-99) Mean Corpuscular Hemoglobin 26.6 PG (27.0-31.0) L Mean Corpuscular Hemoglobin Concent 31.4 G/DL (32.0-36.0) L Red Cell Distribution Width 16.0 % (11.6-14.8) H Platelet Count 335 K/UL (150-450) # Mean Platelet Volume 6.7 FL (6.5-10.1) Neutrophils (%) (Auto) 75.6 % (45.0-75.0) H Lymphocytes (%) (Auto) 16.0 % (20.0-45.0) L Monocytes (%) (Auto) 5.8 % (1.0-10.0) Eosinophils (%) (Auto) 2.0 % (0.0-3.0) Basophils (%) (Auto) 0.6 % (0.0-2.0) Prothrombin Time 10.1 SEC (9.30-11.50) Prothromb Time International Ratio 1.0 (0.9-1.1) Activated Partial Thromboplast Time 28 SEC (23-33) Sodium Level 144 mEQ/L (135-145) Potassium Level 4.1 mEQ/L (3.4-4.9) Chloride Level 108 mEQ/L (98-107) H Carbon Dioxide Level 28 mEQ/L (20-30) Anion Gap 8 (5-15) Blood Urea Nitrogen 10 mg/dL (7-23) Creatinine 0.3 mg/dL (0.5-0.9) L Estimat Glomerular Filtration Rate > 60 mL/min (>60) Glucose Level 133 mg/dL (74-106) H Calcium Level 8.7 mg/dL (8.6-10.2) Phosphorus Level 2.2 mg/dL (2.5-4.8) L Magnesium Level 1.8 mg/dL (1.7-2.5) Total Bilirubin 0.4 mg/dL (0.0-1.2) Aspartate Amino Transf (AST/SGOT) 13 U/L (5-40) Alanine Aminotransferase (ALT/SGPT) 15 U/L (3-33) Alkaline Phosphatase 141 U/L (35-104) H Total Protein 5.7 g/dL (6.6-8.7) L Albumin 2.5 g/dL (3.5-5.2) L Globulin 3.2 g/dL Albumin/Globulin Ratio 0.7 (1.0-2.7) L Current Medications Medications (Trade) Dose Ordered Sig/Michael Route PRN Reason Start Time Stop Time Status Last Admin Dose Admin Acetaminophen (Tylenol) 650 mg Q4H PRN ORAL Mild Pain/Temp > 100.5 06/15/17 10:45 07/15/17 10:44 Aztreonam 2 gm/ Dextrose 110 ml @ 220 mls/hr Q8HR IVPB 06/14/17 22:00 06/21/17 21:59 06/15/17 06:29 Chlorhexidine Gluconate (Briana-Hex 2%) 1 applic DAILY TOPIC 06/15/17 09:00 07/15/17 08:59 06/15/17 08:45 Dextrose (Dextrose 50%) STAT PRN IV Hypoglycemia 06/14/17 21:02 07/14/17 21:01 Dextrose/Lactated Ringer's 1,000 ml @ 50 mls/hr Q20H IV 06/14/17 21:30 07/14/17 21:29 06/14/17 21:30 Fat Emulsion Intravenous 240 ml/Amino Acids/ Electrolytes/ Dextrose 1,800 ml @ 75 mls/hr Q24H IV 06/14/17 21:00 07/14/17 20:59 06/14/17 23:03 Insulin Aspart (NovoLOG) Q6HR SUBQ 06/15/17 00:00 07/15/17 00:00 06/15/17 06:30 Ketorolac Tromethamine (Toradol 30mg) 30 mg Q6H PRN IM Pain 4-10 06/14/17 23:15 06/19/17 23:14 06/15/17 03:28 Metronidazole (Flagyl) 100 ml @ 100 mls/hr Q8HR IVPB 06/14/17 22:00 06/21/17 21:59 06/15/17 06:29 Morphine Sulfate (Morphine Sulfate) 4 mg Q3H PRN IV BREAKTHROUGH PAIN 06/14/17 21:03 06/21/17 21:02 06/15/17 00:34 Nitroglycerin (Ntg) 0.4 mg Q5M X 3 DOSES PRN SL Prn Chest Pain 06/14/17 21:00 07/14/17 20:59 Ondansetron HCl (Zofran) 4 mg Q6H PRN IVP Nausea & Vomiting 06/14/17 21:03 07/14/17 21:02 Pantoprazole (Protonix) 40 mg BID IVP 06/15/17 09:00 07/15/17 08:59 06/15/17 08:45 Phytonadione (Vitamin K) 10 mg QWEEK SUBQ 06/20/17 21:00 07/20/17 20:59 RUBY PIMENTEL Jun 15, 2017 10:57
[2017-06-15 12:00] VITALS: BP 131/64
--- NOTE | 2017-06-15 12:23 | GI Progress Note ---
Assessment/Plan Problems: (1) Abdominal pain ICD Codes: R10.9 - Unspecified abdominal pain SNOMED: 96022870 Qualifiers: Qualified Codes: R10.13 - Epigastric pain (2) Gastroenteritis ICD Codes: K52.9 - Noninfective gastroenteritis and colitis, unspecified SNOMED: 06839474 (3) Gastric ulcer with hemorrhage ICD Codes: K25.4 - Chronic or unspecified gastric ulcer with hemorrhage SNOMED: 02594200 (4) Ischemic colon ICD Codes: K55.9 - Vascular disorder of intestine, unspecified SNOMED: 55236324 (5) Sepsis ICD Codes: A41.9 - Sepsis, unspecified organism SNOMED: 72071633 Qualifiers: Qualified Codes: A41.9 - Sepsis, unspecified organism Status: progressing Status Narrative Discussed with Dr. Gonzalez. Assessment/Plan PT today post op care npo + IVFs, diet per surgery abx TPN fu surgical recs Subjective Subjective limited Objective Last 24 Hour Vital Signs Date Time Temp Pulse Resp B/P Pulse Ox O2 Delivery O2 Flow Rate FiO2 06/15/17 08:00 97.9 88 20 131/68 100 Room Air 06/15/17 04:33 98.1 92 18 116/70 100 Nasal Cannula 2.0 06/14/17 23:41 97.7 94 19 122/73 96 Nasal Cannula 2.0 06/14/17 21:06 96.8 102 18 139/79 100 Nasal Cannula 06/14/17 20:00 91 06/14/17 20:00 99.4 96 20 125/64 100 Nasal Cannula 2.0 06/14/17 19:05 99 Nasal Cannula 2.0 29 06/14/17 19:05 Nasal Cannula 2.0 06/14/17 19:00 96 21 127/59 100 Nasal Cannula 2.0 06/14/17 18:00 96 18 130/60 100 Nasal Cannula 2.0 06/14/17 17:00 98 18 130/58 100 Nasal Cannula 2.0 06/14/17 16:55 98.0 06/14/17 16:30 90 18 130/62 100 Nasal Cannula 2.0 06/14/17 16:00 90 06/14/17 16:00 98.0 92 18 138/64 100 Nasal Cannula 2.0 06/14/17 15:30 90 18 90/55 100 Nasal Cannula 2.0 06/14/17 15:00 88 18 124/68 100 Nasal Cannula 2.0 06/14/17 14:30 86 18 126/62 100 Nasal Cannula 2.0 06/14/17 14:00 89 16 120/58 100 Nasal Cannula 2.0 06/14/17 13:30 88 18 127/65 100 Nasal Cannula 2.0 06/14/17 13:00 86 20 135/65 100 Nasal Cannula 2.0 06/14/17 12:30 87 20 129/60 100 Nasal Cannula 2.0 Intake and Output 06/14/17 06/15/17 19:00 07:00 Intake Total 1906.8 ml 1375 ml Output Total 3960 ml 2750 ml Balance -2053.2 ml -1375 ml Intake IV Total 1906.8 ml 1375 ml Output Urine Total 3600 ml 2450 ml Gastric Drainage Total 300 ml 180 ml Drainage Total 60 ml 100 ml Other 20 ml Laboratory Tests Test 06/15/17 05:41 White Blood Count 14.7 K/UL (4.8-10.8) H Red Blood Count 3.52 M/UL (4.20-5.40) L Hemoglobin 9.4 G/DL (12.0-16.0) L Hematocrit 29.9 % (37.0-47.0) L Mean Corpuscular Volume 85 FL (80-99) Mean Corpuscular Hemoglobin 26.6 PG (27.0-31.0) L Mean Corpuscular Hemoglobin Concent 31.4 G/DL (32.0-36.0) L Red Cell Distribution Width 16.0 % (11.6-14.8) H Platelet Count 335 K/UL (150-450) # Mean Platelet Volume 6.7 FL (6.5-10.1) Neutrophils (%) (Auto) 75.6 % (45.0-75.0) H Lymphocytes (%) (Auto) 16.0 % (20.0-45.0) L Monocytes (%) (Auto) 5.8 % (1.0-10.0) Eosinophils (%) (Auto) 2.0 % (0.0-3.0) Basophils (%) (Auto) 0.6 % (0.0-2.0) Prothrombin Time 10.1 SEC (9.30-11.50) Prothromb Time International Ratio 1.0 (0.9-1.1) Activated Partial Thromboplast Time 28 SEC (23-33) Sodium Level 144 mEQ/L (135-145) Potassium Level 4.1 mEQ/L (3.4-4.9) Chloride Level 108 mEQ/L (98-107) H Carbon Dioxide Level 28 mEQ/L (20-30) Anion Gap 8 (5-15) Blood Urea Nitrogen 10 mg/dL (7-23) Creatinine 0.3 mg/dL (0.5-0.9) L Estimat Glomerular Filtration Rate > 60 mL/min (>60) Glucose Level 133 mg/dL (74-106) H Calcium Level 8.7 mg/dL (8.6-10.2) Phosphorus Level 2.2 mg/dL (2.5-4.8) L Magnesium Level 1.8 mg/dL (1.7-2.5) Total Bilirubin 0.4 mg/dL (0.0-1.2) Aspartate Amino Transf (AST/SGOT) 13 U/L (5-40) Alanine Aminotransferase (ALT/SGPT) 15 U/L (3-33) Alkaline Phosphatase 141 U/L (35-104) H Total Protein 5.7 g/dL (6.6-8.7) L Albumin 2.5 g/dL (3.5-5.2) L Globulin 3.2 g/dL Albumin/Globulin Ratio 0.7 (1.0-2.7) L Height (Feet): 5 Height (Inches): 3.00 Weight (Pounds): 132 General Appearance: alert Cardiovascular: normal rate Abdominal Exam: incision site Sabrina Evangelista NKarey Jun 15, 2017 12:23
[2017-06-15] MEDS ORDERED: Tubing IV Secondary IV ONE (13:41)
[2017-06-15] MEDS ORDERED: NS 275ml ONE (13:43)
--- NOTE | 2017-06-15 15:07 | Pulmonology Progress Note ---
Assessment/Plan Problems: (1) Ischemic bowel disease (2) S/P laparotomy (3) Abdominal pain (4) Sepsis (5) Gastroenteritis (6) Septic shock Assessment/Plan oral diet started on TPN pt/ot check labs Subjective ROS Limited/Unobtainable: No Allergies: Coded Allergies: PENICILLIN (Verified Allergy, Unknown, 12/01/15) PENICILLINS (Unverified Allergy, Unknown, 06/08/17) SHELLFISH (Verified Allergy, Unknown, 12/01/15) Uncoded Allergies: Mints (Allergy, Unknown, 06/09/17) Objective Last 24 Hour Vital Signs Date Time Temp Pulse Resp B/P Pulse Ox O2 Delivery O2 Flow Rate FiO2 06/15/17 12:00 98.0 83 18 131/64 99 Room Air 06/15/17 08:00 97.9 88 20 131/68 100 Room Air 06/15/17 04:33 98.1 92 18 116/70 100 Nasal Cannula 2.0 06/14/17 23:41 97.7 94 19 122/73 96 Nasal Cannula 2.0 06/14/17 21:06 96.8 102 18 139/79 100 Nasal Cannula 06/14/17 20:00 91 06/14/17 20:00 99.4 96 20 125/64 100 Nasal Cannula 2.0 06/14/17 19:05 99 Nasal Cannula 2.0 29 06/14/17 19:05 Nasal Cannula 2.0 06/14/17 19:00 96 21 127/59 100 Nasal Cannula 2.0 06/14/17 18:00 96 18 130/60 100 Nasal Cannula 2.0 06/14/17 17:00 98 18 130/58 100 Nasal Cannula 2.0 06/14/17 16:55 98.0 06/14/17 16:30 90 18 130/62 100 Nasal Cannula 2.0 06/14/17 16:00 90 06/14/17 16:00 98.0 92 18 138/64 100 Nasal Cannula 2.0 06/14/17 15:30 90 18 90/55 100 Nasal Cannula 2.0 Intake and Output 06/14/17 06/15/17 19:00 07:00 Intake Total 1906.8 ml 1375 ml Output Total 3960 ml 2750 ml Balance -2053.2 ml -1375 ml Intake IV Total 1906.8 ml 1375 ml Output Urine Total 3600 ml 2450 ml Gastric Drainage Total 300 ml 180 ml Drainage Total 60 ml 100 ml Other 20 ml General Appearance: cachetic HEENT: normocephalic, atraumatic Respiratory/Chest: chest wall non-tender, lungs clear Cardiovascular: normal peripheral pulses, regular rhythm Abdomen: normal bowel sounds, soft, non tender Genitourinary: normal external genitalia Extremities: no cyanosis Skin: no rash Laboratory Tests 06/15/17 05:41: White Blood Count 14.7H, Red Blood Count 3.52L, Hemoglobin 9.4L, Hematocrit 29.9L, Mean Corpuscular Volume 85, Mean Corpuscular Hemoglobin 26.6L, Mean Corpuscular Hemoglobin Concent 31.4L, Red Cell Distribution Width 16.0H, Platelet Count 335#, Mean Platelet Volume 6.7, Neutrophils (%) (Auto) 75.6H, Lymphocytes (%) (Auto) 16.0L, Monocytes (%) (Auto) 5.8, Eosinophils (%) (Auto) 2.0, Basophils (%) (Auto) 0.6, Prothrombin Time 10.1, Prothromb Time International Ratio 1.0, Activated Partial Thromboplast Time 28, Sodium Level 144, Potassium Level 4.1, Chloride Level 108H, Carbon Dioxide Level 28, Anion Gap 8, Blood Urea Nitrogen 10, Creatinine 0.3L, Estimat Glomerular Filtration Rate > 60, Glucose Level 133H, Calcium Level 8.7, Phosphorus Level 2.2L, Magnesium Level 1.8, Total Bilirubin 0.4, Aspartate Amino Transf (AST/SGOT) 13, Alanine Aminotransferase (ALT/SGPT) 15, Alkaline Phosphatase 141H, Total Protein 5.7L, Albumin 2.5L, Globulin 3.2, Albumin/Globulin Ratio 0.7L Current Medications Medications (Trade) Dose Ordered Sig/Michael Route PRN Reason Start Time Stop Time Status Last Admin Dose Admin Acetaminophen (Tylenol) 650 mg Q4H PRN ORAL Mild Pain/Temp > 100.5 06/15/17 10:45 07/15/17 10:44 06/15/17 10:58 Aztreonam 2 gm/ Dextrose 110 ml @ 220 mls/hr Q8HR IVPB 06/14/17 22:00 06/21/17 21:59 06/15/17 13:12 Chlorhexidine Gluconate (Briana-Hex 2%) 1 applic DAILY TOPIC 06/15/17 09:00 07/15/17 08:59 06/15/17 08:45 Dextrose (Dextrose 50%) STAT PRN IV Hypoglycemia 06/14/17 21:02 07/14/17 21:01 Dextrose/Lactated Ringer's 1,000 ml @ 50 mls/hr Q20H IV 06/14/17 21:30 07/14/17 21:29 06/14/17 21:30 Fat Emulsion Intravenous 240 ml/Amino Acids/ Electrolytes/ Dextrose 1,800 ml @ 75 mls/hr Q24H IV 06/14/17 21:00 07/14/17 20:59 06/14/17 23:03 Insulin Aspart (NovoLOG) Q6HR SUBQ 06/15/17 00:00 07/15/17 00:00 06/15/17 12:00 Ketorolac Tromethamine (Toradol 30mg) 30 mg Q6H PRN IM Pain 4-10 06/14/17 23:15 06/19/17 23:14 06/15/17 03:28 Metronidazole (Flagyl) 100 ml @ 100 mls/hr Q8HR IVPB 06/14/17 22:00 06/21/17 21:59 06/15/17 13:12 Morphine Sulfate (Morphine Sulfate) 4 mg Q3H PRN IV BREAKTHROUGH PAIN 06/14/17 21:03 06/21/17 21:02 06/15/17 00:34 Nitroglycerin (Ntg) 0.4 mg Q5M X 3 DOSES PRN SL Prn Chest Pain 06/14/17 21:00 07/14/17 20:59 Ondansetron HCl (Zofran) 4 mg Q6H PRN IVP Nausea & Vomiting 06/14/17 21:03 07/14/17 21:02 Pantoprazole (Protonix) 40 mg BID IVP 06/15/17 09:00 07/15/17 08:59 06/15/17 08:45 Phytonadione (Vitamin K) 10 mg QWEEK SUBQ 06/20/17 21:00 07/20/17 20:59 C[place]AND MCRAE Jun 15, 2017 15:07
[2017-06-15 16:00] VITALS: BP 137/76
[2017-06-15] MEDS: Dextrose 5%/Lactated Ringer's 1,000 ML IV SCH (17:13)
[2017-06-15 20:00] VITALS: BP 130/81
[2017-06-15] MEDS: Fat Emulsion Iv 20% 240 ML in Tpn 1,560 ML IV SCH (21:48)
[2017-06-16] VITALS: BP 117/66
[2017-06-16 04:00] VITALS: BP 124/67
[2017-06-16] MEDS: Morphine Sulfate 4mg/ml Inj IV PRN (05:15)
[2017-06-16] MEDS: metroNIDAZOLE 500mg 100 ML IVPB SCH ×3 (05:15→21:52)
[2017-06-16] MEDS: Aztreonam Inj 2 GM in D5W 110 ML IVPB SCH ×3 (05:15→21:44)
[2017-06-16] MEDS: NovoLOG Insulin Flexpen SUBQ SCH ×4 (06:21→23:22)
[2017-06-16 06:28] LABS: BASOPHILS % (AUTO) 0.7 % (0.0-2.0); LYMPHOCYTES % (AUTO) 16.9 % (20.0-45.0); MEAN CORPUSCULAR HEMOGLOBIN 31.1 PG (27.0-31.0); MEAN CORPUSCULAR HGB CONC 32.6 G/DL (32.0-36.0); MEAN CORPUSCULAR VOLUME 95 FL (80-99); MEAN PLATELET VOLUME 5.3 FL (6.5-10.1); MONOCYTES % (AUTO) 4.5 % (1.0-10.0); NEUTROPHILS % (AUTO) 75.9 % (45.0-75.0); PLATELET COUNT 462 K/UL (150-450); RED BLOOD COUNT 3.07 M/UL (4.20-5.40); RED CELL DISTRIBUTION WIDTH 18.5 % (11.6-14.8); WHITE BLOOD COUNT 11.7 K/UL (4.8-10.8)
[2017-06-16 07:48] VITALS: BP 122/64
[2017-06-16] MEDS: Dyna-Hex 2% Top Sol 8oz TOPIC SCH (08:35)
[2017-06-16] MEDS: Pantoprazole Inj IVP SCH ×2 (08:35→16:37)
[2017-06-16 09:38] LABS: ALANINE AMINOTRANSFERASE 19 U/L (3-33); ALBUMIN/GLOBULIN RATIO 0.7 (1.0-2.7); ANION GAP 8 (5-15); ASPARTATE AMINO TRANSFERASE 15 U/L (5-40); CALCIUM 8.9 mg/dL (8.6-10.2); CARBON DIOXIDE 26 mEQ/L (20-30); CHLORIDE 106 mEQ/L (98-107); CREATININE 0.4 mg/dL (0.5-0.9); GLOMERULAR FILTRATION RATE > 60 mL/min (>60); HEMOLYSIS 12; POTASSIUM 4.1 mEQ/L (3.4-4.9); SODIUM 140 mEQ/L (135-145); TOTAL PROTEIN 6.9 g/dL (6.6-8.7)
--- NOTE | 2017-06-16 11:24 | General Surgery Progress Note ---
General Surgery-Progress Note Subjective Procedure Performed exploratory laparotomy x 2 with partial small and large bowel extensive resections for ischemic bowel, colostomy Chief Complaint: some pain with liquids yesterday, now no pain. Tm 99.1 Ostomy :1300 cc/24 h Symptoms: improved Objective Last 24 Hour Vital Signs Date Time Temp Pulse Resp B/P Pulse Ox O2 Delivery O2 Flow Rate FiO2 06/16/17 07:48 99.1 93 20 122/64 97 Room Air 06/16/17 05:45 99.9 06/16/17 04:00 99.9 97 20 124/67 98 Room Air 06/16/17 00:00 99.5 92 20 117/66 98 Room Air 06/15/17 20:00 97.7 86 20 130/81 99 Room Air 06/15/17 19:47 Room Air 06/15/17 19:47 99 Room Air 06/15/17 16:00 98.2 91 18 137/76 100 Nasal Cannula 2.0 06/15/17 12:00 98.0 83 18 131/64 99 Room Air I&O Intake and Output 06/15/17 06/16/17 19:00 07:00 Intake Total 1370 ml 1270 ml Output Total 1850 ml 3150 ml Balance -480 ml -1880 ml Intake Oral 400 ml IV Total 970 ml 1270 ml Output Urine Total 1000 ml 2600 ml Drainage Total 50 ml Other 800 ml 550 ml Wound: clean Drains: none Cardiovascular: RSR Respiratory: clear Abdomen: soft, tenderness - as expected post op, present bowel sounds - scanty. Extremities: no edema Laboratory Tests Test 06/16/17 05:00 06/16/17 08:55 White Blood Count 11.7 K/UL (4.8-10.8) H Red Blood Count 3.07 M/UL (4.20-5.40) L Hemoglobin 9.5 G/DL (12.0-16.0) L Hematocrit 29.3 % (37.0-47.0) L Mean Corpuscular Volume 95 FL (80-99) # Mean Corpuscular Hemoglobin 31.1 PG (27.0-31.0) H Mean Corpuscular Hemoglobin Concent 32.6 G/DL (32.0-36.0) Red Cell Distribution Width 18.5 % (11.6-14.8) H Platelet Count 462 K/UL (150-450) H Mean Platelet Volume 5.3 FL (6.5-10.1) L Neutrophils (%) (Auto) 75.9 % (45.0-75.0) H Lymphocytes (%) (Auto) 16.9 % (20.0-45.0) L Monocytes (%) (Auto) 4.5 % (1.0-10.0) Eosinophils (%) (Auto) 2.0 % (0.0-3.0) Basophils (%) (Auto) 0.7 % (0.0-2.0) Sodium Level 140 mEQ/L (135-145) Potassium Level 4.1 mEQ/L (3.4-4.9) Chloride Level 106 mEQ/L (98-107) Carbon Dioxide Level 26 mEQ/L (20-30) Anion Gap 8 (5-15) Blood Urea Nitrogen 11 mg/dL (7-23) Creatinine 0.4 mg/dL (0.5-0.9) L Estimat Glomerular Filtration Rate > 60 mL/min (>60) Glucose Level 166 mg/dL (74-106) H Calcium Level 8.9 mg/dL (8.6-10.2) Total Bilirubin 0.4 mg/dL (0.0-1.2) Aspartate Amino Transf (AST/SGOT) 15 U/L (5-40) Alanine Aminotransferase (ALT/SGPT) 19 U/L (3-33) Alkaline Phosphatase 170 U/L (35-104) H Total Protein 6.9 g/dL (6.6-8.7) Albumin 2.9 g/dL (3.5-5.2) L Globulin 4.0 g/dL Albumin/Globulin Ratio 0.7 (1.0-2.7) L Additional Comments Stable s/ exploratory laparotomy x2 for mesenteric vascular ischemia with several segments of small and large bowel necrosis, cause undetermined. ( hematology consult requested) GI function is slow because of mucosal slough from the ischemic episode. Slight dehydration secondary to GI losses from above. Assessment Additional Comments Cont sips. D/C Simpson but strict I&O Hematology consult Cont mcfp TPN until bowel heals and matures to be able to absorb all foods , Vits, and minerals (unless thept has a short bowel syndrome, in which case TPN would be lifelong....hopefully not) JOSSELIN LANGLEY Jun 16, 2017 11:24
[2017-06-16] MEDS: D5NS 1,000 ML IV SCH ×2 (11:54→22:15)
--- NOTE | 2017-06-16 12:03 | GI Progress Note ---
Assessment/Plan Problems: (1) Abdominal pain ICD Codes: R10.9 - Unspecified abdominal pain SNOMED: 25460973 Qualifiers: Qualified Codes: R10.13 - Epigastric pain (2) Gastroenteritis ICD Codes: K52.9 - Noninfective gastroenteritis and colitis, unspecified SNOMED: 88308797 (3) Gastric ulcer with hemorrhage ICD Codes: K25.4 - Chronic or unspecified gastric ulcer with hemorrhage SNOMED: 55492706 (4) Ischemic colon ICD Codes: K55.9 - Vascular disorder of intestine, unspecified SNOMED: 80655558 (5) Sepsis ICD Codes: A41.9 - Sepsis, unspecified organism SNOMED: 13783201 Qualifiers: Qualified Codes: A41.9 - Sepsis, unspecified organism Status: stable Status Narrative Discussed with Dr. Gonzalez. Assessment/Plan PT today post op care IVFs diet per surgery abx TPN fu surgical recs Subjective Subjective generalize weakness Objective Last 24 Hour Vital Signs Date Time Temp Pulse Resp B/P Pulse Ox O2 Delivery O2 Flow Rate FiO2 06/16/17 07:48 99.1 93 20 122/64 97 Room Air 06/16/17 05:45 99.9 06/16/17 04:00 99.9 97 20 124/67 98 Room Air 06/16/17 00:00 99.5 92 20 117/66 98 Room Air 06/15/17 20:00 97.7 86 20 130/81 99 Room Air 06/15/17 19:47 Room Air 06/15/17 19:47 99 Room Air 06/15/17 16:00 98.2 91 18 137/76 100 Nasal Cannula 2.0 Intake and Output 06/15/17 06/16/17 19:00 07:00 Intake Total 1370 ml 1270 ml Output Total 1850 ml 3150 ml Balance -480 ml -1880 ml Intake Oral 400 ml IV Total 970 ml 1270 ml Output Urine Total 1000 ml 2600 ml Drainage Total 50 ml Other 800 ml 550 ml Laboratory Tests Test 06/16/17 05:00 06/16/17 08:55 White Blood Count 11.7 K/UL (4.8-10.8) H Red Blood Count 3.07 M/UL (4.20-5.40) L Hemoglobin 9.5 G/DL (12.0-16.0) L Hematocrit 29.3 % (37.0-47.0) L Mean Corpuscular Volume 95 FL (80-99) # Mean Corpuscular Hemoglobin 31.1 PG (27.0-31.0) H Mean Corpuscular Hemoglobin Concent 32.6 G/DL (32.0-36.0) Red Cell Distribution Width 18.5 % (11.6-14.8) H Platelet Count 462 K/UL (150-450) H Mean Platelet Volume 5.3 FL (6.5-10.1) L Neutrophils (%) (Auto) 75.9 % (45.0-75.0) H Lymphocytes (%) (Auto) 16.9 % (20.0-45.0) L Monocytes (%) (Auto) 4.5 % (1.0-10.0) Eosinophils (%) (Auto) 2.0 % (0.0-3.0) Basophils (%) (Auto) 0.7 % (0.0-2.0) Sodium Level 140 mEQ/L (135-145) Potassium Level 4.1 mEQ/L (3.4-4.9) Chloride Level 106 mEQ/L (98-107) Carbon Dioxide Level 26 mEQ/L (20-30) Anion Gap 8 (5-15) Blood Urea Nitrogen 11 mg/dL (7-23) Creatinine 0.4 mg/dL (0.5-0.9) L Estimat Glomerular Filtration Rate > 60 mL/min (>60) Glucose Level 166 mg/dL (74-106) H Calcium Level 8.9 mg/dL (8.6-10.2) Total Bilirubin 0.4 mg/dL (0.0-1.2) Aspartate Amino Transf (AST/SGOT) 15 U/L (5-40) Alanine Aminotransferase (ALT/SGPT) 19 U/L (3-33) Alkaline Phosphatase 170 U/L (35-104) H Total Protein 6.9 g/dL (6.6-8.7) Albumin 2.9 g/dL (3.5-5.2) L Globulin 4.0 g/dL Albumin/Globulin Ratio 0.7 (1.0-2.7) L Height (Feet): 5 Height (Inches): 3.00 Weight (Pounds): 121 General Appearance: no apparent distress, alert, thin Cardiovascular: normal rate Respiratory/Chest: normal breath sounds, no respiratory distress Abdominal Exam: normal bowel sounds, non tender, soft Extremities: normal range of motion, non-tender Sabrina Evangelista N.P. Jun 16, 2017 12:03
--- NOTE | 2017-06-16 13:41 | Infectious Diseases Prog Note ---
Assessment/Plan Assessment/Plan ASSESSMENT: 62 y/o female with: // Secondary peritonitis - WCx K.pneumoniae, m/l polymicrobial // Ischemic colitis - SP takeback SBR, partial colectomy 06/10 - SP ex-lap subtotal colectomy 06/09 // Leukocytosis - improved, afebrile // SP VDRF // PCN allergy // Full Code PLAN: - continue Flagyl and Azactam d# 8 / 10 - monitor CBC, temperatures, re-culture if acute change - monitor BMP Subjective Allergies: Coded Allergies: PENICILLIN (Verified Allergy, Unknown, 12/01/15) PENICILLINS (Unverified Allergy, Unknown, 06/08/17) SHELLFISH (Verified Allergy, Unknown, 12/01/15) Uncoded Allergies: Mints (Allergy, Unknown, 06/09/17) Subjective remains afebrile. leukocytosis improved Objective Vital Signs Last 24 Hour Vital Signs Date Time Temp Pulse Resp B/P Pulse Ox O2 Delivery O2 Flow Rate FiO2 06/16/17 07:48 99.1 93 20 122/64 97 Room Air 06/16/17 06:55 Room Air 06/16/17 06:54 98 Room Air 06/16/17 05:45 99.9 06/16/17 04:00 99.9 97 20 124/67 98 Room Air 06/16/17 00:00 99.5 92 20 117/66 98 Room Air 06/15/17 20:00 97.7 86 20 130/81 99 Room Air 06/15/17 19:47 Room Air 06/15/17 19:47 99 Room Air 06/15/17 16:00 98.2 91 18 137/76 100 Nasal Cannula 2.0 Height (Feet): 5 Height (Inches): 3.00 Weight (Pounds): 121 General Appearance: no acute distress Respiratory/Chest: no respiratory distress Cardiovascular: normal rate, regular rhythm Abdomen: normal bowel sounds, soft, non tender, non distended Laboratory Tests Test 06/16/17 05:00 06/16/17 08:55 White Blood Count 11.7 K/UL (4.8-10.8) H Red Blood Count 3.07 M/UL (4.20-5.40) L Hemoglobin 9.5 G/DL (12.0-16.0) L Hematocrit 29.3 % (37.0-47.0) L Mean Corpuscular Volume 95 FL (80-99) # Mean Corpuscular Hemoglobin 31.1 PG (27.0-31.0) H Mean Corpuscular Hemoglobin Concent 32.6 G/DL (32.0-36.0) Red Cell Distribution Width 18.5 % (11.6-14.8) H Platelet Count 462 K/UL (150-450) H Mean Platelet Volume 5.3 FL (6.5-10.1) L Neutrophils (%) (Auto) 75.9 % (45.0-75.0) H Lymphocytes (%) (Auto) 16.9 % (20.0-45.0) L Monocytes (%) (Auto) 4.5 % (1.0-10.0) Eosinophils (%) (Auto) 2.0 % (0.0-3.0) Basophils (%) (Auto) 0.7 % (0.0-2.0) Sodium Level 140 mEQ/L (135-145) Potassium Level 4.1 mEQ/L (3.4-4.9) Chloride Level 106 mEQ/L (98-107) Carbon Dioxide Level 26 mEQ/L (20-30) Anion Gap 8 (5-15) Blood Urea Nitrogen 11 mg/dL (7-23) Creatinine 0.4 mg/dL (0.5-0.9) L Estimat Glomerular Filtration Rate > 60 mL/min (>60) Glucose Level 166 mg/dL (74-106) H Calcium Level 8.9 mg/dL (8.6-10.2) Total Bilirubin 0.4 mg/dL (0.0-1.2) Aspartate Amino Transf (AST/SGOT) 15 U/L (5-40) Alanine Aminotransferase (ALT/SGPT) 19 U/L (3-33) Alkaline Phosphatase 170 U/L (35-104) H Total Protein 6.9 g/dL (6.6-8.7) Albumin 2.9 g/dL (3.5-5.2) L Globulin 4.0 g/dL Albumin/Globulin Ratio 0.7 (1.0-2.7) L Current Medications Medications (Trade) Dose Ordered Sig/Michael Route PRN Reason Start Time Stop Time Status Last Admin Dose Admin Acetaminophen 650 mg 650 mg Q4H PRN ORAL Mild Pain/Temp > 100.5 06/15/17 10:45 07/15/17 10:44 06/16/17 10:28 Aztreonam 2 gm/ Dextrose 110 ml @ 220 mls/hr Q8HR IVPB 06/14/17 22:00 06/21/17 21:59 06/16/17 05:15 Chlorhexidine Gluconate (Briana-Hex 2%) 1 applic DAILY TOPIC 06/15/17 09:00 07/15/17 08:59 06/16/17 08:35 Dextrose (Dextrose 50%) STAT PRN IV Hypoglycemia 06/14/17 21:02 07/14/17 21:01 Dextrose/Sodium Chloride (D5ns) 1,000 ml @ 100 mls/hr Q10H IV 06/16/17 12:15 07/16/17 12:14 06/16/17 11:54 Fat Emulsion Intravenous 240 ml/Amino Acids/ Electrolytes/ Dextrose 1,800 ml @ 75 mls/hr Q24H IV 06/14/17 21:00 07/14/17 20:59 06/15/17 21:48 Insulin Aspart (NovoLOG) Q6HR SUBQ 06/15/17 00:00 07/15/17 00:00 06/16/17 12:04 Ketorolac Tromethamine (Toradol 30mg) 30 mg Q6H PRN IM Pain 4-10 06/14/17 23:15 06/19/17 23:14 06/15/17 03:28 Metronidazole (Flagyl) 100 ml @ 100 mls/hr Q8HR IVPB 06/14/17 22:00 06/21/17 21:59 06/16/17 13:27 Morphine Sulfate (Morphine Sulfate) 4 mg Q3H PRN IV BREAKTHROUGH PAIN 06/14/17 21:03 06/21/17 21:02 06/16/17 05:15 Nitroglycerin (Ntg) 0.4 mg Q5M X 3 DOSES PRN SL Prn Chest Pain 06/14/17 21:00 07/14/17 20:59 Ondansetron HCl (Zofran) 4 mg Q6H PRN IVP Nausea & Vomiting 06/14/17 21:03 07/14/17 21:02 06/16/17 03:16 Pantoprazole (Protonix) 40 mg BID IVP 06/15/17 09:00 07/15/17 08:59 06/16/17 08:35 Phytonadione (Vitamin K) 10 mg QWEEK SUBQ 06/20/17 21:00 07/20/17 20:59 RASHAWN SLOAN Jun 16, 2017 13:41
--- NOTE | 2017-06-16 15:45 | Pulmonology Progress Note ---
Assessment/Plan Problems: (1) Ischemic bowel disease (2) S/P laparotomy (3) Abdominal pain (4) Sepsis (5) Gastroenteritis (6) Septic shock Assessment/Plan oral diet started on TPN pt/ot check labs wbc stil high, low grade fever last night. 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 [employer] Subjective ROS Limited/Unobtainable: No Constitutional: Reports: no symptoms HEENT: Repors: no symptoms Respiratory: Reports: no symptoms Allergies: Coded Allergies: PENICILLIN (Verified Allergy, Unknown, 12/01/15) PENICILLINS (Unverified Allergy, Unknown, 06/08/17) SHELLFISH (Verified Allergy, Unknown, 12/01/15) Uncoded Allergies: Mints (Allergy, Unknown, 06/09/17) Objective Last 24 Hour Vital Signs Date Time Temp Pulse Resp B/P Pulse Ox O2 Delivery O2 Flow Rate FiO2 06/16/17 07:48 99.1 93 20 122/64 97 Room Air 06/16/17 06:55 Room Air 06/16/17 06:54 98 Room Air 06/16/17 05:45 99.9 06/16/17 04:00 99.9 97 20 124/67 98 Room Air 06/16/17 00:00 99.5 92 20 117/66 98 Room Air 06/15/17 20:00 97.7 86 20 130/81 99 Room Air 06/15/17 19:47 Room Air 06/15/17 19:47 99 Room Air 06/15/17 16:00 98.2 91 18 137/76 100 Nasal Cannula 2.0 Intake and Output 06/15/17 06/16/17 19:00 07:00 Intake Total 1370 ml 1270 ml Output Total 1850 ml 3150 ml Balance -480 ml -1880 ml Intake Oral 400 ml IV Total 970 ml 1270 ml Output Urine Total 1000 ml 2600 ml Drainage Total 50 ml Other 800 ml 550 ml General Appearance: WD/WN HEENT: normocephalic, atraumatic Respiratory/Chest: chest wall non-tender, lungs clear Cardiovascular: normal peripheral pulses, normal rate Abdomen: normal bowel sounds, soft, non tender Genitourinary: normal external genitalia Extremities: no cyanosis Skin: no rash 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 Lymphatic: no neck adenopathy Laboratory Tests 06/16/17 05:00: White Blood Count 11.7H, Red Blood Count 3.07L, Hemoglobin 9.5L, Hematocrit 29.3L, Mean Corpuscular Volume 95#, Mean Corpuscular Hemoglobin 31.1H, Mean Corpuscular Hemoglobin Concent 32.6, Red Cell Distribution Width 18.5H, Platelet Count 462H, Mean Platelet Volume 5.3L, Neutrophils (%) (Auto) 75.9H, Lymphocytes (%) (Auto) 16.9L, Monocytes (%) (Auto) 4.5, Eosinophils (%) (Auto) 2.0, Basophils (%) (Auto) 0.7 06/16/17 08:55: Sodium Level 140, Potassium Level 4.1, Chloride Level 106, Carbon Dioxide Level 26, Anion Gap 8, Blood Urea Nitrogen 11, Creatinine 0.4L, Estimat Glomerular Filtration Rate > 60, Glucose Level 166H, Calcium Level 8.9, Total Bilirubin 0.4 , Aspartate Amino Transf (AST/SGOT) 15, Alanine Aminotransferase (ALT/SGPT) 19, Alkaline Phosphatase 170H, Total Protein 6.9, Albumin 2.9L, Globulin 4.0, Albumin/Globulin Ratio 0.7L Current Medications Medications (Trade) Dose Ordered Sig/Michael Route PRN Reason Start Time Stop Time Status Last Admin Dose Admin Acetaminophen 650 mg 650 mg Q4H PRN ORAL Mild Pain/Temp > 100.5 06/15/17 10:45 07/15/17 10:44 06/16/17 10:28 Aztreonam 2 gm/ Dextrose 110 ml @ 220 mls/hr Q8HR IVPB 06/14/17 22:00 06/21/17 21:59 06/16/17 14:37 Chlorhexidine Gluconate (Briana-Hex 2%) 1 applic DAILY TOPIC 06/15/17 09:00 07/15/17 08:59 06/16/17 08:35 Dextrose (Dextrose 50%) STAT PRN IV Hypoglycemia 06/14/17 21:02 07/14/17 21:01 Dextrose/Sodium Chloride (D5ns) 1,000 ml @ 100 mls/hr Q10H IV 06/16/17 12:15 07/16/17 12:14 06/16/17 11:54 Fat Emulsion Intravenous 240 ml/Amino Acids/ Electrolytes/ Dextrose 1,800 ml @ 75 mls/hr Q24H IV 06/14/17 21:00 07/14/17 20:59 06/15/17 21:48 Insulin Aspart (NovoLOG) Q6HR SUBQ 06/15/17 00:00 07/15/17 00:00 06/16/17 12:04 Ketorolac Tromethamine (Toradol 30mg) 30 mg Q6H PRN IM Pain 4-10 06/14/17 23:15 06/19/17 23:14 06/15/17 03:28 Metronidazole (Flagyl) 100 ml @ 100 mls/hr Q8HR IVPB 06/14/17 22:00 06/21/17 21:59 06/16/17 13:27 Morphine Sulfate (Morphine Sulfate) 4 mg Q3H PRN IV BREAKTHROUGH PAIN 06/14/17 21:03 06/21/17 21:02 06/16/17 05:15 Nitroglycerin (Ntg) 0.4 mg Q5M X 3 DOSES PRN SL Prn Chest Pain 06/14/17 21:00 07/14/17 20:59 Ondansetron HCl (Zofran) 4 mg Q6H PRN IVP Nausea & Vomiting 06/14/17 21:03 07/14/17 21:02 06/16/17 03:16 Pantoprazole (Protonix) 40 mg BID IVP 06/15/17 09:00 07/15/17 08:59 06/16/17 08:35 Phytonadione (Vitamin K) 10 mg QWEEK SUBQ 06/20/17 21:00 07/20/17 20:59 CLEVELAND MCRAE Jun 16, 2017 15:45
[2017-06-16 16:00] VITALS: BP 118/70
[2017-06-16 17:17] VITALS: BP 116/70
[2017-06-16] MEDS ORDERED: NS 550ML IV ONE (17:37)
[2017-06-16] MEDS ORDERED: D5NS 1000ml IV ONE (17:37)
[2017-06-16] MEDS ORDERED: Tubing IV Secondary IV ONE (17:37)
[2017-06-16 20:00] VITALS: BP 114/74
[2017-06-16] MEDS: Fat Emulsion Iv 20% 240 ML in Tpn 1,560 ML IV SCH (21:00)
[2017-06-17] VITALS (7 sets, daily range): BP systolic 111–162; BP diastolic 58–78
[2017-06-17] MEDS: NovoLOG Insulin Flexpen SUBQ SCH ×3 (06:00→16:54)
[2017-06-17] MEDS: Aztreonam Inj 2 GM in D5W 110 ML IVPB SCH ×3 (06:00→22:08)
[2017-06-17] MEDS: metroNIDAZOLE 500mg 100 ML IVPB SCH ×3 (06:00→22:08)
[2017-06-17 06:57] LABS: ALANINE AMINOTRANSFERASE 17 U/L (3-33); ALBUMIN/GLOBULIN RATIO 0.6 (1.0-2.7); ANION GAP 8 (5-15); ASPARTATE AMINO TRANSFERASE 14 U/L (5-40); CALCIUM 8.8 mg/dL (8.6-10.2); CARBON DIOXIDE 26 mEQ/L (20-30); CHLORIDE 108 mEQ/L (98-107); CREATININE 0.3 mg/dL (0.5-0.9); GLOMERULAR FILTRATION RATE > 60 mL/min (>60); HEMOLYSIS 0; POTASSIUM 4.2 mEQ/L (3.4-4.9); SODIUM 142 mEQ/L (135-145); TOTAL PROTEIN 6.4 g/dL (6.6-8.7)
[2017-06-17 07:00] LABS: BASOPHILS % (AUTO) 0.7 % (0.0-2.0); EOSINOPHILS % (AUTO) 2.1 % (0.0-3.0); LYMPHOCYTES % (AUTO) 21.3 % (20.0-45.0); MEAN CORPUSCULAR HEMOGLOBIN 28.6 PG (27.0-31.0); MEAN CORPUSCULAR VOLUME 87 FL (80-99); MEAN PLATELET VOLUME 6.3 FL (6.5-10.1); MONOCYTES % (AUTO) 4.3 % (1.0-10.0); NEUTROPHILS % (AUTO) 71.7 % (45.0-75.0); PLATELET COUNT 468 K/UL (150-450); RED BLOOD COUNT 3.26 M/UL (4.20-5.40); RED CELL DISTRIBUTION WIDTH 16.9 % (11.6-14.8); WHITE BLOOD COUNT 13.9 K/UL (4.8-10.8)
[2017-06-17 07:31] LABS: THYROID STIMULATING HORMONE 3.87 uIU/mL (0.300-4.500)
[2017-06-17] MEDS: D5NS 1,000 ML IV SCH ×2 (08:15→17:15)
[2017-06-17 08:41] LABS: ANISOCYTOSIS 1+; BAND NEUTROPHILS % (MANUAL) 0 % (0-8); BASOPHILS % (MANUAL) 0 % (0-2); EOSINOPHILS % (MANUAL) 1 % (0-3); HYPOCHROMASIA 2+; LYMPHOCYTES % (MANUAL) 24 % (20-45); NEUTROPHILS % (MANUAL) 70 % (45-75); PLATELET ESTIMATE ADEQUATE; PLATELET MORPHOLOGY NORMAL; TOTAL CELLS COUNTED 100
[2017-06-17] MEDS: Pantoprazole Inj IVP SCH ×2 (08:46→17:11)
[2017-06-17] MEDS: Dyna-Hex 2% Top Sol 8oz TOPIC SCH (08:51)
--- NOTE | 2017-06-17 10:10 | General Progress Note ---
Progress Note Progress Note Surgery: doing very well. working with physical therapy. ambulatory. pain improved. no n/v/f/c. tolerating clears. good uop. lots of liquid from stoma. abdomen benign Afebrile, HD stable, labs okay. mild leukocytosis today but okay Advance to full liquid diet Ambulate and OOB Will likely need TPN for a little while until GI tract recovered and appropriately absorbing nutrients Appreciate medical team and [facility] consult. Wei Monroy Jun 17, 2017 10:10
--- NOTE | 2017-06-17 11:13 | GI Progress Note ---
Assessment/Plan Problems: (1) Abdominal pain ICD Codes: R10.9 - Unspecified abdominal pain SNOMED: 51803405 Qualifiers: Qualified Codes: R10.13 - Epigastric pain (2) Gastroenteritis ICD Codes: K52.9 - Noninfective gastroenteritis and colitis, unspecified SNOMED: 46603881 (3) Gastric ulcer with hemorrhage ICD Codes: K25.4 - Chronic or unspecified gastric ulcer with hemorrhage SNOMED: 88849528 (4) Ischemic colon ICD Codes: K55.9 - Vascular disorder of intestine, unspecified SNOMED: 01807329 (5) Sepsis ICD Codes: A41.9 - Sepsis, unspecified organism SNOMED: 36649633 Qualifiers: Qualified Codes: A41.9 - Sepsis, unspecified organism Status: stable Status Narrative Discussed with Dr. Gonzalez. Assessment/Plan PT today post op care IVFs diet per surgery abx TPN fu surgical recs Subjective Subjective generalize weakness surgical pain Objective Last 24 Hour Vital Signs Date Time Temp Pulse Resp B/P Pulse Ox O2 Delivery O2 Flow Rate FiO2 06/17/17 07:40 97.7 88 16 123/62 98 Room Air 06/17/17 07:39 98.2 90 18 162/78 94 Room Air 06/17/17 04:00 97.6 86 18 117/71 100 Room Air 06/17/17 00:00 97.4 81 19 124/76 99 Room Air 06/16/17 20:00 98.2 85 18 114/74 97 Room Air 06/16/17 19:35 97 Room Air 06/16/17 19:35 Room Air 06/16/17 17:17 98.9 88 20 116/70 97 Room Air 97.0 06/16/17 16:00 98.8 88 20 118/70 97 Room Air Intake and Output 06/16/17 06/17/17 19:00 07:00 Intake Total 1415 ml 1945 ml Output Total 1700 ml 2200 ml Balance -285 ml -255 ml Intake Oral 450 ml 240 ml IV Total 965 ml 1705 ml Output Urine Total 1400 ml 1950 ml Other 300 ml 250 ml # Voids 2 5 Laboratory Tests Test 06/17/17 06:00 White Blood Count 13.9 K/UL (4.8-10.8) H Red Blood Count 3.26 M/UL (4.20-5.40) L Hemoglobin 9.3 G/DL (12.0-16.0) L Hematocrit 28.3 % (37.0-47.0) L Mean Corpuscular Volume 87 FL (80-99) # Mean Corpuscular Hemoglobin 28.6 PG (27.0-31.0) Mean Corpuscular Hemoglobin Concent 33.0 G/DL (32.0-36.0) Red Cell Distribution Width 16.9 % (11.6-14.8) H Platelet Count 468 K/UL (150-450) H Mean Platelet Volume 6.3 FL (6.5-10.1) L Neutrophils (%) (Auto) 71.7 % (45.0-75.0) Lymphocytes (%) (Auto) 21.3 % (20.0-45.0) Monocytes (%) (Auto) 4.3 % (1.0-10.0) Eosinophils (%) (Auto) 2.1 % (0.0-3.0) Basophils (%) (Auto) 0.7 % (0.0-2.0) Differential Total Cells Counted 100 Neutrophils % (Manual) 70 % (45-75) Lymphocytes % (Manual) 24 % (20-45) Monocytes % (Manual) 5 % (1-10) Eosinophils % (Manual) 1 % (0-3) Basophils % (Manual) 0 % (0-2) Band Neutrophils 0 % (0-8) Platelet Estimate Adequate Platelet Morphology Normal Hypochromasia 2+ Anisocytosis 1+ Lupus Anticoagulant Pending Lupus Anticoagulant PTT Baseline Pending Lupus Anticoag DRVVT Screen Ratio Pending DRVVT Confirmation Interpretation Pending Hexagonal Phase Comment Pending Protein C Activity Pending Protein S Antigen Pending Free Protein S Pending Anti-Thrombin III Activity Pending Factor V Mutation Pending Prothrombin Gene Mutation Pending Prothrombin Gene Shared Component Pending Jak2 V617F Mutation Detection Pending JAK2 V617F Mutation Background Pending JAK2 V617F Reviewed By Pending Sodium Level 142 mEQ/L (135-145) Potassium Level 4.2 mEQ/L (3.4-4.9) Chloride Level 108 mEQ/L (98-107) H Carbon Dioxide Level 26 mEQ/L (20-30) Anion Gap 8 (5-15) Blood Urea Nitrogen 11 mg/dL (7-23) Creatinine 0.3 mg/dL (0.5-0.9) L Estimat Glomerular Filtration Rate > 60 mL/min (>60) Glucose Level 98 mg/dL (74-106) Calcium Level 8.8 mg/dL (8.6-10.2) Ferritin 73 ng/mL (13-150) Total Bilirubin 0.3 mg/dL (0.0-1.2) Aspartate Amino Transf (AST/SGOT) 14 U/L (5-40) Alanine Aminotransferase (ALT/SGPT) 17 U/L (3-33) Alkaline Phosphatase 161 U/L (35-104) H Total Protein 6.4 g/dL (6.6-8.7) L Albumin 2.6 g/dL (3.5-5.2) L Globulin 3.8 g/dL Albumin/Globulin Ratio 0.6 (1.0-2.7) L Alpha Fetoprotein Pending Carcinoembryonic Antigen 1.5 ng/mL CA 15-3 Antigen Pending CA 19-9 Antigen 12.97 U/mL (< 37) CA 125 Antigen Pending Folate Pending Thyroid Stimulating Hormone (TSH) 3.870 uIU/mL (0.300-4.500) Anti-Cardiolipin IgM Antibody Pending Height (Feet): 5 Height (Inches): 3.00 Weight (Pounds): 121 General Appearance: no apparent distress, alert Cardiovascular: normal rate Respiratory/Chest: normal breath sounds, no respiratory distress Abdominal Exam: incision site, other - colostomy Sabrina Evangelista N.P. Jun 17, 2017 11:12
--- NOTE | 2017-06-17 12:26 | Infectious Diseases Prog Note ---
Assessment/Plan Assessment/Plan ASSESSMENT: 62 y/o female with: // Secondary peritonitis - WCx K.pneumoniae, m/l polymicrobial // Ischemic colitis - SP takeback SBR, partial colectomy 06/10 - SP ex-lap subtotal colectomy 06/09 // Leukocytosis - persistent, afebrile // SP VDRF // PCN allergy // Full Code PLAN: - continue Flagyl and Azactam d# 9 / 10 - monitor CBC, temperatures, re-culture if acute change - monitor BMP Subjective Allergies: Coded Allergies: PENICILLIN (Verified Allergy, Unknown, 12/01/15) PENICILLINS (Unverified Allergy, Unknown, 06/08/17) SHELLFISH (Verified Allergy, Unknown, 12/01/15) Uncoded Allergies: Mints (Allergy, Unknown, 06/09/17) Subjective remains afebrile. persistent leukocytosis pain controlled Objective Vital Signs Last 24 Hour Vital Signs Date Time Temp Pulse Resp B/P Pulse Ox O2 Delivery O2 Flow Rate FiO2 06/17/17 07:40 97.7 88 16 123/62 98 Room Air 06/17/17 07:39 98.2 90 18 162/78 94 Room Air 06/17/17 04:00 97.6 86 18 117/71 100 Room Air 06/17/17 00:00 97.4 81 19 124/76 99 Room Air 06/16/17 20:00 98.2 85 18 114/74 97 Room Air 06/16/17 19:35 97 Room Air 06/16/17 19:35 Room Air 06/16/17 17:17 98.9 88 20 116/70 97 Room Air 97.0 06/16/17 16:00 98.8 88 20 118/70 97 Room Air Height (Feet): 5 Height (Inches): 3.00 Weight (Pounds): 121 General Appearance: no acute distress Respiratory/Chest: no respiratory distress Cardiovascular: normal rate, regular rhythm Abdomen: normal bowel sounds, soft, non tender, non distended Laboratory Tests Test 06/17/17 06:00 White Blood Count 13.9 K/UL (4.8-10.8) H Red Blood Count 3.26 M/UL (4.20-5.40) L Hemoglobin 9.3 G/DL (12.0-16.0) L Hematocrit 28.3 % (37.0-47.0) L Mean Corpuscular Volume 87 FL (80-99) # Mean Corpuscular Hemoglobin 28.6 PG (27.0-31.0) Mean Corpuscular Hemoglobin Concent 33.0 G/DL (32.0-36.0) Red Cell Distribution Width 16.9 % (11.6-14.8) H Platelet Count 468 K/UL (150-450) H Mean Platelet Volume 6.3 FL (6.5-10.1) L Neutrophils (%) (Auto) 71.7 % (45.0-75.0) Lymphocytes (%) (Auto) 21.3 % (20.0-45.0) Monocytes (%) (Auto) 4.3 % (1.0-10.0) Eosinophils (%) (Auto) 2.1 % (0.0-3.0) Basophils (%) (Auto) 0.7 % (0.0-2.0) Differential Total Cells Counted 100 Neutrophils % (Manual) 70 % (45-75) Lymphocytes % (Manual) 24 % (20-45) Monocytes % (Manual) 5 % (1-10) Eosinophils % (Manual) 1 % (0-3) Basophils % (Manual) 0 % (0-2) Band Neutrophils 0 % (0-8) Platelet Estimate Adequate Platelet Morphology Normal Hypochromasia 2+ Anisocytosis 1+ Lupus Anticoagulant Pending Lupus Anticoagulant PTT Baseline Pending Lupus Anticoag DRVVT Screen Ratio Pending DRVVT Confirmation Interpretation Pending Hexagonal Phase Comment Pending Protein C Activity Pending Protein S Antigen Pending Free Protein S Pending Anti-Thrombin III Activity Pending Factor V Mutation Pending Prothrombin Gene Mutation Pending Prothrombin Gene Shared Component Pending Jak2 V617F Mutation Detection Pending JAK2 V617F Mutation Background Pending JAK2 V617F Reviewed By Pending Sodium Level 142 mEQ/L (135-145) Potassium Level 4.2 mEQ/L (3.4-4.9) Chloride Level 108 mEQ/L (98-107) H Carbon Dioxide Level 26 mEQ/L (20-30) Anion Gap 8 (5-15) Blood Urea Nitrogen 11 mg/dL (7-23) Creatinine 0.3 mg/dL (0.5-0.9) L Estimat Glomerular Filtration Rate > 60 mL/min (>60) Glucose Level 98 mg/dL (74-106) Calcium Level 8.8 mg/dL (8.6-10.2) Ferritin 73 ng/mL (13-150) Total Bilirubin 0.3 mg/dL (0.0-1.2) Aspartate Amino Transf (AST/SGOT) 14 U/L (5-40) Alanine Aminotransferase (ALT/SGPT) 17 U/L (3-33) Alkaline Phosphatase 161 U/L (35-104) H Total Protein 6.4 g/dL (6.6-8.7) L Albumin 2.6 g/dL (3.5-5.2) L Globulin 3.8 g/dL Albumin/Globulin Ratio 0.6 (1.0-2.7) L Alpha Fetoprotein Pending Carcinoembryonic Antigen 1.5 ng/mL CA 15-3 Antigen Pending CA 19-9 Antigen 12.97 U/mL (< 37) CA 125 Antigen Pending Folate Pending Thyroid Stimulating Hormone (TSH) 3.870 uIU/mL (0.300-4.500) Anti-Cardiolipin IgM Antibody Pending Current Medications Medications (Trade) Dose Ordered Sig/Michael Route PRN Reason Start Time Stop Time Status Last Admin Dose Admin Acetaminophen 650 mg 650 mg Q4H PRN ORAL Mild Pain/Temp > 100.5 06/15/17 10:45 07/15/17 10:44 06/16/17 10:28 Aztreonam 2 gm/ Dextrose 110 ml @ 220 mls/hr Q8HR IVPB 06/14/17 22:00 06/21/17 21:59 06/17/17 06:00 Chlorhexidine Gluconate (Briana-Hex 2%) 1 applic DAILY TOPIC 06/15/17 09:00 07/15/17 08:59 06/17/17 08:51 Dextrose (Dextrose 50%) STAT PRN IV Hypoglycemia 06/14/17 21:02 07/14/17 21:01 Dextrose/Sodium Chloride (D5ns) 1,000 ml @ 100 mls/hr Q10H IV 06/16/17 12:15 07/16/17 12:14 06/16/17 22:15 Fat Emulsion Intravenous 240 ml/Amino Acids/ Electrolytes/ Dextrose 1,800 ml @ 75 mls/hr Q24H IV 06/14/17 21:00 07/14/17 20:59 06/16/17 21:00 Insulin Aspart (NovoLOG) Q6HR SUBQ 06/15/17 00:00 07/15/17 00:00 06/17/17 11:38 Ketorolac Tromethamine (Toradol 30mg) 30 mg Q6H PRN IM Pain 4-10 06/14/17 23:15 06/19/17 23:14 06/15/17 03:28 Metronidazole (Flagyl) 100 ml @ 100 mls/hr Q8HR IVPB 06/14/17 22:00 06/21/17 21:59 06/17/17 06:00 Morphine Sulfate (Morphine Sulfate) 4 mg Q3H PRN IV BREAKTHROUGH PAIN 06/14/17 21:03 06/21/17 21:02 06/16/17 05:15 Nitroglycerin (Ntg) 0.4 mg Q5M X 3 DOSES PRN SL Prn Chest Pain 06/14/17 21:00 07/14/17 20:59 Ondansetron HCl (Zofran) 4 mg Q6H PRN IVP Nausea & Vomiting 06/14/17 21:03 07/14/17 21:02 06/16/17 03:16 Pantoprazole (Protonix) 40 mg BID IVP 06/15/17 09:00 07/15/17 08:59 06/17/17 08:46 Phytonadione (Vitamin K) 10 mg QWEEK SUBQ 06/20/17 21:00 07/20/17 20:59 Temazepam (Restoril) 15 mg HSPRN PRN ORAL Insomnia 06/16/17 20:30 06/23/17 20:29 06/16/17 21:51 RASHAWN SLOAN Jun 17, 2017 12:26
--- NOTE | 2017-06-17 16:31 | Consultation ---
DATE OF CONSULTATION: 06/16/2017 HEMATOLOGY/ONCOLOGY CONSULTATION REQUESTING PHYSICIANS: 1. Aftab Terrazas M.D. 2. Rere Espinosa M.D. REASON FOR CONSULTATION: Evaluation of hypercoagulable disorder in the setting of acute mesenteric ischemia. IDENTIFICATION DATA: Dear Dr. Espinosa, The patient is a pleasant 62-year-old female. She presented approximately a week ago, was seen by ID team, surgery, and pulmonary team and I have personally evaluated this patient before in a different hospital. She has a prominent history of recurrent generalized abdominal pain and admitted to [facility] with anterior abdominal pain associated with nausea and vomiting. CAT scan showed wall dilation, mild wall thickening suggestive for enteritis. Chest x-ray completed. She underwent surgical operation, transferred to the PACU, intubated, and tolerated the procedure well. However, at operation, she was noted to have a partial small and large bowel extensive dissection with ischemic bowel, noted to have very thick sludging as well as clotting of the colon. Hematology service was consulted for evaluation of hypercoagulable disorder in addition to potential malignancy that may be contributing cause of this. PAST MEDICAL HISTORY: Gastroenteritis. PAST SURGICAL HISTORY: Multiple EGDs. MEDICATIONS: Ascorbic acid, vitamin supplement , ibuprofen, methylprednisone, Reglan, . ALLERGIES: Penicillin, shellfish and codeine allergies. REVIEW OF SYSTEMS: Constitutional: No fever, chills, or night sweats. Skin: No rashes, lumps, or itching. HEENT: No headache, hearing or vision changes. Breasts: No lumps, pain, or discharge. Pulmonary: No cough, sputum, or shortness of breath. Cardiovascular: No chest pain, tenderness, or palpitations. Abdomen: Some pain noted. Tenderness to palpation. Extremities: No cyanosis . PHYSICAL EXAMINATION: GENERAL: The patient is in no acute distress. VITAL SIGNS: Temperature 98.2 degrees Fahrenheit, pulse 85, respiratory rate 12, blood pressure 114/74, and pulse oximetry 97%. PULMONARY: Decreased breath sounds. CARDIOVASCULAR: Regular rate. No S3 or S4. GASTROINTESTINAL: Abdomen is soft. Some tenderness to palpation. EXTREMITIES: No cyanosis, clubbing, or edema. LABORATORY DATA: WBC 1.7, hemoglobin 9.5, hematocrit 29, and platelets 462,000. ESR 75. INR of 1.3, which was since has 06/09/2017, currently improved. 3.4. Phosphorus of 2.2. AST 15 and ALT 19. Albumin is 2.9. ASSESSMENT AND PLAN: 1. Hypercoagulable disorder. The patient with a history of potential venous thrombosis of the mesentery and multifactorial causes including dehydration and . 2. Rule out occult malignancy or inflammatory process. The patient has pancreatitis and diverticulitis. 3. Myeloproliferative syndrome. The patient does not have portal hypertension. Did not have a personal and family history of venous thromboembolism. Clinically, the patient have acquired thrombophilia with malignancy and we will need rule out this out as well as inherited thrombophilia. Therefore, we will send for factor V Leiden mutation, prothrombin gene mutation, protein C, protein S activity, prothrombin 3, and antiphospholipid syndrome workup again. The patient may have inherited thrombophilia with simple factor V Leiden, prothrombin gene mutation, protein S and protein C activity and prothrombin 3 mutation and antiphospholipid syndrome antibodies. We will continue to follow closely the result of these tests. 4. Anemia, secondary to chronic disease. 5. Leukocytosis secondary to recent surgery. Continue to closely monitor, should improve. 6. Status post laparotomy with abdominal pain and ischemic bowel. 7. Sepsis. 8. Gastroenteritis. 9. Discussed with staff. 10. Appreciate consultation. 11. Continue to follow. Dell Pichardo M.D. DR: SELWYN JOB#: [id number] CC:
--- NOTE | 2017-06-17 18:44 | General Progress Note ---
Assessment/Plan Assessment/Plan ASSESSMENT AND PLAN: #. Hypercoagulable disorder rule out. The patient with no history of potential venous thrombosis of the mesentery and multifactorial causes including dehydration and rule out occult malignancy or inflammatory process. The patient has pancreatitis and diverticulitis. Rule out myeloproliferative syndrome. The patient does not have portal hypertension. Did not have a personal and family history of venous thromboembolism. r/o inherited thrombophilia. --> send for factor V Leiden mutation, prothrombin gene mutation, protein C, protein S activity, prothrombin 3, and antiphospholipid syndrome workup again. The patient may have inherited thrombophilia with simple factor V Leiden, prothrombin gene mutation, protein S and protein C activity and prothrombin 3 mutation and antiphospholipid syndrome antibodies. We will continue to follow closely the result of these tests. #. Anemia, secondary to chronic disease. --> w/u completed #. Leukocytosis secondary to recent surgery. Continue to closely monitor --> s/p surgery should improve. #. Status post laparotomy with abdominal pain and ischemic bowel. #. Sepsis. #. Gastroenteritis. Subjective Constitutional: Denies: chills, diaphoresis, fever, malaise, no symptoms, other , weakness HEENT: Denies: blurred vision, double vision, ear discharge, ear pain, eye pain , mouth pain, mouth swelling, no symptoms, nose congestion, nose pain, other, tearing, throat pain, throat swelling Cardiovascular: Denies: chest pain, edema, irregular heart rate, lightheadedness, no symptoms, other, palpitations, syncope Respiratory: Denies: SOB at rest, SOB with excertion, cough, no symptoms, orthopnea, other, shortness of breath, sputum, stridor, wheezing Gastrointestinal/Abdominal: Denies: abdomen distended, abdominal pain, black stools, blood in stool, constipated, diarrhea, difficulty swallowing, nausea, no symptoms, other, poor appetite, poor fluid intake, rectal bleeding, tarry stools, vomiting Genitourinary: Denies: burning, discharge, flank pain, frequency, hematuria, incontinence, no symptoms, other, pain, urgency Neurologic/Psychiatric: Denies: anxiety, depressed, emotional problems, headache, no symptoms, numbness, other, paresthesia, pre-existing deficit, seizure, tingling, tremors, weakness Endocrine: Denies: excessive sweating, flushing, increased hunger, increased thirst, increased urine, intolerance to cold, intolerance to heat, no symptoms, other, unexplained weight gain, unexplained weight loss Hematologic/Lymphatic: Denies: anemia, easy bleeding, easy bruising, no symptoms, other Allergies: Coded Allergies: PENICILLIN (Verified Allergy, Unknown, 12/01/15) PENICILLINS (Unverified Allergy, Unknown, 06/08/17) SHELLFISH (Verified Allergy, Unknown, 12/01/15) Uncoded Allergies: Mints (Allergy, Unknown, 06/09/17) Subjective seen and assessed, no events hypercoag w/u pending Objective Last 24 Hour Vital Signs Date Time Temp Pulse Resp B/P Pulse Ox O2 Delivery O2 Flow Rate FiO2 06/17/17 16:30 98.1 85 18 111/64 97 Room Air 06/17/17 12:30 97.7 84 18 112/58 99 Room Air 06/17/17 07:40 97.7 88 16 123/62 98 Room Air 06/17/17 07:39 98.2 90 18 162/78 94 Room Air 06/17/17 04:00 97.6 86 18 117/71 100 Room Air 06/17/17 00:00 97.4 81 19 124/76 99 Room Air 06/16/17 20:00 98.2 85 18 114/74 97 Room Air 06/16/17 19:35 97 Room Air 06/16/17 19:35 Room Air Intake and Output 06/16/17 06/17/17 19:00 07:00 Intake Total 1415 ml 1945 ml Output Total 1700 ml 2200 ml Balance -285 ml -255 ml Intake Oral 450 ml 240 ml IV Total 965 ml 1705 ml Output Urine Total 1400 ml 1950 ml Other 300 ml 250 ml # Voids 2 5 Laboratory Tests 06/17/17 06:00: White Blood Count 13.9H, Red Blood Count 3.26L, Hemoglobin 9.3L, Hematocrit 28.3L, Mean Corpuscular Volume 87#, Mean Corpuscular Hemoglobin 28.6, Mean Corpuscular Hemoglobin Concent 33.0, Red Cell Distribution Width 16.9H, Platelet Count 468H, Mean Platelet Volume 6.3L, Neutrophils (%) (Auto) 71.7, Lymphocytes (%) (Auto) 21.3, Monocytes (%) (Auto) 4.3, Eosinophils (%) (Auto) 2.1, Basophils (%) (Auto) 0.7, Differential Total Cells Counted 100, Neutrophils % (Manual) 70, Lymphocytes % (Manual) 24, Monocytes % (Manual) 5, Eosinophils % (Manual) 1, Basophils % (Manual) 0, Band Neutrophils 0, Platelet Estimate Adequate, Platelet Morphology Normal, Hypochromasia 2+, Anisocytosis 1+ , Lupus Anticoagulant [Pending], Lupus Anticoagulant PTT Baseline [Pending], Lupus Anticoag DRVVT Screen Ratio [Pending], DRVVT Confirmation Interpretation [ Pending], Hexagonal Phase Comment [Pending], Protein C Activity [Pending], Protein S Antigen [Pending], Free Protein S [Pending], Anti-Thrombin III Activity [Pending], Factor V Mutation [Pending], Prothrombin Gene Mutation [ Pending], Prothrombin Gene Shared Component [Pending], Jak2 V617F Mutation Detection [Pending], JAK2 V617F Mutation Background [Pending], JAK2 V617F Reviewed By [Pending], Sodium Level 142, Potassium Level 4.2, Chloride Level 108H, Carbon Dioxide Level 26, Anion Gap 8, Blood Urea Nitrogen 11, Creatinine 0.3L, Estimat Glomerular Filtration Rate > 60, Glucose Level 98, Calcium Level 8.8, Ferritin 73, Total Bilirubin 0.3, Aspartate Amino Transf (AST/SGOT) 14, Alanine Aminotransferase (ALT/SGPT) 17, Alkaline Phosphatase 161H, Total Protein 6.4L, Albumin 2.6L, Globulin 3.8, Albumin/Globulin Ratio 0.6L, Alpha Fetoprotein [Pending], Carcinoembryonic Antigen 1.5, CA 15-3 Antigen [Pending], CA 19-9 Antigen 12.97, CA 125 Antigen [Pending], Folate [Pending], Thyroid Stimulating Hormone (TSH) 3.870, Anti-Cardiolipin IgM Antibody [Pending] Height (Feet): 5 Height (Inches): 3.00 Weight (Pounds): 132 General Appearance: alert EENT: TMs normal Neck: normal alignment Cardiovascular: normal rate Respiratory/Chest: lungs clear Abdomen: non tender Extremities: normal range of motion Edema: 1+ Leg (L), 1+ Leg (R) Edema: trace edema Neurologic: alert Dell Pichardo Jun 17, 2017 18:44
--- NOTE | 2017-06-17 19:34 | Pulmonology Progress Note ---
Assessment/Plan Problems: (1) Ischemic bowel disease (2) S/P laparotomy (3) Abdominal pain (4) Sepsis (5) Gastroenteritis (6) Septic shock Assessment/Plan oral diet tolerated well on TPN pt/ot check labs wbc stil high, low grade fever last night. d/w casework manager of [facility] planning in process Subjective ROS Limited/Unobtainable: No Constitutional: Reports: no symptoms HEENT: Repors: no symptoms Respiratory: Reports: no symptoms Allergies: Coded Allergies: PENICILLIN (Verified Allergy, Unknown, 12/01/15) PENICILLINS (Unverified Allergy, Unknown, 06/08/17) SHELLFISH (Verified Allergy, Unknown, 12/01/15) Uncoded Allergies: Mints (Allergy, Unknown, 06/09/17) Objective Last 24 Hour Vital Signs Date Time Temp Pulse Resp B/P Pulse Ox O2 Delivery O2 Flow Rate FiO2 06/17/17 16:30 98.1 85 18 111/64 97 Room Air 06/17/17 12:30 97.7 84 18 112/58 99 Room Air 06/17/17 07:40 97.7 88 16 123/62 98 Room Air 06/17/17 07:39 98.2 90 18 162/78 94 Room Air 06/17/17 04:00 97.6 86 18 117/71 100 Room Air 06/17/17 00:00 97.4 81 19 124/76 99 Room Air 06/16/17 20:00 98.2 85 18 114/74 97 Room Air 06/16/17 19:35 97 Room Air 06/16/17 19:35 Room Air Intake and Output 06/16/17 06/17/17 19:00 07:00 Intake Total 1415 ml 1945 ml Output Total 1700 ml 2200 ml Balance -285 ml -255 ml Intake Oral 450 ml 240 ml IV Total 965 ml 1705 ml Output Urine Total 1400 ml 1950 ml Other 300 ml 250 ml # Voids 2 5 General Appearance: cachetic HEENT: normocephalic, atraumatic Respiratory/Chest: lungs clear, normal breath sounds Abdomen: normal bowel sounds, soft, non tender, no organomegaly Genitourinary: normal external genitalia Extremities: no cyanosis Laboratory Tests 06/17/17 06:00: White Blood Count 13.9H, Red Blood Count 3.26L, Hemoglobin 9.3L, Hematocrit 28.3L, Mean Corpuscular Volume 87#, Mean Corpuscular Hemoglobin 28.6, Mean Corpuscular Hemoglobin Concent 33.0, Red Cell Distribution Width 16.9H, Platelet Count 468H, Mean Platelet Volume 6.3L, Neutrophils (%) (Auto) 71.7, Lymphocytes (%) (Auto) 21.3, Monocytes (%) (Auto) 4.3, Eosinophils (%) (Auto) 2.1, Basophils (%) (Auto) 0.7, Differential Total Cells Counted 100, Neutrophils % (Manual) 70, Lymphocytes % (Manual) 24, Monocytes % (Manual) 5, Eosinophils % (Manual) 1, Basophils % (Manual) 0, Band Neutrophils 0, Platelet Estimate Adequate, Platelet Morphology Normal, Hypochromasia 2+, Anisocytosis 1+ , Lupus Anticoagulant [Pending], Lupus Anticoagulant PTT Baseline [Pending], Lupus Anticoag DRVVT Screen Ratio [Pending], DRVVT Confirmation Interpretation [ Pending], Hexagonal Phase Comment [Pending], Protein C Activity [Pending], Protein S Antigen [Pending], Free Protein S [Pending], Anti-Thrombin III Activity [Pending], Factor V Mutation [Pending], Prothrombin Gene Mutation [ Pending], Prothrombin Gene Shared Component [Pending], Jak2 V617F Mutation Detection [Pending], JAK2 V617F Mutation Background [Pending], JAK2 V617F Reviewed By [Pending], Sodium Level 142, Potassium Level 4.2, Chloride Level 108H, Carbon Dioxide Level 26, Anion Gap 8, Blood Urea Nitrogen 11, Creatinine 0.3L, Estimat Glomerular Filtration Rate > 60, Glucose Level 98, Calcium Level 8.8, Ferritin 73, Total Bilirubin 0.3, Aspartate Amino Transf (AST/SGOT) 14, Alanine Aminotransferase (ALT/SGPT) 17, Alkaline Phosphatase 161H, Total Protein 6.4L, Albumin 2.6L, Globulin 3.8, Albumin/Globulin Ratio 0.6L, Alpha Fetoprotein [Pending], Carcinoembryonic Antigen 1.5, CA 15-3 Antigen [Pending], CA 19-9 Antigen 12.97, CA 125 Antigen [Pending], Folate [Pending], Thyroid Stimulating Hormone (TSH) 3.870, Anti-Cardiolipin IgM Antibody [Pending] Current Medications Medications (Trade) Dose Ordered Sig/Michael Route PRN Reason Start Time Stop Time Status Last Admin Dose Admin Acetaminophen 650 mg 650 mg Q4H PRN ORAL Mild Pain/Temp > 100.5 06/15/17 10:45 07/15/17 10:44 06/16/17 10:28 Aztreonam 2 gm/ Dextrose 110 ml @ 220 mls/hr Q8HR IVPB 06/14/17 22:00 06/18/17 23:59 06/17/17 15:08 Chlorhexidine Gluconate (Briana-Hex 2%) 1 applic DAILY TOPIC 06/15/17 09:00 07/15/17 08:59 06/17/17 08:51 Dextrose (Dextrose 50%) STAT PRN IV Hypoglycemia 06/14/17 21:02 07/14/17 21:01 Dextrose/Sodium Chloride (D5ns) 1,000 ml @ 100 mls/hr Q10H IV 06/16/17 12:15 07/16/17 12:14 06/17/17 17:15 Fat Emulsion Intravenous 240 ml/Amino Acids/ Electrolytes/ Dextrose 1,800 ml @ 75 mls/hr Q24H IV 06/14/17 21:00 07/14/17 20:59 06/16/17 21:00 Insulin Aspart (NovoLOG) Q6HR SUBQ 06/15/17 00:00 07/15/17 00:00 06/17/17 16:54 Ketorolac Tromethamine (Toradol 30mg) 30 mg Q6H PRN IM Pain 4-10 06/14/17 23:15 06/19/17 23:14 06/15/17 03:28 Metronidazole (Flagyl) 100 ml @ 100 mls/hr Q8HR IVPB 06/14/17 22:00 06/18/17 23:59 06/17/17 14:34 Morphine Sulfate (Morphine Sulfate) 4 mg Q3H PRN IV BREAKTHROUGH PAIN 06/14/17 21:03 06/21/17 21:02 06/16/17 05:15 Nitroglycerin (Ntg) 0.4 mg Q5M X 3 DOSES PRN SL Prn Chest Pain 06/14/17 21:00 07/14/17 20:59 Ondansetron HCl (Zofran) 4 mg Q6H PRN IVP Nausea & Vomiting 06/14/17 21:03 07/14/17 21:02 06/16/17 03:16 Pantoprazole (Protonix) 40 mg BID IVP 06/15/17 09:00 07/15/17 08:59 06/17/17 17:11 Phytonadione (Vitamin K) 10 mg QWEEK SUBQ 06/20/17 21:00 07/20/17 20:59 Temazepam (Restoril) 15 mg HSPRN PRN ORAL Insomnia 06/16/17 20:30 06/23/17 20:29 06/16/17 21:51 CLEVELAND MCRAE Jun 17, 2017 19:34
[2017-06-17] MEDS: Ketorolac 30mg Inj IM PRN (19:45)
[2017-06-17] MEDS: Fat Emulsion Iv 20% 240 ML in Tpn 1,560 ML IV SCH (21:00)
--- NOTE | 2017-06-17 21:46 | Wound Nurse Progress Note ---
Wound RN Progress Note Wound Consult Initial colostomy care and application teaching given. multiple family members at bed side. Family members willing to learn and was also included in the teaching. Will follow up on Tuesday for hands on teaching with Pt. PHOEBE HERRON RN Jun 17, 2017 21:46
[2017-06-18] VITALS: BP 115/68
[2017-06-18] MEDS: NovoLOG Insulin Flexpen SUBQ SCH ×4 (00:08→16:53)
[2017-06-18 04:00] VITALS: BP 117/63
[2017-06-18] MEDS: D5NS 1,000 ML IV SCH ×3 (04:15→21:00)
[2017-06-18] MEDS: metroNIDAZOLE 500mg 100 ML IVPB SCH ×3 (05:15→21:41)
[2017-06-18] MEDS: Aztreonam Inj 2 GM in D5W 110 ML IVPB SCH ×3 (05:15→21:41)
[2017-06-18 07:36] LABS: BASOPHILS % (AUTO) 0.8 % (0.0-2.0); EOSINOPHILS % (AUTO) 2.3 % (0.0-3.0); LYMPHOCYTES % (AUTO) 26.1 % (20.0-45.0); MEAN CORPUSCULAR HEMOGLOBIN 27.7 PG (27.0-31.0); MEAN CORPUSCULAR HGB CONC 32.2 G/DL (32.0-36.0); MEAN CORPUSCULAR VOLUME 86 FL (80-99); MEAN PLATELET VOLUME 6.2 FL (6.5-10.1); MONOCYTES % (AUTO) 5.3 % (1.0-10.0); NEUTROPHILS % (AUTO) 65.4 % (45.0-75.0); PLATELET COUNT 531 K/UL (150-450); RED BLOOD COUNT 3.14 M/UL (4.20-5.40); RED CELL DISTRIBUTION WIDTH 16.7 % (11.6-14.8); WHITE BLOOD COUNT 10.3 K/UL (4.8-10.8)
[2017-06-18 07:55] VITALS: BP 116/66
[2017-06-18 07:58] LABS: ALANINE AMINOTRANSFERASE 16 U/L (3-33); ALBUMIN/GLOBULIN RATIO 0.8 (1.0-2.7); ANION GAP 7 (5-15); ASPARTATE AMINO TRANSFERASE 13 U/L (5-40); CALCIUM 8.3 mg/dL (8.6-10.2); CARBON DIOXIDE 25 mEQ/L (20-30); CHLORIDE 108 mEQ/L (98-107); CREATININE 0.4 mg/dL (0.5-0.9); GLOMERULAR FILTRATION RATE > 60 mL/min (>60); HEMOLYSIS 1; POTASSIUM 4.5 mEQ/L (3.4-4.9); SODIUM 140 mEQ/L (135-145)
[2017-06-18] MEDS: Dyna-Hex 2% Top Sol 8oz TOPIC SCH (08:37)
[2017-06-18] MEDS: Pantoprazole Inj IVP SCH ×2 (08:37→17:15)
[2017-06-18] MEDS: Ketorolac 30mg Inj IM PRN ×2 (08:38→16:29)
[2017-06-18] MEDS ORDERED: D5NS 1000ml IV ONE (09:42)
[2017-06-18] MEDS ORDERED: Tubing IV Secondary IV ONE (09:42)
[2017-06-18 12:02] VITALS: BP 119/65
[2017-06-18 12:13] LABS: CA 125 28.6 U/mL (0.0-38.1)
--- NOTE | 2017-06-18 13:37 | General Surgery Progress Note ---
General Surgery-Progress Note Subjective Procedure Performed exploratory laparotomy x 2 with partial small and large bowel extensive resections for ischemic bowel, colostomy Chief Complaint: feels better, less cramping with meals. Santhosh some full liquids (not milk) Symptoms: improved Additional Comments moderate amt ostomy liquid output,less bloody. Objective Last 24 Hour Vital Signs Date Time Temp Pulse Resp B/P Pulse Ox O2 Delivery O2 Flow Rate FiO2 06/18/17 12:02 98.1 85 18 119/65 97 Room Air 06/18/17 09:08 98.2 06/18/17 07:55 98.2 83 18 116/66 100 Room Air 06/18/17 04:00 97.2 82 18 117/63 98 Room Air 06/18/17 00:00 97.7 85 18 115/68 99 Room Air 06/17/17 20:00 98.1 83 20 123/71 98 Room Air 06/17/17 16:30 98.1 85 18 111/64 97 Room Air I&O Intake and Output 06/17/17 06/18/17 19:00 07:00 Intake Total 2540 ml 2020 ml Output Total 800 ml 1225 ml Balance 1740 ml 795 ml Intake Oral 550 ml 240 ml IV Total 1990 ml 1780 ml Output Urine Total 500 ml 1150 ml Stool Total 300 ml Other 75 ml # Voids 1 3 # Bowel Movements 1 Wound: clean Drains: none Cardiovascular: RSR Respiratory: clear Abdomen: soft, present bowel sounds Extremities: no edema Laboratory Tests Test 06/18/17 05:45 White Blood Count 10.3 K/UL (4.8-10.8) Red Blood Count 3.14 M/UL (4.20-5.40) L Hemoglobin 8.7 G/DL (12.0-16.0) L Hematocrit 27.1 % (37.0-47.0) L Mean Corpuscular Volume 86 FL (80-99) Mean Corpuscular Hemoglobin 27.7 PG (27.0-31.0) Mean Corpuscular Hemoglobin Concent 32.2 G/DL (32.0-36.0) Red Cell Distribution Width 16.7 % (11.6-14.8) H Platelet Count 531 K/UL (150-450) H Mean Platelet Volume 6.2 FL (6.5-10.1) L Neutrophils (%) (Auto) 65.4 % (45.0-75.0) Lymphocytes (%) (Auto) 26.1 % (20.0-45.0) Monocytes (%) (Auto) 5.3 % (1.0-10.0) Eosinophils (%) (Auto) 2.3 % (0.0-3.0) Basophils (%) (Auto) 0.8 % (0.0-2.0) Sodium Level 140 mEQ/L (135-145) Potassium Level 4.5 mEQ/L (3.4-4.9) Chloride Level 108 mEQ/L (98-107) H Carbon Dioxide Level 25 mEQ/L (20-30) Anion Gap 7 (5-15) Blood Urea Nitrogen 13 mg/dL (7-23) Creatinine 0.4 mg/dL (0.5-0.9) L Estimat Glomerular Filtration Rate > 60 mL/min (>60) Glucose Level 113 mg/dL (74-106) H Calcium Level 8.3 mg/dL (8.6-10.2) L Total Bilirubin 0.2 mg/dL (0.0-1.2) Aspartate Amino Transf (AST/SGOT) 13 U/L (5-40) Alanine Aminotransferase (ALT/SGPT) 16 U/L (3-33) Alkaline Phosphatase 129 U/L (35-104) H Total Protein 6.0 g/dL (6.6-8.7) L Albumin 2.7 g/dL (3.5-5.2) L Globulin 3.3 g/dL Albumin/Globulin Ratio 0.8 (1.0-2.7) L Additional Comments Continues to improve s/p 2 laparotomies for ischemic and necrotic small and large bowel, with cause undetermined, poss hypercoagulable syndrome causing mesenteric venous ischemia and , severe mucosal slough. Assessment Additional Comments Will need LOTS of education and care of gingerly advance of diet to a very specific moderate short bowel syndrome which will likely eventually resolve as mucosa and bowel hypertrophy t develop enough absorbtive capacity to maintain anabolic state for normal life maintenance , hopefully not needing TPN fci. BUT, process will be slow. Will need excellent GI Doctors and machine operator general to reach that goal. May need support with digestive enzymes, PPI s, possible growth hormone and Octeotride, etc \ Dr. Pichardo's help much appreciated. JOSSELIN LANGLEY Jun 18, 2017 13:37
--- NOTE | 2017-06-18 13:45 | Pulmonology Progress Note ---
Assessment/Plan Problems: (1) Ischemic bowel disease (2) S/P laparotomy (3) Abdominal pain (4) Sepsis (5) Gastroenteritis (6) Septic shock Assessment/Plan oral diet tolerated well on TPN pt/ot check lab d/w field nurse case manager of [facility] planning in process Subjective ROS Limited/Unobtainable: No Constitutional: Reports: no symptoms HEENT: Repors: no symptoms Respiratory: Reports: no symptoms Allergies: Coded Allergies: PENICILLIN (Verified Allergy, Unknown, 12/01/15) PENICILLINS (Unverified Allergy, Unknown, 06/08/17) SHELLFISH (Verified Allergy, Unknown, 12/01/15) Uncoded Allergies: Mints (Allergy, Unknown, 06/09/17) Objective Last 24 Hour Vital Signs Date Time Temp Pulse Resp B/P Pulse Ox O2 Delivery O2 Flow Rate FiO2 06/18/17 12:02 98.1 85 18 119/65 97 Room Air 06/18/17 09:08 98.2 06/18/17 07:55 98.2 83 18 116/66 100 Room Air 06/18/17 04:00 97.2 82 18 117/63 98 Room Air 06/18/17 00:00 97.7 85 18 115/68 99 Room Air 06/17/17 20:00 98.1 83 20 123/71 98 Room Air 06/17/17 16:30 98.1 85 18 111/64 97 Room Air Intake and Output 06/17/17 06/18/17 19:00 07:00 Intake Total 2540 ml 2020 ml Output Total 800 ml 1225 ml Balance 1740 ml 795 ml Intake Oral 550 ml 240 ml IV Total 1990 ml 1780 ml Output Urine Total 500 ml 1150 ml Stool Total 300 ml Other 75 ml # Voids 1 3 # Bowel Movements 1 General Appearance: WD/WN HEENT: normocephalic, atraumatic Respiratory/Chest: chest wall non-tender, lungs clear Breasts: no masses Cardiovascular: normal peripheral pulses Abdomen: normal bowel sounds, no organomegaly Genitourinary: normal external genitalia Extremities: no cyanosis Laboratory Tests 06/18/17 05:45: White Blood Count 10.3, Red Blood Count 3.14L, Hemoglobin 8.7L, Hematocrit 27.1L , Mean Corpuscular Volume 86, Mean Corpuscular Hemoglobin 27.7, Mean Corpuscular Hemoglobin Concent 32.2, Red Cell Distribution Width 16.7H, Platelet Count 531H, Mean Platelet Volume 6.2L, Neutrophils (%) (Auto) 65.4, Lymphocytes (%) (Auto) 26.1, Monocytes (%) (Auto) 5.3, Eosinophils (%) (Auto) 2.3, Basophils (%) (Auto) 0.8, Sodium Level 140, Potassium Level 4.5, Chloride Level 108H, Carbon Dioxide Level 25, Anion Gap 7, Blood Urea Nitrogen 13, Creatinine 0.4L, Estimat Glomerular Filtration Rate > 60, Glucose Level 113H, Calcium Level 8.3L, Total Bilirubin 0.2, Aspartate Amino Transf (AST/SGOT) 13, Alanine Aminotransferase (ALT/SGPT) 16, Alkaline Phosphatase 129H, Total Protein 6.0L, Albumin 2.7L, Globulin 3.3, Albumin/Globulin Ratio 0.8L Current Medications Medications (Trade) Dose Ordered Sig/Michael Route PRN Reason Start Time Stop Time Status Last Admin Dose Admin Acetaminophen (Tylenol) 650 mg Q4H PRN ORAL Mild Pain/Temp > 100.5 06/15/17 10:45 07/15/17 10:44 06/16/17 10:28 Aztreonam 2 gm/ Dextrose 110 ml @ 220 mls/hr Q8HR IVPB 06/14/17 22:00 06/18/17 23:59 06/18/17 05:15 Chlorhexidine Gluconate (Briana-Hex 2%) 1 applic DAILY TOPIC 06/15/17 09:00 07/15/17 08:59 06/18/17 08:37 Dextrose (Dextrose 50%) STAT PRN IV Hypoglycemia 06/14/17 21:02 07/14/17 21:01 Dextrose/Sodium Chloride (D5ns) 1,000 ml @ 80 mls/hr [id number] IV 06/18/17 07:30 07/18/17 07:29 06/18/17 07:53 Fat Emulsion Intravenous 240 ml/Amino Acids/ Electrolytes/ Dextrose 1,800 ml @ 75 mls/hr Q24H IV 06/14/17 21:00 07/14/17 20:59 06/17/17 21:00 Insulin Aspart (NovoLOG) Q6HR SUBQ 06/15/17 00:00 07/15/17 00:00 06/18/17 11:56 Ketorolac Tromethamine (Toradol 30mg) 30 mg Q6H PRN IM Pain 4-10 06/14/17 23:15 06/19/17 23:14 06/18/17 08:38 Metronidazole (Flagyl) 100 ml @ 100 mls/hr Q8HR IVPB 06/14/17 22:00 06/18/17 23:59 06/18/17 13:34 Morphine Sulfate (Morphine Sulfate) 4 mg Q3H PRN IV BREAKTHROUGH PAIN 06/14/17 21:03 06/21/17 21:02 06/16/17 05:15 Nitroglycerin (Ntg) 0.4 mg Q5M X 3 DOSES PRN SL Prn Chest Pain 06/14/17 21:00 07/14/17 20:59 Ondansetron HCl (Zofran) 4 mg Q6H PRN IVP Nausea & Vomiting 06/14/17 21:03 07/14/17 21:02 06/16/17 03:16 Pantoprazole (Protonix) 40 mg BID IVP 06/15/17 09:00 07/15/17 08:59 06/18/17 08:37 Phytonadione (Vitamin K) 10 mg QWEEK SUBQ 06/20/17 21:00 07/20/17 20:59 Temazepam 15 mg 15 mg HSPRN PRN ORAL Insomnia 06/16/17 20:30 06/23/17 20:29 06/17/17 22:54 CLEVELAND MCRAE Jun 18, 2017 13:45
[2017-06-18 16:00] VITALS: BP 117/53
[2017-06-18] MEDS: Morphine Sulfate 4mg/ml Inj IV PRN (19:50)
[2017-06-18 20:00] VITALS: BP 115/58
[2017-06-18] MEDS: Fat Emulsion Iv 20% 240 ML in Tpn 1,560 ML IV SCH (21:01)
[2017-06-19] VITALS (7 sets, daily range): BP systolic 105–123; BP diastolic 58–78
[2017-06-19] MEDS: NovoLOG Insulin Flexpen SUBQ SCH ×5 (00:05→23:27)
[2017-06-19] MEDS: Morphine Sulfate 4mg/ml Inj IV PRN (04:49)
[2017-06-19] MEDS: Ketorolac 30mg Inj IM PRN ×2 (08:03→16:20)
[2017-06-19] MEDS: Pantoprazole Inj IVP SCH ×2 (08:47→17:57)
[2017-06-19] MEDS: Dyna-Hex 2% Top Sol 8oz TOPIC SCH (08:48)
[2017-06-19] MEDS: D5NS 1,000 ML IV SCH ×2 (08:58→21:00)
[2017-06-19 09:09] LABS: ANTI THROMBIN III ACTIVITY 118 % (75-135); PROTEIN C ACTIVITY 106 % (73-180); PROTEIN S ANTIGEN 50 % (60-150); PROTEIN S FREE 56 % (57-157)
[2017-06-19 09:28] LABS: OTHERS PATHOLOGIST COMMENT
--- NOTE | 2017-06-19 10:55 | Infectious Diseases Prog Note ---
Assessment/Plan Assessment/Plan A; Ischemic colitis Secondary peritonitis s/p Rx Leukocytosis resolved s/p exploratory laparotomy s/p colostomy respiratory failure resolved Anemia PCN allergy P; obseve off antibiotic remove PICC line before discharge Subjective ROS Limited/Unobtainable: No Constitutional: Reports: no symptoms Respiratory: Reports: no symptoms Cardiovascular: Reports: no symptoms Gastrointestinal/Abdominal: Reports: no symptoms Genitourinary: Reports: no symptoms Neurologic: Reports: no symptoms Allergies: Coded Allergies: PENICILLIN (Verified Allergy, Unknown, 12/01/15) PENICILLINS (Unverified Allergy, Unknown, 06/08/17) SHELLFISH (Verified Allergy, Unknown, 12/01/15) Uncoded Allergies: Mints (Allergy, Unknown, 06/09/17) Objective Vital Signs Last 24 Hour Vital Signs Date Time Temp Pulse Resp B/P Pulse Ox O2 Delivery O2 Flow Rate FiO2 06/19/17 08:33 98.1 06/19/17 08:27 98.1 84 20 105/58 98 Room Air 06/19/17 04:00 98.6 93 18 118/67 98 Room Air 06/19/17 00:00 98.1 85 18 110/67 98 Room Air 06/18/17 20:00 98.3 84 18 115/58 99 Room Air 06/18/17 16:00 98.1 87 20 117/53 98 Room Air 06/18/17 12:02 98.1 85 18 119/65 97 Room Air Height (Feet): 5 Height (Inches): 3.00 Weight (Pounds): 127 General Appearance: no acute distress HEENT: mucous membranes moist Respiratory/Chest: lungs clear Cardiovascular: normal rate Abdomen: soft, non tender, other - s/p colostomy Extremities: no edema, other - R arm PICC line Neurologic/Psychiatric: alert, oriented x 3, responsive Current Medications Medications (Trade) Dose Ordered Sig/Michael Route PRN Reason Start Time Stop Time Status Last Admin Dose Admin Acetaminophen (Tylenol) 650 mg Q4H PRN ORAL Mild Pain/Temp > 100.5 06/15/17 10:45 07/15/17 10:44 06/16/17 10:28 Chlorhexidine Gluconate (Briana-Hex 2%) 1 applic DAILY TOPIC 06/15/17 09:00 07/15/17 08:59 06/19/17 08:48 Dextrose (Dextrose 50%) STAT PRN IV Hypoglycemia 06/14/17 21:02 07/14/17 21:01 Dextrose/Sodium Chloride (D5ns) 1,000 ml @ 80 mls/hr [id number] IV 06/18/17 07:30 07/18/17 07:29 06/19/17 08:58 Fat Emulsion Intravenous/Amino Acids/ Electrolytes/ Dextrose (Intralipids/Tpn) 1,800 ml @ 75 mls/hr Q24H IV 06/14/17 21:00 07/14/17 20:59 06/18/17 21:01 Insulin Aspart (NovoLOG) Q6HR SUBQ 06/15/17 00:00 07/15/17 00:00 06/19/17 05:50 Ketorolac Tromethamine (Toradol 30mg) 30 mg Q6H PRN IM Pain 4-10 06/14/17 23:15 06/19/17 23:14 06/19/17 08:03 Morphine Sulfate (Morphine Sulfate) 4 mg Q3H PRN IV BREAKTHROUGH PAIN 06/14/17 21:03 06/21/17 21:02 06/19/17 04:49 Nitroglycerin (Ntg) 0.4 mg Q5M X 3 DOSES PRN SL Prn Chest Pain 06/14/17 21:00 07/14/17 20:59 Ondansetron HCl (Zofran) 4 mg Q6H PRN IVP Nausea & Vomiting 06/14/17 21:03 07/14/17 21:02 06/16/17 03:16 Pantoprazole (Protonix) 40 mg BID IVP 06/15/17 09:00 07/15/17 08:59 06/19/17 08:47 Phytonadione (Vitamin K) 10 mg QWEEK SUBQ 06/20/17 21:00 07/20/17 20:59 Temazepam 15 mg 15 mg HSPRN PRN ORAL Insomnia 06/16/17 20:30 06/23/17 20:29 06/18/17 21:41 RBUY PIMENTEL Jun 19, 2017 10:55
--- NOTE | 2017-06-19 12:06 | General Progress Note ---
Assessment/Plan Assessment/Plan ASSESSMENT AND PLAN: #. Hypercoagulable disorder rule out. The patient with no history of potential venous thrombosis of the mesentery and multifactorial causes including dehydration and rule out occult malignancy or inflammatory process. The patient has pancreatitis and diverticulitis. Rule out myeloproliferative syndrome. The patient does not have portal hypertension. Did not have a personal and family history of venous thromboembolism. r/o inherited thrombophilia. --> send for factor V Leiden mutation, prothrombin gene mutation, protein C, protein S activity, prothrombin 3, and antiphospholipid syndrome workup again. The patient may have inherited thrombophilia with simple factor V Leiden, prothrombin gene mutation, protein S and protein C activity and prothrombin 3 mutation and antiphospholipid syndrome antibodies. We will continue to follow closely the result of these tests. --> results are still pending, will follow up #. Anemia, secondary to chronic disease. --> w/u completed #. Leukocytosis secondary to recent surgery. Continue to closely monitor --> s/p surgery should improve. #. Status post laparotomy with abdominal pain and ischemic bowel. #. Sepsis. #. Gastroenteritis. Subjective Date patient seen: Jun 18, 2017 Constitutional: Reports: no symptoms HEENT: Reports: no symptoms Cardiovascular: Reports: no symptoms Respiratory: Reports: no symptoms Gastrointestinal/Abdominal: Reports: no symptoms Genitourinary: Reports: no symptoms Neurologic/Psychiatric: Reports: no symptoms Endocrine: Reports: no symptoms Allergies: Coded Allergies: PENICILLIN (Verified Allergy, Unknown, 12/01/15) PENICILLINS (Unverified Allergy, Unknown, 06/08/17) SHELLFISH (Verified Allergy, Unknown, 12/01/15) Uncoded Allergies: Mints (Allergy, Unknown, 06/09/17) Subjective s/p colostomy, hypercoag w.u still pending Objective Last 24 Hour Vital Signs Date Time Temp Pulse Resp B/P Pulse Ox O2 Delivery O2 Flow Rate FiO2 06/19/17 08:33 98.1 06/19/17 08:27 98.1 84 20 105/58 98 Room Air 06/19/17 04:00 98.6 93 18 118/67 98 Room Air 06/19/17 00:00 98.1 85 18 110/67 98 Room Air 06/18/17 20:00 98.3 84 18 115/58 99 Room Air 06/18/17 16:00 98.1 87 20 117/53 98 Room Air 06/18/17 12:02 98.1 85 18 119/65 97 Room Air Intake and Output 06/18/17 06/19/17 19:00 07:00 Intake Total 2570 ml 2470 ml Output Total 1600 ml 100 ml Balance 970 ml 2370 ml Intake Oral 700 ml 300 ml IV Total 1870 ml 2170 ml Output Urine Total 1400 ml Stool Total 200 ml 100 ml # Voids 3 3 Height (Feet): 5 Height (Inches): 3.00 Weight (Pounds): 127 General Appearance: WD/WN EENT: PERRL/EOMI Neck: normal alignment Cardiovascular: normal peripheral pulses Respiratory/Chest: lungs clear Abdomen: normal bowel sounds, soft Genitourinary/Rectal: normal genital exam Extremities: normal range of motion Edema: no edema noted Pedal (L), no edema noted Pedal (R) 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
--- NOTE | 2017-06-19 13:44 | Pulmonology Progress Note ---
Assessment/Plan Problems: (1) Ischemic bowel disease (2) S/P laparotomy (3) Abdominal pain (4) Sepsis (5) Gastroenteritis (6) Septic shock Assessment/Plan oral diet tolerated well on TPN pt/ot check lab dc planning in process Subjective ROS Limited/Unobtainable: No Constitutional: Reports: no symptoms HEENT: Repors: no symptoms Respiratory: Reports: no symptoms Allergies: Coded Allergies: PENICILLIN (Verified Allergy, Unknown, 12/01/15) PENICILLINS (Unverified Allergy, Unknown, 06/08/17) SHELLFISH (Verified Allergy, Unknown, 12/01/15) Uncoded Allergies: Mints (Allergy, Unknown, 06/09/17) Objective Last 24 Hour Vital Signs Date Time Temp Pulse Resp B/P Pulse Ox O2 Delivery O2 Flow Rate FiO2 06/19/17 12:30 97.9 89 18 114/63 99 Room Air 06/19/17 08:33 98.1 06/19/17 08:27 98.1 84 20 105/58 98 Room Air 06/19/17 04:00 98.6 93 18 118/67 98 Room Air 06/19/17 00:00 98.1 85 18 110/67 98 Room Air 06/18/17 20:00 98.3 84 18 115/58 99 Room Air 06/18/17 16:00 98.1 87 20 117/53 98 Room Air Intake and Output 06/18/17 06/19/17 19:00 07:00 Intake Total 2570 ml 2470 ml Output Total 1600 ml 100 ml Balance 970 ml 2370 ml Intake Oral 700 ml 300 ml IV Total 1870 ml 2170 ml Output Urine Total 1400 ml Stool Total 200 ml 100 ml # Voids 3 3 General Appearance: WD/WN HEENT: normocephalic Respiratory/Chest: chest wall non-tender, lungs clear, normal breath sounds Breasts: no masses Cardiovascular: normal peripheral pulses Abdomen: normal bowel sounds, soft, non tender Genitourinary: normal external genitalia Extremities: no cyanosis 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 Current Medications Medications (Trade) Dose Ordered Sig/Michael Route PRN Reason Start Time Stop Time Status Last Admin Dose Admin Acetaminophen (Tylenol) 650 mg Q4H PRN ORAL Mild Pain/Temp > 100.5 06/15/17 10:45 07/15/17 10:44 06/16/17 10:28 Chlorhexidine Gluconate (Briana-Hex 2%) 1 applic DAILY TOPIC 06/15/17 09:00 07/15/17 08:59 06/19/17 08:48 Dextrose (Dextrose 50%) STAT PRN IV Hypoglycemia 06/14/17 21:02 07/14/17 21:01 Dextrose/Sodium Chloride (D5ns) 1,000 ml @ 80 mls/hr [id number] IV 06/18/17 07:30 07/18/17 07:29 06/19/17 08:58 Fat Emulsion Intravenous/Amino Acids/ Electrolytes/ Dextrose (Intralipids/Tpn) 1,800 ml @ 75 mls/hr Q24H IV 06/14/17 21:00 07/14/17 20:59 06/18/17 21:01 Insulin Aspart (NovoLOG) Q6HR SUBQ 06/15/17 00:00 07/15/17 00:00 06/19/17 11:52 Ketorolac Tromethamine (Toradol 30mg) 30 mg Q6H PRN IM Pain 4-10 06/14/17 23:15 06/19/17 23:14 06/19/17 08:03 Morphine Sulfate (Morphine Sulfate) 4 mg Q3H PRN IV BREAKTHROUGH PAIN 06/14/17 21:03 06/21/17 21:02 06/19/17 04:49 Nitroglycerin (Ntg) 0.4 mg Q5M X 3 DOSES PRN SL Prn Chest Pain 06/14/17 21:00 07/14/17 20:59 Ondansetron HCl (Zofran) 4 mg Q6H PRN IVP Nausea & Vomiting 06/14/17 21:03 07/14/17 21:02 06/16/17 03:16 Pantoprazole (Protonix) 40 mg BID IVP 06/15/17 09:00 07/15/17 08:59 06/19/17 08:47 Phytonadione (Vitamin K) 10 mg QWEEK SUBQ 06/20/17 21:00 07/20/17 20:59 Temazepam 15 mg 15 mg HSPRN PRN ORAL Insomnia 06/16/17 20:30 06/23/17 20:29 06/18/17 21:41 CLEVELAND MCRAE Jun 19, 2017 13:44
--- NOTE | 2017-06-19 14:17 | General Surgery Progress Note ---
General Surgery-Progress Note Subjective Procedure Performed exploratory laparotomy x 2 with partial small and large bowel extensive resections for ischemic bowel, colostomy Chief Complaint: doing well, tolerating some liquids OK (milk causes "cramps") , Symptoms: improved Additional Comments colostomy output decreasing, Objective Last 24 Hour Vital Signs Date Time Temp Pulse Resp B/P Pulse Ox O2 Delivery O2 Flow Rate FiO2 06/19/17 12:30 97.9 89 18 114/63 99 Room Air 06/19/17 08:33 98.1 06/19/17 08:27 98.1 84 20 105/58 98 Room Air 06/19/17 04:00 98.6 93 18 118/67 98 Room Air 06/19/17 00:00 98.1 85 18 110/67 98 Room Air 06/18/17 20:00 98.3 84 18 115/58 99 Room Air 06/18/17 16:00 98.1 87 20 117/53 98 Room Air I&O Intake and Output 06/18/17 06/19/17 19:00 07:00 Intake Total 2570 ml 2470 ml Output Total 1600 ml 100 ml Balance 970 ml 2370 ml Intake Oral 700 ml 300 ml IV Total 1870 ml 2170 ml Output Urine Total 1400 ml Stool Total 200 ml 100 ml # Voids 3 3 Wound: clean, dry Cardiovascular: RSR Respiratory: clear Abdomen: soft, non-tender, present bowel sounds, other - colsotomy Extremities: no edema Additional Comments Stable s/p extensive small 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 pt has some degree of short bowel syndrome, only time will tell how much and how much regeneration of mucosa and absorbtive capacity will be achieved. Meanwhile, she will need a several week TPN "bridging" until an anabolic state is achieved, and she is able to achieve normal uptake- absorption of sugars, fats and proteins, minerals, vitamins etc. literature not very good in predicting time it will take for bowel "maturity' to achieve the above. For now, continue current plan. Corporate Staff Accountant-dietitian to begin education on how she will best be able to help herself to achieve optimal nutrition Gastroenterology will need to assist with types of sugars to be avoided, possible utilization of Growth hormone(s) to aid with mucosal regeneration and hypertrophy. Discussed at length with pt and her family members. I doubt pt will be able to leave hospital eating and without TPN (with PICC) Dr. Pichardo's help much appreciated. JOSSELIN LANGLEY Jun 19, 2017 14:17
[2017-06-19] MEDS ORDERED: D5NS 1000ml IV ONE (16:56)
--- NOTE | 2017-06-19 20:16 | General Progress Note ---
Assessment/Plan Assessment/Plan ASSESSMENT AND PLAN: #. Hypercoagulable disorder rule out. The patient with no history of potential venous thrombosis of the mesentery and multifactorial causes including dehydration and rule out occult malignancy or inflammatory process. The patient has pancreatitis and diverticulitis. Rule out myeloproliferative syndrome. The patient does not have portal hypertension. Did not have a personal and family history of venous thromboembolism. r/o inherited thrombophilia. --> send for factor V Leiden mutation, prothrombin gene mutation, protein C, protein S activity, prothrombin 3, and antiphospholipid syndrome workup again. The patient may have inherited thrombophilia with simple factor V Leiden, prothrombin gene mutation, protein S and protein C activity and prothrombin 3 mutation and antiphospholipid syndrome antibodies. We will continue to follow closely the result of these tests. --> lab results that are currently available are wnl, except for Protein S which is decreased but not abnormally low in setting of an acute clot --> will follow up with other results as they become available --> agree with current care #. Anemia, secondary to chronic disease. --> w/u completed #. Leukocytosis secondary to recent surgery. Continue to closely monitor --> s/p surgery should improve. #. Status post laparotomy with abdominal pain and ischemic bowel. #. Sepsis. #. Gastroenteritis. Subjective Constitutional: Reports: no symptoms HEENT: Reports: no symptoms Cardiovascular: Reports: no symptoms Respiratory: Reports: no symptoms Gastrointestinal/Abdominal: Reports: no symptoms Genitourinary: Reports: no symptoms Neurologic/Psychiatric: Reports: no symptoms Endocrine: Reports: no symptoms Hematologic/Lymphatic: Reports: no symptoms Allergies: Coded Allergies: PENICILLIN (Verified Allergy, Unknown, 12/01/15) PENICILLINS (Unverified Allergy, Unknown, 06/08/17) SHELLFISH (Verified Allergy, Unknown, 12/01/15) Uncoded Allergies: Mints (Allergy, Unknown, 06/09/17) Subjective nad, appears comfortable Objective Last 24 Hour Vital Signs Date Time Temp Pulse Resp B/P Pulse Ox O2 Delivery O2 Flow Rate FiO2 06/19/17 16:50 98.2 06/19/17 16:00 98.2 87 18 110/65 99 Room Air 06/19/17 12:30 97.9 89 18 114/63 99 Room Air 06/19/17 08:27 98.1 84 20 105/58 98 Room Air 06/19/17 04:00 98.6 93 18 118/67 98 Room Air 06/19/17 00:00 98.1 85 18 110/67 98 Room Air Intake and Output 06/18/17 06/19/17 19:00 07:00 Intake Total 2570 ml 2470 ml Output Total 1600 ml 100 ml Balance 970 ml 2370 ml Intake Oral 700 ml 300 ml IV Total 1870 ml 2170 ml Output Urine Total 1400 ml Stool Total 200 ml 100 ml # Voids 3 3 Height (Feet): 5 Height (Inches): 3.00 Weight (Pounds): 127 General Appearance: no apparent distress EENT: PERRL/EOMI Neck: normal alignment Cardiovascular: normal peripheral pulses Respiratory/Chest: chest wall non-tender Abdomen: normal bowel sounds 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
[2017-06-19] MEDS: Fat Emulsion Iv 20% 240 ML in Tpn 1,560 ML IV SCH (21:00)
[2017-06-20] VITALS: BP 109/50
[2017-06-20] MEDS: Morphine Sulfate 4mg/ml Inj IV PRN (01:10)
[2017-06-20 04:00] VITALS: BP 108/62
[2017-06-20] MEDS: NovoLOG Insulin Flexpen SUBQ SCH ×3 (06:08→17:37)
[2017-06-20 06:54] LABS: BASOPHILS % (AUTO) 0.8 % (0.0-2.0); EOSINOPHILS % (AUTO) 1.8 % (0.0-3.0); LYMPHOCYTES % (AUTO) 26.3 % (20.0-45.0); MEAN CORPUSCULAR HEMOGLOBIN 28.3 PG (27.0-31.0); MEAN CORPUSCULAR HGB CONC 32.6 G/DL (32.0-36.0); MEAN CORPUSCULAR VOLUME 87 FL (80-99); MONOCYTES % (AUTO) 5.5 % (1.0-10.0); NEUTROPHILS % (AUTO) 65.6 % (45.0-75.0); PLATELET COUNT 578 K/UL (150-450); RED BLOOD COUNT 2.88 M/UL (4.20-5.40); RED CELL DISTRIBUTION WIDTH 17.9 % (11.6-14.8); WHITE BLOOD COUNT 9.4 K/UL (4.8-10.8)
[2017-06-20 07:33] LABS: ALANINE AMINOTRANSFERASE 15 U/L (3-33); ALBUMIN/GLOBULIN RATIO 0.7 (1.0-2.7); ANION GAP 9 (5-15); ASPARTATE AMINO TRANSFERASE 14 U/L (5-40); CALCIUM 8.3 mg/dL (8.6-10.2); CARBON DIOXIDE 25 mEQ/L (20-30); CHLORIDE 107 mEQ/L (98-107); CREATININE 0.4 mg/dL (0.5-0.9); GLOMERULAR FILTRATION RATE > 60 mL/min (>60); HEMOLYSIS 1; PHOSPHORUS 3.1 mg/dL (2.5-4.8); POTASSIUM 3.9 mEQ/L (3.4-4.9); SODIUM 141 mEQ/L (135-145); TOTAL PROTEIN 5.7 g/dL (6.6-8.7)
[2017-06-20 08:00] VITALS: BP 111/60
[2017-06-20] MEDS: Dyna-Hex 2% Top Sol 8oz TOPIC SCH (08:16)
[2017-06-20] MEDS: D5NS 1,000 ML IV SCH (08:16)
[2017-06-20] MEDS: Pantoprazole Inj IVP SCH (08:16)
--- NOTE | 2017-06-20 09:21 | Infectious Diseases Prog Note ---
Assessment/Plan Assessment/Plan ASSESSMENT: 62 y/o female with: // Secondary peritonitis SP Rx - WCx K.pneumoniae, m/l polymicrobial // Ischemic colitis - SP takeback SBR, partial colectomy 06/10 - SP ex-lap subtotal colectomy 06/09 // Leukocytosis - resolved, afebrile // SP VDRF // PCN allergy // Full Code PLAN: - monitor pt off of ABX ( 06/18 SP Flagyl and Azactam d# ) - monitor CBC, temperatures, re-culture if acute change - monitor BMP Subjective Allergies: Coded Allergies: PENICILLIN (Verified Allergy, Unknown, 12/01/15) PENICILLINS (Unverified Allergy, Unknown, 06/08/17) SHELLFISH (Verified Allergy, Unknown, 12/01/15) Uncoded Allergies: Mints (Allergy, Unknown, 06/09/17) Subjective remains afebrile. leukocytosis resolved pain controlled Objective Vital Signs Last 24 Hour Vital Signs Date Time Temp Pulse Resp B/P Pulse Ox O2 Delivery O2 Flow Rate FiO2 06/20/17 08:00 98.1 90 20 111/60 97 Room Air 06/20/17 04:00 98.6 83 16 108/62 99 Room Air 06/20/17 00:00 99.0 96 18 109/50 99 Room Air 06/19/17 20:00 98.4 89 18 123/70 100 Room Air 06/19/17 16:50 98.2 06/19/17 16:00 98.2 87 18 110/65 99 Room Air 06/19/17 12:30 97.9 89 18 114/63 99 Room Air Height (Feet): 5 Height (Inches): 3.00 Weight (Pounds): 127 General Appearance: no acute distress Respiratory/Chest: no respiratory distress Cardiovascular: normal rate, regular rhythm Abdomen: normal bowel sounds, soft, non tender, non distended Laboratory Tests Test 06/20/17 04:35 White Blood Count 9.4 K/UL (4.8-10.8) Red Blood Count 2.88 M/UL (4.20-5.40) L Hemoglobin 8.2 G/DL (12.0-16.0) L Hematocrit 25.0 % (37.0-47.0) L Mean Corpuscular Volume 87 FL (80-99) Mean Corpuscular Hemoglobin 28.3 PG (27.0-31.0) Mean Corpuscular Hemoglobin Concent 32.6 G/DL (32.0-36.0) Red Cell Distribution Width 17.9 % (11.6-14.8) H Platelet Count 578 K/UL (150-450) H Mean Platelet Volume 6.0 FL (6.5-10.1) L Neutrophils (%) (Auto) 65.6 % (45.0-75.0) Lymphocytes (%) (Auto) 26.3 % (20.0-45.0) Monocytes (%) (Auto) 5.5 % (1.0-10.0) Eosinophils (%) (Auto) 1.8 % (0.0-3.0) Basophils (%) (Auto) 0.8 % (0.0-2.0) Sodium Level 141 mEQ/L (135-145) Potassium Level 3.9 mEQ/L (3.4-4.9) Chloride Level 107 mEQ/L (98-107) Carbon Dioxide Level 25 mEQ/L (20-30) Anion Gap 9 (5-15) Blood Urea Nitrogen 9 mg/dL (7-23) Creatinine 0.4 mg/dL (0.5-0.9) L Estimat Glomerular Filtration Rate > 60 mL/min (>60) Glucose Level 140 mg/dL (74-106) H Calcium Level 8.3 mg/dL (8.6-10.2) L Phosphorus Level 3.1 mg/dL (2.5-4.8) Magnesium Level 2.0 mg/dL (1.7-2.5) Total Bilirubin < 0.2 mg/dL (0.0-1.2) Aspartate Amino Transf (AST/SGOT) 14 U/L (5-40) Alanine Aminotransferase (ALT/SGPT) 15 U/L (3-33) Alkaline Phosphatase 102 U/L (35-104) Total Protein 5.7 g/dL (6.6-8.7) L Albumin 2.5 g/dL (3.5-5.2) L Globulin 3.2 g/dL Albumin/Globulin Ratio 0.7 (1.0-2.7) L Current Medications Medications (Trade) Dose Ordered Sig/Michael Route PRN Reason Start Time Stop Time Status Last Admin Dose Admin Acetaminophen (Tylenol) 650 mg Q4H PRN ORAL Mild Pain/Temp > 100.5 06/15/17 10:45 07/15/17 10:44 06/16/17 10:28 Chlorhexidine Gluconate (Briana-Hex 2%) 1 applic DAILY TOPIC 06/15/17 09:00 07/15/17 08:59 06/20/17 08:16 Dextrose (Dextrose 50%) STAT PRN IV Hypoglycemia 06/14/17 21:02 07/14/17 21:01 Dextrose/Sodium Chloride (D5ns) 1,000 ml @ 80 mls/hr [id number] IV 06/18/17 07:30 07/18/17 07:29 06/20/17 08:16 Fat Emulsion Intravenous/Amino Acids/ Electrolytes/ Dextrose (Intralipids/Tpn) 1,800 ml @ 75 mls/hr Q24H IV 06/14/17 21:00 07/14/17 20:59 06/19/17 21:00 Insulin Aspart (NovoLOG) Q6HR SUBQ 06/15/17 00:00 07/15/17 00:00 06/20/17 06:08 Morphine Sulfate (Morphine Sulfate) 4 mg Q3H PRN IV BREAKTHROUGH PAIN 06/14/17 21:03 06/21/17 21:02 06/20/17 01:10 Nitroglycerin (Ntg) 0.4 mg Q5M X 3 DOSES PRN SL Prn Chest Pain 06/14/17 21:00 07/14/17 20:59 Ondansetron HCl (Zofran) 4 mg Q6H PRN IVP Nausea & Vomiting 06/14/17 21:03 07/14/17 21:02 06/16/17 03:16 Pantoprazole (Protonix) 40 mg BID IVP 06/15/17 09:00 07/15/17 08:59 06/20/17 08:16 Phytonadione (Vitamin K) 10 mg QWEEK SUBQ 06/20/17 21:00 07/20/17 20:59 Temazepam 15 mg 15 mg HSPRN PRN ORAL Insomnia 06/16/17 20:30 06/23/17 20:29 06/19/17 23:19 RASHAWN SLOAN Jun 20, 2017 09:21
--- NOTE | 2017-06-20 10:56 | General Progress Note ---
Progress Note Progress Note Surgery: pt seen and examined at bedside. no acute events. doing very well. pain tolerated. no n/v/f/c. afebrile, HD stable, labs look good. Abd soft, nt/nd, bs+, ostomy pink and viable with stool, midline c/d/i advance to regular diet. ambulate and oob will remove remainder of janes tomorrow TPN "bridging" for now Wei Monroy Jun 20, 2017 10:56
--- NOTE | 2017-06-20 11:12 | GI Progress Note ---
Assessment/Plan Problems: (1) Abdominal pain ICD Codes: R10.9 - Unspecified abdominal pain SNOMED: 59284304 Qualifiers: Qualified Codes: R10.13 - Epigastric pain (2) Gastroenteritis ICD Codes: K52.9 - Noninfective gastroenteritis and colitis, unspecified SNOMED: 49584130 (3) Gastric ulcer with hemorrhage ICD Codes: K25.4 - Chronic or unspecified gastric ulcer with hemorrhage SNOMED: 24179501 (4) Ischemic colon ICD Codes: K55.9 - Vascular disorder of intestine, unspecified SNOMED: 59153435 (5) Sepsis ICD Codes: A41.9 - Sepsis, unspecified organism SNOMED: 70117430 Qualifiers: Qualified Codes: A41.9 - Sepsis, unspecified organism Status: stable, progressing Status Narrative Discussed with Dr. Martinez. Assessment/Plan post op care IVFs diet per surgery >> adv to regular diet, TPN taper abx fu surgical recs fu labs Subjective Subjective generalize weakness surgical pain Objective Last 24 Hour Vital Signs Date Time Temp Pulse Resp B/P Pulse Ox O2 Delivery O2 Flow Rate FiO2 06/20/17 08:00 98.1 90 20 111/60 97 Room Air 06/20/17 04:00 98.6 83 16 108/62 99 Room Air 06/20/17 00:00 99.0 96 18 109/50 99 Room Air 06/19/17 20:00 98.4 89 18 123/70 100 Room Air 06/19/17 16:50 98.2 06/19/17 16:00 98.2 87 18 110/65 99 Room Air 06/19/17 12:30 97.9 89 18 114/63 99 Room Air Intake and Output 06/19/17 06/20/17 19:00 07:00 Intake Total 2635 ml 1825 ml Output Total 900 ml 1160 ml Balance 1735 ml 665 ml Intake Oral 700 ml 120 ml IV Total 1935 ml 1705 ml Output Urine Total 700 ml 1125 ml Stool Total 200 ml 35 ml # Voids 2 2 Laboratory Tests Test 06/20/17 04:35 White Blood Count 9.4 K/UL (4.8-10.8) Red Blood Count 2.88 M/UL (4.20-5.40) L Hemoglobin 8.2 G/DL (12.0-16.0) L Hematocrit 25.0 % (37.0-47.0) L Mean Corpuscular Volume 87 FL (80-99) Mean Corpuscular Hemoglobin 28.3 PG (27.0-31.0) Mean Corpuscular Hemoglobin Concent 32.6 G/DL (32.0-36.0) Red Cell Distribution Width 17.9 % (11.6-14.8) H Platelet Count 578 K/UL (150-450) H Mean Platelet Volume 6.0 FL (6.5-10.1) L Neutrophils (%) (Auto) 65.6 % (45.0-75.0) Lymphocytes (%) (Auto) 26.3 % (20.0-45.0) Monocytes (%) (Auto) 5.5 % (1.0-10.0) Eosinophils (%) (Auto) 1.8 % (0.0-3.0) Basophils (%) (Auto) 0.8 % (0.0-2.0) Sodium Level 141 mEQ/L (135-145) Potassium Level 3.9 mEQ/L (3.4-4.9) Chloride Level 107 mEQ/L (98-107) Carbon Dioxide Level 25 mEQ/L (20-30) Anion Gap 9 (5-15) Blood Urea Nitrogen 9 mg/dL (7-23) Creatinine 0.4 mg/dL (0.5-0.9) L Estimat Glomerular Filtration Rate > 60 mL/min (>60) Glucose Level 140 mg/dL (74-106) H Calcium Level 8.3 mg/dL (8.6-10.2) L Phosphorus Level 3.1 mg/dL (2.5-4.8) Magnesium Level 2.0 mg/dL (1.7-2.5) Total Bilirubin < 0.2 mg/dL (0.0-1.2) Aspartate Amino Transf (AST/SGOT) 14 U/L (5-40) Alanine Aminotransferase (ALT/SGPT) 15 U/L (3-33) Alkaline Phosphatase 102 U/L (35-104) Total Protein 5.7 g/dL (6.6-8.7) L Albumin 2.5 g/dL (3.5-5.2) L Globulin 3.2 g/dL Albumin/Globulin Ratio 0.7 (1.0-2.7) L Height (Feet): 5 Height (Inches): 3.00 Weight (Pounds): 127 General Appearance: no apparent distress, alert Cardiovascular: normal rate Respiratory/Chest: normal breath sounds, no respiratory distress Abdominal Exam: normal bowel sounds, non tender, soft, incision site, other - colostomy Sabrina Evangelista N.P. Jun 20, 2017 11:12
[2017-06-20] MEDS: Norco 5mg/325mg tab ORAL PRN ×2 (11:37→15:39)
[2017-06-20 12:00] VITALS: BP 116/73
--- NOTE | 2017-06-20 14:36 | Pulmonology Progress Note ---
Assessment/Plan Problems: (1) Ischemic bowel disease (2) S/P laparotomy (3) Abdominal pain (4) Sepsis (5) Gastroenteritis (6) Septic shock Assessment/Plan oral diet tolerated well on TPN pt/ot check lab dc planning in process will need placement Subjective ROS Limited/Unobtainable: No Constitutional: Reports: no symptoms HEENT: Repors: no symptoms Respiratory: Reports: no symptoms Allergies: Coded Allergies: PENICILLIN (Verified Allergy, Unknown, 12/01/15) PENICILLINS (Unverified Allergy, Unknown, 06/08/17) SHELLFISH (Verified Allergy, Unknown, 12/01/15) Uncoded Allergies: Mints (Allergy, Unknown, 06/09/17) Objective Last 24 Hour Vital Signs Date Time Temp Pulse Resp B/P Pulse Ox O2 Delivery O2 Flow Rate FiO2 06/20/17 12:36 98.2 06/20/17 12:00 98.2 87 18 116/73 98 Room Air 06/20/17 08:00 98.1 90 20 111/60 97 Room Air 06/20/17 04:00 98.6 83 16 108/62 99 Room Air 06/20/17 00:00 99.0 96 18 109/50 99 Room Air 06/19/17 20:00 98.4 89 18 123/70 100 Room Air 06/19/17 16:50 98.2 06/19/17 16:00 98.2 87 18 110/65 99 Room Air Intake and Output 06/19/17 06/20/17 19:00 07:00 Intake Total 2635 ml 1825 ml Output Total 900 ml 1160 ml Balance 1735 ml 665 ml Intake Oral 700 ml 120 ml IV Total 1935 ml 1705 ml Output Urine Total 700 ml 1125 ml Stool Total 200 ml 35 ml # Voids 2 2 General Appearance: WD/WN HEENT: normocephalic, PERRL Respiratory/Chest: chest wall non-tender, lungs clear Breasts: no masses Abdomen: normal bowel sounds, soft, non tender, no organomegaly Genitourinary: normal external genitalia Extremities: no cyanosis Skin: no rash Neurologic/Psychiatric: 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 case 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 II-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 grossly normal Laboratory Tests 06/20/17 04:35: White Blood Count 9.4, Red Blood Count 2.88L, Hemoglobin 8.2L, Hematocrit 25.0L , Mean Corpuscular Volume 87, Mean Corpuscular Hemoglobin 28.3, Mean Corpuscular Hemoglobin Concent 32.6, Red Cell Distribution Width 17.9H, Platelet Count 578H, Mean Platelet Volume 6.0L, Neutrophils (%) (Auto) 65.6, Lymphocytes (%) (Auto) 26.3, Monocytes (%) (Auto) 5.5, Eosinophils (%) (Auto) 1.8, Basophils (%) (Auto) 0.8, Sodium Level 141, Potassium Level 3.9, Chloride Level 107, Carbon Dioxide Level 25, Anion Gap 9, Blood Urea Nitrogen 9, Creatinine 0.4L, Estimat Glomerular Filtration Rate > 60, Glucose Level 140H, Calcium Level 8.3L, Phosphorus Level 3.1, Magnesium Level 2.0, Total Bilirubin < 0.2, Aspartate Amino Transf (AST/SGOT) 14, Alanine Aminotransferase (ALT/SGPT ) 15, Alkaline Phosphatase 102, Total Protein 5.7L, Albumin 2.5L, Globulin 3.2, Albumin/Globulin Ratio 0.7L Current Medications Medications (Trade) Dose Ordered Sig/Michael Route PRN Reason Start Time Stop Time Status Last Admin Dose Admin Acetaminophen (Tylenol) 650 mg Q4H PRN ORAL Mild Pain/Temp > 100.5 06/15/17 10:45 07/15/17 10:44 06/16/17 10:28 Acetaminophen/ Hydrocodone Bitart ([place] 5/325) 1 tab Q4H PRN ORAL Moderate Pain (Pain Scale 4-6) 06/20/17 11:00 06/27/17 10:59 06/20/17 11:37 Chlorhexidine Gluconate (Briana-Hex 2%) 1 applic DAILY TOPIC 06/15/17 09:00 07/15/17 08:59 06/20/17 08:16 Dextrose (Dextrose 50%) STAT PRN IV Hypoglycemia 06/14/17 21:02 07/14/17 21:01 Fat Emulsion Intravenous/Amino Acids/ Electrolytes/ Dextrose (Intralipids/Tpn) 1,800 ml @ 75 mls/hr Q24H IV 06/14/17 21:00 07/14/17 20:59 06/19/17 21:00 Insulin Aspart (NovoLOG) Q6HR SUBQ 06/15/17 00:00 07/15/17 00:00 06/20/17 11:34 Morphine Sulfate (Morphine Sulfate) 4 mg Q3H PRN IV BREAKTHROUGH PAIN 06/14/17 21:03 06/21/17 21:02 06/20/17 01:10 Nitroglycerin (Ntg) 0.4 mg Q5M X 3 DOSES PRN SL Prn Chest Pain 06/14/17 21:00 07/14/17 20:59 Ondansetron HCl (Zofran) 4 mg Q6H PRN IVP Nausea & Vomiting 06/14/17 21:03 07/14/17 21:02 06/16/17 03:16 Pantoprazole (Protonix) 40 mg DAILY ORAL 06/21/17 09:00 07/21/17 08:59 Phytonadione (Vitamin K) 10 mg QWEEK SUBQ 06/20/17 21:00 07/20/17 20:59 Temazepam (Restoril) 15 mg HSPRN PRN ORAL Insomnia 06/16/17 20:30 06/23/17 20:29 06/19/17 23:19 CLEVELAND MCRAE Jun 20, 2017 14:36
--- NOTE | 2017-06-20 14:38 | Wound Nurse Progress Note ---
Wound RN Progress Note Wound Consult patient teaching provided regarding cleaning colostomy bag and placement of colostomy clip, patient was able to provide return demonstration when cleaning colostomy bag and able to place clip. offered patient teaching regarding colostomy bag changing and cutting and proper placement and cutting, patient stated " will practice tomorrow". will continue to follow up. DINORA CORTES Jun 20, 2017 14:38
--- NOTE | 2017-06-20 15:02 | General Progress Note ---
Assessment/Plan Assessment/Plan ASSESSMENT AND PLAN: #. Hypercoagulable disorder rule out. The patient with no history of potential venous thrombosis of the mesentery and multifactorial causes including dehydration and rule out occult malignancy or inflammatory process. The patient has pancreatitis and diverticulitis. Rule out myeloproliferative syndrome. The patient does not have portal hypertension. Did not have a personal and family history of venous thromboembolism. r/o inherited thrombophilia. --> send for factor V Leiden mutation, prothrombin gene mutation, protein C, protein S activity, prothrombin 3, and antiphospholipid syndrome workup again. The patient may have inherited thrombophilia with simple factor V Leiden, prothrombin gene mutation, protein S and protein C activity and prothrombin 3 mutation and antiphospholipid syndrome antibodies. We will continue to follow closely the result of these tests. --> lab results that are currently available are wnl, except for Protein S which is decreased but not abnormally low in setting of an acute clot --> will follow up with other results as they become available --> agree with current care #. Anemia, secondary to chronic disease. --> w/u completed #. Leukocytosis secondary to recent surgery. Continue to closely monitor --> s/p surgery should improve --> currently wnl #. Status post laparotomy with abdominal pain and ischemic bowel. #. Sepsis. #. Gastroenteritis. Subjective Constitutional: Reports: no symptoms HEENT: Reports: no symptoms Cardiovascular: Reports: no symptoms Respiratory: Reports: no symptoms Gastrointestinal/Abdominal: Reports: no symptoms Genitourinary: Reports: no symptoms Neurologic/Psychiatric: Reports: no symptoms Endocrine: Reports: no symptoms Hematologic/Lymphatic: Reports: anemia Allergies: Coded Allergies: PENICILLIN (Verified Allergy, Unknown, 12/01/15) PENICILLINS (Unverified Allergy, Unknown, 06/08/17) SHELLFISH (Verified Allergy, Unknown, 12/01/15) Uncoded Allergies: Mints (Allergy, Unknown, 06/09/17) Subjective labs still pending, no events overnight Objective Last 24 Hour Vital Signs Date Time Temp Pulse Resp B/P Pulse Ox O2 Delivery O2 Flow Rate FiO2 06/20/17 12:36 98.2 06/20/17 12:00 98.2 87 18 116/73 98 Room Air 06/20/17 08:00 98.1 90 20 111/60 97 Room Air 06/20/17 04:00 98.6 83 16 108/62 99 Room Air 06/20/17 00:00 99.0 96 18 109/50 99 Room Air 06/19/17 20:00 98.4 89 18 123/70 100 Room Air 06/19/17 16:50 98.2 06/19/17 16:00 98.2 87 18 110/65 99 Room Air Intake and Output 06/19/17 06/20/17 19:00 07:00 Intake Total 2635 ml 1825 ml Output Total 900 ml 1160 ml Balance 1735 ml 665 ml Intake Oral 700 ml 120 ml IV Total 1935 ml 1705 ml Output Urine Total 700 ml 1125 ml Stool Total 200 ml 35 ml # Voids 2 2 Laboratory Tests 06/20/17 04:35: White Blood Count 9.4, Red Blood Count 2.88L, Hemoglobin 8.2L, Hematocrit 25.0L , Mean Corpuscular Volume 87, Mean Corpuscular Hemoglobin 28.3, Mean Corpuscular Hemoglobin Concent 32.6, Red Cell Distribution Width 17.9H, Platelet Count 578H, Mean Platelet Volume 6.0L, Neutrophils (%) (Auto) 65.6, Lymphocytes (%) (Auto) 26.3, Monocytes (%) (Auto) 5.5, Eosinophils (%) (Auto) 1.8, Basophils (%) (Auto) 0.8, Sodium Level 141, Potassium Level 3.9, Chloride Level 107, Carbon Dioxide Level 25, Anion Gap 9, Blood Urea Nitrogen 9, Creatinine 0.4L, Estimat Glomerular Filtration Rate > 60, Glucose Level 140H, Calcium Level 8.3L, Phosphorus Level 3.1, Magnesium Level 2.0, Total Bilirubin < 0.2, Aspartate Amino Transf (AST/SGOT) 14, Alanine Aminotransferase (ALT/SGPT ) 15, Alkaline Phosphatase 102, Total Protein 5.7L, Albumin 2.5L, Globulin 3.2, Albumin/Globulin Ratio 0.7L Height (Feet): 5 Height (Inches): 3.00 Weight (Pounds): 127 General Appearance: no apparent distress EENT: normal ENT inspection Neck: normal alignment Cardiovascular: normal rate Abdomen: normal bowel sounds Pelvis: normal rectal exam Skin: warm/dry Dell Pichardo Jun 20, 2017 15:02
[2017-06-20 16:00] VITALS: BP 117/64
[2017-06-20 20:00] VITALS: BP 119/66
[2017-06-20] MEDS ORDERED: Phytonadione 10 mg/mL 1ml amp SUBQ SCH ×2 (21:00)
[2017-06-20] MEDS: Fat Emulsion Iv 20% 240 ML in Tpn 1,560 ML IV SCH (21:17)
[2017-06-21 00:23] VITALS: BP 120/60
[2017-06-21 04:00] VITALS: BP 110/62
[2017-06-21] MEDS: NovoLOG Insulin Flexpen SUBQ SCH ×4 (06:00→18:04)
[2017-06-21 06:06] LABS: BASOPHILS % (AUTO) 0.8 % (0.0-2.0); EOSINOPHILS % (AUTO) 1.5 % (0.0-3.0); LYMPHOCYTES % (AUTO) 21.9 % (20.0-45.0); MEAN CORPUSCULAR HEMOGLOBIN 28.2 PG (27.0-31.0); MEAN CORPUSCULAR HGB CONC 32.4 G/DL (32.0-36.0); MEAN CORPUSCULAR VOLUME 87 FL (80-99); MEAN PLATELET VOLUME 5.9 FL (6.5-10.1); MONOCYTES % (AUTO) 5.4 % (1.0-10.0); NEUTROPHILS % (AUTO) 70.4 % (45.0-75.0); PLATELET COUNT 624 K/UL (150-450); RED BLOOD COUNT 3.02 M/UL (4.20-5.40); RED CELL DISTRIBUTION WIDTH 17.8 % (11.6-14.8); WHITE BLOOD COUNT 10.9 K/UL (4.8-10.8)
[2017-06-21 06:23] LABS: ANION GAP 9 (5-15); CALCIUM 9.2 mg/dL (8.6-10.2); CARBON DIOXIDE 28 mEQ/L (20-30); CHLORIDE 105 mEQ/L (98-107); CREATININE 0.5 mg/dL (0.5-0.9); GLOMERULAR FILTRATION RATE > 60 mL/min (>60); HEMOLYSIS 15; POTASSIUM 4.4 mEQ/L (3.4-4.9); SODIUM 142 mEQ/L (135-145)
[2017-06-21 07:55] VITALS: BP 112/70
[2017-06-21] MEDS: Dyna-Hex 2% Top Sol 8oz TOPIC SCH (08:12)
--- NOTE | 2017-06-21 10:25 | General Progress Note ---
Progress Note Progress Note Surgery: patient seen and examined at bedside. doing well. no acute events. comfortable. no n/v/f/c. started regular diet yesterday and tolerated well. no pain. no dumping. ostomy viable with formed stool coming out now. exam benign. labs okay diet as tolerated may potentially be able to wean TPN soon ambulate and Wei You Jun 21, 2017 10:25
[2017-06-21 11:20] VITALS: BP 112/59
[2017-06-21] MEDS: Norco 5mg/325mg tab ORAL PRN ×2 (11:22→20:56)
--- NOTE | 2017-06-21 13:57 | Infectious Diseases Prog Note ---
Assessment/Plan Assessment/Plan ASSESSMENT: 62 y/o female with: // Secondary peritonitis SP Rx - WCx K.pneumoniae, m/l polymicrobial // Ischemic colitis - SP takeback SBR, partial colectomy 06/10 - SP ex-lap subtotal colectomy 06/09 // Leukocytosis - resolved, afebrile // SP VDRF // PCN allergy // Full Code PLAN: - monitor pt off of ABX ( 06/18 SP Flagyl and Azactam d# ) - monitor CBC, temperatures, re-culture if acute change - monitor BMP Subjective Allergies: Coded Allergies: PENICILLIN (Verified Allergy, Unknown, 12/01/15) PENICILLINS (Unverified Allergy, Unknown, 06/08/17) SHELLFISH (Verified Allergy, Unknown, 12/01/15) Uncoded Allergies: Mints (Allergy, Unknown, 06/09/17) Subjective remains afebrile. l pain controlled Objective Vital Signs Last 24 Hour Vital Signs Date Time Temp Pulse Resp B/P Pulse Ox O2 Delivery O2 Flow Rate FiO2 06/21/17 11:20 97.7 91 20 112/59 98 Room Air 06/21/17 07:55 98.1 84 20 112/70 99 Room Air 06/21/17 04:00 97.8 83 18 110/62 96 Room Air 06/21/17 00:23 97.9 93 18 120/60 100 Room Air 06/20/17 20:00 97.9 92 18 119/66 100 Room Air 06/20/17 16:38 98.2 06/20/17 16:00 98.2 87 17 117/64 93 Room Air Height (Feet): 5 Height (Inches): 3.00 Weight (Pounds): 128 General Appearance: no acute distress Respiratory/Chest: no respiratory distress Cardiovascular: normal rate, regular rhythm Abdomen: normal bowel sounds, soft, non tender, non distended, other - ostomy Laboratory Tests Test 06/21/17 05:40 White Blood Count 10.9 K/UL (4.8-10.8) H Red Blood Count 3.02 M/UL (4.20-5.40) L Hemoglobin 8.5 G/DL (12.0-16.0) L Hematocrit 26.3 % (37.0-47.0) L Mean Corpuscular Volume 87 FL (80-99) Mean Corpuscular Hemoglobin 28.2 PG (27.0-31.0) Mean Corpuscular Hemoglobin Concent 32.4 G/DL (32.0-36.0) Red Cell Distribution Width 17.8 % (11.6-14.8) H Platelet Count 624 K/UL (150-450) H Mean Platelet Volume 5.9 FL (6.5-10.1) L Neutrophils (%) (Auto) 70.4 % (45.0-75.0) Lymphocytes (%) (Auto) 21.9 % (20.0-45.0) Monocytes (%) (Auto) 5.4 % (1.0-10.0) Eosinophils (%) (Auto) 1.5 % (0.0-3.0) Basophils (%) (Auto) 0.8 % (0.0-2.0) Sodium Level 142 mEQ/L (135-145) Potassium Level 4.4 mEQ/L (3.4-4.9) Chloride Level 105 mEQ/L (98-107) Carbon Dioxide Level 28 mEQ/L (20-30) Anion Gap 9 (5-15) Blood Urea Nitrogen 10 mg/dL (7-23) Creatinine 0.5 mg/dL (0.5-0.9) Estimat Glomerular Filtration Rate > 60 mL/min (>60) Glucose Level 104 mg/dL (74-106) Calcium Level 9.2 mg/dL (8.6-10.2) Current Medications Medications (Trade) Dose Ordered Sig/Michael Route PRN Reason Start Time Stop Time Status Last Admin Dose Admin Acetaminophen (Tylenol) 650 mg Q4H PRN ORAL Mild Pain/Temp > 100.5 06/15/17 10:45 07/15/17 10:44 06/16/17 10:28 Acetaminophen/ Hydrocodone Bitart ([place] 5/325) 1 tab Q4H PRN ORAL Moderate Pain (Pain Scale 4-6) 06/20/17 11:00 06/27/17 10:59 06/21/17 11:22 Chlorhexidine Gluconate (Briana-Hex 2%) 1 applic DAILY TOPIC 06/15/17 09:00 07/15/17 08:59 06/21/17 08:12 Dextrose (Dextrose 50%) STAT PRN IV Hypoglycemia 06/14/17 21:02 07/14/17 21:01 Fat Emulsion Intravenous/Amino Acids/ Electrolytes/ Dextrose (Intralipids/Tpn) 1,800 ml @ 75 mls/hr Q24H IV 06/14/17 21:00 07/14/17 20:59 06/20/17 21:17 Insulin Aspart (NovoLOG) Q6HR SUBQ 06/15/17 00:00 07/15/17 00:00 06/21/17 12:23 Morphine Sulfate (Morphine Sulfate) 4 mg Q3H PRN IV BREAKTHROUGH PAIN 06/14/17 21:03 06/21/17 21:02 06/20/17 01:10 Nitroglycerin (Ntg) 0.4 mg Q5M X 3 DOSES PRN SL Prn Chest Pain 06/14/17 21:00 07/14/17 20:59 Ondansetron HCl (Zofran) 4 mg Q6H PRN IVP Nausea & Vomiting 06/14/17 21:03 07/14/17 21:02 06/16/17 03:16 Pantoprazole (Protonix) 40 mg DAILY ORAL 06/21/17 09:00 07/21/17 08:59 06/21/17 08:12 Phytonadione (Vitamin K) 10 mg QWEEK SUBQ 06/20/17 21:00 07/20/17 20:59 06/20/17 22:00 Temazepam (Restoril) 15 mg HSPRN PRN ORAL Insomnia 06/16/17 20:30 06/23/17 20:29 06/20/17 21:12 RASHAWN SLOAN Jun 21, 2017 13:57
--- NOTE | 2017-06-21 14:08 | GI Progress Note ---
Assessment/Plan Problems: (1) Abdominal pain ICD Codes: R10.9 - Unspecified abdominal pain SNOMED: 18825490 Qualifiers: Qualified Codes: R10.13 - Epigastric pain (2) Gastroenteritis ICD Codes: K52.9 - Noninfective gastroenteritis and colitis, unspecified SNOMED: 19758713 (3) Gastric ulcer with hemorrhage ICD Codes: K25.4 - Chronic or unspecified gastric ulcer with hemorrhage SNOMED: 20777880 (4) Ischemic colon ICD Codes: K55.9 - Vascular disorder of intestine, unspecified SNOMED: 48287017 (5) Sepsis ICD Codes: A41.9 - Sepsis, unspecified organism SNOMED: 19778497 Qualifiers: Qualified Codes: A41.9 - Sepsis, unspecified organism Status: stable, progressing Status Narrative Discussed with Dr. Gonzalez. Assessment/Plan post op care IVFs diet per surgery >> adv to regular diet, TPN taper abx fu surgical recs fu labs Subjective Subjective generalize weakness surgical pain Objective Last 24 Hour Vital Signs Date Time Temp Pulse Resp B/P Pulse Ox O2 Delivery O2 Flow Rate FiO2 06/21/17 11:20 97.7 91 20 112/59 98 Room Air 06/21/17 07:55 98.1 84 20 112/70 99 Room Air 06/21/17 04:00 97.8 83 18 110/62 96 Room Air 06/21/17 00:23 97.9 93 18 120/60 100 Room Air 06/20/17 20:00 97.9 92 18 119/66 100 Room Air 06/20/17 16:38 98.2 06/20/17 16:00 98.2 87 17 117/64 93 Room Air Intake and Output 06/20/17 06/21/17 19:00 07:00 Intake Total 1750 ml 1065 ml Output Total 690 ml 100 ml Balance 1060 ml 965 ml Intake Oral 850 ml 240 ml IV Total 900 ml 825 ml Output Urine Total 650 ml Stool Total 40 ml 100 ml # Voids 4 2 Laboratory Tests Test 06/21/17 05:40 White Blood Count 10.9 K/UL (4.8-10.8) H Red Blood Count 3.02 M/UL (4.20-5.40) L Hemoglobin 8.5 G/DL (12.0-16.0) L Hematocrit 26.3 % (37.0-47.0) L Mean Corpuscular Volume 87 FL (80-99) Mean Corpuscular Hemoglobin 28.2 PG (27.0-31.0) Mean Corpuscular Hemoglobin Concent 32.4 G/DL (32.0-36.0) Red Cell Distribution Width 17.8 % (11.6-14.8) H Platelet Count 624 K/UL (150-450) H Mean Platelet Volume 5.9 FL (6.5-10.1) L Neutrophils (%) (Auto) 70.4 % (45.0-75.0) Lymphocytes (%) (Auto) 21.9 % (20.0-45.0) Monocytes (%) (Auto) 5.4 % (1.0-10.0) Eosinophils (%) (Auto) 1.5 % (0.0-3.0) Basophils (%) (Auto) 0.8 % (0.0-2.0) Sodium Level 142 mEQ/L (135-145) Potassium Level 4.4 mEQ/L (3.4-4.9) Chloride Level 105 mEQ/L (98-107) Carbon Dioxide Level 28 mEQ/L (20-30) Anion Gap 9 (5-15) Blood Urea Nitrogen 10 mg/dL (7-23) Creatinine 0.5 mg/dL (0.5-0.9) Estimat Glomerular Filtration Rate > 60 mL/min (>60) Glucose Level 104 mg/dL (74-106) Calcium Level 9.2 mg/dL (8.6-10.2) Height (Feet): 5 Height (Inches): 3.00 Weight (Pounds): 128 General Appearance: no apparent distress, alert Cardiovascular: normal rate Respiratory/Chest: normal breath sounds, no respiratory distress Abdominal Exam: normal bowel sounds, non tender, soft Extremities: normal range of motion Sabrina Evangelista N.P. Jun 21, 2017 14:08
[2017-06-21 15:51] VITALS: BP 99/61
--- NOTE | 2017-06-21 18:06 | General Progress Note ---
Assessment/Plan Assessment/Plan ASSESSMENT AND PLAN: #. Hypercoagulable disorder rule out. The patient with no history of potential venous thrombosis of the mesentery and multifactorial causes including dehydration and rule out occult malignancy or inflammatory process. The patient has pancreatitis and diverticulitis. Rule out myeloproliferative syndrome. The patient does not have portal hypertension. Did not have a personal and family history of venous thromboembolism. r/o inherited thrombophilia. --> send for factor V Leiden mutation, prothrombin gene mutation, protein C, protein S activity, prothrombin 3, and antiphospholipid syndrome workup again. The patient may have inherited thrombophilia with simple factor V Leiden, prothrombin gene mutation, protein S and protein C activity and prothrombin 3 mutation and antiphospholipid syndrome antibodies. We will continue to follow closely the result of these tests. --> lab results that are currently available are wnl, except for Protein S which is decreased but not abnormally low in setting of an acute clot --> will follow up with other results as they become available --> agree with current care #. Anemia, secondary to chronic disease. --> w/u completed #. Leukocytosis secondary to recent surgery. Continue to closely monitor --> s/p surgery should improve --> currently wnl #. Status post laparotomy with abdominal pain and ischemic bowel. --> ostomy pouch now has stool #. Sepsis. #. Gastroenteritis. Subjective Constitutional: Reports: no symptoms HEENT: Reports: no symptoms Cardiovascular: Reports: no symptoms Respiratory: Reports: no symptoms Gastrointestinal/Abdominal: Reports: no symptoms Genitourinary: Reports: no symptoms Neurologic/Psychiatric: Reports: no symptoms Endocrine: Reports: no symptoms Hematologic/Lymphatic: Reports: anemia Allergies: Coded Allergies: PENICILLIN (Verified Allergy, Unknown, 12/01/15) PENICILLINS (Unverified Allergy, Unknown, 06/08/17) SHELLFISH (Verified Allergy, Unknown, 12/01/15) Uncoded Allergies: Mints (Allergy, Unknown, 06/09/17) Subjective addl labs pending, pt in stable condition Objective Last 24 Hour Vital Signs Date Time Temp Pulse Resp B/P Pulse Ox O2 Delivery O2 Flow Rate FiO2 06/21/17 15:51 98.2 93 20 99/61 98 Room Air 06/21/17 11:20 97.7 91 20 112/59 98 Room Air 06/21/17 07:55 98.1 84 20 112/70 99 Room Air 06/21/17 04:00 97.8 83 18 110/62 96 Room Air 06/21/17 00:23 97.9 93 18 120/60 100 Room Air 06/20/17 20:00 97.9 92 18 119/66 100 Room Air Intake and Output 06/20/17 06/21/17 19:00 07:00 Intake Total 1750 ml 1140 ml Output Total 690 ml 100 ml Balance 1060 ml 1040 ml Intake Oral 850 ml 240 ml IV Total 900 ml 900 ml Output Urine Total 650 ml Stool Total 40 ml 100 ml # Voids 4 2 Laboratory Tests 06/21/17 05:40: White Blood Count 10.9H, Red Blood Count 3.02L, Hemoglobin 8.5L, Hematocrit 26.3L, Mean Corpuscular Volume 87, Mean Corpuscular Hemoglobin 28.2, Mean Corpuscular Hemoglobin Concent 32.4, Red Cell Distribution Width 17.8H, Platelet Count 624H, Mean Platelet Volume 5.9L, Neutrophils (%) (Auto) 70.4, Lymphocytes (%) (Auto) 21.9, Monocytes (%) (Auto) 5.4, Eosinophils (%) (Auto) 1.5, Basophils (%) (Auto) 0.8, Sodium Level 142, Potassium Level 4.4, Chloride Level 105, Carbon Dioxide Level 28, Anion Gap 9, Blood Urea Nitrogen 10, Creatinine 0.5, Estimat Glomerular Filtration Rate > 60, Glucose Level 104, Calcium Level 9.2 Height (Feet): 5 Height (Inches): 3.00 Weight (Pounds): 128 General Appearance: no apparent distress EENT: normal ENT inspection Neck: normal alignment Cardiovascular: normal peripheral pulses Respiratory/Chest: chest wall non-tender Extremities: normal range of motion Edema: no edema noted Pedal (L), no edema noted Pedal (R) Skin: warm/dry Dell Pichardo Jun 21, 2017 18:06
[2017-06-21 20:00] VITALS: BP 104/56
[2017-06-21] MEDS: Fat Emulsion Iv 20% 240 ML in Tpn 1,560 ML IV SCH (21:57)
--- NOTE | 2017-06-21 22:22 | Pulmonology Progress Note ---
Assessment/Plan Problems: (1) Ischemic bowel disease (2) S/P laparotomy (3) Abdominal pain (4) Sepsis (5) Gastroenteritis (6) Septic shock Assessment/Plan oral diet tolerated well on TPN pt/ot check lab dc planning in process will need placement Subjective ROS Limited/Unobtainable: No Allergies: Coded Allergies: PENICILLIN (Verified Allergy, Unknown, 12/01/15) PENICILLINS (Unverified Allergy, Unknown, 06/08/17) SHELLFISH (Verified Allergy, Unknown, 12/01/15) Uncoded Allergies: Mints (Allergy, Unknown, 06/09/17) Objective Last 24 Hour Vital Signs Date Time Temp Pulse Resp B/P Pulse Ox O2 Delivery O2 Flow Rate FiO2 06/21/17 15:51 98.2 93 20 99/61 98 Room Air 06/21/17 11:20 97.7 91 20 112/59 98 Room Air 06/21/17 07:55 98.1 84 20 112/70 99 Room Air 06/21/17 04:00 97.8 83 18 110/62 96 Room Air 06/21/17 00:23 97.9 93 18 120/60 100 Room Air Intake and Output 06/20/17 06/21/17 19:00 07:00 Intake Total 1750 ml 1140 ml Output Total 690 ml 100 ml Balance 1060 ml 1040 ml Intake Oral 850 ml 240 ml IV Total 900 ml 900 ml Output Urine Total 650 ml Stool Total 40 ml 100 ml # Voids 4 2 General Appearance: cachetic HEENT: normocephalic, atraumatic Respiratory/Chest: chest wall non-tender, lungs clear Breasts: no masses Cardiovascular: normal peripheral pulses Abdomen: normal bowel sounds, no organomegaly Genitourinary: normal external genitalia Extremities: no cyanosis Laboratory Tests 06/21/17 05:40: White Blood Count 10.9H, Red Blood Count 3.02L, Hemoglobin 8.5L, Hematocrit 26.3L, Mean Corpuscular Volume 87, Mean Corpuscular Hemoglobin 28.2, Mean Corpuscular Hemoglobin Concent 32.4, Red Cell Distribution Width 17.8H, Platelet Count 624H, Mean Platelet Volume 5.9L, Neutrophils (%) (Auto) 70.4, Lymphocytes (%) (Auto) 21.9, Monocytes (%) (Auto) 5.4, Eosinophils (%) (Auto) 1.5, Basophils (%) (Auto) 0.8, Sodium Level 142, Potassium Level 4.4, Chloride Level 105, Carbon Dioxide Level 28, Anion Gap 9, Blood Urea Nitrogen 10, Creatinine 0.5, Estimat Glomerular Filtration Rate > 60, Glucose Level 104, Calcium Level 9.2 Current Medications Medications (Trade) Dose Ordered Sig/Michael Route PRN Reason Start Time Stop Time Status Last Admin Dose Admin Acetaminophen (Tylenol) 650 mg Q4H PRN ORAL Mild Pain/Temp > 100.5 06/15/17 10:45 07/15/17 10:44 06/16/17 10:28 Acetaminophen/ Hydrocodone Bitart ([place] 5/325) 1 tab Q4H PRN ORAL Moderate Pain (Pain Scale 4-6) 06/20/17 11:00 06/27/17 10:59 06/21/17 20:56 Chlorhexidine Gluconate (Briana-Hex 2%) 1 applic DAILY TOPIC 06/15/17 09:00 07/15/17 08:59 06/21/17 08:12 Dextrose (Dextrose 50%) STAT PRN IV Hypoglycemia 06/14/17 21:02 07/14/17 21:01 Fat Emulsion Intravenous/Amino Acids/ Electrolytes/ Dextrose (Intralipids/Tpn) 1,800 ml @ 75 mls/hr Q24H IV 06/14/17 21:00 07/14/17 20:59 06/21/17 21:57 Insulin Aspart (NovoLOG) Q6HR SUBQ 06/15/17 00:00 07/15/17 00:00 06/21/17 18:04 Nitroglycerin (Ntg) 0.4 mg Q5M X 3 DOSES PRN SL Prn Chest Pain 06/14/17 21:00 07/14/17 20:59 Ondansetron HCl (Zofran) 4 mg Q6H PRN IVP Nausea & Vomiting 06/14/17 21:03 07/14/17 21:02 06/16/17 03:16 Pantoprazole (Protonix) 40 mg DAILY ORAL 06/21/17 09:00 07/21/17 08:59 06/21/17 08:12 Phytonadione (Vitamin K) 10 mg QWEEK SUBQ 06/20/17 21:00 07/20/17 20:59 06/20/17 22:00 Temazepam (Restoril) 15 mg HSPRN PRN ORAL Insomnia 06/16/17 20:30 06/23/17 20:29 06/21/17 21:55 C[place]AND MCRAE Jun 21, 2017 22:22
[2017-06-22] VITALS (7 sets, daily range): BP systolic 101–119; BP diastolic 54–66
[2017-06-22] MEDS: NovoLOG Insulin Flexpen SUBQ SCH ×4 (00:50→17:26)
[2017-06-22] MEDS: Norco 5mg/325mg tab ORAL PRN ×3 (00:53→19:52)
[2017-06-22 05:43] LABS: BASOPHILS % (AUTO) 1.1 % (0.0-2.0); EOSINOPHILS % (AUTO) 2.3 % (0.0-3.0); LYMPHOCYTES % (AUTO) 31.7 % (20.0-45.0); MEAN CORPUSCULAR HEMOGLOBIN 27.5 PG (27.0-31.0); MEAN CORPUSCULAR HGB CONC 31.3 G/DL (32.0-36.0); MEAN CORPUSCULAR VOLUME 88 FL (80-99); MEAN PLATELET VOLUME 5.9 FL (6.5-10.1); MONOCYTES % (AUTO) 5.9 % (1.0-10.0); NEUTROPHILS % (AUTO) 58.9 % (45.0-75.0); PLATELET COUNT 618 K/UL (150-450); RED BLOOD COUNT 3.01 M/UL (4.20-5.40); RED CELL DISTRIBUTION WIDTH 18.2 % (11.6-14.8); WHITE BLOOD COUNT 9.1 K/UL (4.8-10.8)
[2017-06-22 06:19] LABS: ALANINE AMINOTRANSFERASE 21 U/L (3-33); ALBUMIN/GLOBULIN RATIO 0.6 (1.0-2.7); ANION GAP 10 (5-15); ASPARTATE AMINO TRANSFERASE 20 U/L (5-40); CARBON DIOXIDE 27 mEQ/L (20-30); CHLORIDE 104 mEQ/L (98-107); CREATININE 0.4 mg/dL (0.5-0.9); GLOMERULAR FILTRATION RATE > 60 mL/min (>60); HEMOLYSIS 0; POTASSIUM 4.3 mEQ/L (3.4-4.9); SODIUM 141 mEQ/L (135-145); TOTAL PROTEIN 6.6 g/dL (6.6-8.7)
[2017-06-22] MEDS: Dyna-Hex 2% Top Sol 8oz TOPIC SCH (08:15)
--- NOTE | 2017-06-22 10:20 | Wound Nurse Progress Note ---
Wound RN Progress Note Wound Consult followed up with patient regarding colostomy bag teaching, patient states " she changed it yesterday with changing supplies and cleansed it and was able to cut colostomy bag fit to stoma, and was proud of herself." reviewed colostomy care and skin maintenance to surrounding skin, reviewed cutting colostomy bag and ways to prevent skin irritation and application of skin barrier. patient was thankful. DINORA CORTES Jun 22, 2017 10:20
--- NOTE | 2017-06-22 11:56 | GI Progress Note ---
Assessment/Plan Problems: (1) Abdominal pain ICD Codes: R10.9 - Unspecified abdominal pain SNOMED: 53617559 Qualifiers: Qualified Codes: R10.13 - Epigastric pain (2) Gastroenteritis ICD Codes: K52.9 - Noninfective gastroenteritis and colitis, unspecified SNOMED: 87550192 (3) Gastric ulcer with hemorrhage ICD Codes: K25.4 - Chronic or unspecified gastric ulcer with hemorrhage SNOMED: 73886707 (4) Ischemic colon ICD Codes: K55.9 - Vascular disorder of intestine, unspecified SNOMED: 35672953 (5) Sepsis ICD Codes: A41.9 - Sepsis, unspecified organism SNOMED: 20289565 Qualifiers: Qualified Codes: A41.9 - Sepsis, unspecified organism Status: doing well, stable, progressing Status Narrative Discussed with Dr. Gonzalez. Assessment/Plan post op care IVFs diet per surgery >> adv to regular diet, TPN taper abx fu surgical recs fu labs Subjective Subjective generalize weakness surgical pain Objective Last 24 Hour Vital Signs Date Time Temp Pulse Resp B/P Pulse Ox O2 Delivery O2 Flow Rate FiO2 06/22/17 07:54 97.9 86 20 107/54 97 Room Air 06/22/17 04:00 98.2 80 17 101/63 Room Air 06/22/17 00:00 98.0 86 18 109/62 99 Room Air 06/21/17 20:00 98.4 91 18 104/56 99 Room Air 06/21/17 15:51 98.2 93 20 99/61 98 Room Air Intake and Output 06/21/17 06/22/17 19:00 07:00 Intake Total 1735 ml 1145 ml Output Total 400 ml 15 ml Balance 1335 ml 1130 ml Intake Oral 760 ml 320 ml IV Total 975 ml 825 ml Stool Total 400 ml 15 ml # Voids 2 3 Laboratory Tests Test 06/22/17 05:00 White Blood Count 9.1 K/UL (4.8-10.8) Red Blood Count 3.01 M/UL (4.20-5.40) L Hemoglobin 8.3 G/DL (12.0-16.0) L Hematocrit 26.5 % (37.0-47.0) L Mean Corpuscular Volume 88 FL (80-99) Mean Corpuscular Hemoglobin 27.5 PG (27.0-31.0) Mean Corpuscular Hemoglobin Concent 31.3 G/DL (32.0-36.0) L Red Cell Distribution Width 18.2 % (11.6-14.8) H Platelet Count 618 K/UL (150-450) H Mean Platelet Volume 5.9 FL (6.5-10.1) L Neutrophils (%) (Auto) 58.9 % (45.0-75.0) Lymphocytes (%) (Auto) 31.7 % (20.0-45.0) Monocytes (%) (Auto) 5.9 % (1.0-10.0) Eosinophils (%) (Auto) 2.3 % (0.0-3.0) Basophils (%) (Auto) 1.1 % (0.0-2.0) Sodium Level 141 mEQ/L (135-145) Potassium Level 4.3 mEQ/L (3.4-4.9) Chloride Level 104 mEQ/L (98-107) Carbon Dioxide Level 27 mEQ/L (20-30) Anion Gap 10 (5-15) Blood Urea Nitrogen 15 mg/dL (7-23) Creatinine 0.4 mg/dL (0.5-0.9) L Estimat Glomerular Filtration Rate > 60 mL/min (>60) Glucose Level 89 mg/dL (74-106) Calcium Level 9.0 mg/dL (8.6-10.2) Total Bilirubin 0.2 mg/dL (0.0-1.2) Aspartate Amino Transf (AST/SGOT) 20 U/L (5-40) Alanine Aminotransferase (ALT/SGPT) 21 U/L (3-33) Alkaline Phosphatase 108 U/L (35-104) H Total Protein 6.6 g/dL (6.6-8.7) Albumin 2.7 g/dL (3.5-5.2) L Globulin 3.9 g/dL Albumin/Globulin Ratio 0.6 (1.0-2.7) L Height (Feet): 5 Height (Inches): 3.00 Weight (Pounds): 125 General Appearance: no apparent distress, alert Cardiovascular: normal rate Respiratory/Chest: normal breath sounds Abdominal Exam: soft, incision site, other - colostomy Sabrina Evangelista N.P. Jun 22, 2017 11:56
--- NOTE | 2017-06-22 12:18 | Infectious Diseases Prog Note ---
Assessment/Plan Assessment/Plan ASSESSMENT: 62 y/o female with: // Secondary peritonitis SP Rx - WCx K.pneumoniae, m/l polymicrobial // Ischemic colitis - SP takeback SBR, partial colectomy 06/10 - SP ex-lap subtotal colectomy 06/09 // Leukocytosis - resolved, afebrile // SP VDRF // PCN allergy // Full Code PLAN: - monitor pt off of ABX ( 06/18 SP Flagyl and Azactam d# ) - monitor CBC, temperatures, re-culture if acute change - monitor BMP Subjective Allergies: Coded Allergies: PENICILLIN (Verified Allergy, Unknown, 12/01/15) PENICILLINS (Unverified Allergy, Unknown, 06/08/17) SHELLFISH (Verified Allergy, Unknown, 12/01/15) Uncoded Allergies: Mints (Allergy, Unknown, 06/09/17) Subjective remains afebrile. no new complaint Objective Vital Signs Last 24 Hour Vital Signs Date Time Temp Pulse Resp B/P Pulse Ox O2 Delivery O2 Flow Rate FiO2 06/22/17 07:54 97.9 86 20 107/54 97 Room Air 06/22/17 04:00 98.2 80 17 101/63 Room Air 06/22/17 00:00 98.0 86 18 109/62 99 Room Air 06/21/17 20:00 98.4 91 18 104/56 99 Room Air 06/21/17 15:51 98.2 93 20 99/61 98 Room Air Height (Feet): 5 Height (Inches): 3.00 Weight (Pounds): 125 General Appearance: no acute distress Respiratory/Chest: no respiratory distress Cardiovascular: normal rate, regular rhythm Abdomen: normal bowel sounds, soft, non tender, non distended Laboratory Tests Test 06/22/17 05:00 White Blood Count 9.1 K/UL (4.8-10.8) Red Blood Count 3.01 M/UL (4.20-5.40) L Hemoglobin 8.3 G/DL (12.0-16.0) L Hematocrit 26.5 % (37.0-47.0) L Mean Corpuscular Volume 88 FL (80-99) Mean Corpuscular Hemoglobin 27.5 PG (27.0-31.0) Mean Corpuscular Hemoglobin Concent 31.3 G/DL (32.0-36.0) L Red Cell Distribution Width 18.2 % (11.6-14.8) H Platelet Count 618 K/UL (150-450) H Mean Platelet Volume 5.9 FL (6.5-10.1) L Neutrophils (%) (Auto) 58.9 % (45.0-75.0) Lymphocytes (%) (Auto) 31.7 % (20.0-45.0) Monocytes (%) (Auto) 5.9 % (1.0-10.0) Eosinophils (%) (Auto) 2.3 % (0.0-3.0) Basophils (%) (Auto) 1.1 % (0.0-2.0) Sodium Level 141 mEQ/L (135-145) Potassium Level 4.3 mEQ/L (3.4-4.9) Chloride Level 104 mEQ/L (98-107) Carbon Dioxide Level 27 mEQ/L (20-30) Anion Gap 10 (5-15) Blood Urea Nitrogen 15 mg/dL (7-23) Creatinine 0.4 mg/dL (0.5-0.9) L Estimat Glomerular Filtration Rate > 60 mL/min (>60) Glucose Level 89 mg/dL (74-106) Calcium Level 9.0 mg/dL (8.6-10.2) Total Bilirubin 0.2 mg/dL (0.0-1.2) Aspartate Amino Transf (AST/SGOT) 20 U/L (5-40) Alanine Aminotransferase (ALT/SGPT) 21 U/L (3-33) Alkaline Phosphatase 108 U/L (35-104) H Total Protein 6.6 g/dL (6.6-8.7) Albumin 2.7 g/dL (3.5-5.2) L Globulin 3.9 g/dL Albumin/Globulin Ratio 0.6 (1.0-2.7) L Current Medications Medications (Trade) Dose Ordered Sig/Michael Route PRN Reason Start Time Stop Time Status Last Admin Dose Admin Acetaminophen (Tylenol) 650 mg Q4H PRN ORAL Mild Pain/Temp > 100.5 06/15/17 10:45 07/15/17 10:44 06/16/17 10:28 Acetaminophen/ Hydrocodone Bitart ([place] 5/325) 1 tab Q4H PRN ORAL Moderate Pain (Pain Scale 4-6) 06/20/17 11:00 06/27/17 10:59 06/22/17 00:53 Chlorhexidine Gluconate (Briana-Hex 2%) 1 applic DAILY TOPIC 06/15/17 09:00 07/15/17 08:59 06/22/17 08:15 Dextrose (Dextrose 50%) STAT PRN IV Hypoglycemia 06/14/17 21:02 07/14/17 21:01 Fat Emulsion Intravenous/Amino Acids/ Electrolytes/ Dextrose (Intralipids/Tpn) 1,800 ml @ 75 mls/hr Q24H IV 06/14/17 21:00 07/14/17 20:59 06/21/17 21:57 Insulin Aspart (NovoLOG) Q6HR SUBQ 06/15/17 00:00 07/15/17 00:00 06/22/17 11:41 Nitroglycerin (Ntg) 0.4 mg Q5M X 3 DOSES PRN SL Prn Chest Pain 06/14/17 21:00 07/14/17 20:59 Ondansetron HCl (Zofran) 4 mg Q6H PRN IVP Nausea & Vomiting 06/14/17 21:03 07/14/17 21:02 06/16/17 03:16 Pantoprazole (Protonix) 40 mg DAILY ORAL 06/21/17 09:00 07/21/17 08:59 06/22/17 08:15 Phytonadione (Vitamin K) 10 mg QWEEK SUBQ 06/20/17 21:00 07/20/17 20:59 06/20/17 22:00 Temazepam (Restoril) 15 mg HSPRN PRN ORAL Insomnia 06/16/17 20:30 06/23/17 20:29 06/21/17 21:55 RASHAWN SLOAN Jun 22, 2017 12:18
--- NOTE | 2017-06-22 18:10 | General Progress Note ---
Assessment/Plan Assessment/Plan ASSESSMENT AND PLAN: #. Hypercoagulable disorder rule out. The patient with no history of potential venous thrombosis of the mesentery and multifactorial causes including dehydration and rule out occult malignancy or inflammatory process. The patient has pancreatitis and diverticulitis. Rule out myeloproliferative syndrome. The patient does not have portal hypertension. Did not have a personal and family history of venous thromboembolism. r/o inherited thrombophilia. --> send for factor V Leiden mutation, prothrombin gene mutation, protein C, protein S activity, prothrombin 3, and antiphospholipid syndrome workup again. The patient may have inherited thrombophilia with simple factor V Leiden, prothrombin gene mutation, protein S and protein C activity and prothrombin 3 mutation and antiphospholipid syndrome antibodies. We will continue to follow closely the result of these tests. --> lab results that are currently available are wnl, except for Protein S which is decreased but not abnormally low in setting of an acute clot --> will follow up with other results as they become available --> agree with current care # Thrombocytosis --> reactive process #. Anemia, secondary to chronic disease. --> w/u completed #. Leukocytosis secondary to recent surgery. Continue to closely monitor --> s/p surgery should improve --> currently wnl #. Status post laparotomy with abdominal pain and ischemic bowel. --> ostomy pouch now has stool #. Sepsis. #. Gastroenteritis. Subjective Constitutional: Reports: no symptoms HEENT: Reports: no symptoms Cardiovascular: Reports: no symptoms Respiratory: Reports: no symptoms Gastrointestinal/Abdominal: Reports: no symptoms Genitourinary: Reports: no symptoms Neurologic/Psychiatric: Reports: no symptoms Endocrine: Reports: no symptoms Hematologic/Lymphatic: Reports: anemia Allergies: Coded Allergies: PENICILLIN (Verified Allergy, Unknown, 12/01/15) PENICILLINS (Unverified Allergy, Unknown, 06/08/17) SHELLFISH (Verified Allergy, Unknown, 12/01/15) Uncoded Allergies: Mints (Allergy, Unknown, 06/09/17) Subjective addl labs pending, monitoring Objective Last 24 Hour Vital Signs Date Time Temp Pulse Resp B/P Pulse Ox O2 Delivery O2 Flow Rate FiO2 06/22/17 15:46 98.1 87 20 119/62 100 Room Air 06/22/17 15:14 98.6 06/22/17 13:40 98.6 93 21 117/64 100 Room Air 06/22/17 12:00 98.6 93 21 117/64 100 Room Air 06/22/17 07:54 97.9 86 20 107/54 97 Room Air 06/22/17 04:00 98.2 80 17 101/63 Room Air 06/22/17 00:00 98.0 86 18 109/62 99 Room Air 06/21/17 20:00 98.4 91 18 104/56 99 Room Air Intake and Output 06/21/17 06/22/17 19:00 07:00 Intake Total 1735 ml 1145 ml Output Total 400 ml 15 ml Balance 1335 ml 1130 ml Intake Oral 760 ml 320 ml IV Total 975 ml 825 ml Stool Total 400 ml 15 ml # Voids 2 3 Laboratory Tests 06/22/17 05:00: White Blood Count 9.1, Red Blood Count 3.01L, Hemoglobin 8.3L, Hematocrit 26.5L , Mean Corpuscular Volume 88, Mean Corpuscular Hemoglobin 27.5, Mean Corpuscular Hemoglobin Concent 31.3L, Red Cell Distribution Width 18.2H, Platelet Count 618H, Mean Platelet Volume 5.9L, Neutrophils (%) (Auto) 58.9, Lymphocytes (%) (Auto) 31.7, Monocytes (%) (Auto) 5.9, Eosinophils (%) (Auto) 2.3, Basophils (%) (Auto) 1.1, Sodium Level 141, Potassium Level 4.3, Chloride Level 104, Carbon Dioxide Level 27, Anion Gap 10, Blood Urea Nitrogen 15, Creatinine 0.4L, Estimat Glomerular Filtration Rate > 60, Glucose Level 89, Calcium Level 9.0, Total Bilirubin 0.2, Aspartate Amino Transf (AST/SGOT) 20, Alanine Aminotransferase (ALT/SGPT) 21, Alkaline Phosphatase 108H, Total Protein 6.6, Albumin 2.7L, Globulin 3.9, Albumin/Globulin Ratio 0.6L Height (Feet): 5 Height (Inches): 3.00 Weight (Pounds): 125 General Appearance: no apparent distress EENT: PERRL/EOMI Neck: normal alignment Cardiovascular: normal rate Respiratory/Chest: normal breath sounds Abdomen: normal bowel sounds Edema: no edema noted Pedal (L), no edema noted Pedal (R) 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
--- NOTE | 2017-06-22 18:17 | General Surgery Progress Note ---
General Surgery-Progress Note Subjective Procedure Performed exploratory laparotomy x 2 with partial small and large bowel extensive resections for ischemic bowel, colostomy Chief Complaint: Tlereting diet with no cramps, partially digested foods in bag , but better. Symptoms: worse, improved, tolerating diet, other - colostomy with some fibrous partially digested material, but improving! Objective Last 24 Hour Vital Signs Date Time Temp Pulse Resp B/P Pulse Ox O2 Delivery O2 Flow Rate FiO2 06/22/17 15:46 98.1 87 20 119/62 100 Room Air 06/22/17 15:14 98.6 06/22/17 13:40 98.6 93 21 117/64 100 Room Air 06/22/17 12:00 98.6 93 21 117/64 100 Room Air 06/22/17 07:54 97.9 86 20 107/54 97 Room Air 06/22/17 04:00 98.2 80 17 101/63 Room Air 06/22/17 00:00 98.0 86 18 109/62 99 Room Air 06/21/17 20:00 98.4 91 18 104/56 99 Room Air I&O Intake and Output 06/21/17 06/22/17 19:00 07:00 Intake Total 1735 ml 1145 ml Output Total 400 ml 15 ml Balance 1335 ml 1130 ml Intake Oral 760 ml 320 ml IV Total 975 ml 825 ml Stool Total 400 ml 15 ml # Voids 2 3 Wound: clean Drains: none Cardiovascular: RSR Respiratory: clear Abdomen: soft, non-tender, other - Stoma OK, nl function Laboratory Tests Test 06/22/17 05:00 White Blood Count 9.1 K/UL (4.8-10.8) Red Blood Count 3.01 M/UL (4.20-5.40) L Hemoglobin 8.3 G/DL (12.0-16.0) L Hematocrit 26.5 % (37.0-47.0) L Mean Corpuscular Volume 88 FL (80-99) Mean Corpuscular Hemoglobin 27.5 PG (27.0-31.0) Mean Corpuscular Hemoglobin Concent 31.3 G/DL (32.0-36.0) L Red Cell Distribution Width 18.2 % (11.6-14.8) H Platelet Count 618 K/UL (150-450) H Mean Platelet Volume 5.9 FL (6.5-10.1) L Neutrophils (%) (Auto) 58.9 % (45.0-75.0) Lymphocytes (%) (Auto) 31.7 % (20.0-45.0) Monocytes (%) (Auto) 5.9 % (1.0-10.0) Eosinophils (%) (Auto) 2.3 % (0.0-3.0) Basophils (%) (Auto) 1.1 % (0.0-2.0) Sodium Level 141 mEQ/L (135-145) Potassium Level 4.3 mEQ/L (3.4-4.9) Chloride Level 104 mEQ/L (98-107) Carbon Dioxide Level 27 mEQ/L (20-30) Anion Gap 10 (5-15) Blood Urea Nitrogen 15 mg/dL (7-23) Creatinine 0.4 mg/dL (0.5-0.9) L Estimat Glomerular Filtration Rate > 60 mL/min (>60) Glucose Level 89 mg/dL (74-106) Calcium Level 9.0 mg/dL (8.6-10.2) Total Bilirubin 0.2 mg/dL (0.0-1.2) Aspartate Amino Transf (AST/SGOT) 20 U/L (5-40) Alanine Aminotransferase (ALT/SGPT) 21 U/L (3-33) Alkaline Phosphatase 108 U/L (35-104) H Total Protein 6.6 g/dL (6.6-8.7) Albumin 2.7 g/dL (3.5-5.2) L Globulin 3.9 g/dL Albumin/Globulin Ratio 0.6 (1.0-2.7) L Additional Comments Stable s/p expl. 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 Partial SB and transverse-descending and sigmoid colon resection to rectum. Hopefully some degree of digestion and absorption in progress. Will check prealbumin and albumin tomorrow and early next week. If anabolic state established, OK to discharge to Nursing facility for decreasing BUT close observation . JOSSELIN LANGLEY Jun 22, 2017 18:17
--- NOTE | 2017-06-22 20:01 | Pulmonology Progress Note ---
Assessment/Plan Problems: (1) Ischemic bowel disease (2) S/P laparotomy (3) Abdominal pain (4) Sepsis (5) Gastroenteritis (6) Septic shock Assessment/Plan oral diet tolerated well on TPN pt/ot check lab off abx dc planning in process will need placement Subjective ROS Limited/Unobtainable: No Constitutional: Reports: no symptoms HEENT: Repors: no symptoms Allergies: Coded Allergies: PENICILLIN (Verified Allergy, Unknown, 12/01/15) PENICILLINS (Unverified Allergy, Unknown, 06/08/17) SHELLFISH (Verified Allergy, Unknown, 12/01/15) Uncoded Allergies: Mints (Allergy, Unknown, 06/09/17) Objective Last 24 Hour Vital Signs Date Time Temp Pulse Resp B/P Pulse Ox O2 Delivery O2 Flow Rate FiO2 06/22/17 15:46 98.1 87 20 119/62 100 Room Air 06/22/17 15:14 98.6 06/22/17 13:40 98.6 93 21 117/64 100 Room Air 06/22/17 12:00 98.6 93 21 117/64 100 Room Air 06/22/17 07:54 97.9 86 20 107/54 97 Room Air 06/22/17 04:00 98.2 80 17 101/63 Room Air 06/22/17 00:00 98.0 86 18 109/62 99 Room Air Intake and Output 06/21/17 06/22/17 19:00 07:00 Intake Total 1735 ml 1145 ml Output Total 400 ml 15 ml Balance 1335 ml 1130 ml Intake Oral 760 ml 320 ml IV Total 975 ml 825 ml Stool Total 400 ml 15 ml # Voids 2 3 General Appearance: WD/WN HEENT: normocephalic, atraumatic Respiratory/Chest: chest wall non-tender, lungs clear Breasts: no masses Cardiovascular: normal peripheral pulses Abdomen: normal bowel sounds, no organomegaly Genitourinary: normal external genitalia Extremities: no cyanosis Laboratory Tests 06/22/17 05:00: White Blood Count 9.1, Red Blood Count 3.01L, Hemoglobin 8.3L, Hematocrit 26.5L , Mean Corpuscular Volume 88, Mean Corpuscular Hemoglobin 27.5, Mean Corpuscular Hemoglobin Concent 31.3L, Red Cell Distribution Width 18.2H, Platelet Count 618H, Mean Platelet Volume 5.9L, Neutrophils (%) (Auto) 58.9, Lymphocytes (%) (Auto) 31.7, Monocytes (%) (Auto) 5.9, Eosinophils (%) (Auto) 2.3, Basophils (%) (Auto) 1.1, Sodium Level 141, Potassium Level 4.3, Chloride Level 104, Carbon Dioxide Level 27, Anion Gap 10, Blood Urea Nitrogen 15, Creatinine 0.4L, Estimat Glomerular Filtration Rate > 60, Glucose Level 89, Calcium Level 9.0, Total Bilirubin 0.2, Aspartate Amino Transf (AST/SGOT) 20, Alanine Aminotransferase (ALT/SGPT) 21, Alkaline Phosphatase 108H, Total Protein 6.6, Albumin 2.7L, Globulin 3.9, Albumin/Globulin Ratio 0.6L Current Medications Medications (Trade) Dose Ordered Sig/Michael Route PRN Reason Start Time Stop Time Status Last Admin Dose Admin Acetaminophen (Tylenol) 650 mg Q4H PRN ORAL Mild Pain/Temp > 100.5 06/15/17 10:45 07/15/17 10:44 06/16/17 10:28 Acetaminophen/ Hydrocodone Bitart ([place] 5/325) 1 tab Q4H PRN ORAL Moderate Pain (Pain Scale 4-6) 06/20/17 11:00 06/27/17 10:59 06/22/17 19:52 Chlorhexidine Gluconate (Briana-Hex 2%) 1 applic DAILY TOPIC 06/15/17 09:00 07/15/17 08:59 06/22/17 08:15 Dextrose (Dextrose 50%) STAT PRN IV Hypoglycemia 06/14/17 21:02 07/14/17 21:01 Fat Emulsion Intravenous/Amino Acids/ Electrolytes/ Dextrose (Intralipids/Tpn) 1,800 ml @ 75 mls/hr Q24H IV 06/14/17 21:00 07/14/17 20:59 06/21/17 21:57 Insulin Aspart (NovoLOG) Q6HR SUBQ 06/15/17 00:00 07/15/17 00:00 06/22/17 17:26 Nitroglycerin (Ntg) 0.4 mg Q5M X 3 DOSES PRN SL Prn Chest Pain 06/14/17 21:00 07/14/17 20:59 Ondansetron HCl (Zofran) 4 mg Q6H PRN IVP Nausea & Vomiting 06/14/17 21:03 07/14/17 21:02 06/16/17 03:16 Pantoprazole (Protonix) 40 mg DAILY ORAL 06/21/17 09:00 07/21/17 08:59 06/22/17 08:15 Phytonadione (Vitamin K) 10 mg QWEEK SUBQ 06/20/17 21:00 07/20/17 20:59 06/20/17 22:00 Temazepam (Restoril) 15 mg HSPRN PRN ORAL Insomnia 06/16/17 20:30 06/23/17 20:29 06/21/17 21:55 CLEVELAND MCRAE Jun 22, 2017 20:01
[2017-06-22] MEDS: Fat Emulsion Iv 20% 240 ML in Tpn 1,560 ML IV SCH (21:36)
[2017-06-23 00:03] VITALS: BP 113/61
[2017-06-23] MEDS: NovoLOG Insulin Flexpen SUBQ SCH ×5 (00:44→23:06)
[2017-06-23] MEDS: Norco 5mg/325mg tab ORAL PRN ×2 (00:49→11:28)
[2017-06-23 04:07] VITALS: BP 114/56
[2017-06-23 05:37] LABS: EOSINOPHILS % (AUTO) 1.8 % (0.0-3.0); LYMPHOCYTES % (AUTO) 35.3 % (20.0-45.0); MEAN CORPUSCULAR HEMOGLOBIN 26.9 PG (27.0-31.0); MEAN CORPUSCULAR HGB CONC 30.5 G/DL (32.0-36.0); MEAN CORPUSCULAR VOLUME 88 FL (80-99); MEAN PLATELET VOLUME 5.8 FL (6.5-10.1); MONOCYTES % (AUTO) 5.3 % (1.0-10.0); NEUTROPHILS % (AUTO) 56.6 % (45.0-75.0); PLATELET COUNT 644 K/UL (150-450); RED BLOOD COUNT 3.15 M/UL (4.20-5.40); RED CELL DISTRIBUTION WIDTH 18.2 % (11.6-14.8); WHITE BLOOD COUNT 8.8 K/UL (4.8-10.8)
[2017-06-23 05:56] LABS: ANION GAP 8 (5-15); CALCIUM 8.9 mg/dL (8.6-10.2); CARBON DIOXIDE 28 mEQ/L (20-30); CHLORIDE 102 mEQ/L (98-107); CREATININE 0.5 mg/dL (0.5-0.9); GLOMERULAR FILTRATION RATE > 60 mL/min (>60); HEMOLYSIS 0; MAGNESIUM 2.1 mg/dL (1.7-2.5); PHOSPHORUS 3.8 mg/dL (2.5-4.8); POTASSIUM 4.1 mEQ/L (3.4-4.9); SODIUM 138 mEQ/L (135-145)
[2017-06-23 06:47] LABS: IONIZED CALCIUM 1.13 mmol/L (1.10-1.35)
[2017-06-23 07:24] LABS: IONIZED CALCIUM 1.21 mmol/L (1.10-1.35)
[2017-06-23 08:00] VITALS: BP 91/53
[2017-06-23 08:09] LABS: MAGNESIUM 2.1 mg/dL (1.7-2.5)
--- NOTE | 2017-06-23 10:35 | GI Progress Note ---
Assessment/Plan Problems: (1) Abdominal pain ICD Codes: R10.9 - Unspecified abdominal pain SNOMED: 86370122 Qualifiers: Qualified Codes: R10.13 - Epigastric pain (2) Gastroenteritis ICD Codes: K52.9 - Noninfective gastroenteritis and colitis, unspecified SNOMED: 59521283 (3) Gastric ulcer with hemorrhage ICD Codes: K25.4 - Chronic or unspecified gastric ulcer with hemorrhage SNOMED: 23168771 (4) Ischemic colon ICD Codes: K55.9 - Vascular disorder of intestine, unspecified SNOMED: 09642915 (5) Sepsis ICD Codes: A41.9 - Sepsis, unspecified organism SNOMED: 37844028 Qualifiers: Qualified Codes: A41.9 - Sepsis, unspecified organism Status: doing well, stable, progressing Status Narrative Discussed with Dr. Gonzalez. Assessment/Plan post op care IVFs diet per surgery >> regular diet, TPN taper abx fu surgical recs fu labs Subjective Subjective generalize weakness surgical pain Objective Last 24 Hour Vital Signs Date Time Temp Pulse Resp B/P Pulse Ox O2 Delivery O2 Flow Rate FiO2 06/23/17 08:00 97.3 86 20 91/53 96 Room Air 06/23/17 04:07 98.4 79 19 114/56 99 Room Air 06/23/17 00:03 97.7 89 18 113/61 98 Room Air 06/22/17 20:11 98.1 96 19 114/66 99 Room Air 06/22/17 15:46 98.1 87 20 119/62 100 Room Air 06/22/17 15:14 98.6 06/22/17 13:40 98.6 93 21 117/64 100 Room Air 06/22/17 12:00 98.6 93 21 117/64 100 Room Air Intake and Output 06/22/17 06/23/17 19:00 07:00 Intake Total 2280 ml 1065 ml Output Total 1000 ml 70 ml Balance 1280 ml 995 ml Intake Oral 1380 ml 240 ml IV Total 900 ml 825 ml Output Urine Total 700 ml Stool Total 300 ml 70 ml # Voids 1 1 Laboratory Tests Test 06/23/17 04:30 06/23/17 05:28 White Blood Count 8.8 K/UL (4.8-10.8) Red Blood Count 3.15 M/UL (4.20-5.40) L Hemoglobin 8.5 G/DL (12.0-16.0) L Hematocrit 27.8 % (37.0-47.0) L Mean Corpuscular Volume 88 FL (80-99) Mean Corpuscular Hemoglobin 26.9 PG (27.0-31.0) L Mean Corpuscular Hemoglobin Concent 30.5 G/DL (32.0-36.0) L Red Cell Distribution Width 18.2 % (11.6-14.8) H Platelet Count 644 K/UL (150-450) H Mean Platelet Volume 5.8 FL (6.5-10.1) L Neutrophils (%) (Auto) 56.6 % (45.0-75.0) Lymphocytes (%) (Auto) 35.3 % (20.0-45.0) Monocytes (%) (Auto) 5.3 % (1.0-10.0) Eosinophils (%) (Auto) 1.8 % (0.0-3.0) Basophils (%) (Auto) 1.0 % (0.0-2.0) Sodium Level 138 mEQ/L (135-145) Potassium Level 4.1 mEQ/L (3.4-4.9) Chloride Level 102 mEQ/L (98-107) Carbon Dioxide Level 28 mEQ/L (20-30) Anion Gap 8 (5-15) Blood Urea Nitrogen 17 mg/dL (7-23) Creatinine 0.5 mg/dL (0.5-0.9) Estimat Glomerular Filtration Rate > 60 mL/min (>60) Glucose Level 99 mg/dL (74-106) Calcium Level 8.9 mg/dL (8.6-10.2) Ionized Calcium (Measured) 1.13 mmol/L (1.10-1.35) 1.21 mmol/L (1.10-1.35) Phosphorus Level 3.8 mg/dL (2.5-4.8) 4.0 mg/dL (2.5-4.8) Magnesium Level 2.1 mg/dL (1.7-2.5) 2.1 mg/dL (1.7-2.5) Albumin 3.1 g/dL (3.5-5.2) L 3.1 g/dL (3.5-5.2) L Prealbumin Pending Triglycerides Level 139 mg/dL (< 150) Height (Feet): 5 Height (Inches): 3.00 Weight (Pounds): 121 General Appearance: no apparent distress, alert Cardiovascular: normal rate Respiratory/Chest: normal breath sounds, no respiratory distress Abdominal Exam: normal bowel sounds, incision site, other - colostomy Extremities: normal range of motion Sabrina Evangelista N.P. Jun 23, 2017 10:35
[2017-06-23] MEDS: Dyna-Hex 2% Top Sol 8oz TOPIC SCH (11:10)
[2017-06-23 11:38] VITALS: BP 113/71
--- NOTE | 2017-06-23 11:41 | General Progress Note ---
Progress Note Progress Note Surgery: doing well. much improved. no n/v/f/c. fully formed stool in ostomy. afebrile, HD stable, labs okay, exam benign. tolerating diet. Albumin >3 today janes removed from midline wound Diet as tolerated (completing calorie count) Wean TPN and d/c if continues to improve can potentially d/c home this weekend. Wei Monroy Jun 23, 2017 11:41
[2017-06-23 15:54] VITALS: BP 114/69
--- NOTE | 2017-06-23 16:21 | General Progress Note ---
Assessment/Plan Assessment/Plan ASSESSMENT AND PLAN: #. Hypercoagulable disorder rule out. The patient with no history of potential venous thrombosis of the mesentery and multifactorial causes including dehydration and rule out occult malignancy or inflammatory process. The patient has pancreatitis and diverticulitis. Rule out myeloproliferative syndrome. The patient does not have portal hypertension. Did not have a personal and family history of venous thromboembolism. r/o inherited thrombophilia. --> send for factor V Leiden mutation, prothrombin gene mutation, protein C, protein S activity, prothrombin 3, and antiphospholipid syndrome workup again. The patient may have inherited thrombophilia with simple factor V Leiden, prothrombin gene mutation, protein S and protein C activity and prothrombin 3 mutation and antiphospholipid syndrome antibodies. We will continue to follow closely the result of these tests. --> lab results that are currently available are wnl, except for Protein S which is decreased but not abnormally low in setting of an acute clot --> will follow up with other results as they become available --> agree with current care # Thrombocytosis --> reactive process #. Anemia, secondary to chronic disease. --> w/u completed #. Leukocytosis secondary to recent surgery. Continue to closely monitor --> s/p surgery should improve --> currently wnl #. Status post laparotomy with abdominal pain and ischemic bowel. --> ostomy pouch now has fully formed stool #. Sepsis. #. Gastroenteritis. Subjective Constitutional: Reports: no symptoms HEENT: Reports: no symptoms Cardiovascular: Reports: no symptoms Respiratory: Reports: no symptoms Gastrointestinal/Abdominal: Reports: no symptoms Genitourinary: Reports: no symptoms Neurologic/Psychiatric: Reports: no symptoms Endocrine: Reports: no symptoms Hematologic/Lymphatic: Reports: anemia Allergies: Coded Allergies: PENICILLIN (Verified Allergy, Unknown, 12/01/15) PENICILLINS (Unverified Allergy, Unknown, 06/08/17) SHELLFISH (Verified Allergy, Unknown, 12/01/15) Uncoded Allergies: Mints (Allergy, Unknown, 06/09/17) Subjective pt doing well, awaiting snf placement Objective Last 24 Hour Vital Signs Date Time Temp Pulse Resp B/P Pulse Ox O2 Delivery O2 Flow Rate FiO2 06/23/17 15:54 97.3 92 20 114/69 99 Room Air 06/23/17 11:38 98.2 88 20 113/71 100 Room Air 06/23/17 08:00 97.3 86 20 91/53 96 Room Air 06/23/17 04:07 98.4 79 19 114/56 99 Room Air 06/23/17 00:03 97.7 89 18 113/61 98 Room Air 06/22/17 20:11 98.1 96 19 114/66 99 Room Air Intake and Output 06/22/17 06/23/17 19:00 07:00 Intake Total 2280 ml 1065 ml Output Total 1000 ml 70 ml Balance 1280 ml 995 ml Intake Oral 1380 ml 240 ml IV Total 900 ml 825 ml Output Urine Total 700 ml Stool Total 300 ml 70 ml # Voids 1 1 Laboratory Tests 06/23/17 04:30: White Blood Count 8.8, Red Blood Count 3.15L, Hemoglobin 8.5L, Hematocrit 27.8L , Mean Corpuscular Volume 88, Mean Corpuscular Hemoglobin 26.9L, Mean Corpuscular Hemoglobin Concent 30.5L, Red Cell Distribution Width 18.2H, Platelet Count 644H, Mean Platelet Volume 5.8L, Neutrophils (%) (Auto) 56.6, Lymphocytes (%) (Auto) 35.3, Monocytes (%) (Auto) 5.3, Eosinophils (%) (Auto) 1.8, Basophils (%) (Auto) 1.0, Sodium Level 138, Potassium Level 4.1, Chloride Level 102, Carbon Dioxide Level 28, Anion Gap 8, Blood Urea Nitrogen 17, Creatinine 0.5, Estimat Glomerular Filtration Rate > 60, Glucose Level 99, Calcium Level 8.9, Ionized Calcium (Measured) 1.13, Phosphorus Level 3.8, Magnesium Level 2.1, Albumin 3.1L, Prealbumin [Pending], Triglycerides Level 139 06/23/17 05:28: Ionized Calcium (Measured) 1.21, Phosphorus Level 4.0, Magnesium Level 2.1, Albumin 3.1L Height (Feet): 5 Height (Inches): 3.00 Weight (Pounds): 121 General Appearance: no apparent distress EENT: normal ENT inspection Neck: normal alignment Cardiovascular: normal peripheral pulses Respiratory/Chest: chest wall non-tender Edema: no edema noted Pedal (L), no edema noted Pedal (R) Neurologic: strategic analyst II-XII grossly normal Dell Pichardo 3, 2017 16:21
--- NOTE | 2017-06-23 18:33 | Pulmonology Progress Note ---
Assessment/Plan Problems: (1) Ischemic bowel disease (2) S/P laparotomy (3) Abdominal pain (4) Sepsis (5) Gastroenteritis (6) Septic shock Assessment/Plan oral diet tolerated well on TPN pt/ot check lab off abx dc planning in process will need placement Subjective ROS Limited/Unobtainable: No Constitutional: Reports: no symptoms HEENT: Repors: no symptoms Respiratory: Reports: no symptoms Cardiovascular: Reports: no symptoms Allergies: Coded Allergies: PENICILLIN (Verified Allergy, Unknown, 12/01/15) PENICILLINS (Unverified Allergy, Unknown, 06/08/17) SHELLFISH (Verified Allergy, Unknown, 12/01/15) Uncoded Allergies: Mints (Allergy, Unknown, 06/09/17) Objective Last 24 Hour Vital Signs Date Time Temp Pulse Resp B/P Pulse Ox O2 Delivery O2 Flow Rate FiO2 06/23/17 15:54 97.3 92 20 114/69 99 Room Air 06/23/17 11:38 98.2 88 20 113/71 100 Room Air 06/23/17 08:00 97.3 86 20 91/53 96 Room Air 06/23/17 04:07 98.4 79 19 114/56 99 Room Air 06/23/17 00:03 97.7 89 18 113/61 98 Room Air 06/22/17 20:11 98.1 96 19 114/66 99 Room Air Intake and Output 06/22/17 06/23/17 19:00 07:00 Intake Total 2280 ml 1065 ml Output Total 1000 ml 70 ml Balance 1280 ml 995 ml Intake Oral 1380 ml 240 ml IV Total 900 ml 825 ml Output Urine Total 700 ml Stool Total 300 ml 70 ml # Voids 1 1 General Appearance: WD/WN, no acute distress HEENT: normocephalic, atraumatic Respiratory/Chest: chest wall non-tender, lungs clear Breasts: no masses Cardiovascular: normal peripheral pulses Abdomen: normal bowel sounds, soft, non tender Genitourinary: normal external genitalia Laboratory Tests 06/23/17 04:30: White Blood Count 8.8, Red Blood Count 3.15L, Hemoglobin 8.5L, Hematocrit 27.8L , Mean Corpuscular Volume 88, Mean Corpuscular Hemoglobin 26.9L, Mean Corpuscular Hemoglobin Concent 30.5L, Red Cell Distribution Width 18.2H, Platelet Count 644H, Mean Platelet Volume 5.8L, Neutrophils (%) (Auto) 56.6, Lymphocytes (%) (Auto) 35.3, Monocytes (%) (Auto) 5.3, Eosinophils (%) (Auto) 1.8, Basophils (%) (Auto) 1.0, Sodium Level 138, Potassium Level 4.1, Chloride Level 102, Carbon Dioxide Level 28, Anion Gap 8, Blood Urea Nitrogen 17, Creatinine 0.5, Estimat Glomerular Filtration Rate > 60, Glucose Level 99, Calcium Level 8.9, Ionized Calcium (Measured) 1.13, Phosphorus Level 3.8, Magnesium Level 2.1, Albumin 3.1L, Prealbumin [Pending], Triglycerides Level 139 06/23/17 05:28: Ionized Calcium (Measured) 1.21, Phosphorus Level 4.0, Magnesium Level 2.1, Albumin 3.1L Current Medications Medications (Trade) Dose Ordered Sig/Michael Route PRN Reason Start Time Stop Time Status Last Admin Dose Admin Acetaminophen (Tylenol) 650 mg Q4H PRN ORAL Mild Pain/Temp > 100.5 06/15/17 10:45 07/15/17 10:44 06/16/17 10:28 Acetaminophen/ Hydrocodone Bitart ([place] 5/325) 1 tab Q4H PRN ORAL Moderate Pain (Pain Scale 4-6) 06/20/17 11:00 06/27/17 10:59 06/23/17 11:28 Chlorhexidine Gluconate (Briana-Hex 2%) 1 applic DAILY TOPIC 06/15/17 09:00 07/15/17 08:59 06/23/17 11:10 Dextrose (Dextrose 50%) STAT PRN IV Hypoglycemia 06/14/17 21:02 07/14/17 21:01 Fat Emulsion Intravenous/Amino Acids/ Electrolytes/ Dextrose (Intralipids/Tpn) 1,800 ml @ 75 mls/hr Q24H IV 06/14/17 21:00 06/23/17 20:59 06/22/17 21:36 Insulin Aspart (NovoLOG) Q6HR SUBQ 06/15/17 00:00 07/15/17 00:00 06/23/17 18:09 Nitroglycerin (Ntg) 0.4 mg Q5M X 3 DOSES PRN SL Prn Chest Pain 06/14/17 21:00 07/14/17 20:59 Ondansetron HCl (Zofran) 4 mg Q6H PRN IVP Nausea & Vomiting 06/14/17 21:03 07/14/17 21:02 06/16/17 03:16 Pantoprazole (Protonix) 40 mg DAILY ORAL 06/21/17 09:00 07/21/17 08:59 06/23/17 11:10 Phytonadione (Vitamin K) 10 mg QWEEK SUBQ 06/20/17 21:00 07/20/17 20:59 06/20/17 22:00 Temazepam (Restoril) 15 mg HSPRN PRN ORAL Insomnia 06/16/17 20:30 06/23/17 20:29 06/22/17 21:21 [place] MCRAE Jun 23, 2017 18:33
[2017-06-23 20:30] VITALS: BP 114/64
--- NOTE | 2017-06-23 20:47 | Infectious Diseases Prog Note ---
Assessment/Plan Assessment/Plan ASSESSMENT: 62 y/o female with: // Secondary peritonitis SP Rx - WCx K.pneumoniae, m/l polymicrobial // Ischemic colitis - SP takeback SBR, partial colectomy 06/10 - SP ex-lap subtotal colectomy 06/09 // Leukocytosis - resolved, afebrile // SP VDRF // PCN allergy // Full Code PLAN: - monitor pt off of ABX ( 06/18 SP Flagyl and Azactam d# ) - monitor CBC, temperatures, re-culture if acute change - monitor BMP Subjective Constitutional: Reports: no symptoms Allergies: Coded Allergies: PENICILLIN (Verified Allergy, Unknown, 12/01/15) PENICILLINS (Unverified Allergy, Unknown, 06/08/17) SHELLFISH (Verified Allergy, Unknown, 12/01/15) Uncoded Allergies: Mints (Allergy, Unknown, 06/09/17) Objective Vital Signs Last 24 Hour Vital Signs Date Time Temp Pulse Resp B/P Pulse Ox O2 Delivery O2 Flow Rate FiO2 06/23/17 20:30 99.0 95 19 114/64 99 Room Air 06/23/17 15:54 97.3 92 20 114/69 99 Room Air 06/23/17 11:38 98.2 88 20 113/71 100 Room Air 06/23/17 08:00 97.3 86 20 91/53 96 Room Air 06/23/17 04:07 98.4 79 19 114/56 99 Room Air 06/23/17 00:03 97.7 89 18 113/61 98 Room Air Height (Feet): 5 Height (Inches): 3.00 Weight (Pounds): 121 General Appearance: no acute distress HEENT: anicteric Respiratory/Chest: no respiratory distress Cardiovascular: normal rate, regular rhythm Abdomen: normal bowel sounds Extremities: no cyanosis Skin: no rash Laboratory Tests Test 06/23/17 04:30 06/23/17 05:28 White Blood Count 8.8 K/UL (4.8-10.8) Red Blood Count 3.15 M/UL (4.20-5.40) L Hemoglobin 8.5 G/DL (12.0-16.0) L Hematocrit 27.8 % (37.0-47.0) L Mean Corpuscular Volume 88 FL (80-99) Mean Corpuscular Hemoglobin 26.9 PG (27.0-31.0) L Mean Corpuscular Hemoglobin Concent 30.5 G/DL (32.0-36.0) L Red Cell Distribution Width 18.2 % (11.6-14.8) H Platelet Count 644 K/UL (150-450) H Mean Platelet Volume 5.8 FL (6.5-10.1) L Neutrophils (%) (Auto) 56.6 % (45.0-75.0) Lymphocytes (%) (Auto) 35.3 % (20.0-45.0) Monocytes (%) (Auto) 5.3 % (1.0-10.0) Eosinophils (%) (Auto) 1.8 % (0.0-3.0) Basophils (%) (Auto) 1.0 % (0.0-2.0) Sodium Level 138 mEQ/L (135-145) Potassium Level 4.1 mEQ/L (3.4-4.9) Chloride Level 102 mEQ/L (98-107) Carbon Dioxide Level 28 mEQ/L (20-30) Anion Gap 8 (5-15) Blood Urea Nitrogen 17 mg/dL (7-23) Creatinine 0.5 mg/dL (0.5-0.9) Estimat Glomerular Filtration Rate > 60 mL/min (>60) Glucose Level 99 mg/dL (74-106) Calcium Level 8.9 mg/dL (8.6-10.2) Ionized Calcium (Measured) 1.13 mmol/L (1.10-1.35) 1.21 mmol/L (1.10-1.35) Phosphorus Level 3.8 mg/dL (2.5-4.8) 4.0 mg/dL (2.5-4.8) Magnesium Level 2.1 mg/dL (1.7-2.5) 2.1 mg/dL (1.7-2.5) Albumin 3.1 g/dL (3.5-5.2) L 3.1 g/dL (3.5-5.2) L Prealbumin Pending Triglycerides Level 139 mg/dL (< 150) Current Medications Medications (Trade) Dose Ordered Sig/Michael Route PRN Reason Start Time Stop Time Status Last Admin Dose Admin Acetaminophen (Tylenol) 650 mg Q4H PRN ORAL Mild Pain/Temp > 100.5 06/15/17 10:45 07/15/17 10:44 06/16/17 10:28 Acetaminophen/ Hydrocodone Bitart ([place] 5/325) 1 tab Q4H PRN ORAL Moderate Pain (Pain Scale 4-6) 06/20/17 11:00 06/27/17 10:59 06/23/17 11:28 Chlorhexidine Gluconate (Briana-Hex 2%) 1 applic DAILY TOPIC 06/15/17 09:00 07/15/17 08:59 06/23/17 11:10 Dextrose (Dextrose 50%) STAT PRN IV Hypoglycemia 06/14/17 21:02 07/14/17 21:01 Fat Emulsion Intravenous/Amino Acids/ Electrolytes/ Dextrose (Intralipids/Tpn) 1,800 ml @ 75 mls/hr Q24H IV 06/14/17 21:00 06/23/17 20:59 06/22/17 21:36 Insulin Aspart (NovoLOG) Q6HR SUBQ 06/15/17 00:00 07/15/17 00:00 06/23/17 18:09 Nitroglycerin (Ntg) 0.4 mg Q5M X 3 DOSES PRN SL Prn Chest Pain 06/14/17 21:00 07/14/17 20:59 Ondansetron HCl (Zofran) 4 mg Q6H PRN IVP Nausea & Vomiting 06/14/17 21:03 07/14/17 21:02 06/16/17 03:16 Pantoprazole (Protonix) 40 mg DAILY ORAL 06/21/17 09:00 07/21/17 08:59 06/23/17 11:10 Phytonadione (Vitamin K) 10 mg QWEEK SUBQ 06/20/17 21:00 07/20/17 20:59 06/20/17 22:00 Srinivasan Nair M.D. Jun 23, 2017 20:47
[2017-06-24 00:31] VITALS: BP 108/57
[2017-06-24 04:00] VITALS: BP 117/59
[2017-06-24 06:40] LABS: BASOPHILS % (AUTO) 1.4 % (0.0-2.0); LYMPHOCYTES % (AUTO) 25.9 % (20.0-45.0); MEAN CORPUSCULAR HEMOGLOBIN 27.4 PG (27.0-31.0); MEAN CORPUSCULAR HGB CONC 31.3 G/DL (32.0-36.0); MEAN CORPUSCULAR VOLUME 87 FL (80-99); MEAN PLATELET VOLUME 5.9 FL (6.5-10.1); MONOCYTES % (AUTO) 6.5 % (1.0-10.0); NEUTROPHILS % (AUTO) 64.2 % (45.0-75.0); PLATELET COUNT 624 K/UL (150-450); RED BLOOD COUNT 3.14 M/UL (4.20-5.40); RED CELL DISTRIBUTION WIDTH 17.6 % (11.6-14.8); WHITE BLOOD COUNT 7.7 K/UL (4.8-10.8)
[2017-06-24] MEDS: NovoLOG Insulin Flexpen SUBQ SCH (07:01)
[2017-06-24 07:23] LABS: ANION GAP 8 (5-15); CALCIUM 9.2 mg/dL (8.6-10.2); CARBON DIOXIDE 28 mEQ/L (20-30); CHLORIDE 104 mEQ/L (98-107); CREATININE 0.5 mg/dL (0.5-0.9); GLOMERULAR FILTRATION RATE > 60 mL/min (>60); HEMOLYSIS 3; MAGNESIUM 2.6 mg/dL (1.7-2.5); POTASSIUM 4.4 mEQ/L (3.4-4.9); SODIUM 140 mEQ/L (135-145)
--- NOTE | 2017-06-24 07:40 | Pulmonology Progress Note ---
Assessment/Plan Assessment/Plan ASSESSMENT sepsis ( 2 to ischemic colitis) colonic ischemia with necrosis and gangrene SB ischemia mesenteric ischemia with bowel necrosis peritonitis anemia of chronic disease possible protein calorie malnutrition ( after surgery ) s/p 06/09 exp laparotomy with subtotal colectomy s/p 06.10 reexploration , exploratory laparotomy, SB resection, distal sigmoid resection, colostomy creation PLAN OF CARE [facility] floor initial CT A/P with ascending colitis s/p 2 surgeries surgery follows initially bowel rest, NGT to suction and TPN, now TPN being tapered dc accucheck when TPN stopped patient was intubated during surgery 06/09 and left intubated for recovery extubated 06/13 pain management diet as tolerated a/emetic prn colostomy care blood cx negative, wound cx + Klebsiella, s/p abx Rx, ID follows per ID monitor off abx afebrile, no leucocytosis tumor markers all WNL colon biopsy no malignancy,. + severe ischemic colitis wound care nurse taught pt colostomy care PT/OT short term SNF placement GI prophylaxis monitor HH, stable, no trend down calorie count, prealbumin-WNL, dietary follows support nutritional status, possibly malnutrition after extensive surgery and recovery further dietary follow up in SNF, case discussed and evaluated by supervising physician Subjective Allergies: Coded Allergies: PENICILLIN (Verified Allergy, Unknown, 12/01/15) PENICILLINS (Unverified Allergy, Unknown, 06/08/17) SHELLFISH (Verified Allergy, Unknown, 12/01/15) Uncoded Allergies: Mints (Allergy, Unknown, 06/09/17) Subjective afebrile, no leukocytosis incision healing pain intermittently controlled tolerated diet Objective Last 24 Hour Vital Signs Date Time Temp Pulse Resp B/P Pulse Ox O2 Delivery O2 Flow Rate FiO2 06/24/17 04:00 97.0 79 19 117/59 99 Room Air 06/24/17 00:31 98.1 88 18 108/57 98 Room Air 06/23/17 20:30 99.0 95 19 114/64 99 Room Air 06/23/17 15:54 97.3 92 20 114/69 99 Room Air 06/23/17 11:38 98.2 88 20 113/71 100 Room Air 06/23/17 08:00 97.3 86 20 91/53 96 Room Air Intake and Output 06/23/17 06/24/17 19:00 07:00 Intake Total 1642.5 ml 277.5 ml Output Total 600 ml Balance 1042.5 ml 277.5 ml Intake Oral 1080 ml 240 ml IV Total 562.5 ml 37.5 ml Output Urine Total 400 ml Stool Total 200 ml # Voids 2 2 # Bowel Movements 1 General Appearance: no acute distress, other - A/A/O x 4 female HEENT: normocephalic, atraumatic, anicteric, mucous membranes moist, PERRL Respiratory/Chest: chest wall non-tender, lungs clear, no respiratory distress , no accessory muscle use Cardiovascular: normal peripheral pulses, normal rate, regular rhythm, no JVD Abdomen: normal bowel sounds, other - inciision BUSINESS RECORDS MANAGER, no janes, no erythema, no edema, mild tenderness on palpation, colsotomy with good output Genitourinary: normal external genitalia Extremities: no edema, pedal pulses normal Skin: no rash Neurologic/Psychiatric: cottrell operator II-XII grossly normal, no motor/sensory deficits, alert, oriented x 3, responsive, normal mood/affect Musculoskeletal: normal muscle bulk Laboratory Tests 06/24/17 05:30: White Blood Count 7.7, Red Blood Count 3.14L, Hemoglobin 8.6L, Hematocrit 27.4L , Mean Corpuscular Volume 87, Mean Corpuscular Hemoglobin 27.4, Mean Corpuscular Hemoglobin Concent 31.3L, Red Cell Distribution Width 17.6H, Platelet Count 624H, Mean Platelet Volume 5.9L, Neutrophils (%) (Auto) 64.2, Lymphocytes (%) (Auto) 25.9, Monocytes (%) (Auto) 6.5, Eosinophils (%) (Auto) 2.0, Basophils (%) (Auto) 1.4, Sodium Level 140, Potassium Level 4.4, Chloride Level 104, Carbon Dioxide Level 28, Anion Gap 8, Blood Urea Nitrogen 15, Creatinine 0.5, Estimat Glomerular Filtration Rate > 60, Glucose Level 117H, Calcium Level 9.2, Phosphorus Level 4.0, Magnesium Level 2.6H Current Medications Medications (Trade) Dose Ordered Sig/Michael Route PRN Reason Start Time Stop Time Status Last Admin Dose Admin Acetaminophen (Tylenol) 650 mg Q4H PRN ORAL Mild Pain/Temp > 100.5 06/15/17 10:45 07/15/17 10:44 7/27/17 10:28 Acetaminophen/ Hydrocodone Bitart ([place] 5/325) 1 tab Q4H PRN ORAL Moderate Pain (Pain Scale 4-6) 06/20/17 11:00 06/27/17 10:59 06/23/17 11:28 Chlorhexidine Gluconate (Briana-Hex 2%) 1 applic DAILY TOPIC 06/15/17 09:00 07/15/17 08:59 06/23/17 11:10 Dextrose (Dextrose 50%) STAT PRN IV Hypoglycemia 06/14/17 21:02 07/14/17 21:01 Insulin Aspart (NovoLOG) Q6HR SUBQ 06/15/17 00:00 07/15/17 00:00 06/24/17 07:01 Nitroglycerin (Ntg) 0.4 mg Q5M X 3 DOSES PRN SL Prn Chest Pain 06/14/17 21:00 07/14/17 20:59 Ondansetron HCl (Zofran) 4 mg Q6H PRN IVP Nausea & Vomiting 06/14/17 21:03 07/14/17 21:02 06/16/17 03:16 Pantoprazole (Protonix) 40 mg DAILY ORAL 06/21/17 09:00 07/21/17 08:59 06/23/17 11:10 Phytonadione (Vitamin K) 10 mg QWEEK SUBQ 06/20/17 21:00 07/20/17 20:59 06/20/17 22:00 Temazepam (Restoril) 15 mg HSPRN PRN ORAL Insomnia 06/23/17 22:00 06/30/17 21:59 06/23/17 22:54 Delia Arce NP ([facility]) Jun 24, 2017 07:40
[2017-06-24 08:00] VITALS: BP 114/64
[2017-06-24] MEDS: Dyna-Hex 2% Top Sol 8oz TOPIC SCH (08:54)
--- NOTE | 2017-06-24 10:45 | GI Progress Note ---
Assessment/Plan Problems: (1) Abdominal pain ICD Codes: R10.9 - Unspecified abdominal pain SNOMED: 48304732 Qualifiers: Qualified Codes: R10.13 - Epigastric pain (2) Gastroenteritis ICD Codes: K52.9 - Noninfective gastroenteritis and colitis, unspecified SNOMED: 94647204 (3) Gastric ulcer with hemorrhage ICD Codes: K25.4 - Chronic or unspecified gastric ulcer with hemorrhage SNOMED: 29389901 (4) Ischemic colon ICD Codes: K55.9 - Vascular disorder of intestine, unspecified SNOMED: 67894829 (5) Sepsis ICD Codes: A41.9 - Sepsis, unspecified organism SNOMED: 81043184 Qualifiers: Qualified Codes: A41.9 - Sepsis, unspecified organism Status: doing well, stable, progressing Status Narrative Discussed with Dr. Gonzalez. Assessment/Plan post op care IVFs diet per surgery >> regular, tolerating dc TPN abx ppi fu labs Subjective Subjective doing well Objective Last 24 Hour Vital Signs Date Time Temp Pulse Resp B/P Pulse Ox O2 Delivery O2 Flow Rate FiO2 06/24/17 08:00 98.1 84 18 114/64 98 Room Air 06/24/17 04:00 97.0 79 19 117/59 99 Room Air 06/24/17 00:31 98.1 88 18 108/57 98 Room Air 06/23/17 20:30 99.0 95 19 114/64 99 Room Air 06/23/17 15:54 97.3 92 20 114/69 99 Room Air 06/23/17 11:38 98.2 88 20 113/71 100 Room Air Intake and Output 06/23/17 06/24/17 19:00 07:00 Intake Total 1642.5 ml 277.5 ml Output Total 600 ml 50 ml Balance 1042.5 ml 227.5 ml Intake Oral 1080 ml 240 ml IV Total 562.5 ml 37.5 ml Output Urine Total 400 ml Stool Total 200 ml 50 ml # Voids 2 3 # Bowel Movements 1 Laboratory Tests Test 06/24/17 05:30 White Blood Count 7.7 K/UL (4.8-10.8) Red Blood Count 3.14 M/UL (4.20-5.40) L Hemoglobin 8.6 G/DL (12.0-16.0) L Hematocrit 27.4 % (37.0-47.0) L Mean Corpuscular Volume 87 FL (80-99) Mean Corpuscular Hemoglobin 27.4 PG (27.0-31.0) Mean Corpuscular Hemoglobin Concent 31.3 G/DL (32.0-36.0) L Red Cell Distribution Width 17.6 % (11.6-14.8) H Platelet Count 624 K/UL (150-450) H Mean Platelet Volume 5.9 FL (6.5-10.1) L Neutrophils (%) (Auto) 64.2 % (45.0-75.0) Lymphocytes (%) (Auto) 25.9 % (20.0-45.0) Monocytes (%) (Auto) 6.5 % (1.0-10.0) Eosinophils (%) (Auto) 2.0 % (0.0-3.0) Basophils (%) (Auto) 1.4 % (0.0-2.0) Sodium Level 140 mEQ/L (135-145) Potassium Level 4.4 mEQ/L (3.4-4.9) Chloride Level 104 mEQ/L (98-107) Carbon Dioxide Level 28 mEQ/L (20-30) Anion Gap 8 (5-15) Blood Urea Nitrogen 15 mg/dL (7-23) Creatinine 0.5 mg/dL (0.5-0.9) Estimat Glomerular Filtration Rate > 60 mL/min (>60) Glucose Level 117 mg/dL (74-106) H Calcium Level 9.2 mg/dL (8.6-10.2) Phosphorus Level 4.0 mg/dL (2.5-4.8) Magnesium Level 2.6 mg/dL (1.7-2.5) H Height (Feet): 5 Height (Inches): 3.00 Weight (Pounds): 126 General Appearance: no apparent distress, alert Cardiovascular: normal rate Respiratory/Chest: normal breath sounds, no respiratory distress Abdominal Exam: normal bowel sounds, non tender, soft, incision site - c/d/i, other - colostomy Sabrina Evangelista N.P. Jun 24, 2017 10:45
[2017-06-24 12:00] VITALS: BP 130/68
--- NOTE | 2017-06-24 15:06 | General Progress Note ---
Assessment/Plan Assessment/Plan ASSESSMENT AND PLAN: #. Hypercoagulable disorder rule out. The patient with no history of potential venous thrombosis of the mesentery and multifactorial causes including dehydration and rule out occult malignancy or inflammatory process. The patient has pancreatitis and diverticulitis. Rule out myeloproliferative syndrome. The patient does not have portal hypertension. Did not have a personal and family history of venous thromboembolism. r/o inherited thrombophilia. --> send for factor V Leiden mutation, prothrombin gene mutation, protein C, protein S activity, prothrombin 3, and antiphospholipid syndrome workup again. The patient may have inherited thrombophilia with simple factor V Leiden, prothrombin gene mutation, protein S and protein C activity and prothrombin 3 mutation and antiphospholipid syndrome antibodies. We will continue to follow closely the result of these tests. --> lab results that are currently available are wnl, except for Protein S which is decreased but not abnormally low in setting of an acute clot --> will follow up with other results as they become available --> agree with current care # Thrombocytosis --> reactive process #. Anemia, secondary to chronic disease. --> w/u completed #. Leukocytosis secondary to recent surgery. Continue to closely monitor --> s/p surgery should improve --> currently wnl #. Status post laparotomy with abdominal pain and ischemic bowel. --> ostomy pouch now has fully formed stool --> TPN being tapered #. Sepsis. #. Gastroenteritis. Subjective Constitutional: Reports: no symptoms HEENT: Reports: no symptoms Cardiovascular: Reports: no symptoms Respiratory: Reports: no symptoms Gastrointestinal/Abdominal: Reports: no symptoms Genitourinary: Reports: no symptoms Neurologic/Psychiatric: Reports: no symptoms Endocrine: Reports: no symptoms Hematologic/Lymphatic: Reports: anemia Allergies: Coded Allergies: PENICILLIN (Verified Allergy, Unknown, 12/01/15) PENICILLINS (Unverified Allergy, Unknown, 06/08/17) SHELLFISH (Verified Allergy, Unknown, 12/01/15) Uncoded Allergies: Mints (Allergy, Unknown, 06/09/17) Subjective bowel rest, no events overnight Objective Last 24 Hour Vital Signs Date Time Temp Pulse Resp B/P Pulse Ox O2 Delivery O2 Flow Rate FiO2 06/24/17 12:00 98.5 86 18 130/68 97 Room Air 06/24/17 08:00 98.1 84 18 114/64 98 Room Air 06/24/17 04:00 97.0 79 19 117/59 99 Room Air 06/24/17 00:31 98.1 88 18 108/57 98 Room Air 06/23/17 20:30 99.0 95 19 114/64 99 Room Air 06/23/17 15:54 97.3 92 20 114/69 99 Room Air Intake and Output 06/23/17 06/24/17 19:00 07:00 Intake Total 1642.5 ml 277.5 ml Output Total 600 ml 50 ml Balance 1042.5 ml 227.5 ml Intake Oral 1080 ml 240 ml IV Total 562.5 ml 37.5 ml Output Urine Total 400 ml Stool Total 200 ml 50 ml # Voids 2 3 # Bowel Movements 1 Laboratory Tests 06/24/17 05:30: White Blood Count 7.7, Red Blood Count 3.14L, Hemoglobin 8.6L, Hematocrit 27.4L , Mean Corpuscular Volume 87, Mean Corpuscular Hemoglobin 27.4, Mean Corpuscular Hemoglobin Concent 31.3L, Red Cell Distribution Width 17.6H, Platelet Count 624H, Mean Platelet Volume 5.9L, Neutrophils (%) (Auto) 64.2, Lymphocytes (%) (Auto) 25.9, Monocytes (%) (Auto) 6.5, Eosinophils (%) (Auto) 2.0, Basophils (%) (Auto) 1.4, Sodium Level 140, Potassium Level 4.4, Chloride Level 104, Carbon Dioxide Level 28, Anion Gap 8, Blood Urea Nitrogen 15, Creatinine 0.5, Estimat Glomerular Filtration Rate > 60, Glucose Level 117H, Calcium Level 9.2, Phosphorus Level 4.0, Magnesium Level 2.6H Height (Feet): 5 Height (Inches): 3.00 Weight (Pounds): 126 General Appearance: no apparent distress EENT: normal ENT inspection Neck: non-tender Cardiovascular: regular rhythm Respiratory/Chest: chest wall non-tender Abdomen: no organomegaly Edema: no edema noted Pedal (L), no edema noted Pedal (R) 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
--- NOTE | 2017-06-24 15:47 | Infectious Diseases Prog Note ---
Assessment/Plan Assessment/Plan ASSESSMENT: 62 y/o female with: // Secondary peritonitis SP Rx - WCx K.pneumoniae, m/l polymicrobial // mesenteric ischemia with necrotic bowel. - SP takeback SBR, partial colectomy, ostomy creation 06/10 - SP ex-lap subtotal colectomy 06/09 - undergoing hypercoag w/u // Leukocytosis - resolved, afebrile //reactive thrombocytosis // SP VDRF //anemia of chronic disease // PCN allergy // Full Code PLAN: - monitor pt off of ABX ( 06/18 SP Flagyl and Azactam d# / ) - monitor CBC, temperatures, re-culture if acute change - monitor BMP Subjective Constitutional: Reports: no symptoms HEENT: Reports: no symptoms Respiratory: Reports: no symptoms Gastrointestinal/Abdominal: Reports: no symptoms Skin: Reports: no symptoms Hematologic: Reports: no symptoms Allergies: Coded Allergies: PENICILLIN (Verified Allergy, Unknown, 12/01/15) PENICILLINS (Unverified Allergy, Unknown, 06/08/17) SHELLFISH (Verified Allergy, Unknown, 12/01/15) Uncoded Allergies: Mints (Allergy, Unknown, 06/09/17) Subjective afebrile, no night sweats. Objective Vital Signs Last 24 Hour Vital Signs Date Time Temp Pulse Resp B/P Pulse Ox O2 Delivery O2 Flow Rate FiO2 06/24/17 12:00 98.5 86 18 130/68 97 Room Air 06/24/17 08:00 98.1 84 18 114/64 98 Room Air 06/24/17 04:00 97.0 79 19 117/59 99 Room Air 06/24/17 00:31 98.1 88 18 108/57 98 Room Air 06/23/17 20:30 99.0 95 19 114/64 99 Room Air 06/23/17 15:54 97.3 92 20 114/69 99 Room Air Height (Feet): 5 Height (Inches): 3.00 Weight (Pounds): 126 Objective General Appearance: no acute distress Respiratory/Chest: no respiratory distress Cardiovascular: normal rate, regular rhythm Abdomen: normal bowel sounds, soft, non tender, non distended, ostomy in place with formed stool. midline abd incision healing w/ janes in place. no surrounding erythema. ext: no edema skin: no rash Laboratory Tests Test 06/24/17 05:30 White Blood Count 7.7 K/UL (4.8-10.8) Red Blood Count 3.14 M/UL (4.20-5.40) L Hemoglobin 8.6 G/DL (12.0-16.0) L Hematocrit 27.4 % (37.0-47.0) L Mean Corpuscular Volume 87 FL (80-99) Mean Corpuscular Hemoglobin 27.4 PG (27.0-31.0) Mean Corpuscular Hemoglobin Concent 31.3 G/DL (32.0-36.0) L Red Cell Distribution Width 17.6 % (11.6-14.8) H Platelet Count 624 K/UL (150-450) H Mean Platelet Volume 5.9 FL (6.5-10.1) L Neutrophils (%) (Auto) 64.2 % (45.0-75.0) Lymphocytes (%) (Auto) 25.9 % (20.0-45.0) Monocytes (%) (Auto) 6.5 % (1.0-10.0) Eosinophils (%) (Auto) 2.0 % (0.0-3.0) Basophils (%) (Auto) 1.4 % (0.0-2.0) Sodium Level 140 mEQ/L (135-145) Potassium Level 4.4 mEQ/L (3.4-4.9) Chloride Level 104 mEQ/L (98-107) Carbon Dioxide Level 28 mEQ/L (20-30) Anion Gap 8 (5-15) Blood Urea Nitrogen 15 mg/dL (7-23) Creatinine 0.5 mg/dL (0.5-0.9) Estimat Glomerular Filtration Rate > 60 mL/min (>60) Glucose Level 117 mg/dL (74-106) H Calcium Level 9.2 mg/dL (8.6-10.2) Phosphorus Level 4.0 mg/dL (2.5-4.8) Magnesium Level 2.6 mg/dL (1.7-2.5) H Current Medications Medications (Trade) Dose Ordered Sig/Michael Route PRN Reason Start Time Stop Time Status Last Admin Dose Admin Acetaminophen (Tylenol) 650 mg Q4H PRN ORAL Mild Pain/Temp > 100.5 06/15/17 10:45 07/15/17 10:44 06/16/17 10:28 Acetaminophen/ Hydrocodone Bitart ([place] 5/325) 1 tab Q4H PRN ORAL Moderate Pain (Pain Scale 4-6) 06/20/17 11:00 06/27/17 10:59 06/23/17 11:28 Chlorhexidine Gluconate (Briana-Hex 2%) 1 applic DAILY TOPIC 06/15/17 09:00 07/15/17 08:59 06/24/17 08:54 Dextrose (Dextrose 50%) STAT PRN IV Hypoglycemia 06/14/17 21:02 07/14/17 21:01 Nitroglycerin (Ntg) 0.4 mg Q5M X 3 DOSES PRN SL Prn Chest Pain 06/14/17 21:00 07/14/17 20:59 Ondansetron HCl (Zofran) 4 mg Q6H PRN IVP Nausea & Vomiting 06/14/17 21:03 07/14/17 21:02 06/16/17 03:16 Pantoprazole (Protonix) 40 mg DAILY ORAL 06/21/17 09:00 07/21/17 08:59 06/24/17 08:54 Phytonadione (Vitamin K) 10 mg QWEEK SUBQ 06/20/17 21:00 07/20/17 20:59 06/20/17 22:00 Temazepam (Restoril) 15 mg HSPRN PRN ORAL Insomnia 06/23/17 22:00 06/30/17 21:59 06/23/17 22:54 Srinivasan Nair M.D. Jun 24, 2017 15:47
[2017-06-24 16:00] VITALS: BP 120/69
--- NOTE | 2017-06-24 19:19 | General Progress Note ---
Progress Note Progress Note surgery: doing well. no issues. no n/v/f/c. exam benign labs okay diet okay can d/c from surgical standpoint follow up with me in 2 weeks no Rx necessary from surgical standpoint Wei Monroy Jun 24, 2017 19:19
[2017-06-24 20:00] VITALS: BP 111/68
[2017-06-24] MEDS: Norco 5mg/325mg tab ORAL PRN (20:23)
[2017-06-25 00:12] VITALS: BP 96/65
[2017-06-25 04:00] VITALS: BP 107/58
[2017-06-25 05:44] LABS: BASOPHILS % (AUTO) 1.3 % (0.0-2.0); EOSINOPHILS % (AUTO) 2.7 % (0.0-3.0); LYMPHOCYTES % (AUTO) 34.3 % (20.0-45.0); MEAN CORPUSCULAR HGB CONC 31.2 G/DL (32.0-36.0); MEAN CORPUSCULAR VOLUME 87 FL (80-99); MEAN PLATELET VOLUME 5.8 FL (6.5-10.1); MONOCYTES % (AUTO) 7.5 % (1.0-10.0); NEUTROPHILS % (AUTO) 54.2 % (45.0-75.0); PLATELET COUNT 554 K/UL (150-450); RED BLOOD COUNT 3.01 M/UL (4.20-5.40); RED CELL DISTRIBUTION WIDTH 17.3 % (11.6-14.8); WHITE BLOOD COUNT 7.2 K/UL (4.8-10.8)
[2017-06-25 05:58] LABS: ANION GAP 9 (5-15); CALCIUM 9.3 mg/dL (8.6-10.2); CARBON DIOXIDE 26 mEQ/L (20-30); CHLORIDE 104 mEQ/L (98-107); CREATININE 0.4 mg/dL (0.5-0.9); GLOMERULAR FILTRATION RATE > 60 mL/min (>60); HEMOLYSIS 0; POTASSIUM 3.8 mEQ/L (3.4-4.9); SODIUM 139 mEQ/L (135-145)
[2017-06-25 06:01] LABS: MAGNESIUM 1.9 mg/dL (1.7-2.5); PHOSPHORUS 4.1 mg/dL (2.5-4.8)
[2017-06-25 07:53] VITALS: BP 112/56
--- NOTE | 2017-06-25 08:58 | General Progress Note ---
Assessment/Plan Problem List: (1) Ischemic bowel disease ICD Codes: K55.9 - Vascular disorder of intestine, unspecified SNOMED: [id number] Assessment/Plan post op care toleating diet fu labs Subjective ROS Limited/Unobtainable: Yes Allergies: Coded Allergies: PENICILLIN (Verified Allergy, Unknown, 12/01/15) PENICILLINS (Unverified Allergy, Unknown, 06/08/17) SHELLFISH (Verified Allergy, Unknown, 12/01/15) Uncoded Allergies: Mints (Allergy, Unknown, 06/09/17) Subjective no event Objective Last 24 Hour Vital Signs Date Time Temp Pulse Resp B/P Pulse Ox O2 Delivery O2 Flow Rate FiO2 06/25/17 07:53 97.5 78 20 112/56 99 Room Air 06/25/17 04:00 97.9 77 20 107/58 99 Room Air 06/25/17 00:12 98.1 86 19 96/65 97 Room Air 06/24/17 20:00 98.4 93 18 111/68 98 Room Air 06/24/17 16:00 98.2 96 18 120/69 99 Room Air 06/24/17 12:00 98.5 86 18 130/68 97 Room Air Intake and Output 06/24/17 06/25/17 19:00 07:00 Intake Total 240 ml Output Total 500 ml Balance -500 ml 240 ml Intake Oral 240 ml Stool Total 500 ml # Voids 3 1 # Bowel Movements 1 Laboratory Tests 06/25/17 05:10: White Blood Count 7.2, Red Blood Count 3.01L, Hemoglobin 8.1L, Hematocrit 26.1L , Mean Corpuscular Volume 87, Mean Corpuscular Hemoglobin 27.0, Mean Corpuscular Hemoglobin Concent 31.2L, Red Cell Distribution Width 17.3H, Platelet Count 554H, Mean Platelet Volume 5.8L, Neutrophils (%) (Auto) 54.2, Lymphocytes (%) (Auto) 34.3, Monocytes (%) (Auto) 7.5, Eosinophils (%) (Auto) 2.7, Basophils (%) (Auto) 1.3, Sodium Level 139, Potassium Level 3.8, Chloride Level 104, Carbon Dioxide Level 26, Anion Gap 9, Blood Urea Nitrogen 17, Creatinine 0.4L, Estimat Glomerular Filtration Rate > 60, Glucose Level 92, Calcium Level 9.3, Phosphorus Level 4.1, Magnesium Level 1.9 Height (Feet): 5 Height (Inches): 3.00 Weight (Pounds): 119 General Appearance: no apparent distress EENT: PERRL/EOMI Neck: supple Cardiovascular: normal rate Respiratory/Chest: decreased breath sounds Abdomen: other - post surgical Extremities: non-tender CLAYTON LI Jun 25, 2017 08:58
[2017-06-25] MEDS: Dyna-Hex 2% Top Sol 8oz TOPIC SCH (09:05)
--- NOTE | 2017-06-25 09:52 | Pulmonology Progress Note ---
Assessment/Plan Assessment/Plan ASSESSMENT sepsis ( 2 to ischemic colitis) colonic ischemia with necrosis and gangrene SB ischemia mesenteric ischemia with bowel necrosis peritonitis anemia of chronic disease possible protein calorie malnutrition ( after surgery ) s/p 06/09 exp laparotomy with subtotal colectomy s/p 06.10 reexploration , exploratory laparotomy, SB resection, distal sigmoid resection, colostomy creation PLAN OF CARE [facility] floor initial CT A/P with ascending colitis s/p 2 surgeries surgery follows initially bowel rest, NGT to suction and TPN, off TPN after tapering d patient was intubated during surgery 06/09 and left intubated for recovery extubated 06/13 pain management diet as tolerated a/emetic prn colostomy care blood cx negative, wound cx + Klebsiella, s/p abx Rx, ID follows per ID monitor off abx afebrile, no leucocytosis tumor markers all WNL colon biopsy no malignancy,. + severe ischemic colitis wound care nurse taught pt colostomy care PT/OT short term SNF placement GI prophylaxis monitor HH, stable, no trend down calorie count, prealbumin-WNL, dietary follows support nutritional status, possibly malnutrition after extensive surgery and recovery further dietary follow up in SNF, oh plan case discussed and evaluated by supervising physician Subjective Allergies: Coded Allergies: PENICILLIN (Verified Allergy, Unknown, 12/01/15) PENICILLINS (Unverified Allergy, Unknown, 06/08/17) SHELLFISH (Verified Allergy, Unknown, 12/01/15) Uncoded Allergies: Mints (Allergy, Unknown, 06/09/17) Subjective afebrile, no leukocytosis incision healing pain intermittently controlled tolerated diet eager to take care of coleotomy and did partially this am Objective Last 24 Hour Vital Signs Date Time Temp Pulse Resp B/P Pulse Ox O2 Delivery O2 Flow Rate FiO2 06/25/17 07:53 97.5 78 20 112/56 99 Room Air 06/25/17 04:00 97.9 77 20 107/58 99 Room Air 06/25/17 00:12 98.1 86 19 96/65 97 Room Air 06/24/17 20:00 98.4 93 18 111/68 98 Room Air 06/24/17 16:00 98.2 96 18 120/69 99 Room Air 06/24/17 12:00 98.5 86 18 130/68 97 Room Air Intake and Output 06/24/17 06/25/17 19:00 07:00 Intake Total 240 ml Output Total 500 ml Balance -500 ml 240 ml Intake Oral 240 ml Stool Total 500 ml # Voids 3 1 # Bowel Movements 1 Objective General Appearance: no acute distress, other - A/A/O x 4 female HEENT: normocephalic, atraumatic, anicteric, mucous membranes moist, PERRL Respiratory/Chest: chest wall non-tender, lungs clear, no respiratory distress , no accessory muscle use Cardiovascular: normal peripheral pulses, normal rate, regular rhythm, no JVD Abdomen: normal bowel sounds, other - inciision HARSHAD, no janes, no erythema, no edema, mild tenderness on palpation, colsotomy with good output Genitourinary: normal external genitalia Extremities: no edema, pedal pulses normal Skin: no rash 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, no motor/sensory deficits, alert, oriented x 3, responsive, normal mood/affect Musculoskeletal: normal muscle bulk Laboratory Tests 06/25/17 05:10: White Blood Count 7.2, Red Blood Count 3.01L, Hemoglobin 8.1L, Hematocrit 26.1L , Mean Corpuscular Volume 87, Mean Corpuscular Hemoglobin 27.0, Mean Corpuscular Hemoglobin Concent 31.2L, Red Cell Distribution Width 17.3H, Platelet Count 554H, Mean Platelet Volume 5.8L, Neutrophils (%) (Auto) 54.2, Lymphocytes (%) (Auto) 34.3, Monocytes (%) (Auto) 7.5, Eosinophils (%) (Auto) 2.7, Basophils (%) (Auto) 1.3, Sodium Level 139, Potassium Level 3.8, Chloride Level 104, Carbon Dioxide Level 26, Anion Gap 9, Blood Urea Nitrogen 17, Creatinine 0.4L, Estimat Glomerular Filtration Rate > 60, Glucose Level 92, Calcium Level 9.3, Phosphorus Level 4.1, Magnesium Level 1.9 Current Medications Medications (Trade) Dose Ordered Sig/Michael Route PRN Reason Start Time Stop Time Status Last Admin Dose Admin Acetaminophen (Tylenol) 650 mg Q4H PRN ORAL Mild Pain/Temp > 100.5 06/15/17 10:45 07/15/17 10:44 06/16/17 10:28 Acetaminophen/ Hydrocodone Bitart ([place] 5/325) 1 tab Q4H PRN ORAL Moderate Pain (Pain Scale 4-6) 06/20/17 11:00 06/27/17 10:59 06/24/17 20:23 Chlorhexidine Gluconate (Briana-Hex 2%) 1 applic DAILY TOPIC 06/15/17 09:00 07/15/17 08:59 06/25/17 09:05 Dextrose (Dextrose 50%) STAT PRN IV Hypoglycemia 06/14/17 21:02 07/14/17 21:01 Nitroglycerin (Ntg) 0.4 mg Q5M X 3 DOSES PRN SL Prn Chest Pain 06/14/17 21:00 07/14/17 20:59 Ondansetron HCl (Zofran) 4 mg Q6H PRN IVP Nausea & Vomiting 06/14/17 21:03 07/14/17 21:02 06/16/17 03:16 Phytonadione (Vitamin K) 10 mg QWEEK SUBQ 06/20/17 21:00 07/20/17 20:59 06/20/17 22:00 Temazepam (Restoril) 15 mg HSPRN PRN ORAL Insomnia 06/23/17 22:00 06/30/17 21:59 06/24/17 23:45 [facility] Jun 25, 2017 09:52
[2017-06-25 11:57] VITALS: BP 115/75
[2017-06-25] MEDS ORDERED: TYLENOL EXTRA500 MG ORAL (12:53)
[2017-06-25] MEDS ORDERED: NITROGLYCERIN0.4 MG SL ×2 (12:55→12:58)
[2017-06-25] MEDS ORDERED: NORCO 5-325 TA1 EAC1 ORAL (12:57)
[2017-06-25] MEDS ORDERED: ZOFRAN4 M3 ORAL (12:59)
[2017-06-25] MEDS ORDERED: PROTONIX40 MG ORAL (13:00)
[2017-06-25] MEDS ORDERED: TEMAZEPAM30 MG ORAL (13:04)
[2017-06-25] MEDS ORDERED: VITAMIN K10 MG/ML SQ (13:05)
[2017-06-25] MEDS ORDERED: NS 550ML IV ONE (14:01)
--- NOTE | 2017-06-26 07:52 | General Progress Note ---
Assessment/Plan Assessment/Plan ASSESSMENT AND PLAN: #. Hypercoagulable disorder rule out. The patient with no history of potential venous thrombosis of the mesentery and multifactorial causes including dehydration and rule out occult malignancy or inflammatory process. The patient has pancreatitis and diverticulitis. Rule out myeloproliferative syndrome. The patient does not have portal hypertension. Did not have a personal and family history of venous thromboembolism. r/o inherited thrombophilia. --> send for factor V Leiden mutation, prothrombin gene mutation, protein C, protein S activity, prothrombin 3, and antiphospholipid syndrome workup again. The patient may have inherited thrombophilia with simple factor V Leiden, prothrombin gene mutation, protein S and protein C activity and prothrombin 3 mutation and antiphospholipid syndrome antibodies. We will continue to follow closely the result of these tests. --> lab results that are currently available are wnl, except for Protein S which is decreased but not abnormally low in setting of an acute clot --> will follow up with other results as they become available --> agree with current care # Thrombocytosis --> reactive process #. Anemia, secondary to chronic disease. --> w/u completed #. Leukocytosis secondary to recent surgery. Continue to closely monitor --> s/p surgery should improve --> currently wnl #. Status post laparotomy with abdominal pain and ischemic bowel. --> ostomy pouch now has fully formed stool --> TPN being tapered #. Sepsis. #. Gastroenteritis. Subjective Date patient seen: Jun 25, 2017 Constitutional: Reports: no symptoms HEENT: Reports: no symptoms Cardiovascular: Reports: no symptoms Respiratory: Reports: no symptoms Gastrointestinal/Abdominal: Reports: no symptoms Genitourinary: Reports: no symptoms Neurologic/Psychiatric: Reports: no symptoms Endocrine: Reports: no symptoms Allergies: Coded Allergies: PENICILLIN (Verified Allergy, Unknown, 12/01/15) PENICILLINS (Unverified Allergy, Unknown, 06/08/17) SHELLFISH (Verified Allergy, Unknown, 12/01/15) Uncoded Allergies: Mints (Allergy, Unknown, 06/09/17) Subjective clear for discharge Objective Last 24 Hour Vital Signs Date Time Temp Pulse Resp B/P Pulse Ox O2 Delivery O2 Flow Rate FiO2 06/25/17 11:57 98.2 61 20 115/75 98 Room Air 06/25/17 07:53 97.5 78 20 112/56 99 Room Air Intake and Output 06/25/17 06/26/17 19:00 07:00 Intake Total 360 ml Balance 360 ml Intake Oral 360 ml # Voids 1 Height (Feet): 5 Height (Inches): 3.00 Weight (Pounds): 119 General Appearance: no apparent distress EENT: normal ENT inspection Neck: normal alignment Cardiovascular: normal rate Edema: no edema noted Pedal (L), no edema noted Pedal (R) 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
== END 2017-06-25 14:02 | DRG 710 ==
LOC: EDBD 12:08 → EMR 13:21 → EDBEDREQ 15:39 → 4W 15:47 → EDBEDREQ 17:25 → 4W 22:57 → 2E 06-09 08:47 → ICU 06-09 19:32 → 3E 06-14 20:57
PROC: 0DBS0ZZ (ICD-10-PCS; 2017-06-09)
PROC: 0WJG4ZZ Inspection of Peritoneal Cavity, Percutaneous Endoscopic Approach (ICD-10-PCS; 2017-06-09)
PROC: 0DBK0ZZ Excision of Ascending Colon, Open Approach (ICD-10-PCS; 2017-06-09)
PROC: 0DBL0ZZ Excision of Transverse Colon, Open Approach (ICD-10-PCS; 2017-06-09)
PROC: 0DBN0ZZ Excision of Sigmoid Colon, Open Approach (ICD-10-PCS; 2017-06-09)
PROC: 5A1955Z Respiratory Ventilation, Greater than 96 Consecutive Hours (ICD-10-PCS; principal; 2017-06-09 16:00)
PROC: 0D1K0Z4 Bypass Ascending Colon to Cutaneous, Open Approach (ICD-10-PCS; 2017-06-10)
PROC: 0DBN0ZZ Excision of Sigmoid Colon, Open Approach (ICD-10-PCS; 2017-06-10)
PROC: 0DTA0ZZ Resection of Jejunum, Open Approach (ICD-10-PCS; 2017-06-10)
PROC: 02HV33Z Insertion of Infusion Device into Superior Vena Cava, Percutaneous Approach (ICD-10-PCS; 2017-06-10)
PROC: B548ZZA Ultrasonography of Superior Vena Cava, Guidance (ICD-10-PCS; 2017-06-10)
DX: A41.9 Sepsis, unspecified organism (principal); J96.90 Respiratory failure, unspecified, unspecified whether with hypoxia or hypercapnia; R65.21 Severe sepsis with septic shock; K55.011 Focal (segmental) acute (reversible) ischemia of small intestine; Z99.11 Dependence on respirator [ventilator] status; K25.4 Chronic or unspecified gastric ulcer with hemorrhage; E46 Unspecified protein-calorie malnutrition; K65.8 Other peritonitis; D68.59 Other primary thrombophilia; K55.031 Focal (segmental) acute (reversible) ischemia of large intestine; C94.6 Myelodysplastic disease, not elsewhere classified; Z53.31 Laparoscopic surgical procedure converted to open procedure; D63.8 Anemia in other chronic diseases classified elsewhere; K55.041 Focal (segmental) acute infarction of large intestine
CPT/HCPCS: 36415; 36569; 36600; 71010; 74000; 74177; 76937; 80048; 80053; 81003; 81241; 81270; 82040; 82105; 82140; 82150; 82248; 82330; 82378; 82728; 82746; 82803; 82962; 83036; 83605; 83690; 83735; 83880; 84100; 84134; 84443; 84478; 85007; 85025; 85060; 85300; 85303; 85305; 85610; 85613; 85651; 85730; 86140; 86147; 86300; 86301; 86304; 86850; 86900; 86901; 86920; 87040; 87070; 87075; 87181; 87205; 94002; 94003; 94150; 94664; 94760; J1815; J2250; J2370; J2405; S0077

== ENCOUNTER 2017-07-11 16:31 | Inpatient (IN) | payer OTHER ==
[~2017-07-11] VITALS: Ht 154.9 cm; Wt 57.2 kg
[~2017-07-11 16:31] MED LIST changes: +FEROSUL325 M1 PO; +METOCLOPRA10 MG/10 M ORAL; +NITROGLYCERIN0.4 MG SL; +PROTONIX40 MG ORAL; +TEMAZEPAM30 MG ORAL; +VITAMIN C500 M1 ORAL; +VITAMIN K10 MG/ML SQ; +ZOFRAN4 M3 ORAL
[2017-07-11 16:37] VITALS: BP 112/75
[2017-07-11] MEDS ORDERED: Morphine Sulfate 2mg/ml Inj IVP ONE (17:00)
[2017-07-11] MEDS ORDERED: Tubing IV Cassette IV ONE (17:21)
[2017-07-11] MEDS ORDERED: ACETAMINOPHEN325 M1 ORAL (17:44)
[2017-07-11 17:46] LABS: BASOPHILS % (AUTO) 1.4 % (0.0-2.0); EOSINOPHILS % (AUTO) 2.7 % (0.0-3.0); MEAN CORPUSCULAR HEMOGLOBIN 27.2 PG (27.0-31.0); MEAN CORPUSCULAR VOLUME 85 FL (80-99); MEAN PLATELET VOLUME 6.3 FL (6.5-10.1); MONOCYTES % (AUTO) 7.5 % (1.0-10.0); NEUTROPHILS % (AUTO) 49.4 % (45.0-75.0); PLATELET COUNT 337 K/UL (150-450); RED BLOOD COUNT 3.57 M/UL (4.20-5.40); RED CELL DISTRIBUTION WIDTH 15.9 % (11.6-14.8); WHITE BLOOD COUNT 6.7 K/UL (4.8-10.8)
--- NOTE | 2017-07-11 17:51 | Emergency Room Report ---
History of Present Illness General Chief Complaint: Skin Rash/Abscess Source: Patient, Medical Record (Corinne Peterson) Present Illness HPI 62 YO Female presents to the ED c/o pain of her colostomy site, 10/10 in severity since yesterday described as burning with discoloration of the skin about stoma of her colostomy site. pt. had colostomy placed 1 month ago after having surgery to remove ischemic bowel. denies fevers or chills. Pt. denies erythema. pt. states she was told by MD that her colostomy site was too large, and that she was recently switched to a smaller diameter colostomy bag. pt. states pain is exacerbated with palpation and changing of colostomy bags. Pt. states symptoms are out of character for her. denies nausea or vomiting. Denies CP, Palpitations, LOC, AMS, dizziness, Changes in Vision, Sensation, paresthesias, or a sudden severe headache. (Corinne Peterson) Allergies: Coded Allergies: PENICILLIN (Verified Allergy, Unknown, 12/01/15) SHELLFISH (Verified Allergy, Unknown, 12/01/15) Uncoded Allergies: Mints (Allergy, Unknown, 06/09/17) Patient History Past Medical History: see triage record Past Surgical History: none Pertinent Family History: none Last Menstrual Period: na Now: No Reviewed Nursing Documentation: PMH: Agreed, PSxH: Agreed (Corinne Peterson) Past Medical History: other - ishemic colitis, sepsis Past Surgical History: other - colostomy due to ischemic colitis (Hema Lima M.D.) Nursing Documentation-PMH Past Medical History: No History, Except For Hx Gastrointestinal Problems: Yes - GERD, SBO, colostomy (Corinne Peterson.ALatricia) Review of Systems All Other Systems: negative except mentioned in HPI (Corinne Peterson) Physical Exam Vital Signs Date Time Temp Pulse Resp B/P Pulse Ox O2 Delivery O2 Flow Rate FiO2 07/11/17 16:37 98.1 76 16 112/75 98 Room Air Sp02 EP Interpretation: reviewed, normal General Appearance: no apparent distress, alert, GCS 15, non-toxic Head: normocephalic, atraumatic Eyes: bilateral eye PERRL, bilateral eye normal inspection ENT: hearing grossly normal, normal voice Neck: full range of motion, supple/symm/no masses, tender lateral Respiratory: lungs clear, normal breath sounds, speaking full sentences Cardiovascular #1: regular rate, rhythm Gastrointestinal: normal bowel sounds, soft, no guarding, no rebound, other - Colostomy bag noted, there is moderate TTP about the stoma, some erythema visualized. Rectal: deferred Genitourinary: normal inspection, no CVA tenderness Musculoskeletal: back normal Neurologic: alert, oriented x3, responsive, motor strength/tone normal, sensory intact, speech normal Psychiatric: judgement/insight normal, memory normal, mood/affect normal Skin: normal color, no rash, warm/dry, well hydrated, other - mild erythema at the edge of the colostomy stoma, no increased temperature to palpation. (Corinne Peterson) Medical Decision Making PA Attestation Dr. Lima is my supervising Physician whom patient management has been discussed with. (Corinne Peterson) Diagnostic Impression: Primary Impression: Abdominal pain Qualified Codes: R10.9 - Unspecified abdominal pain Additional Impression: Other complications of colostomy ER Course 62 YO Female presents to the ED c/o pain of her colostomy site, 10/10 in severity since yesterday described as burning with discoloration of the skin about stoma of her colostomy site. pt. had colostomy placed 1 month ago after having surgery to remove ischemic bowel. denies fevers or chills. Pt. denies erythema. pt. states she was told by MD that her colostomy site was too large, and that she was recently switched to a smaller diameter colostomy bag. pt. states pain is exacerbated with palpation and changing of colostomy bags. Pt. states symptoms are out of character for her. denies nausea or vomiting. Denies CP, Palpitations, LOC, AMS, dizziness, Changes in Vision, Sensation, paresthesias, or a sudden severe headache. Ddx considered but are not limited to Sepsis, cellulitis, colostomy stoma irritation Vital signs: are WNL, pt. is afebrile H&PE are most consistent with colostomy site irritation, and possible infection ORDERS: -LABS: CBC, CMP, lactic acid, Troponin, CK-MB, UA, : no leukocytosis, electrolytes are normal, troponin are negative. labs are unremarkable other than mildly elevated total CK., no evidence of UTI. -Blood cultures : pending. - X-ray Abdomen 2 views : no free air, air-fluid levels, - CXR: No consolidation, effusion, pneumothorax or acute cardiopulmonary findings, suspicious for right lower lobe nodule - per soft read in ED by Dr. Lima. official radiology report did not comment about nodule. - EK BPM NSR - no acute ST changes reviewed by Dr. Lima , this interpretation was scribed by JOSEPH Peterson ED INTERVENTIONS: -1000cc NS -2mg Morphine IV for pain DISPOSITION: at this time pt. will be admitted to Dr. Mclean for Abdominal Pain. Dr. Mclean agreed to admit the pt. and to continue pt. care management. Labs Test 07/11/17 17:10 07/11/17 18:30 White Blood Count 6.7 K/UL (4.8-10.8) Red Blood Count 3.57 M/UL (4.20-5.40) Hemoglobin 9.7 G/DL (12.0-16.0) Hematocrit 30.3 % (37.0-47.0) Mean Corpuscular Volume 85 FL (80-99) Mean Corpuscular Hemoglobin 27.2 PG (27.0-31.0) Mean Corpuscular Hemoglobin Concent 32.0 G/DL (32.0-36.0) Red Cell Distribution Width 15.9 % (11.6-14.8) Platelet Count 337 K/UL (150-450) Mean Platelet Volume 6.3 FL (6.5-10.1) Neutrophils (%) (Auto) 49.4 % (45.0-75.0) Lymphocytes (%) (Auto) 39.0 % (20.0-45.0) Monocytes (%) (Auto) 7.5 % (1.0-10.0) Eosinophils (%) (Auto) 2.7 % (0.0-3.0) Basophils (%) (Auto) 1.4 % (0.0-2.0) Sodium Level 139 mEQ/L (135-145) Potassium Level 4.0 mEQ/L (3.4-4.9) Chloride Level 101 mEQ/L (98-107) Carbon Dioxide Level 27 mEQ/L (20-30) Anion Gap 11 (5-15) Blood Urea Nitrogen 15 mg/dL (7-23) Creatinine 0.6 mg/dL (0.5-0.9) Estimat Glomerular Filtration Rate > 60 mL/min (>60) Glucose Level 97 mg/dL (74-106) Lactic Acid Level 0.90 mmol/L (0.66-2.22) Calcium Level 9.8 mg/dL (8.6-10.2) Total Bilirubin < 0.2 mg/dL (0.0-1.2) Aspartate Amino Transf (AST/SGOT) 12 U/L (5-40) Alanine Aminotransferase (ALT/SGPT) 5 U/L (3-33) Alkaline Phosphatase 94 U/L (35-104) Total Creatine Kinase 21 U/L (26-140) Creatine Kinase MB < 1.5 ng/mL (< 3.8) Creatine Kinase MB Relative Index Troponin I < 0.30 ng/mL (<=0.30) Total Protein 7.4 g/dL (6.6-8.7) Albumin 4.2 g/dL (3.5-5.2) Globulin 3.2 g/dL Albumin/Globulin Ratio 1.3 (1.0-2.7) Urine Color Pale yellow Urine Appearance Clear Urine pH 7 (4.5-8.0) Urine Specific [place] 1.010 (1.005-1.035) Urine Protein Negative (NEGATIVE) Urine Glucose (UA) Negative (NEGATIVE) Urine Ketones Negative (NEGATIVE) Urine Occult Blood Negative (NEGATIVE) Urine Nitrite Negative (NEGATIVE) Urine Bilirubin Negative (NEGATIVE) Urine Urobilinogen Normal MG/DL (0.0-1.0) Urine Leukocyte Esterase Negative (NEGATIVE) (Corinne Peterson P.A.) ER Course I examined this patient and agree with above assessment. Patient discussed with Dr. Rob and Dr. Mclean. Family insistent on admission here as surgeon is here (Dr. Rob agrees). Admit medical. (Hema Lima M.D.) EKG Diagnostic Results EP Interpretation: Dr. Lima Rate: normal - 68 BPM Rhythm: NSR ST Segments: no acute changes ASA given to the pt in ED: No PA Scribe Text this interpretation by Dr. Lima was scribed by JOSEPH Peterson (Corinne Peterson P.A.) Other X-Ray Diagnostic Results Other X-Ray Diagnostic Results : Interpreting ER Provider: Scribe documentation reviewed by me and is accurate. Hema Lima MD (Hema Lima M.D.) Last Vital Signs Date Time Temp Pulse Resp B/P Pulse Ox O2 Delivery O2 Flow Rate FiO2 07/11/17 16:37 98.1 76 16 112/75 98 Room Air (Corinne Peterson) Status: improved (Hema Lima M.D.) Disposition: ADMITTED INPATIENT Condition: Serious Corinne Peterson Jul 11, 2017 17:51 Hema Lima M.D. Jul 12, 2017 05:11
[2017-07-11 17:52] LABS: TROPONIN I < 0.30 ng/mL (<=0.30)
[2017-07-11 17:54] LABS: ALANINE AMINOTRANSFERASE 5 U/L (3-33); ALBUMIN/GLOBULIN RATIO 1.3 (1.0-2.7); ANION GAP 11 (5-15); ASPARTATE AMINO TRANSFERASE 12 U/L (5-40); CALCIUM 9.8 mg/dL (8.6-10.2); CARBON DIOXIDE 27 mEQ/L (20-30); CHLORIDE 101 mEQ/L (98-107); CREATININE 0.6 mg/dL (0.5-0.9); GLOMERULAR FILTRATION RATE > 60 mL/min (>60); HEMOLYSIS 1; SODIUM 139 mEQ/L (135-145); TOTAL PROTEIN 7.4 g/dL (6.6-8.7)
[2017-07-11 18:04] LABS: CKMB < 1.5 ng/mL (< 3.8)
[2017-07-11 18:30] VITALS: BP 121/76
[2017-07-11 19:10] LABS: APPEARANCE,URINE CLEAR; KETONES,URINE NEGATIVE (NEGATIVE); LEUKOCYTE ESTERASE ,URINE NEGATIVE (NEGATIVE); NITRITE,URINE NEGATIVE (NEGATIVE); PH,URINE 7 (4.5-8.0); PROTEIN,URINE NEGATIVE (NEGATIVE); UROBILINOGEN,URINE NORMAL MG/DL (0.0-1.0)
[2017-07-11 19:30] VITALS: BP 119/74
[2017-07-11 20:30] VITALS: BP 121/64
[2017-07-11] MEDS ORDERED: Mylanta II UD 30ml ORAL PRN (21:00)
[2017-07-11] MEDS ORDERED: Morphine Sulfate 2mg/ml Inj IVP PRN (21:00)
[2017-07-11] MEDS ORDERED: Miralax 17gm pkt ORAL PRN (21:00)
[2017-07-11] MEDS ORDERED: Nitroglycerin Subl 0.4mg tab (Bottle Of 25) SL PRN (21:00)
[2017-07-11 21:30] VITALS: BP 127/73
--- NOTE | 2017-07-11 21:54 | History and Physical ---
History of Present Illness General Date patient seen: Jul 11, 2017 Reason for Hospitalization: Skin Rash/Abscess Present Illness HPI 62 year old female with recent hx of ischemic bowel, s/p resection of half of small bowel and transverse colon and colostomy. Presented to ER c/o of discoloration of colostomy site. Allergies: Coded Allergies: PENICILLIN (Verified Allergy, Unknown, 12/01/15) SHELLFISH (Verified Allergy, Unknown, 12/01/15) Uncoded Allergies: Mints (Allergy, Unknown, 06/09/17) Medication History Scheduled Albuterol Sulfate* (Albuterol Sulfate Mdi*), 2 PUFF INH Q6H Ascorbic Acid* (Vitamin C*), 500 MG ORAL DAILY, (Reported) Azithromycin* (Zithromax*), 250 MG ORAL DAILY Dicyclomine Hcl* (Bentyl*), 10 MG ORAL TID Ibuprofen* (Motrin*), 600 MG ORAL THREE TIMES A DAY Methylprednisolone (Methylprednisolone*), 4 MG ORAL .as directed Metoclopramide Hcl* (Metoclopramide Hcl*), 10 MG ORAL EVERY 6 HOURS, (Reported) Nitroglycerin (Nitroglycerin), 0.4 MG SL [id number] doses, (Reported) Omeprazole (Omeprazole), 20 MG ORAL DAILY, (Reported) Pantoprazole* (Protonix*), 40 MG ORAL DAILY, (Reported) Phytonadione (Vitamin K1), 10 MG SQ QWEEK, (Reported) Ranitidine Hcl* (Zantac*), 150 MG ORAL TWICE A DAY Ranitidine Hcl* (Zantac*), 150 MG ORAL DAILY Sucralfate* (Carafate*), 1 GM ORAL FOUR TIMES A DAY, (Reported) Scheduled PRN Acetaminophen With Codeine (T#3) (Tylenol #3 Tab*), 1 TAB ORAL Q8H PRN for For Pain Acetaminophen* (Tylenol Extra Strength*), 500 MG ORAL Q6H PRN for Mild Pain/ Temp > 100.5 Acetaminophen* (Tylenol Extra Strength*), 650 MG ORAL Q4HR PRN for Fever/ Headache/Mild Pain, (Reported) Acetaminophen* (Acetaminophen 325MG Tablet*), 325 MG ORAL Q4H PRN for Mild Pain/ Temp > 100.5, (Reported) Codeine/Promethazine Hcl* (Promethazine-Codeine Syrup*), 5 ML ORAL Q6H PRN for For Cough Hydrocodone Bit/Acetaminophen 5-325* (Morgan 5-325 Tablet*), 1 TAB ORAL Q8HR PRN for For Pain Hydrocodone Bit/Acetaminophen 5-325* (Morgan 5-325 Tablet*), 1 TAB ORAL Q4H PRN for Moderate Breakthru Pain (5-7), (Reported) Ibuprofen* (Motrin*), 600 MG ORAL Q8H PRN for For Pain Nitroglycerin (Nitroglycerin), 0.4 MG SL q5mins x3 doses PRN PRN for Prn Chest Pain, (Reported) Ondansetron (Zofran), 4 MG ORAL Q4HR PRN for Nausea & Vomiting Ondansetron Odt* (Zofran Odt*), 4 MG ORAL Q6H PRN for Nausea & Vomiting Ondansetron Odt* (Zofran Odt*), 4 MG ORAL Q6H PRN for Nausea & Vomiting Ondansetron* (Zofran*), 4 MG ORAL Q6H PRN for Nausea & Vomiting, (Reported) Temazepam* (Temazepam*), 15 MG ORAL BEDTIME PRN for Insomnia, (Reported) Miscellaneous Medications Ferrous Sulfate (Ferosul), 325 MG PO, (Reported) Patient History Healthcare decision maker Resuscitation status Advanced Directive on File Past Medical/Surgical History Past Medical/Surgical History: (1) Ischemic bowel disease Review of Systems All Other Systems: negative except mentioned in HPI Physical Exam General Appearance: WD/WN, no apparent distress Lines, tubes and drains: peripheral HEENT: normocephalic, anicteric Neck: non-tender, normal alignment Respiratory/Chest: chest wall non-tender, lungs clear Breasts: no masses Cardiovascular/Chest: normal peripheral pulses Abdomen: normal bowel sounds, non tender Genitourinary/Rectal: normal genital exam Last 24 Hour Vital Signs Date Time Temp Pulse Resp B/P Pulse Ox O2 Delivery O2 Flow Rate FiO2 07/11/17 21:00 98.1 65 18 119/74 99 Room Air 07/11/17 20:30 65 16 121/64 99 Room Air 07/11/17 19:30 74 18 119/74 99 Room Air 07/11/17 18:30 76 16 121/76 98 Room Air 07/11/17 18:00 98.1 07/11/17 16:37 98.1 76 16 112/75 98 Room Air 07/11/17 16:37 98.1 76 16 112/75 98 Room Air Laboratory Tests Test 07/11/17 17:10 07/11/17 18:30 White Blood Count 6.7 K/UL (4.8-10.8) Red Blood Count 3.57 M/UL (4.20-5.40) L Hemoglobin 9.7 G/DL (12.0-16.0) L Hematocrit 30.3 % (37.0-47.0) L Mean Corpuscular Volume 85 FL (80-99) Mean Corpuscular Hemoglobin 27.2 PG (27.0-31.0) Mean Corpuscular Hemoglobin Concent 32.0 G/DL (32.0-36.0) Red Cell Distribution Width 15.9 % (11.6-14.8) H Platelet Count 337 K/UL (150-450) Mean Platelet Volume 6.3 FL (6.5-10.1) L Neutrophils (%) (Auto) 49.4 % (45.0-75.0) Lymphocytes (%) (Auto) 39.0 % (20.0-45.0) Monocytes (%) (Auto) 7.5 % (1.0-10.0) Eosinophils (%) (Auto) 2.7 % (0.0-3.0) Basophils (%) (Auto) 1.4 % (0.0-2.0) Sodium Level 139 mEQ/L (135-145) Potassium Level 4.0 mEQ/L (3.4-4.9) Chloride Level 101 mEQ/L (98-107) Carbon Dioxide Level 27 mEQ/L (20-30) Anion Gap 11 (5-15) Blood Urea Nitrogen 15 mg/dL (7-23) Creatinine 0.6 mg/dL (0.5-0.9) Estimat Glomerular Filtration Rate > 60 mL/min (>60) Glucose Level 97 mg/dL (74-106) Lactic Acid Level 0.90 mmol/L (0.66-2.22) Calcium Level 9.8 mg/dL (8.6-10.2) Total Bilirubin < 0.2 mg/dL (0.0-1.2) Aspartate Amino Transf (AST/SGOT) 12 U/L (5-40) Alanine Aminotransferase (ALT/SGPT) 5 U/L (3-33) Alkaline Phosphatase 94 U/L (35-104) Total Creatine Kinase 21 U/L (26-140) L Creatine Kinase MB < 1.5 ng/mL (< 3.8) Creatine Kinase MB Relative Index Troponin I < 0.30 ng/mL (<=0.30) Total Protein 7.4 g/dL (6.6-8.7) Albumin 4.2 g/dL (3.5-5.2) Globulin 3.2 g/dL Albumin/Globulin Ratio 1.3 (1.0-2.7) Urine Color Pale yellow Urine Appearance Clear Urine pH 7 (4.5-8.0) Urine Specific [place] 1.010 (1.005-1.035) Urine Protein Negative (NEGATIVE) Urine Glucose (UA) Negative (NEGATIVE) Urine Ketones Negative (NEGATIVE) Urine Occult Blood Negative (NEGATIVE) Urine Nitrite Negative (NEGATIVE) Urine Bilirubin Negative (NEGATIVE) Urine Urobilinogen Normal MG/DL (0.0-1.0) Urine Leukocyte Esterase Negative (NEGATIVE) Height (Feet): 5 Weight (Pounds): 126 Medications Current Medications Medications (Trade) Dose Ordered Sig/Michael Route PRN Reason Start Time Stop Time Status Last Admin Dose Admin Acetaminophen (Tylenol) 650 mg Q4H PRN ORAL fever 07/11/17 21:00 08/10/17 20:59 Al Hydroxide/Mg Hydroxide (Mylanta II) 30 ml Q6H PRN ORAL dyspepsia 07/11/17 21:00 08/10/17 20:59 Dextrose (Dextrose 50%) STAT PRN IV Hypoglycemia 07/11/17 21:00 08/10/17 20:59 Dextrose/Sodium Chloride (D5 0.45% NS) 1,000 ml @ 75 mls/hr [id number] IV 07/11/17 22:00 08/10/17 21:59 Diphenhydramine HCl (Benadryl) 25 mg Q6H PRN ORAL Itching/Pruritis 07/11/17 21:00 08/10/17 20:59 Heparin Sodium (Porcine) (Heparin 5000 units/ml) 5,000 units EVERY 12 HOURS SUBQ 07/11/17 22:00 08/10/17 21:59 Morphine Sulfate (Morphine Sulfate) 2 mg Q4H PRN IVP severe Pain (Pain Scale 7-10) 07/11/17 21:00 07/18/17 20:59 Nitroglycerin (Ntg) 0.4 mg Q5M X 3 DOSES PRN SL Prn Chest Pain 07/11/17 21:00 08/10/17 20:59 Ondansetron HCl (Zofran) 4 mg Q6H PRN IVP Nausea & Vomiting 07/11/17 21:00 08/10/17 20:59 Polyethylene Glycol (Miralax) 17 gm HSPRN PRN ORAL Constipation 07/11/17 21:00 08/10/17 20:59 Sucralfate 1 gm 1 gm FOUR TIMES A DAY ORAL 07/11/17 22:00 08/10/17 21:59 Temazepam (Restoril) 15 mg HSPRN PRN ORAL Insomnia 07/11/17 21:00 07/18/17 20:59 Assessment/Plan Problem List: (1) Colostomy complication, unspecified ICD Codes: K94.00 - Colostomy complication, unspecified SNOMED: [id number] Assessment/Plan surgical evaluation npo IV fluids check electrolytes CLEVELAND MCRAE Jul 11, 2017 21:54
[2017-07-11] MEDS: Sucralfate 1gm tab ORAL SCH (22:08)
[2017-07-11] MEDS: D5 1/2NS 1,000 ML IV SCH (22:08)
[2017-07-11] MEDS: Heparin 5000 units/ml inj SUBQ SCH (22:10)
[2017-07-12] VITALS: BP 101/52
[2017-07-12 04:00] VITALS: BP 101/52
[2017-07-12 06:30] LABS: BASOPHILS % (AUTO) 1.5 % (0.0-2.0); EOSINOPHILS % (AUTO) 3.3 % (0.0-3.0); LYMPHOCYTES % (AUTO) 41.5 % (20.0-45.0); MEAN CORPUSCULAR HEMOGLOBIN 26.6 PG (27.0-31.0); MEAN CORPUSCULAR HGB CONC 31.2 G/DL (32.0-36.0); MEAN CORPUSCULAR VOLUME 85 FL (80-99); MEAN PLATELET VOLUME 6.2 FL (6.5-10.1); MONOCYTES % (AUTO) 8.8 % (1.0-10.0); NEUTROPHILS % (AUTO) 44.9 % (45.0-75.0); PLATELET COUNT 328 K/UL (150-450); RED BLOOD COUNT 3.43 M/UL (4.20-5.40); RED CELL DISTRIBUTION WIDTH 16.1 % (11.6-14.8); WHITE BLOOD COUNT 5.9 K/UL (4.8-10.8)
[2017-07-12 06:55] LABS: ALANINE AMINOTRANSFERASE 9 U/L (3-33); ALBUMIN/GLOBULIN RATIO 0.9 (1.0-2.7); AMYLASE 88 U/L (10-110); ANION GAP 8 (5-15); ASPARTATE AMINO TRANSFERASE 12 U/L (5-40); CALCIUM 10.1 mg/dL (8.6-10.2); CARBON DIOXIDE 28 mEQ/L (20-30); CHLORIDE 109 mEQ/L (98-107); CREATININE 0.5 mg/dL (0.5-0.9); GLOMERULAR FILTRATION RATE > 60 mL/min (>60); HEMOLYSIS 1; LIPASE 37 U/L (< 60); SODIUM 145 mEQ/L (135-145); TOTAL PROTEIN 6.8 g/dL (6.6-8.7)
[2017-07-12 08:00] VITALS: BP 126/78
[2017-07-12] MEDS: Sucralfate 1gm tab ORAL SCH ×3 (09:12→18:31)
[2017-07-12] MEDS: Heparin 5000 units/ml inj SUBQ SCH (09:14)
[2017-07-12 12:00] VITALS: BP 111/55
[2017-07-12] MEDS: D5 1/2NS 1,000 ML IV SCH (12:32)
--- NOTE | 2017-07-12 13:10 | General Progress Note ---
Progress Note Progress Note General Surgery courtesy note. Pt's saw me in the hallway. Pt has a complex hx of intestinal ischemia requiring two operations for resection of approximately 40-50% of small bowel as well as creation of a right colostomy with resection of the hepatic flexure, transverse colon, descending and sigmoid colon as well as the upper rectum. She was concerned about a greyish discoloration of the colostomy. The colostomy is functioning well, there is no evidence of ischemia. She is stable from a surgical standpoint. Abraham Donohue MD Jul 12, 2017 13:10
--- NOTE | 2017-07-12 14:09 | Infectious Diseases Prog Note ---
Assessment/Plan Assessment/Plan ID consult dictated # [id number] Subjective Allergies: Coded Allergies: PENICILLIN (Verified Allergy, Unknown, 12/01/15) SHELLFISH (Verified Allergy, Unknown, 12/01/15) Uncoded Allergies: Mints (Allergy, Unknown, 06/09/17) Objective Vital Signs Last 24 Hour Vital Signs Date Time Temp Pulse Resp B/P Pulse Ox O2 Delivery O2 Flow Rate FiO2 07/12/17 12:00 97.2 75 17 111/55 100 Room Air 07/12/17 08:00 96.2 71 18 126/78 99 Room Air 07/12/17 04:00 97.9 70 20 101/52 98 Room Air 07/12/17 00:00 98.1 78 20 101/52 99 Room Air 07/11/17 21:30 98.1 78 20 127/73 96 Room Air 07/11/17 21:00 98.1 65 18 119/74 99 Room Air 07/11/17 20:30 65 16 121/64 99 Room Air 07/11/17 19:30 74 18 119/74 99 Room Air 07/11/17 18:30 76 16 121/76 98 Room Air 07/11/17 18:00 98.1 07/11/17 16:37 98.1 76 16 112/75 98 Room Air 07/11/17 16:37 98.1 76 16 112/75 98 Room Air Height (Feet): 5 Height (Inches): 1.00 Weight (Pounds): 126 Laboratory Tests Test 07/11/17 17:10 07/11/17 18:30 07/12/17 05:35 White Blood Count 6.7 K/UL (4.8-10.8) 5.9 K/UL (4.8-10.8) Red Blood Count 3.57 M/UL (4.20-5.40) L 3.43 M/UL (4.20-5.40) L Hemoglobin 9.7 G/DL (12.0-16.0) L 9.1 G/DL (12.0-16.0) L Hematocrit 30.3 % (37.0-47.0) L 29.3 % (37.0-47.0) L Mean Corpuscular Volume 85 FL (80-99) 85 FL (80-99) Mean Corpuscular Hemoglobin 27.2 PG (27.0-31.0) 26.6 PG (27.0-31.0) L Mean Corpuscular Hemoglobin Concent 32.0 G/DL (32.0-36.0) 31.2 G/DL (32.0-36.0) L Red Cell Distribution Width 15.9 % (11.6-14.8) H 16.1 % (11.6-14.8) H Platelet Count 337 K/UL (150-450) 328 K/UL (150-450) Mean Platelet Volume 6.3 FL (6.5-10.1) L 6.2 FL (6.5-10.1) L Neutrophils (%) (Auto) 49.4 % (45.0-75.0) 44.9 % (45.0-75.0) L Lymphocytes (%) (Auto) 39.0 % (20.0-45.0) 41.5 % (20.0-45.0) Monocytes (%) (Auto) 7.5 % (1.0-10.0) 8.8 % (1.0-10.0) Eosinophils (%) (Auto) 2.7 % (0.0-3.0) 3.3 % (0.0-3.0) H Basophils (%) (Auto) 1.4 % (0.0-2.0) 1.5 % (0.0-2.0) Sodium Level 139 mEQ/L (135-145) 145 mEQ/L (135-145) Potassium Level 4.0 mEQ/L (3.4-4.9) 5.0 mEQ/L (3.4-4.9) H Chloride Level 101 mEQ/L (98-107) 109 mEQ/L (98-107) H Carbon Dioxide Level 27 mEQ/L (20-30) 28 mEQ/L (20-30) Anion Gap 11 (5-15) 8 (5-15) Blood Urea Nitrogen 15 mg/dL (7-23) 12 mg/dL (7-23) Creatinine 0.6 mg/dL (0.5-0.9) 0.5 mg/dL (0.5-0.9) Estimat Glomerular Filtration Rate > 60 mL/min (>60) > 60 mL/min (>60) Glucose Level 97 mg/dL (74-106) 86 mg/dL (74-106) Lactic Acid Level 0.90 mmol/L (0.66-2.22) Calcium Level 9.8 mg/dL (8.6-10.2) 10.1 mg/dL (8.6-10.2) Total Bilirubin < 0.2 mg/dL (0.0-1.2) 0.3 mg/dL (0.0-1.2) Aspartate Amino Transf (AST/SGOT) 12 U/L (5-40) 12 U/L (5-40) Alanine Aminotransferase (ALT/SGPT) 5 U/L (3-33) 9 U/L (3-33) Alkaline Phosphatase 94 U/L (35-104) 74 U/L (35-104) Total Creatine Kinase 21 U/L (26-140) L Creatine Kinase MB < 1.5 ng/mL (< 3.8) Creatine Kinase MB Relative Index Troponin I < 0.30 ng/mL (<=0.30) Total Protein 7.4 g/dL (6.6-8.7) 6.8 g/dL (6.6-8.7) Albumin 4.2 g/dL (3.5-5.2) 3.3 g/dL (3.5-5.2) L Globulin 3.2 g/dL 3.5 g/dL Albumin/Globulin Ratio 1.3 (1.0-2.7) 0.9 (1.0-2.7) L Urine Color Pale yellow Urine Appearance Clear Urine pH 7 (4.5-8.0) Urine Specific [place] 1.010 (1.005-1.035) Urine Protein Negative (NEGATIVE) Urine Glucose (UA) Negative (NEGATIVE) Urine Ketones Negative (NEGATIVE) Urine Occult Blood Negative (NEGATIVE) Urine Nitrite Negative (NEGATIVE) Urine Bilirubin Negative (NEGATIVE) Urine Urobilinogen Normal MG/DL (0.0-1.0) Urine Leukocyte Esterase Negative (NEGATIVE) Activated Partial Thromboplast Time 26 SEC (23-33) Amylase Level 88 U/L (10-110) Lipase 37 U/L (< 60) Current Medications Medications (Trade) Dose Ordered Sig/Michael Route PRN Reason Start Time Stop Time Status Last Admin Dose Admin Acetaminophen (Tylenol) 650 mg Q4H PRN ORAL Mild Pain/Temp > 100.5 07/12/17 10:00 08/11/17 09:59 07/12/17 09:46 Al Hydroxide/Mg Hydroxide (Mylanta II) 30 ml Q6H PRN ORAL dyspepsia 07/11/17 21:00 08/10/17 20:59 Dextrose (Dextrose 50%) STAT PRN IV Hypoglycemia 07/11/17 21:00 08/10/17 20:59 Dextrose/Sodium Chloride (D5 0.45% NS) 1,000 ml @ 75 mls/hr [id number] IV 07/11/17 22:00 08/10/17 21:59 07/12/17 12:32 Diphenhydramine HCl (Benadryl) 25 mg Q6H PRN ORAL Itching/Pruritis 07/11/17 21:00 08/10/17 20:59 Heparin Sodium (Porcine) (Heparin 5000 units/ml) 5,000 units EVERY 12 HOURS SUBQ 07/11/17 22:00 08/10/17 21:59 07/12/17 09:14 Morphine Sulfate (Morphine Sulfate) 2 mg Q4H PRN IVP severe Pain (Pain Scale 7-10) 07/11/17 21:00 07/18/17 20:59 Nitroglycerin (Ntg) 0.4 mg Q5M X 3 DOSES PRN SL Prn Chest Pain 07/11/17 21:00 08/10/17 20:59 Ondansetron HCl (Zofran) 4 mg Q6H PRN IVP Nausea & Vomiting 07/11/17 21:00 08/10/17 20:59 Polyethylene Glycol (Miralax) 17 gm HSPRN PRN ORAL Constipation 07/11/17 21:00 08/10/17 20:59 Sucralfate 1 gm 1 gm FOUR TIMES A DAY ORAL 07/11/17 22:00 08/10/17 21:59 07/12/17 09:12 Temazepam (Restoril) 15 mg HSPRN PRN ORAL Insomnia 07/11/17 21:00 07/18/17 20:59 RUBY PIMENTEL Jul 12, 2017 14:09
--- NOTE | 2017-07-12 15:37 | GI Initial Consult Note ---
History of Present Illness General Date patient seen: Jul 12, 2017 Time patient seen: 14:00 Reason for Hospitalization: Skin Rash/Abscess Referring physician: CLEVELAND DELA CRUZ Reason for Consultation: PAIN AT COLOSTOMY SITE Present Illness HPI 62 YO Female presents to the ED c/o pain of her colostomy site, 10/10 in severity since yesterday described as burning with discoloration of the skin about stoma of her colostomy site. pt. had colostomy placed 1 month ago after having surgery to remove ischemic bowel. denies fevers or chills. Pt. denies erythema. pt. states she was told by that her colostomy site was too large, and that she was recently switched to a smaller diameter colostomy bag. pt. states pain is exacerbated with palpation and changing of colostomy bags. Pt. states symptoms are out of character for her. denies nausea or vomiting. Denies CP, Palpitations, LOC, AMS, dizziness, Changes in Vision, Sensation, paresthesias, or a sudden GI consult. HPI as noted above. GI consulted for abdominal pain at colostomy site. Pt has a complex hx of intestinal ischemia requiring two operations for resection of approximately 40-50% of small bowel as well as creation of a right colostomy with resection of the hepatic flexure, transverse colon, descending and sigmoid colon as well as the upper rectum. She was concerned about a greyish discoloration of the colostomy. Presents today with anemia. Home Meds Active Scripts Ranitidine Hcl* (ZANTAC*) 150 Mg Tablet, 150 MG ORAL DAILY, #30 TAB 0 Refills Prov:Corinne Peterson P.A. 10/01/16 Ondansetron Odt* (ZOFRAN ODT*) 4 Mg Tab.rapdis, 4 MG ORAL Q6H Y for Nausea & Vomiting, #30 TAB Prov:Corinne Peterson P.A. 10/01/16 Acetaminophen* (TYLENOL EXTRA STRENGTH*) 500 Mg Tablet, 500 MG ORAL Q6H Y for Mild Pain/Temp > 100.5, #30 TAB 0 Refills Prov:Corinne Peterson P.A. 10/01/16 Ibuprofen* (MOTRIN*) 600 Mg Tablet, 600 MG ORAL Q8H Y for For Pain, #30 TAB 0 Refills Prov:CORETTA SANCHEZ P.A. 06/30/16 Hydrocodone Bit/Acetaminophen 5-325* (NORCO 5-325 TABLET*) 1 Each Tablet, 1 TAB ORAL Q8HR Y for For Pain, #10 TAB Prov:TERZIANCORETTA P.A. 06/30/16 Ranitidine Hcl* (ZANTAC*) 150 Mg Tablet, 150 MG ORAL TWICE A DAY, #30 TAB Prov:JULIANAOENJULIANAINDA P.A. 01/07/16 Acetaminophen With Codeine (T#3) (TYLENOL #3 TAB*) 1 Each Tablet, 1 TAB ORAL Q8H Y for For Pain, #10 TAB Prov:JULIANAOEJULIANA NiINDA P.A. 01/07/16 Ondansetron Odt* (ZOFRAN ODT*) 4 Mg Tab.rapdis, 4 MG ORAL Q6H Y for Nausea & Vomiting, #12 TAB Prov:JULIANAOEJULIANA NiINDA P.A. 01/07/16 Dicyclomine Hcl* (BENTYL*) 10 Mg Capsule, 10 MG ORAL TID, #20 CAP Prov:ROBERT ALFONSO M.D. 12/21/15 Ondansetron (Zofran) 4 Mg Tab, 4 MG ORAL Q4HR Y for Nausea & Vomiting, #20 TAB Prov:ROBERT ALFONSO M.D. 12/21/15 Ibuprofen* (MOTRIN*) 600 Mg Tablet, 600 MG ORAL THREE TIMES A DAY, #30 TAB Prov:JULIANAOEJULIANA NiINDA P.A. 12/01/15 Codeine/Promethazine Hcl* (PROMETHAZINE-CODEINE SYRUP*) 118 Ml Syrup, 5 ML ORAL Q6H Y for For Cough, #60 ML 0 Refills Prov:TIGIST ROEA P.A. 12/01/15 Methylprednisolone (Methylprednisolone*) 4 Mg Tab, 4 MG ORAL .as directed, #1 EA Prov:TIGIST ROEA P.A. 12/01/15 Albuterol Sulfate* (ALBUTEROL SULFATE MDI*) 8.5 Gm Hfa.aer.ad, 2 PUFF INH Q6H, # 1 EA Prov:TIGIST ROEA P.A. 12/01/15 Azithromycin* (ZITHROMAX*) 250 Mg Tablet, 250 MG ORAL DAILY, #6 TAB Take two tablets by mouth today, then take one tablet by mouth daily for four days Prov:JAYDEN ROE 12/01/15 Reported Medications Acetaminophen* (ACETAMINOPHEN 325MG TABLET*) 325 Mg Tablet, 325 MG ORAL Q4H Y for Mild Pain/Temp > 100.5, TAB 07/11/17 Phytonadione (Vitamin K1) 10 Mg/1 Ml Ampul, 10 MG SQ QWEEK, AMP 06/25/17 Temazepam* (TEMAZEPAM*) 30 Mg Capsule, 15 MG ORAL BEDTIME Y for Insomnia, CAP 06/25/17 Pantoprazole* (PROTONIX*) 40 Mg Tablet.dr, 40 MG ORAL DAILY, TAB 06/25/17 Ondansetron* (ZOFRAN*) 4 Mg Tablet, 4 MG ORAL Q6H Y for Nausea & Vomiting, TAB 06/25/17 Nitroglycerin (NITROGLYCERIN) 0.4 Mg Tab.subl, 0.4 MG SL q5mins x3 doses PRN Y for Prn Chest Pain, TAB 06/25/17 Hydrocodone Bit/Acetaminophen 5-325* (NORCO 5-325 TABLET*) 1 Each Tablet, 1 TAB ORAL Q4H Y for Moderate Breakthru Pain (5-7), TAB 06/25/17 Nitroglycerin (NITROGLYCERIN) 0.4 Mg Tab.subl, 0.4 MG SL [id number] doses for chest pain, TAB 06/25/17 Acetaminophen* (TYLENOL EXTRA STRENGTH*) 500 Mg Tablet, 650 MG ORAL Q4HR Y for Fever/Headache/Mild Pain, TAB 0 Refills 06/25/17 Metoclopramide Hcl* (METOCLOPRAMIDE HCL*) 10 Mg/10 Ml Solution, 10 MG ORAL EVERY 6 HOURS, ML 06/08/17 Ferrous Sulfate (FEROSUL) 325 Mg Tablet, 325 MG PO, TAB 06/08/17 Ascorbic Acid* (VITAMIN C*) 500 Mg Tablet, 500 MG ORAL DAILY, #30 TAB 0 Refills 06/08/17 Sucralfate* (CARAFATE*) 1 Gm Tablet, 1 GM ORAL FOUR TIMES A DAY, TAB 04/14/17 Omeprazole (OMEPRAZOLE) 40 Mg Capsule.dr, 20 MG ORAL DAILY, CAP 04/14/17 Med list reviewed/reconciled: Yes Allergies: Coded Allergies: PENICILLIN (Verified Allergy, Unknown, 12/01/15) SHELLFISH (Verified Allergy, Unknown, 12/01/15) Uncoded Allergies: Mints (Allergy, Unknown, 06/09/17) Patient History Limited by: medical condition History Provided By: Patient, Medical Record [facility] Narrative Past Medical History: other - ischemic colitis, sepsis Past Surgical History: other - colostomy due to ischemic colitis (Hema Lima M.D.) Nursing Documentation-[facility] Past Medical History: No History, Except For Hx Gastrointestinal Problems: Yes - GERD, SBO, colostomy Social History: Denies: alcohol use, drug use, other, smoking Review of Systems All Other Systems: negative except mentioned in HPI Physical Exam Vital Signs Date Time Temp Pulse Resp B/P Pulse Ox O2 Delivery O2 Flow Rate FiO2 07/11/17 16:37 98.1 76 16 112/75 98 Room Air Sp02 EP Interpretation: reviewed Labs Laboratory Tests Test 07/11/17 17:10 07/11/17 18:30 07/12/17 05:35 White Blood Count 6.7 K/UL (4.8-10.8) 5.9 K/UL (4.8-10.8) Red Blood Count 3.57 M/UL (4.20-5.40) L 3.43 M/UL (4.20-5.40) L Hemoglobin 9.7 G/DL (12.0-16.0) L 9.1 G/DL (12.0-16.0) L Hematocrit 30.3 % (37.0-47.0) L 29.3 % (37.0-47.0) L Mean Corpuscular Volume 85 FL (80-99) 85 FL (80-99) Mean Corpuscular Hemoglobin 27.2 PG (27.0-31.0) 26.6 PG (27.0-31.0) L Mean Corpuscular Hemoglobin Concent 32.0 G/DL (32.0-36.0) 31.2 G/DL (32.0-36.0) L Red Cell Distribution Width 15.9 % (11.6-14.8) H 16.1 % (11.6-14.8) H Platelet Count 337 K/UL (150-450) 328 K/UL (150-450) Mean Platelet Volume 6.3 FL (6.5-10.1) L 6.2 FL (6.5-10.1) L Neutrophils (%) (Auto) 49.4 % (45.0-75.0) 44.9 % (45.0-75.0) L Lymphocytes (%) (Auto) 39.0 % (20.0-45.0) 41.5 % (20.0-45.0) Monocytes (%) (Auto) 7.5 % (1.0-10.0) 8.8 % (1.0-10.0) Eosinophils (%) (Auto) 2.7 % (0.0-3.0) 3.3 % (0.0-3.0) H Basophils (%) (Auto) 1.4 % (0.0-2.0) 1.5 % (0.0-2.0) Sodium Level 139 mEQ/L (135-145) 145 mEQ/L (135-145) Potassium Level 4.0 mEQ/L (3.4-4.9) 5.0 mEQ/L (3.4-4.9) H Chloride Level 101 mEQ/L (98-107) 109 mEQ/L (98-107) H Carbon Dioxide Level 27 mEQ/L (20-30) 28 mEQ/L (20-30) Anion Gap 11 (5-15) 8 (5-15) Blood Urea Nitrogen 15 mg/dL (7-23) 12 mg/dL (7-23) Creatinine 0.6 mg/dL (0.5-0.9) 0.5 mg/dL (0.5-0.9) Estimat Glomerular Filtration Rate > 60 mL/min (>60) > 60 mL/min (>60) Glucose Level 97 mg/dL (74-106) 86 mg/dL (74-106) Lactic Acid Level 0.90 mmol/L (0.66-2.22) Calcium Level 9.8 mg/dL (8.6-10.2) 10.1 mg/dL (8.6-10.2) Total Bilirubin < 0.2 mg/dL (0.0-1.2) 0.3 mg/dL (0.0-1.2) Aspartate Amino Transf (AST/SGOT) 12 U/L (5-40) 12 U/L (5-40) Alanine Aminotransferase (ALT/SGPT) 5 U/L (3-33) 9 U/L (3-33) Alkaline Phosphatase 94 U/L (35-104) 74 U/L (35-104) Total Creatine Kinase 21 U/L (26-140) L Creatine Kinase MB < 1.5 ng/mL (< 3.8) Creatine Kinase MB Relative Index Troponin I < 0.30 ng/mL (<=0.30) Total Protein 7.4 g/dL (6.6-8.7) 6.8 g/dL (6.6-8.7) Albumin 4.2 g/dL (3.5-5.2) 3.3 g/dL (3.5-5.2) L Globulin 3.2 g/dL 3.5 g/dL Albumin/Globulin Ratio 1.3 (1.0-2.7) 0.9 (1.0-2.7) L Urine Color Pale yellow Urine Appearance Clear Urine pH 7 (4.5-8.0) Urine Specific [place] 1.010 (1.005-1.035) Urine Protein Negative (NEGATIVE) Urine Glucose (UA) Negative (NEGATIVE) Urine Ketones Negative (NEGATIVE) Urine Occult Blood Negative (NEGATIVE) Urine Nitrite Negative (NEGATIVE) Urine Bilirubin Negative (NEGATIVE) Urine Urobilinogen Normal MG/DL (0.0-1.0) Urine Leukocyte Esterase Negative (NEGATIVE) Activated Partial Thromboplast Time 26 SEC (23-33) Amylase Level 88 U/L (10-110) Lipase 37 U/L (< 60) General Appearance: well appearing, no apparent distress, alert Head: normocephalic EENT: PERRL/EOMI, normal ENT inspection Neck: supple Respiratory: normal breath sounds, no respiratory distress Cardiovascular: normal rate Gastrointestinal: other - kimbrough area around colostomy site Genitourinary: no CVA tenderness Musculoskeletal: back normal Neurologic: normal inspection, alert, oriented x3, responsive Psychiatric: normal inspection, judgement/insight normal, memory normal Skin: normal inspection, normal color, no rash, warm/dry, palpation normal Lymphatic: normal inspection, no adenopathy Current Medications Current Medications Medications (Trade) Dose Ordered Sig/Michael Route PRN Reason Start Time Stop Time Status Last Admin Dose Admin Acetaminophen (Tylenol) 650 mg Q4H PRN ORAL Mild Pain/Temp > 100.5 07/12/17 10:00 08/11/17 09:59 07/12/17 09:46 Al Hydroxide/Mg Hydroxide (Mylanta II) 30 ml Q6H PRN ORAL dyspepsia 07/11/17 21:00 08/10/17 20:59 Clindamycin HCl (Cleocin) 300 mg EVERY 6 HOURS ORAL 07/12/17 18:00 07/19/17 17:59 Dextrose (Dextrose 50%) STAT PRN IV Hypoglycemia 07/11/17 21:00 08/10/17 20:59 Dextrose/Sodium Chloride (D5 0.45% NS) 1,000 ml @ 75 mls/hr [id number] IV 07/11/17 22:00 08/10/17 21:59 07/12/17 12:32 Diphenhydramine HCl (Benadryl) 25 mg Q6H PRN ORAL Itching/Pruritis 07/11/17 21:00 08/10/17 20:59 Heparin Sodium (Porcine) (Heparin 5000 units/ml) 5,000 units EVERY 12 HOURS SUBQ 07/11/17 22:00 08/10/17 21:59 07/12/17 09:14 Levofloxacin (Levaquin) 500 mg DAILY ORAL 07/12/17 16:00 07/19/17 15:59 Morphine Sulfate (Morphine Sulfate) 2 mg Q4H PRN IVP severe Pain (Pain Scale 7-10) 07/11/17 21:00 07/18/17 20:59 Nitroglycerin (Ntg) 0.4 mg Q5M X 3 DOSES PRN SL Prn Chest Pain 07/11/17 21:00 08/10/17 20:59 Ondansetron HCl (Zofran) 4 mg Q6H PRN IVP Nausea & Vomiting 07/11/17 21:00 08/10/17 20:59 Polyethylene Glycol (Miralax) 17 gm HSPRN PRN ORAL Constipation 07/11/17 21:00 08/10/17 20:59 Sucralfate 1 gm 1 gm FOUR TIMES A DAY ORAL 07/11/17 22:00 08/10/17 21:59 07/12/17 14:43 Temazepam (Restoril) 15 mg HSPRN PRN ORAL Insomnia 07/11/17 21:00 07/18/17 20:59 GI: Plan Problems: (1) Anemia (2) Colostomy complication, unspecified (3) S/P laparotomy (4) Ischemic bowel disease (5) Abdominal pain (6) Gastroenteritis Plan fu surgical recs >> colostomy is functioning well, there is no evidence of ischemia. ordered APCT anemia work up OB stool r/o GI bleed pain mgmt monitor H&H, prn transfusion ppi colostomy care fu labs Discussed with Dr. Gonzalez. Thank you for referring this patient, we will follow. Sabrina Evangelista N.P. Jul 12, 2017 15:37
[2017-07-12 16:00] VITALS: BP 127/69
[2017-07-12] MEDS ORDERED: Levofloxacin 500mg tab ORAL SCH (16:00)
[2017-07-12] MEDS ORDERED: CLINDAMYCIN HC150 MG ORAL (17:12)
[2017-07-12] MEDS ORDERED: LEVAQUIN500 MG ORAL (17:12)
[2017-07-12] MEDS ORDERED: Clindamycin 150mg cap ORAL SCH (18:00)
--- NOTE | 2017-07-12 18:00 | Consultation ---
DATE OF CONSULTATION: INFECTIOUS DISEASE CONSULT This consult is for coverage of Dr. Borja. PRIMARY ATTENDING PHYSICIAN: Whit Mclean M.D. REASON FOR CONSULT: Colostomy site infection. HISTORY OF PRESENT ILLNESS: The patient is a 62-year-old female, admitted on 07/11/2017. The patient was recently discharged from hospital after prolonged stay because of ischemic bowel. The patient had a small bowel resection and colostomy in two separate procedures. After discharge, transferred to a rehabilitation center. She had pain & erythema around colostomy site. PAST MEDICAL HISTORY: Significant for peptic ulcer, ischemic colitis, ischemic small bowel, peritonitis secondary to ischemic bowel with Klebsiella, and anemia. ALLERGIES: Allergic to penicillin and shellfish. SOCIAL HISTORY: . No history of alcohol, drug abuse, or smoking. REVIEW OF SYSTEMS: Had subjective fever couple of days ago, but in the hospital was afebrile. Complains of some epigastric pain and also pain around the colostomy with itching sensations and pain in right groin area. No nausea. No vomiting. No coughing. No problem passing urine. PHYSICAL EXAMINATION: VITAL SIGNS: Temperature 97.2 degrees, pulse 75, and blood pressure is 111/55. GENERAL APPEARANCE: No acute distress. HEAD AND NECK: [place] conjunctivae. HEART: S1 and S2 regular. LUNGS: Clear. ABDOMEN: Soft. Healed scar of midline surgery. There is area of skin discoloration and erythema around colostomy. EXTREMITY: Has no edema. LABORATORY DATA: WBC 5.9, hemoglobin 9.1, hematocrit 29.3, and platelets 328,000. Sodium 145, potassium 5, chloride 109, bicarb 28, BUN 12, creatinine 0.5, and glucose is 86. IMPRESSION: Area of skin changes around colostomy may be related to contact dermatitis or cellulitis. The patient had a recent history of ischemic colitis and ischemic small bowel. She has anemia and has penicillin allergy. RECOMMENDATION: The patient was seen by a surgeon that believes that there is no problem with colostomy itself. We will give the patient oral antibiotic clindamycin with Levaquin for few days. At the end of my exam, I thank Dr. Mclean, for involving me in the care of this patient. Theodore Coronel M.D. DR: SINAN JOB#: [id number] CC: DARIEN
[2017-07-12 20:00] VITALS: BP 120/93
[2017-07-12] MEDS ORDERED: D5 1/2NS 1000ml IV ONE (20:59)
[2017-07-12] MEDS ORDERED: 1/2 NS 1000ml IV ONE (20:59)
--- NOTE | 2017-07-13 07:48 | Diagnostic Imaging Report ---
Indications: Abdominal pain. Technique: Portable supine AP view of the abdomen Findings: Comparison: 06/09/17. Bowel gas pattern remains unremarkable. Bowel anastomotic sutures again noted in left midabdomen. No abnormal calcific or soft tissue densities are demonstrated. Degenerative changes again noted in lower lumbar spine.. Nasogastric tube no longer present. IMPRESSION: No evidence of acute abdominopelvic disease, unchanged Stable chronic changes as described Nasogastric extubation.
--- NOTE | 2017-07-13 15:38 | Cardiology Report ---
APPROVED REPORT EKG Measurement Heart [id number] Normal sinus rhythm Normal ECG
--- NOTE | 2017-07-14 11:51 | Discharge Summary ---
Discharge Summary Hospital Course Date of Admission Jul 11, 2017 at 20:00 Date of Discharge Jul 12, 2017 at 21:00 Admitting Diagnosis abdominal pain HPI Vernell Trujillo is a 62 year old female who was admitted on Jul 11, 2017 at 20 :00 for Abdominal Pain Hospital Course [id number] Discharge Discharge Disposition Patient was discharged to [facility] (04) Discharge Diagnoses: Kinza Milan NP Jul 14, 2017 11:51
--- NOTE | 2017-07-15 06:32 | Discharge Summary 2 SIG ---
DATE OF ADMISSION: 07/11/2017 DATE OF DISCHARGE: 07/12/2017 CONSULTANTS: 1. Abraham Donohue M.D. 2. Theodore Coronel M.D. 3. Amadeo Gonzalez M.D. BRIEF HOSPITAL COURSE: The patient is a 62-year-old female with recent ischemic bowel, status post resection of small bowel and transverse colon with a subsequent colostomy, presented to ER complaining of discoloration on the colostomy site. On evaluation at ED, she had pain on the colostomy site, 10/10 in severity. Abdominal x-ray done showed no free air, no air-fluid levels. Blood work showed elevated CK. Urinalysis was negative. She was seen by Dr. Donohue. Colostomy was assessed to be functioning well with no evidence of ischemia. She was given proton pump inhibitors and was started empirically on clindamycin and Levaquin. Cultures were negative. She was eventually discharged to SNF. FINAL DIAGNOSES: 1. Colostomy. 2. Contact dermatitis/cellulitis. 3. Prior diagnosis of ischemic bowel disease. 4. Anemia. 5. Gastroenteritis. DISCHARGE DISPOSITION: The patient was [facility] to [facility]. DISCHARGE MEDICATIONS: Continue clindamycin and levofloxacin p.o. for one week. Whit Mclean M.D. I have been assigned to dictate discharge summary on this account and I was not involved in the patient's management. Kinza Milan N.P. DR: JOHN JOB#: [id number] CC: DARIEN
== END 2017-07-12 21:00 | DRG 252 ==
LOC: EDBD 16:31 → EMR 18:25 → 4E 20:00 → EDBEDREQ 20:25 → 4E 07-12 00:41
DX: K94.09 Other complications of colostomy (principal); L03.311 Cellulitis of abdominal wall; D64.9 Anemia, unspecified; K52.9 Noninfective gastroenteritis and colitis, unspecified; L25.9 Unspecified contact dermatitis, unspecified cause; Z88.0 Allergy status to penicillin; Z90.49 Acquired absence of other specified parts of digestive tract; R10.9 Unspecified abdominal pain
CPT/HCPCS: 36415; 74000; 80053; 81003; 82150; 82550; 82553; 83605; 83690; 84484; 85025; 85730; 87040; 87081; 93005; J2405

== ENCOUNTER 2017-11-06 18:44 | Emergency (ER) | payer OTHER ==
[~2017-11-06] VITALS: Ht 152.4 cm; Wt 58.1 kg
[~2017-11-06 18:44] MED LIST changes: +ACETAMINOPHEN325 M1 ORAL; +CLINDAMYCIN HC150 MG ORAL; +LEVAQUIN500 MG ORAL
--- NOTE | 2017-11-06 19:39 | Emergency Room Report ---
History of Present Illness General Chief Complaint: General Complaint Source: Patient Present Illness HPI 62-year-old female, history of ischemic bowel status post resection with colostomy placement in this past May, presenting with abdominal pain and having bowel movements. Patient states that she has had this intermittent her to the to the bathroom for the last month, however today she experienced generalized abdominal pain with a passage of loose bowel movement. States that this is the first time since she had the surgery and she is concerned Complains of nausea but no vomiting no fever no chills no chest pain no shortness of breath Allergies: Coded Allergies: PENICILLIN (Verified Allergy, Unknown, 12/01/15) SHELLFISH (Verified Allergy, Unknown, 12/01/15) Uncoded Allergies: Mints (Allergy, Unknown, 06/09/17) Patient History Past Medical History: see triage record Past Surgical History: none Pertinent Family History: none Last Menstrual Period: 2001 Now: No : 0 Para: 0 Reviewed Nursing Documentation: PMH: Agreed, PSxH: Agreed Nursing Documentation-PMH Hx Gastrointestinal Problems: Yes - colostomy Jun 2017 Review of Systems All Other Systems: negative except mentioned in HPI Physical Exam Vital Signs Date Time Temp Pulse Resp B/P (MAP) Pulse Ox O2 Delivery O2 Flow Rate FiO2 11/06/17 19:08 98.4 78 15 116/48 99 Room Air Sp02 EP Interpretation: reviewed, normal General Appearance: alert, GCS 15, non-toxic, mild distress Head: normocephalic, atraumatic Eyes: bilateral eye normal inspection, bilateral eye PERRL, bilateral eye EOMI ENT: normal ENT inspection, normal pharynx, normal voice, moist mucus membranes Neck: normal inspection, full range of motion, supple Respiratory: normal inspection, lungs clear, normal breath sounds, no respiratory distress, no retraction, no wheezing, speaking full sentences, chest symmetrical Cardiovascular #1: normal inspection, regular rate, rhythm, no edema, normal capillary refill Cardiovascular #2: 2+ radial (R), 2+ radial (L) Gastrointestinal: other - Colostomy noted in the right lower quadrant, midline incision that is well-healed, generalized tenderness throughout abdomen Musculoskeletal: normal inspection, back normal, normal range of motion, non- tender Neurologic: normal inspection, alert, oriented x3, responsive, motor strength/ tone normal, sensory intact, normal gait, speech normal Psychiatric: normal inspection, judgement/insight normal, memory normal Skin: normal inspection, normal color, no rash, warm/dry, well hydrated, normal turgor Medical Decision Making Diagnostic Impression: Primary Impression: Abdominal pain ER Course 62-year-old female, with a colostomy, with abdominal pain Differential Diagnosis: Acute intra-abdominal surgical pathology related to clot colostomy insertion, ischemic bowel, diverticulitis, appendicitis Plan: Basic labs, ua Zofran CT abdopelvis ER course: Pt has been stable in ED Dr Monroy came to see patient, no acute findings on CT lactate is slightly elevated 2.8 otherwise pt nontoxic Signed out to -pending repeat lactate -if normalized can DC home -can fu with Dr Monroy in office Please note that this Emergency Department Report was dictated using [employer] secretary technology software, occasionally this can lead to erroneous entry secondary to interpretation by the dictation equipment Laboratory Tests Test 11/06/17 19:55 White Blood Count 8.2 K/UL (4.8-10.8) Red Blood Count 4.83 M/UL (4.20-5.40) Hemoglobin 10.0 G/DL (12.0-16.0) L Hematocrit 36.2 % (37.0-47.0) L Mean Corpuscular Volume 75 FL (80-99) L Mean Corpuscular Hemoglobin 20.8 PG (27.0-31.0) L Mean Corpuscular Hemoglobin Concent 27.7 G/DL (32.0-36.0) L Red Cell Distribution Width 17.2 % (11.6-14.8) H Platelet Count 362 K/UL (150-450) Mean Platelet Volume 5.6 FL (6.5-10.1) L Neutrophils (%) (Auto) 59.3 % (45.0-75.0) Lymphocytes (%) (Auto) 30.3 % (20.0-45.0) Monocytes (%) (Auto) 7.3 % (1.0-10.0) Eosinophils (%) (Auto) 1.9 % (0.0-3.0) Basophils (%) (Auto) 1.3 % (0.0-2.0) Urine Color Pale yellow Urine Appearance Clear Urine pH 6.5 (4.5-8.0) Urine Specific [place] 1.015 (1.005-1.035) Urine Protein Negative (NEGATIVE) Urine Glucose (UA) Negative (NEGATIVE) Urine Ketones Negative (NEGATIVE) Urine Occult Blood 1+ (NEGATIVE) H Urine Nitrite Negative (NEGATIVE) Urine Bilirubin Negative (NEGATIVE) Urine Urobilinogen Normal MG/DL (0.0-1.0) Urine Leukocyte Esterase Negative (NEGATIVE) Urine RBC 2-4 /HPF (0 - 2) H Urine WBC 0-2 /HPF (0 - 2) Urine Squamous Epithelial Cells Few /LPF (NONE/OCC) Urine Bacteria Few /HPF (NONE) Sodium Level 142 MMOL/L (136-145) Potassium Level 4.9 MMOL/L (3.5-5.1) Chloride Level 107 MMOL/L (98-107) Carbon Dioxide Level 31 MMOL/L (21-32) Anion Gap 4 mmol/L (5-15) L Blood Urea Nitrogen 12 mg/dL (7-18) Creatinine 0.7 MG/DL (0.55-1.30) Estimate Glomerular Filtration Rate > 60 mL/min (>60) Glucose Level 96 MG/DL (74-106) Lactic Acid Level 2.80 mmol/L (0.66-2.22) H Calcium Level 9.8 MG/DL (8.5-10.1) Total Bilirubin 0.2 MG/DL (0.2-1.0) Aspartate Amino Transferase (AST) 16 U/L (15-37) Alanine Aminotransferase (ALT) 22 U/L (12-78) Alkaline Phosphatase 148 U/L (46-116) H Total Protein 8.6 G/DL (6.4-8.2) H Albumin 3.6 G/DL (3.4-5.0) Globulin 5.0 g/dL Albumin/Globulin Ratio 0.7 (1.0-2.7) L Lipase 163 U/L (73-393) CT/MRI/US Diagnostic Results CT/MRI/US Diagnostic Results : Imaging Test Ordered: CT ABDO PELVIS Impression CT ABDOMEN & PELVIS: Comparison 06/08. There are interval surgical changes with evidence of bowel resections. This includes partial colectomy with placement of right sided colostomy. No bowel obstruction. No evidence for appendicitis or other acute process in the abdomen or pelvis. Gallbladder is contracted and not well evaluated. There are multiple age indeterminate compression deformities of the spine involving the lumbar spine and lower thoracic spine. New since previous. No significant retropulsion. Incidental findings include unchanged small fat-containing right adrenal nodule. Last Vital Signs Date Time Temp Pulse Resp B/P (MAP) Pulse Ox O2 Delivery O2 Flow Rate FiO2 11/06/17 19:08 98.4 78 15 116/48 99 Room Air Opal Flood M.D. Nov 06, 2017 19:39
[2017-11-06 20:39] LABS: BASOPHILS % (AUTO) 1.3 % (0.0-2.0); EOSINOPHILS % (AUTO) 1.9 % (0.0-3.0); LYMPHOCYTES % (AUTO) 30.3 % (20.0-45.0); MEAN CORPUSCULAR HEMOGLOBIN 20.8 PG (27.0-31.0); MEAN CORPUSCULAR HGB CONC 27.7 G/DL (32.0-36.0); MEAN CORPUSCULAR VOLUME 75 FL (80-99); MEAN PLATELET VOLUME 5.6 FL (6.5-10.1); MONOCYTES % (AUTO) 7.3 % (1.0-10.0); NEUTROPHILS % (AUTO) 59.3 % (45.0-75.0); PLATELET COUNT 362 K/UL (150-450); RED BLOOD COUNT 4.83 M/UL (4.20-5.40); RED CELL DISTRIBUTION WIDTH 17.2 % (11.6-14.8); WHITE BLOOD COUNT 8.2 K/UL (4.8-10.8)
[2017-11-06 21:01] LABS: ANION GAP 4 mmol/L (5-15); APPEARANCE,URINE CLEAR; CALCIUM 9.8 MG/DL (8.5-10.1); CARBON DIOXIDE 31 MMOL/L (21-32); CHLORIDE 107 MMOL/L (98-107); CREATININE 0.7 MG/DL (0.55-1.30); GLOMERULAR FILTRATION RATE > 60 mL/min (>60); KETONES,URINE NEGATIVE (NEGATIVE); LEUKOCYTE ESTERASE ,URINE NEGATIVE (NEGATIVE); NITRITE,URINE NEGATIVE (NEGATIVE); PH,URINE 6.5 (4.5-8.0); POTASSIUM 4.9 MMOL/L (3.5-5.1); PROTEIN,URINE NEGATIVE (NEGATIVE); SODIUM 142 MMOL/L (136-145); UROBILINOGEN,URINE NORMAL MG/DL (0.0-1.0)
[2017-11-06 21:05] LABS: ALANINE AMINOTRANSFERASE 22 U/L (12-78); ALBUMIN/GLOBULIN RATIO 0.7 (1.0-2.7); ASPARTATE AMINO TRANSFERASE 16 U/L (15-37); LIPASE 163 U/L (73-393); TOTAL PROTEIN 8.6 G/DL (6.4-8.2)
[2017-11-06 21:15] LABS: REFLEX LACTIC ACID YES OR NO YES
[2017-11-06 21:20] LABS: BACTERIA,URINE FEW /HPF; SQUAMOUS EPITHELIAL CELL,UR FEW /LPF (NONE/OCC); WBC,URINE 0-2 /HPF (0 - 2)
[2017-11-06] MEDS ORDERED: Morphine Sulfate 4mg/ml Inj IVP ONE (22:30)
[2017-11-07 00:09] VITALS: BP 116/48
--- NOTE | 2017-11-07 09:54 | Diagnostic Imaging Report ---
Indication: Abdominal pain Technique: Continuous helical transaxial imaging of the abdomen and pelvis was obtained from the lung bases to the pubic symphysis during intravenous contrast administration. Coronal 2-D reformats were also obtained. Study obtained in a Siemens sensation [address] Automatic Exposure Control was utilized. Total Dose length Product (DLP): 660.[address] Dose Index Volume (CTDIvol): 14.12 mGy Comparison: 06/08/2017 Findings: Interval abdominal surgery has been performed. There is a right lower quadrant colostomy now present and left hemicolectomy. A distal sigmoid/rectal stump noted with a staple line in the low pelvis. Staple line also associated with small bowel loops in the left-sided abdomen. There is no evidence of bowel obstruction. There is no evidence of abscess or free fluid. Atrophic uterus is likely present. The urinary bladder is unremarkable. There is no hydronephrosis. Kidneys enhance normally. The spleen and liver, pancreas, adrenal glands appear unremarkable. The gallbladder is contracted. The lung bases appear clear. Vacuum phenomena and endplate spurs noted within the thoracic and lumbar spine. Generalized facet hypertrophy noted. IMPRESSION: Status post partial colectomy and colostomy as described above. No acute findings such as bowel obstruction or abscess are identified. Degenerative changes of the spine. Contracted gallbladder. [facility] has communicated the preliminary results to the Emergency Department. Their findings are largely concordant with this report. The CT scanner at [facility] is accredited by the [employer] and the scans are performed using dose optimization techniques as appropriate to a performed exam including Automatic Exposure control.
--- NOTE | 2017-11-07 13:53 | Consultation ---
History of Present Illness General Date patient seen: Nov 06, 2017 Time patient seen: 23:00 Chief Complaint: General Complaint Present Illness HPI Late entry for evaluation at 11pm on 11/06/2017 called that patient who is well known to me was in ED. c/o abdominal pain, nausea, and passage of stool from rectum. was concerned so came to ED for evaluation. states she has been well for months recovering. today noted some lower abdominal cramping then went to bathroom because she felt like she has to have BM. when on toilet noted fair amount of solid stool evacuate from rectum. took picture of stool and reviewed with her that it was normal stool. states she has felt urge to have BM over the past few weeks but has not actually had one prior to tonight. colostomy has been functioning well. some mild irritation around ostomy site from malpositioned ostomy bag. currently improved since in ED. cramping resolved. CT in ED performed and without significant findings labs okay except from elevated lactic acid level. Allergies: Coded Allergies: PENICILLIN (Verified Allergy, Unknown, 12/01/15) SHELLFISH (Verified Allergy, Unknown, 12/01/15) Uncoded Allergies: Mints (Allergy, Unknown, 06/09/17) Medication History Scheduled Albuterol Sulfate* (Albuterol Sulfate Mdi*), 2 PUFF INH Q6H Ascorbic Acid* (Vitamin C*), 500 MG ORAL DAILY, (Reported) Azithromycin* (Zithromax*), 250 MG ORAL DAILY Clindamycin Hcl* (Clindamycin Hcl*), 300 MG ORAL Q6HR, (Reported) Dicyclomine Hcl* (Bentyl*), 10 MG ORAL TID Ibuprofen* (Motrin*), 600 MG ORAL THREE TIMES A DAY Levofloxacin* (Levaquin*), 500 MG ORAL DAILY, (Reported) Methylprednisolone (Methylprednisolone*), 4 MG ORAL .as directed Metoclopramide Hcl* (Metoclopramide Hcl*), 10 MG ORAL EVERY 6 HOURS, (Reported) Nitroglycerin (Nitroglycerin), 0.4 MG SL [id number] doses, (Reported) Omeprazole (Omeprazole), 20 MG ORAL DAILY, (Reported) Pantoprazole* (Protonix*), 40 MG ORAL DAILY, (Reported) Phytonadione (Vitamin K1), 10 MG SQ QWEEK, (Reported) Ranitidine Hcl* (Zantac*), 150 MG ORAL TWICE A DAY Ranitidine Hcl* (Zantac*), 150 MG ORAL DAILY Sucralfate* (Carafate*), 1 GM ORAL FOUR TIMES A DAY, (Reported) Scheduled PRN Acetaminophen With Codeine (T#3) (Tylenol #3 Tab*), 1 TAB ORAL Q8H PRN for For Pain Acetaminophen* (Tylenol Extra Strength*), 500 MG ORAL Q6H PRN for Mild Pain/ Temp > 100.5 Acetaminophen* (Tylenol Extra Strength*), 650 MG ORAL Q4HR PRN for Fever/ Headache/Mild Pain, (Reported) Acetaminophen* (Acetaminophen 325MG Tablet*), 325 MG ORAL Q4H PRN for Mild Pain/ Temp > 100.5, (Reported) Codeine/Promethazine Hcl* (Promethazine-Codeine Syrup*), 5 ML ORAL Q6H PRN for For Cough Hydrocodone Bit/Acetaminophen 5-325* ([place] 5-325 Tablet*), 1 TAB ORAL Q8HR PRN for For Pain Hydrocodone Bit/Acetaminophen 5-325* ([place] 5-325 Tablet*), 1 TAB ORAL Q4H PRN for Moderate [place] Pain (5-7), (Reported) Ibuprofen* (Motrin*), 600 MG ORAL Q8H PRN for For Pain Nitroglycerin (Nitroglycerin), 0.4 MG SL q5mins x3 doses PRN PRN for Prn Chest Pain, (Reported) Ondansetron (Zofran), 4 MG ORAL Q4HR PRN for Nausea & Vomiting Ondansetron Odt* (Zofran Odt*), 4 MG ORAL Q6H PRN for Nausea & Vomiting Ondansetron Odt* (Zofran Odt*), 4 MG ORAL Q6H PRN for Nausea & Vomiting Ondansetron* (Zofran*), 4 MG ORAL Q6H PRN for Nausea & Vomiting, (Reported) Temazepam* (Temazepam*), 15 MG ORAL BEDTIME PRN for Insomnia, (Reported) Miscellaneous Medications Ferrous Sulfate (Ferosul), 325 MG PO, (Reported) Patient History History Provided By: Patient Healthcare decision maker Resuscitation status Advanced Directive on File Past Medical/Surgical History Past Medical/Surgical History: (1) URI (upper respiratory infection) (2) Acute viral syndrome (3) Acid reflux (4) Contusion (5) Headache (6) Gastric ulcer with hemorrhage (7) Ischemic colon (8) Septic shock (9) Ischemic bowel disease (10) Colostomy complication, unspecified (11) Anemia (12) Gastroenteritis Review of Systems All Other Systems: negative except mentioned in HPI Physical Exam General Appearance: no apparent distress, alert Lines, tubes and drains: peripheral HEENT: PERRL Neck: normal inspection Respiratory/Chest: normal breath sounds Cardiovascular/Chest: normal peripheral pulses, normal rate Abdomen: normal bowel sounds, soft, no organomegaly, no mass, other - ostomy with bag and fucntional Extremities: normal range of motion Skin Exam: normal pigmentation Neurologic: alert, oriented x 3, responsive Last 24 Hour Vital Signs Date Time Temp Pulse Resp B/P (MAP) Pulse Ox O2 Delivery O2 Flow Rate FiO2 11/07/17 00:09 98.4 15 116/48 99 Room Air 11/07/17 00:09 98.4 15 116/48 99 Room Air 11/06/17 19:08 98.4 78 15 116/48 99 Room Air Laboratory Tests Test 11/06/17 19:55 11/06/17 23:00 White Blood Count 8.2 K/UL (4.8-10.8) Red Blood Count 4.83 M/UL (4.20-5.40) Hemoglobin 10.0 G/DL (12.0-16.0) L Hematocrit 36.2 % (37.0-47.0) L Mean Corpuscular Volume 75 FL (80-99) L Mean Corpuscular Hemoglobin 20.8 PG (27.0-31.0) L Mean Corpuscular Hemoglobin Concent 27.7 G/DL (32.0-36.0) L Red Cell Distribution Width 17.2 % (11.6-14.8) H Platelet Count 362 K/UL (150-450) Mean Platelet Volume 5.6 FL (6.5-10.1) L Neutrophils (%) (Auto) 59.3 % (45.0-75.0) Lymphocytes (%) (Auto) 30.3 % (20.0-45.0) Monocytes (%) (Auto) 7.3 % (1.0-10.0) Eosinophils (%) (Auto) 1.9 % (0.0-3.0) Basophils (%) (Auto) 1.3 % (0.0-2.0) Urine Color Pale yellow Urine Appearance Clear Urine pH 6.5 (4.5-8.0) Urine Specific [place] 1.015 (1.005-1.035) Urine Protein Negative (NEGATIVE) Urine Glucose (UA) Negative (NEGATIVE) Urine Ketones Negative (NEGATIVE) Urine Occult Blood 1+ (NEGATIVE) H Urine Nitrite Negative (NEGATIVE) Urine Bilirubin Negative (NEGATIVE) Urine Urobilinogen Normal MG/DL (0.0-1.0) Urine Leukocyte Esterase Negative (NEGATIVE) Urine RBC 2-4 /HPF (0 - 2) H Urine WBC 0-2 /HPF (0 - 2) Urine Squamous Epithelial Cells Few /LPF (NONE/OCC) Urine Bacteria Few /HPF (NONE) Sodium Level 142 MMOL/L (136-145) Potassium Level 4.9 MMOL/L (3.5-5.1) Chloride Level 107 MMOL/L (98-107) Carbon Dioxide Level 31 MMOL/L (21-32) Anion Gap 4 mmol/L (5-15) L Blood Urea Nitrogen 12 mg/dL (7-18) Creatinine 0.7 MG/DL (0.55-1.30) Estimat Glomerular Filtration Rate > 60 mL/min (>60) Glucose Level 96 MG/DL (74-106) Lactic Acid Level 2.80 mmol/L (0.66-2.22) H 0.80 mmol/L (0.66-2.22) Calcium Level 9.8 MG/DL (8.5-10.1) Total Bilirubin 0.2 MG/DL (0.2-1.0) Aspartate Amino Transf (AST/SGOT) 16 U/L (15-37) Alanine Aminotransferase (ALT/SGPT) 22 U/L (12-78) Alkaline Phosphatase 148 U/L (46-116) H Total Protein 8.6 G/DL (6.4-8.2) H Albumin 3.6 G/DL (3.4-5.0) Globulin 5.0 g/dL Albumin/Globulin Ratio 0.7 (1.0-2.7) L Lipase 163 U/L (73-393) Height (Feet): 5 Weight (Pounds): 128 Assessment/Plan Problem List: (1) S/P laparotomy Assessment & Plan: spoke with patient. reviewed lab and CT findings. reviewed history and exam. not abnormal to have BM or feeling of need to have BM after ostomy. she has viable rectum still and its functional. was not cleared out prior and likely had some stool which recently evacuated. otherwise looks better and improved as compared to last time I had seen her. okay to d/c home she will follow up with me in the office next month. of note, patient called me this morning 11/07/2017 to confirm follow up appointment for next month. states she is doing better and feels better today. ICD Codes: Z98.890 - Other specified postprocedural states SNOMED: [id number], [id number], [id number] Status: stable ElianaWei Nov 07, 2017 13:53
== END 2017-11-07 00:21 | disposition home or self-care (01) ==
LOC: EMR 22:18
DX: R10.84 Generalized abdominal pain (principal); Z93.3 Colostomy status; Z90.49 Acquired absence of other specified parts of digestive tract; Z88.0 Allergy status to penicillin; Z91.013 Allergy to seafood
CPT/HCPCS: 36415; 74177; 80053; 81003; 83605; 83690; 85025; 96374; 96375; 99284; J2270; J2405; Q9967

== ENCOUNTER 2017-12-10 11:37 | Emergency (ER) | payer OTHER ==
[~2017-12-10] VITALS: Ht 152.4 cm; Wt 58.1 kg
[2017-12-10] MEDS ORDERED: LORATADINE10 M2 PO (12:52)
[2017-12-10] MEDS ORDERED: TESSALON PERLE100 MG ORAL (12:52)
[2017-12-10] MEDS ORDERED: FLONASE ALLERG9.9 ML NS (12:52)
[2017-12-10] MEDS ORDERED: PROVENTIL HFA6.7 G1 IH (12:52)
--- NOTE | 2017-12-10 12:53 | Emergency Room Report ---
History of Present Illness General Chief Complaint: Flu Like Symptoms Source: Patient, Medical Record Present Illness HPI 62 y/o female c/o multiple complaints. Patient c/o URI sxs x 1 week. Assoc sxs include nasal congestion, rhinorrhea, sore throat, post nasal drip, bodyaches, chills, and cough. Patient states she has fever of 101.4 at home and improves with tylenol, last taken yesterday night. States she's not taking anything for cough or nasal congestion. Denies any current n/v/f/c/d, abd pain, back pain, neck pain, photophobia, phonophobia, CP, SOB or headache. Additionally, patient has left knee pain x 3 weeks. States she twisted her knee after colliding with another person. States her left knee is tender and swollen. States she cannot take ibuprofen due to colostomy bag and hx of gastritis 6 months ago. States she has hx of meniscus repair 15 years ago and has no other physical complaints. Patient denies any numbness, tingling, pressure, paralysis, cyanosis, bruising, loss of sensation, or loss of range of motion. Allergies: Coded Allergies: PENICILLIN (Verified Allergy, Unknown, 12/01/15) SHELLFISH (Verified Allergy, Unknown, 12/01/15) Uncoded Allergies: Mints (Allergy, Unknown, 06/09/17) Patient History Past Medical History: see triage record Past Surgical History: other Pertinent Family History: none Reviewed Nursing Documentation: PMH: Agreed, PSxH: Agreed Nursing Documentation-PMH Past Medical History: No History, Except For Hx Gastrointestinal Problems: Yes - colostomy Jun 2017 Review of Systems All Other Systems: negative except mentioned in HPI Physical Exam Vital Signs Date Time Temp Pulse Resp B/P (MAP) Pulse Ox O2 Delivery O2 Flow Rate FiO2 12/10/17 11:40 97.5 73 18 134/74 96 Room Air 12/10/17 12:00 98 Sp02 EP Interpretation: reviewed, normal General Appearance: no apparent distress, alert, GCS 15, non-toxic Head: normocephalic, atraumatic Eyes: bilateral eye normal inspection, bilateral eye PERRL ENT: hearing grossly normal, normal pharynx, no angioedema, normal voice Neck: full range of motion, supple/symm/no masses Respiratory: chest non-tender, normal breath sounds, no respiratory distress, speaking full sentences, wheezing - mild right sided Cardiovascular #1: regular rate, rhythm, no edema Musculoskeletal: back normal, gait/station normal, normal range of motion, no calf tenderness, swelling - left knee, tender - left knee Neurologic: alert, oriented x3, responsive, motor strength/tone normal, sensory intact, normal gait, speech normal Psychiatric: judgement/insight normal, memory normal, mood/affect normal, no suicidal/homicidal ideation Skin: normal color, no rash, warm/dry, well hydrated Lymphatic: no adenopathy Procedures Additional Procedure Procedure Narrative Risks and benefits of procedure discussed, consent obtained from patient. Using sterile technique, prepped area with chlorhexidine, an 18G needle was then inserted into the anterior medial aspect of the peripatellar space. There was no fluid or blood illicited from aspiration. Needle was withdrawn and hemostasis was achieved with direct pressure using 4x4 gauze. There was no additional blood loss. Wound was then covered with a band-aid. Patient was instructed on post-procedure care. Patient tolerated procedure without complication. Medical Decision Making PA Attestation Dr. Cruz is my supervising physician with whom patient management has been discussed with. Diagnostic Impression: Primary Impression: URI with cough and congestion Additional Impression: Left knee pain Qualified Codes: M25.562 - Pain in left knee ER Course Pt. presents to the ED c/o of cough and congestion Ddx considered but are not limited to bronchitis, pneumonia, viral upper respiratory tract infection Vital signs: are WNL, pt. is afebrile H&PE are most consistent with viral upper respiratory tract infection ORDERS: none required at this time, the diagnosis is clinical ED INTERVENTIONS: None required at this time. DISCHARGE: At this time pt. is stable for d/c to home. Will provide printed patient care instructions, and any necessary prescriptions. Care plan and follow up instructions have been discussed with the patient prior to discharge. Pt. presents to the ED c/o knee swelling. Ddx considered but are not limited to contusion, fracture, dislocation, strain, sprain, gout, septic joint. Vital signs: are WNL, pt. is afebrile H&PE are most consistent with nonspecific knee pain ORDERS: knee x-ray were negative ED INTERVENTIONS: knee arthrocentesis resulted in no fluid aspirated DISCHARGE: At this time pt. is stable for d/c to home. Will provide printed patient care instructions, and any necessary prescriptions. Care plan and follow up instructions have been discussed with the patient prior to discharge. Other X-Ray Diagnostic Results Other X-Ray Diagnostic Results : X-Ray ordered: Left Knee # of Views/Limited Vs Complete: 3 View Indication: Swelling EP Interpretation: Yes PA Xray: Interpretation reviewed, by supervising MD, and agrees with findings. Interpretation: no dislocation, no soft tissue swelling, no fractures Electronically Signed by: Mateusz Tee PA-C Last Vital Signs Date Time Temp Pulse Resp B/P (MAP) Pulse Ox O2 Delivery O2 Flow Rate FiO2 12/10/17 12:00 73 18 Room Air 98 12/10/17 11:40 97.5 134/74 96 Disposition: HOME, SELF-CARE Condition: Stable Scripts Benzonatate* (TESSALON PERLE*) 100 Mg Capsule 100 MG ORAL THREE TIMES A DAY for 10 Days, #30 PERLE Prov: MATEUSZ TEE.A. 12/10/17 Albuterol Sulfate (PROVENTIL HFA) 6.7 Gm Hfa.aer.ad 2 PUFFS IH EVERY 6 HOURS Y for For Cough for 10 Days, #1 UNIT Prov: MATEUSZ TEE P.A. 12/10/17 Loratadine (LORATADINE) 10 Mg Tablet 10 MG PO DAILY for 14 Days, #14 TAB Prov: MATEUSZ TEE P.A. 12/10/17 Fluticasone Propionate (Flonase Allergy Relief) 9.9 Ml [place].susp 2 SPRAYS NS DAILY for 7 Days, #10 ML Prov: MATEUSZ TEE.A. 12/10/17 Referrals: [facility] (PCP) Patient Instructions: KNEE PAIN, Uncertain Cause, RICE for Routine Care of Injuries, Upper Respiratory Infection, Adult MATEUSZ TEE Dec 10, 2017 12:53
[2017-12-10 13:16] VITALS: BP 134/74
--- NOTE | 2017-12-11 09:44 | Diagnostic Imaging Report ---
Indication: Pain and swelling Technique: XRAY Knee 3v LT Comparison: None. Findings: The knee is intact. No fracture. No bone destruction. There is an enthesophyte at the quadriceps tendon attachment. Impression: Patellar enthesophyte. Otherwise unremarkable.
--- NOTE | 2017-12-11 09:46 | Diagnostic Imaging Report ---
Indication: Reason For Exam: COUGH Technique: XRAY Chest 1v. Comparison: 06/13/2017 Findings: The cardiomediastinal silhouette is stable. There are no acute infiltrates. Impression: No acute abnormality. .
== END 2017-12-10 13:20 | disposition home or self-care (01) ==
LOC: EMR 11:55
DX: J06.9 Acute upper respiratory infection, unspecified (principal); M25.562 Pain in left knee; Z88.0 Allergy status to penicillin; Z91.013 Allergy to seafood; Z93.3 Colostomy status
CPT/HCPCS: 71045; 73562; 99283; J7512

== ENCOUNTER 2018-07-20 12:39 | Emergency (ER) | payer OTHER ==
[~2018-07-20] VITALS: Ht 152.4 cm; Wt 57.6 kg
[~2018-07-20 12:39] MED LIST changes: +FLONASE ALLERG9.9 ML NS; +LORATADINE10 M2 PO; +PROVENTIL HFA6.7 G1 IH; +TESSALON PERLE100 MG ORAL
[2018-07-20 12:48] VITALS: BP 113/68
[2018-07-20] MEDS ORDERED: Ketorolac 30mg Inj IM ONE (13:15)
[2018-07-20] MEDS ORDERED: BACITRACIN-P28.35 GM TP (13:17)
[2018-07-20] MEDS ORDERED: HYDROCORTISONE30 G2 TP (13:17)
--- NOTE | 2018-07-20 13:17 | Emergency Room Report ---
History of Present Illness General Chief Complaint: Skin Rash/Abscess Source: Patient Present Illness HPI 63-year-old female patient presents ER complaining of "I think I got bit by bugs ". Reports that she noticed 3 small erythematous bumps on her left forearm about 2 hours ago. Reports redness and slowly started to go away however she still notes burning pain and numbness at this site. States she did not see the bug. Denies fever, chest pain or shortness breath, vomiting, other acute symptoms. denies hx of diabetes. denies injury or trauma. Allergies: Coded Allergies: PENICILLIN (Verified Allergy, Unknown, 12/01/15) SHELLFISH (Verified Allergy, Unknown, 12/01/15) Uncoded Allergies: Mints (Allergy, Unknown, 06/09/17) SEAFOOD (Allergy, Unknown, 07/20/18) Patient History Past Medical History: see triage record Last Menstrual Period: menopause Reviewed Nursing Documentation: PMH: Agreed; PSxH: Agreed Nursing Documentation-PMH Past Medical History: No History, Except For Hx Cardiac Problems: No Hx Hypertension: No Hx Pacemaker: No Hx Asthma: No Hx COPD: No Hx Diabetes: No Hx Cancer: No Hx Gastrointestinal Problems: Yes - colostomy Jun 2017 Hx Dialysis: No History Of Psychiatric Problem: No Hx Neurological Problems: No Hx Cerebrovascular Accident: No Hx Seizures: No Review of Systems All Other Systems: negative except mentioned in HPI Physical Exam Vital Signs Date Time Temp Pulse Resp B/P (MAP) Pulse Ox O2 Delivery O2 Flow Rate FiO2 07/20/18 12:48 98.2 73 16 113/68 97 Room Air 98.2 Sp02 EP Interpretation: reviewed, normal General Appearance: well appearing, no apparent distress, alert, GCS 15, non- toxic Head: normocephalic, atraumatic Eyes: bilateral eye normal inspection, bilateral eye PERRL ENT: hearing grossly normal, normal pharynx, no angioedema, normal voice, uvula midline, moist mucus membranes Neck: full range of motion Respiratory: lungs clear, normal breath sounds, no rhonchi, no respiratory distress, no accessory muscle use, no wheezing, speaking full sentences Cardiovascular #1: regular rate, rhythm, no edema Cardiovascular #2: 2+ radial (R), 2+ radial (L) Musculoskeletal: back normal, digits/nails normal, gait/station normal, normal range of motion, non-tender, other - NVI Neurologic: alert, oriented x3, responsive, motor strength/tone normal, sensory intact Psychiatric: mood/affect normal Skin: no rash, other - no vesicles, no erythema or edema, no red streaking, no inudration or fluctuance, no palpable mass, no target lesion Medical Decision Making PA Attestation Dr. Kearney is my supervising Physician whom patient management has been discussed with. Diagnostic Impression: Primary Impression: Rash and other nonspecific skin eruption ER Course Pt. presents to the ED c/o bug bite. Ddx considered but are not limited to atopic dermatitis, bug bite, urticaria, allergic reaction, shingles, cellulitis. Vital signs: are WNL, pt. is afebrile ER COURSE: physical exam benign, no erythema or edema, no lesions, possible bug bite that has healed, no signs of erythema or edema, does not require oral abx or drainage. full range of motion extremities, neurovascularly intact, sensation intact to light touch, no injury or trauma does not require imaging. Follow-up with primary care provider for further treatment and referral. Provided with toradol for pain. Do not scratch, apply cool compresses to affected area. Followup wt PCP and request referral at that time. DISCHARGE: -Rx given for bacitracin -Rx given for hydrocortisone cream. Do not apply to face or skin creases. -Patient instructed to apply warm compresses to affected area. At this time pt. is stable for d/c to home. Patient resting comfortably, in no acute distress, nontoxic appearing. Care plan and follow up instructions have been discussed with the patient prior to discharge. Patient provided with printed patient care instructions, and any necessary prescriptions. Patient instructed to follow-up with primary care provider in 2-3 days for wound check Patient questions asked and answered. Patient reports understanding and agreement to treatment plan. ER precautions given. Patient instructed to return to ER immediately for any new or worsening of symptoms including but not limited to increasing SOB, persistent fever. - Please note that this Emergency Department Report was dictated using [employer] straw hat presser technology software, occasionally this can lead to erroneous entry secondary to interpretation by the dictation equipment. Last Vital Signs Date Time Temp Pulse Resp B/P (MAP) Pulse Ox O2 Delivery O2 Flow Rate FiO2 07/20/18 12:48 98.2 73 16 113/68 97 Room Air 98.2 Status: improved Disposition: HOME, SELF-CARE Condition: Stable Scripts Hydrocortisone (Hydrocortisone Cream 2.5%) Y Cream.appl 1 APPLIC TP BID, #28 GM Prov: Deepak Salguero 07/20/18 Bacitracin/Polymyxin B Sulfate (BACITRACIN-POLYMYXIN OINTMENT) 28.35 Gm Oint...g. 1 APPLIC TP BID, #28 GM Prov: Deepak Salguero 07/20/18 Patient Instructions: Insect Bite, Hgaj-ci-Blor Additional Instructions: Followup with primary care provider in 2-3 days for wound check. Do not scratch or itch. Apply cool compresses to affected area. Take medications as directed. Do not hydrocortisone apply medication to face or skin creases. Patient questions asked and answered. ER precautions given, patient instructed to return to ER immediately for any new or worsening of symptoms. [facility] Deepak Salguero Jul 20, 2018 13:17
[2018-07-20 13:30] VITALS: BP 113/68
== END 2018-07-20 13:30 | disposition home or self-care (01) ==
LOC: EMR 13:12
DX: R21 Rash and other nonspecific skin eruption (principal); Z88.0 Allergy status to penicillin; Z91.013 Allergy to seafood
CPT/HCPCS: 96372; 99283; J1885

== ENCOUNTER 2020-02-03 23:02 | Emergency (ER) | payer OTHER ==
[~2020-02-03] VITALS: Ht 149.9 cm; Wt 59.0 kg
[~2020-02-03 23:02] MED LIST changes: +BACITRACIN-P28.35 GM TP; +HYDROCORTISONE30 G2 TP
--- NOTE | 2020-02-03 23:21 | NUR ---
ED Nurse Note: pt presents to ED from home with multiple complaints, she is c/o a sore throat x 5 days as well as N/V, congestion and a DUARTE. pt states that her DUARTE is located in the front and radiates to the back of her neck. her throat pain is exacerbated by deep breaths, pt denies pain whe she swallows. pt denies any SOB, cough or fevers.
[2020-02-03 23:22] VITALS: BP 143/72
[2020-02-03] MEDS ORDERED: TYLENOL325 MG ORAL (23:28)
[2020-02-03] MEDS ORDERED: ZOFRAN4 M3 ORAL (23:28)
[2020-02-03] MEDS ORDERED: CLINDAMYCIN HC300 MG ORAL (23:28)
--- NOTE | 2020-02-03 23:30 | NUR ---
ER DISCHARGE NOTE: Patient is cleared to be discharged per ERMD, pt is aox4, on room air, with stable vital signs. pt was given dc and prescription instructions, pt was able to verbalize understanding, pt id band removed without complications. pt is able to ambulate with steady gait. pt took all belongings.
--- NOTE | 2020-02-03 23:35 | Emergency Room Report ---
History of Present Illness General Chief Complaint: Sore Throat Source: Patient Present Illness HPI Patient presents with complaints of sore throat ongoing for the past 3 days Denies any fevers denies any chest pain or cough Denies any vomiting or diarrhea Denies any posterior neck pain also complains of headache to the left temporal area Denies any recent travel or trauma denies any recent sick contacts Denies any change with voice COVID-19 risk:Travel to affect: No Allergies: Coded Allergies: PENICILLIN (Verified Allergy, Unknown, 12/01/15) SHELLFISH (Verified Allergy, Unknown, 12/01/15) Uncoded Allergies: Mints (Allergy, Unknown, 06/09/17) SEAFOOD (Allergy, Unknown, 07/20/18) Patient History Past Medical History: see triage record Reviewed Nursing Documentation: PMH: Agreed; PSxH: Agreed Nursing Documentation-PMH Hx Cardiac Problems: No Hx Hypertension: No Hx Pacemaker: No Hx Asthma: No Hx COPD: No Hx Diabetes: No Hx Cancer: No Hx Gastrointestinal Problems: Yes - colostomy Jun 2017 Hx Dialysis: No Hx Neurological Problems: No Hx Cerebrovascular Accident: No Hx Seizures: No Review of Systems All Other Systems: negative except mentioned in HPI Physical Exam Vital Signs Date Time Temp Pulse Resp B/P (MAP) Pulse Ox O2 Delivery O2 Flow Rate FiO2 02/03/20 23:11 98.1 79 16 143/72 (95) 97 Room Air Sp02 EP Interpretation: reviewed, normal General Appearance: well appearing, no apparent distress Head: normocephalic, atraumatic Eyes: bilateral eye PERRL, bilateral eye EOMI ENT: EOM grossly intact, no angioedema, normal voice, TMs + canals normal, uvula midline, pharyngeal erythema Neck: supple Respiratory: lungs clear, no respiratory distress Cardiovascular #1: regular rate, rhythm Gastrointestinal: non tender, soft Musculoskeletal: normal inspection Neurologic: alert, oriented x3 Psychiatric: normal inspection Skin: no rash Lymphatic: no adenopathy Medical Decision Making Diagnostic Impression: Primary Impression: pharyngitis ER Course Given the patient's complaint and presentation multiple differentials and consideration including but not limited to pharyngitis, retropharyngeal abscess peritonsillar abscess, Patient clinically does not appear septic or toxic Has benign medical evaluation there is evidence of likely pharyngitis patient placed on medications and requires close outpatient follow-up Last Vital Signs Date Time Temp Pulse Resp B/P (MAP) Pulse Ox O2 Delivery O2 Flow Rate FiO2 02/03/20 23:22 89 16 143/72 97 Room Air 02/03/20 23:11 98.1 Status: unchanged Disposition: HOME, SELF-CARE Condition: Stable Scripts Acetaminophen (Tylenol) 325 Mg Tablet 650 MG ORAL Q12HR PRN for Prn Pain/Headache/Temp > 101, #12 TAB 0 Refills Prov: Kojo Chaves DO 02/03/20 Ondansetron* (ZOFRAN*) 4 Mg Tablet 4 MG ORAL Q6H PRN for Nausea & Vomiting, #10 TAB Prov: Kojo Chaves DO 02/03/20 Clindamycin Hcl (CLINDAMYCIN HCL) 300 Mg Capsule 300 MG ORAL THREE TIMES A DAY, #21 CAP Prov: Kojo Chaves DO 02/03/20 Ref[facility]: [facility] Patient Instructions: Pharyngitis, [id number]-[id number] Additional Instructions: Patient is provided with the discharge instructions notified to follow up with primary doctor in the next 2-3 days otherwise return to the er with any worsening symptoms. Please note that this report is being documented using [employer] technology. This can lead to erroneous entry secondary to incorrect interpretation by the dictating instrument. Kojo Chaves DO Feb 03, 2020 23:35
== END 2020-02-03 23:30 | disposition home or self-care (01) ==
LOC: EMR 23:30
DX: J02.9 Acute pharyngitis, unspecified (principal); Z88.0 Allergy status to penicillin; Z91.013 Allergy to seafood
CPT/HCPCS: 99282

== ENCOUNTER 2020-08-11 09:13 | Emergency (ER) | payer OTHER ==
[~2020-08-11] VITALS: Ht 152.4 cm; Wt 59.0 kg
[~2020-08-11 09:13] MED LIST changes: +CLINDAMYCIN HC300 MG ORAL; +TYLENOL325 MG ORAL
--- NOTE | 2020-08-11 09:52 | NUR ---
ED Nurse Note:pt. had mechanical fall, and c/o right shoulder and left hand pain, she is ambulatory A/Ox4 no dizziness reported, x-ray done
[2020-08-11] MEDS ORDERED: Acetaminophen 500mg (ES) tab ORAL ONE (10:00)
[2020-08-11 10:06] VITALS: BP 135/71
[2020-08-11] MEDS ORDERED: TYLENOL EXTRA500 MG ORAL (10:41)
[2020-08-11 10:50] VITALS: BP 135/71
--- NOTE | 2020-08-11 10:50 | NUR ---
ED Nurse Note: Pt cleared by health care Provider for discharge. DC instructions/prescription was given and explained to pt and verbalized understanding of teachings. All medical deviecs such as ID band removed. Pt is AAO x4, ambulatory and left with all personal belongings.
--- NOTE | 2020-08-11 16:59 | Diagnostic Imaging Report ---
Indication: Pain Technique: 3 views left hand Comparison: none Findings: No acute fractures or dislocations. There are degenerative changes of the second through fifth distal interphalangeal joints. The bones are osteoporotic. Impression: No acute bony trauma Osteoporosis and degenerative changes
--- NOTE | 2020-08-11 17:02 | Diagnostic Imaging Report ---
Indication: Pain Technique: 3 views of the right shoulder Comparison: none Findings: There is an inferior acromial spur noted. No acute fractures. No dislocations. The joint spaces are preserved Impression: No acute process
--- NOTE | 2020-08-12 15:09 | Emergency Room Report ---
History of Present Illness General Chief Complaint: Upper Extremity Injury Source: Patient Present Illness HPI 65-year-old female presents the ED for evaluation. Complaining of right shoulder pain and left hand pain states that she was lifting some heavy plants and feels like she felt a pop in her right shoulder. Happened yesterday. States she also fell and landed on her left hand. Pain is dull, 6 out of 10, nonradiating. Denies any other injuries. No other aggravating relieving factors. Denies any other associated symptoms Allergies: Coded Allergies: PENICILLIN (Verified Allergy, Unknown, 12/01/15) SHELLFISH (Verified Allergy, Unknown, 12/01/15) Uncoded Allergies: Mints (Allergy, Unknown, 06/09/17) SEAFOOD (Allergy, Unknown, 07/20/18) COVID-19 Screening Contact w/high risk pt: No Experienced COVID-19 symptoms?: No COVID-19 Testing performed [employer]: No Patient History Past Medical History: none Past Surgical History: other - colostomy Pertinent Family History: none Social History: Denies: smoking, alcohol use, drug use Last Menstrual Period: na Now: No Immunizations: UTD Reviewed Nursing Documentation: PMH: Agreed; PSxH: Agreed Nursing Documentation-PMH Past Medical History: No History, Except For Hx Cardiac Problems: No Hx Hypertension: No Hx Pacemaker: No Hx Asthma: No Hx COPD: No Hx Diabetes: No Hx Cancer: No Hx Gastrointestinal Problems: Yes - colostomy Jun 2017 Hx Dialysis: No Hx Neurological Problems: No Hx Cerebrovascular Accident: No Hx Seizures: No Review of Systems All Other Systems: negative except mentioned in HPI Physical Exam Vital Signs Date Time Temp Pulse Resp B/P (MAP) Pulse Ox O2 Delivery O2 Flow Rate FiO2 08/11/20 09:25 98.2 67 20 135/71 (92) 97 Room Air Sp02 EP Interpretation: reviewed, normal General Appearance: no apparent distress, alert, GCS 15, non-toxic Head: normocephalic, atraumatic Eyes: bilateral eye normal inspection, bilateral eye PERRL ENT: hearing grossly normal, normal pharynx, no angioedema, normal voice Neck: full range of motion, supple/symm/no masses Respiratory: chest non-tender, lungs clear, normal breath sounds, speaking full sentences Cardiovascular #1: regular rate, rhythm, no edema Cardiovascular #2: 2+ carotid (R), 2+ carotid (L), 2+ radial (R), 2+ radial (L), 2+ dorsalis pedis (R), 2+ dorsalis pedis (L) Gastrointestinal: normal bowel sounds, non tender, soft, non-distended, no guarding, no rebound Rectal: deferred Genitourinary: normal inspection, no CVA tenderness Musculoskeletal: back normal, normal range of motion, gait/station normal, tender - R shoulder, L hand Neurologic: alert, motor strength/tone normal, oriented x3, sensory intact, responsive, speech normal Psychiatric: judgement/insight normal, memory normal, mood/affect normal, no suicidal/homicidal ideation Reflexes: 3+ bicep (R), 3+ bicep (L), 3+ tricep (R), 3+ tricep (L), 3+ knee (R), 3+ knee (L) Lymphatic: no adenopathy Procedures Splinting Splinting : Consent: Verbal Pre-Made Type: sling Pre-Proc Neuro Vasc Exam: normal Post-Proc Neuro Vasc Exam: normal Patient Tolerated: Well Complications: None Medical Decision Making Diagnostic Impression: Primary Impression: Shoulder pain Qualified Codes: M25.511 - Pain in right shoulder ER Course Hospital Course 65-year-old female presents with right shoulder pain left hand pain status post lifting heavy objects and fall Differential diagnoses include: Fracture, dislocation, sprain, contusion Clinical course Patient placed on stretcher. After initial history and physical, I ordered pain medications and Xrays of L hand R shoulder Xrays read shows no acute fracture/dislocation. placed in shoulder sling I discussed findings with patient. Safe for discharge with close outpatient follow-up. I will provide referrals Diagnosis - shoulder pain Stable and discharged to home with prescription for Tylenol. apply ice, keep elevated. weight bear as tolerated. Followup with PMD/ortho. Return to ED if symptoms recur or worsen Other X-Ray Diagnostic Results Other X-Ray Diagnostic Results #1: X-Ray ordered: L hand # of Views/Limited Vs Complete: 3 View Indication: Pain EP Interpretation: Yes Interpretation: no dislocation, no soft tissue swelling, no fractures Impression: No acute disease Electronically Signed by: Electronically signed by Rodolfo Murillo MD Other X-Ray Diagnostic Results #2: X-Ray ordered: R shoulder # of Views/Limited Vs Complete: 3 View Indication: Pain EP Interpretation: Yes Interpretation: no dislocation, no soft tissue swelling, no fractures Impression: No acute disease Electronically Signed by: Electronically signed by Rodolfo Murillo MD Last Vital Signs Date Time Temp Pulse Resp B/P (MAP) Pulse Ox O2 Delivery O2 Flow Rate FiO2 08/11/20 10:50 98.2 80 20 135/71 97 Room Air Status: improved Disposition: HOME, SELF-CARE Condition: Stable Scripts Acetaminophen* (TYLENOL EXTRA STRENGTH*) 500 Mg Tablet 500 MG ORAL Q8H PRN for Prn Headache/Temp > 101, #30 TAB 0 Refills Prov: Rodolfo Murillo MD 08/11/20 Referrals: Srinivasan Byrd MD Patient Instructions: Shoulder Sprain Rodolfo Murillo MD Aug 12, 2020 15:09
== END 2020-08-11 11:08 | disposition home or self-care (01) ==
LOC: EMR 09:45
DX: M25.511 Pain in right shoulder (principal); M25.542 Pain in joints of left hand; Z88.0 Allergy status to penicillin; Z91.013 Allergy to seafood; Z93.3 Colostomy status
CPT/HCPCS: 73030; 73130; Z7502; 99284

== ENCOUNTER 2020-10-30 13:07 | Emergency (ER) | payer OTHER ==
[~2020-10-30] VITALS: Ht 149.9 cm; Wt 61.2 kg
[2020-10-30 14:00] VITALS: BP 133/70
--- NOTE | 2020-10-30 14:32 | Emergency Room Report ---
History of Present Illness General Chief Complaint: Eye Problems Source: Medical Record Present Illness HPI 65 YO female presents to the ED c/o 08/30 in severity right upper eyelid swelling, itching and pain that has been progressive. Pt. reports feeling an insect sting or bite occur yesterday when outside in the street. Pt. reports increased tearing. Pt. denies eye pain or fb sensations. pt. denies contact lens use. Pt. denies discharge. Pt. has not taken any OTC medications in an attempt to relieve her symptoms. she denies she reports allergies to mint, PCN and shellfish. She denies rashes or blisters. She denies fevers or chills. She denies pain with eye movements. She reports also a insect bite which became red and bruised on the left wrist progressive since Tuesday. She denies swelling of the lips or tongue. Pt. with hx of gastritis. Allergies: Coded Allergies: PENICILLIN (Verified Allergy, Unknown, 12/01/15) SHELLFISH (Verified Allergy, Unknown, 12/01/15) Uncoded Allergies: Mints (Allergy, Unknown, 06/09/17) SEAFOOD (Allergy, Unknown, 07/20/18) COVID-19 Screening Contact w/high risk pt: No Experienced COVID-19 symptoms?: No COVID-19 Testing performed [employer]: No Patient History Past Medical History: see triage record Past Surgical History: none Pertinent Family History: none Now: No Reviewed Nursing Documentation: PMH: Agreed; PSxH: Agreed Nursing Documentation-PMH Past Medical History: No History, Except For Hx Cardiac Problems: No Hx Hypertension: No Hx Pacemaker: No Hx Asthma: No Hx COPD: No Hx Diabetes: No Hx Cancer: No Hx Gastrointestinal Problems: Yes - colostomy Jun 2017 Hx Dialysis: No Hx Neurological Problems: No Hx Cerebrovascular Accident: No Hx Seizures: No Review of Systems All Other Systems: negative except mentioned in HPI Physical Exam Vital Signs Date Time Temp Pulse Resp B/P (MAP) Pulse Ox O2 Delivery O2 Flow Rate FiO2 10/30/20 13:12 97.9 76 19 133/70 (91) 96 Room Air Sp02 EP Interpretation: reviewed, normal General Appearance: no apparent distress, alert, GCS 15, non-toxic Head: normocephalic, atraumatic Eyes: bilateral eye normal inspection, bilateral eye PERRL, bilateral eye EOMI - no pain, bilateral eye visual acuity - 20/50, bilateral eye other - no photophobia, no crusting noted or infestations. no conjunctival erythema or scleral injection, no blisters or sores. ENT: hearing grossly normal, normal voice Neck: full range of motion, other - no stridor Respiratory: chest non-tender, lungs clear, normal breath sounds, speaking full sentences Cardiovascular #1: regular rate, rhythm Cardiovascular #2: 2+ radial (L) Musculoskeletal: normal range of motion, gait/station normal, non-tender Neurologic: alert, motor strength/tone normal, oriented x3, sensory intact, responsive, speech normal Psychiatric: judgement/insight normal Skin: rash - Localized swelling and erythema just to upper right lid. - There is a 0.4cm erythematous and warm lesion/area on the distal left wrist, no blisters or vesicles. Lymphatic: no adenopathy Medical Decision Making PA Attestation Dr. Man is my supervising Physician whom patient management has been discussed with. Diagnostic Impression: Primary Impression: Blepharitis of eyelid of right eye Qualified Codes: H01.001 - Unspecified blepharitis right upper eyelid Additional Impression: Infected insect bite Qualified Codes: W57.XXXA - Bitten or stung by nonvenomous insect and other nonvenomous arthropods, initial encounter ER Course 65 YO female presents to the ED c/o 08/30 in severity right upper eyelid swelling, itching and pain that has been progressive. Pt. reports feeling an insect sting or bite occur yesterday when outside in the street. Pt. reports increased tearing. Pt. denies eye pain or fb sensations. pt. denies contact lens use. Pt. denies discharge. Pt. has not taken any OTC medications in an attempt to relieve her symptoms. she denies she reports allergies to mint, PCN and shellfish. She denies rashes or blisters. She denies fevers or chills. She denies pain with eye movements. She reports also a insect bite which became red and bruised on the left wrist progressive since Tuesday. She denies swelling of the lips or tongue. Pt. with hx of gastritis. Ddx considered but are not limited to: corneal abrasion, acute glaucoma, globe rupture, FB, Corneal Ulcer, conjunctivitis. Iridis Vital signs: are WNL, pt. is afebrile H&PE are most consistent with: cellulitis of the upper right eyelid/ blepharitis. ORDERS: - None required at this time. Localized swelling and erythema just to upper ri ght lid. - There is a 0.4cm erythematous and warm lesion/area on the distal left wrist, no blisters or vesicles. ED INTERVENTIONS: -Tylenol PO DISCHARGE: At this time pt. is stable for d/c to home. Will provide printed patient care instructions, and any necessary prescriptions. Care plan and follow up instructions have been discussed with the patient prior to discharge. Diclofenac opth rx'd due to pt. hx of Gastritis and Gi bleed. Swelling is localized and does not need to be systemically administered. Clinda for cellulitis: left wrist, infected insect bite- Pt. w. PCN allergy, and also wanted to avoid any potential keflex cross reactivity. Last Vital Signs Date Time Temp Pulse Resp B/P (MAP) Pulse Ox O2 Delivery O2 Flow Rate FiO2 10/30/20 13:12 97.9 76 19 133/70 (91) 96 Room Air Status: improved Disposition: HOME, SELF-CARE Condition: Stable Scripts Diphenhydramine Hcl (BENADRYL ALLERGY) 25 Mg Tablet 25 MG PO Q6HR, #30 TAB Prov: Corinne Peterson 10/30/20 Diclofenac Sodium (DICLOFENAC SODIUM*) 2.5 Ml Drops 1 DROP RIGHT EYE QID for 7 Days, #2.5 ML 0 Refills Prov: Corinne Peterson 10/30/20 Clindamycin Hcl (CLINDAMYCIN HCL) 300 Mg Capsule 300 MG ORAL FOUR TIMES A DAY for 7 Days, #28 CAP Prov: Corinne Peterson 10/30/20 Erythromycin Base (ERYTHROMYCIN*) 3.5 Gm Oint...g. 1 APPLIC RIGHT EYE TID for 5 Days, #3.5 GM 0 Refills Prov: Corinne Peterson 10/30/20 Referrals: [facility],REFERRING (PCP) Corinne Peterson Oct 30, 2020 14:31
[2020-10-30] MEDS ORDERED: ERYTHROMYCIN3.5 GM RIGHT EYE (14:42)
[2020-10-30] MEDS ORDERED: CLINDAMYCIN HC300 MG ORAL (14:42)
[2020-10-30] MEDS ORDERED: DICLOFENAC SOD2.5 ML RIGHT EYE (14:42)
[2020-10-30] MEDS ORDERED: BENADRYL ALLERG25 M1 PO (14:42)
[2020-10-30 15:06] VITALS: BP 130/68
== END 2020-10-30 15:04 | disposition home or self-care (01) ==
LOC: EMR 13:42
DX: H01.001 Unspecified blepharitis right upper eyelid (principal); S00.261A Insect bite (nonvenomous) of right eyelid and periocular area, initial encounter; W57.XXXA Bitten or stung by nonvenomous insect and other nonvenomous arthropods, initial encounter; Y93.9 Activity, unspecified; Y92.410 Unspecified street and highway as the place of occurrence of the external cause; Z88.0 Allergy status to penicillin; Z91.013 Allergy to seafood; Z93.3 Colostomy status
CPT/HCPCS: 99282